=== PATIENT | male | born 1945 | race Caucasian/White ===

== ENCOUNTER 2018-03-23 21:10 | Inpatient (IN) | payer MEDICARE, SELFPAY ==
[2018-03-23 21:11] VITALS: BP 159/92; PULSE 81; RESP 16; TEMP 37.2; O2SAT 96; BMI 36.1
--- NOTE | 2018-03-23 21:53 | CT_ITS ---
STUDY: CT ABDOMEN AND PELVIS WITHOUT CONTRAST REASON FOR EXAM: Male, 72 years old. Abdominal pain RADIATION DOSAGE (If Supplied By Facility): CTDIvol = ( 19.37 ) mGy, DLP = ( 943.85 ) mGycm TECHNIQUE: Transaxial images were obtained from the dome of the diaphragm to the symphysis pubis without oral contrast, and without intravenous contrast. Sagittal and coronal images were reconstructed. Individualized dose optimization techniques were used for this CT. COMPARISON: None. FINDINGS: The visualized lung bases are unremarkable. There are coronary artery calcifications present. There is decreased attenuation of the liver consistent with steatosis. Normal gallbladder and extrahepatic biliary system. Normal spleen. Normal pancreas. Normal bilateral adrenal glands. Normal right kidney. There is a left renal cyst. Normal visualized stomach. There are dilated loops of jejunum and ileum associated with air-fluid levels. An abrupt transition point is not visualized. Normal colon. The appendix is visualized and appears normal. There is diffuse atherosclerotic calcification of the abdominal aorta, without a demonstrated aneurysm. Normal inferior vena cava. Normal retroperitoneum. Normal urinary bladder. Normal abdominal wall. There are diffuse degenerative changes of the visualized lumbar spine. CT/Abdomen/Pelvis without Cont IMPRESSION: Small bowel obstruction. Fatty infiltration of the liver. Atherosclerosis. Degenerative changes. Electronically Signed: Razia Staton MD at 22:53 EDT Tel , Service support ,
--- NOTE | 2018-03-23 21:57 | ED.DCSUM_ITS ---
- ER Visit Summary Date of Service: 03/23/18 Chief Complaint: Abdominal pain History of Present Illness: The patient is a 72 M 3 day history of mid abdominal pain, no radicular symptoms. Nausea vomiting initially. Decreased flatus. Today to loose stools. No recent antibiotics. Sweats yesterday. No fevers. No urinary symptoms. No abdominal surgery history. Pain is 7 out of 10. Denies any groin pain. Remote tobacco. Occasional alcohol history. No other complaints. Physical Examination: General: Alert and oriented ?3, no acute distress HEENT: Normocephalic, atraumatic. Moist mucosa membranes Neck: supple, nontender. Cardiovascular: Regular rate and rhythm, no murmurs Respiratory: Normal breath sounds, symmetric, no distress Abdomen: Soft, tender mid abdomen, no guarding or rebound, negative Faria's or McBurney's tenderness. No ventral hernia palpated. Extremities: Nontender, no edema, pulses intact ?4 Neuro: no focal neurological deficits. Test Results: White count 10.6. Hemoglobin 16.3. Creatinine 1.31. Potassium 3.9. Liver enzymes normal. Lipase 74 CT abdomen pelvis: Normal appendix. Multiple dilated small bowel concerning for bowel obstruction. Emergency Department Course and Treatment: Patient tender mid abdomen, nonsurgical. Workup initiated, abdominal labs normal. CT scan did no concern for small bowel obstruction with air-fluid levels in the jejunum and ileum. Treated Zofran, morphine. IV fluids given. I discussed with on-call surgeon Dr. Juarez he will follow in the hospital. Discussed with hospitalist, Dr. Jj who will evaluate for admission. Treatment Plan: [] Disposition: Admission Impression: 1. Abdominal pain 2. Small bowel obstruction This note was generated with [employer] dictation software. It may contain incorrect words, spelling, and punctuation that were not noted in review of the chart prior to signing ED Disposition - Plan for ED Patient: Disposition: Home or Assisted Living Chief Complaint: Abd Pain Diagnosis: Abdominal pain, Small bowel obstruction Referrals: Hospital,CT [Primary Care Provider] -
[2018-03-23] MEDS: Ondansetron 4 MG/2 ML Vial IV (22:00)
[2018-03-23] MEDS: 0.9% Normal Saline 1,000 ML 150 ML IV (22:01)
[2018-03-23] MEDS: Morphine 4 MG/ML Syringe IV ×2 (22:01→23:48)
[2018-03-23 22:07] LABS: Absolute Lymphocyte Count 1.91 X10^3/ul (0.83-4.51); Absolute Neutrophil Count 7.5 X10^3/uL (2.0-7.7); Basophil# 0.03 X10^3/uL; Basophil% 0.3 % (0-1); Eosinophil# 0.13 X10^3/uL; Eosinophils% 1.2 % (0-5); Hemoglobin 16.3 g/dl (13.0-16.5); Lymphocyte # 1.91 X10^3/ul (4.0); Mean Corp Hgb Conc 34.7 g/gl (32-36); Mean Corpuscular Hgb 30.6 pg (27.0-32.0); Mean Corpuscular Volume 88.3 fL (80-94); Mean Platelet Vol. 9.3 fl (6.2-12.0); Monocyte# 1.01 X10^3/uL; Monocyte% 9.5 % (0-10); Neutrophil # 7.51 X10^3/uL (2.7-7.7); Neutrophil % 70.7 % (47-70); Platelet Count 231 K/mm3 (150-450); RBC Distribution Width CV 13.6 % (11.6-14.6); RBC Distribution Width SD 43.6 fl (35.1-43.9); Red Blood Count 5.32 M/mm3 (4.6-6.2); White Blood Count 10.6 K/mm3 (4.4-11.0)
[2018-03-23 22:41] LABS: POSITIVE COUNT NO; POSITIVE DIFFERENTIAL NO; POSITIVE MORPHOLOGY NO
--- OUTSIDE RECORDS SUMMARY | 2018-03-23 22:49 | XMS RPT_ITS | Clinical Summary ---
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 Tabatha Fabian Atherosclerosis osis of (ICD-10-CM 06/09 06/09 Brandee CHASE of coronary coronary ) artery bypass artery graft(s) bypass without angina graft(s) pectoris without angina pectoris Atheroscler I25.10 Inactive Damaris Hunter Atherosclerotic otic heart (ICD-10-CM 06/09 06/09 SALVATORE [place] heart disease disease of ) [place] coronary artery coronary without angina artery pectoris without angina pectoris BODY MASS Z68.34 Inactive Tabatha Hunter Body mass index INDEX (ICD-10-CM 05/17 05/17 [place], (BMI) 34.0-34.9 ) PA-C 34.0-34.9, ADULT adult LONG-TERM 622630382 Active Tabatha Hunter Long-term drug (CURRENT) (SNOMED 01/25 01/25 [place], therapy USE OF CT) PA-C OTHER MEDICATIONS Body Mass 596259266 Inactive Tabatha Hunter Finding of body Index (SNOMED 12/17 12/17 [place], mass index 35.0-35.9, CT) PA-C adult Body Mass 122041548 Inactive Deming S Finding of body Index (SNOMED 05/17 05/17 MD Emil mass index 36.0-36.9, CT) adult Family 751823933 Active Tabatha Elsa FH: History of (SNOMED 12/17 Donovan, Hypertension Hypertensio CT) PA-C n Body Mass 777459457 Removed Tabatha Hunter Finding of body Index (SNOMED 12/17 12/17 [place], mass index 35.0-35.9, CT) PA-C adult LONG-TERM 546972510 Inactive Sonia Palomo Long-term drug (CURRENT) (SNOMED 01/25 01/25 ANIBAL [place] La [place] therapy USE OF CT) OTHER MEDICATIONS HYPERLIPIDE 26200573 Active Beth Palomo Hyperlipidemia CELSO (SNOMED 06/09 06/09 [facility] CT) RN CAD 61045057 Inactive Beth Palomo Coronary (SNOMED 06/09 06/09 [facility] arteriosclerosi CT) RN s CORONARY 722523248 Active Beth Palomo Coronary artery ARTERY (SNOMED 06/09 06/09 [facility] bypass graft BYPASS CT) RN GRAFT, HX OF HYPERTENSIO 13905393 Active Beth Palomo Hypertensive N (SNOMED 06/09 06/[address]) RN Medications Medication Instructions Start Stop Generic Name NDC Provider Date Date ASPIRIN EC 81 MG One tablet by ASPIRIN [id number] Justin S TBEC mouth daily 06/09 MD Emil METOPROLOL TARTRATE One tablet by METOPROLOL 77645419832 Justin S 50 MG TABS mouth twice 06/09 TARTRATE MD Emil daily ZESTRIL 10 MG TABS One tablet by LISINOPRIL 93946323676 Justin S mouth daily 06/09 MD Emil SIMVASTATIN 40 MG One tablet by SIMVASTATIN 65880297498 Deming S TABS mouth at 06/09 MD Emil bedtime. HYDROCHLOROTHIAZIDE One tablet by HYDROCHLOROTHIAZID 23953781321 Deming S 25 MG TABS mouth daily 06/09 E MD Emil ZESTRIL 5 MG TABS One tablet by LISINOPRIL 19039261464 Tabatha M mouth daily 06/09 KYLEE Donovan GARLIC 400 MG TABS One tablet by GARLIC-CALCIUM 48605905458 Justin S mouth daily 06/20 MD Emil NITROSTAT 0.4 MG 1 tablet NITROGLYCERIN 02459540540 Beth K SUBL under tongue 06/09 Robert every 5 min RN up to 3 X ASPIRIN 325 MG TABS One tablet by ASPIRIN 13995391745 Beth K mouth daily 06/09 Robert CHASE OMEPRAZOLE 10 MG prn OMEPRAZOLE 62557685833 Ujstin S CPDR 06/20 MD Emil OMEPRAZOLE 10 MG prn OMEPRAZOLE 10326840893 Justin S CPDR 06/20 04/14 MD Emil PRILOSEC 20 MG CPDR One tablet by OMEPRAZOLE 61931485052 Beth K mouth daily 06/09 Robert CHASE OMEGA 3 CPDR One tablet by OMEGA-3 FATTY 34471443802 Justin S mouth daily 06/20 ACIDS CPDR MD Emil GARLIC 400 MG TABS One tablet by GARLIC-CALCIUM 44542326862 Tabatha Hunter mouth daily 06/20 KYLEE Donovan NITROGLYCERIN 0.4 MG 1 tablet NITROGLYCERIN 07746322414 Tabatha Fabian SUBL under the 06/09 Brandee RN tongue every 5 minutes times 3 as needed for chest pain. CIRT MEDICATIONS CIRT MEDICATIONS Tabatha Hunter KYLEE Donovan Medications Administered No information available. Allergies, Adverse Reactions, Alerts Allergy Name Reaction Description Start Date Severity Status Provider NKDA Mild Active Justin Stein MD Results Date Name Value Unit Range Flag Description Lab Report: LIPID VLDL 29 mg/dL 5-40 N very low density lipoproteins Office Visit: MMM CHD 10YR RSK N/A General cardiovascular disease 10Y risk [# ] [place] ORALTOBACUSE Never Tobacco smoking status NHIS CARD RSK GRP C cardiac risk group Replaced Document: [facility] ECG Observations EKG INTERP Sinus Bradycardia electrocardiogram -Right bundle branch interpretation block. ABNORMAL EKG T AXIS 57 deg T wave axis, electrocardiogram EKG QRS AXIS 75 deg QRS axis, electrocardiogram EKG PWAVAXIS 40 deg P wave axis, electrocardiogram QRS INTERVAL 142 ms QRS duration, electrocardiogram ZZ-GE-unk 444 ms GE use only - for LinkLogic import when terms are not otherwise specified QT INTERVAL new path ms QT interval, electrocardiogram OR INTERVAL 148 ms OR interval, electrocardiogram EKGHRTRATE 55 BPM heart rate on electrocardiogram Clinical Lists Update: Preload HGBA1C 6.3 % H Hemoglobin A1c/Hemoglobin.total in Blood LDL 86 mg/dL Cholesterol in LDL [Mass/volume] in Serum or Plasma HDL 33 mg/dL L Cholesterol in HDL [Mass/volume] in Serum or Plasma CHOLESTEROL 137 mg/dL Cholesterol [Mass/volume] in Serum or Plasma TRIGLYCRDES 182 mg/dL H Triglyceride [Mass/volume] in Serum or Plasma BILI DIRECT 0.1 mg/dL bilirubin, serum, direct SGOT (AST) 30 U/L aspartate aminotransferase (SGOT), serum SGPT (ALT) 51 U/L H alanine aminotransferase (SGPT), serum ALK PHOS 52 U/L alkaline phosphatase, serum BILI TOTAL 0.7 mg/dL bilirubin, serum, total ALBUMIN 3.8 g/dL albumin, serum PROTEIN, TOT 7.0 g/dL protein, total, serum GLUCOSE SER 126 mg/dL H blood glucose CALCIUM 9.0 mg/dL calcium, serum CREATININE 1.0 mg/dL creatinine, serum BUN 21 mg/dL H urea nitrogen, blood ANION GAP 11 anion gap, serum CO2 29 mmol/L carbon dioxide, venous blood CHLORIDE 105 mmol/L chloride, serum POTASSIUM 4.1 mmol/L potassium, serum SODIUM 141 mmol/L sodium, serum Office Visit SMOK STATUS Former smoker Tobacco use [facility] Office Visit: MMM DIET DISEASE CONTROL INSPECTOR yes Dietary management education, guidance, and counseling (procedure) Office Visit MEDS REVIEW Done Documentation of current medications ( procedure) FALLRSKASSES No Fall risk assessment Plan of Care Type Date Detail Appointment 10:00 AM Tabatha Donovan PA-C, [address], [address], [place], [address], Referral Cardiac Rehab Pending order MMM Pending order Follow Up Appt 6 months Pending order PVC LOADER Pending order Follow Up Appt 6 months Pending order MMM Pending order Follow Up Appt 6 months Pending order Follow Up Appt Other Pending order PVC LOADER Pending order Follow Up Appt 6 months Pending order MMM Pending order Follow Up Appt 6 months Pending order PVC LOADER Pending order Follow Up Appt 6 months Pending order *Hepatic Function Panel Pending order *Lipid Profile CC PCP Pending order X-Ray, Chest, PA & Lateral Pending order MMM Pending order Follow Up Appt 6 months Pending order *Lipid Profile CC PCP Pending order *Hepatic Function Panel Pending order PVC LOADER Pending order Follow Up Appt 6 months Pending order Follow Up Appt Other Pending order EKG (In office) Pending order MMM Pending order Follow Up Appt 3 months Pending order Treadmill stress test (no imaging) Pending order *Hepatic Function Panel Pending order *Lipid Profile CC PCP Procedures Code Procedure Name Date Entry Date F/U PVC LOADER PVC LOADER FUA 6 months Follow Up Appt 6 months F/U MMM MMM FUA 6 months Follow Up Appt 6 months F/U Appt Follow Up Appt Other F/U PVC LOADER PVC LOADER FUA 6 months Follow Up Appt 6 months F/U MMM MMM FUA 6 months Follow Up Appt 6 months [id number] SNOMED-CT: 787370650371359 Current Medications Documented F/U PVC LOADER PVC LOADER FUA 6 months Follow Up Appt 6 months 0788-1 *Hepatic Function Panel 17414-5 *Lipid Profile CC PCP CPT-89169 X-Ray, Chest, PA & Lateral F/U MMM MMM FUA 6 months Follow Up Appt 6 months 10455-6 *Lipid Profile CC PCP 0788-1 *Hepatic Function Panel CPT-G8553 eRx Transmitted during this visit (Medicare only) FUA 6 months Follow Up Appt 6 months F/U Appt Follow Up Appt Other F/U PVC LOADER PVC LOADER F/U MMM MMM FUA 3 months Follow Up Appt 3 months TST Treadmill stress test (no imaging) 0788-1 *Hepatic Function Panel 69426-0 *Lipid Profile CC PCP CPT-20535 EKG (In office) [facility] Vital Signs Date Name Value Unit Description BMI (Body Mass Index) 35.59 kg/m2 Body Mass Index [Ratio] BP Diastolic 70 mm[Hg] blood pressure, diastolic - 8462-4 BP Systolic 120 mm[Hg] blood pressure, systolic - 8480-6 Heart Rate 60 /min pulse rate E&M - 8867-4 Height 67 [in_us] height E&M - 8302-2 Respiratory Rate 18 /min respiratory rate E&M - 9279-1 Weight Measured 227.25 [lb_av] weight E&M - 3141-9 BSA (Body Surface Area) 2.13 body surface area
--- OUTSIDE RECORDS SUMMARY | 2018-03-23 22:49 | XMS RPT_ITS | Clinical Summary ---
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 without angina pectoris BODY MASS Z68.34 Inactive Tabatha Hunter Body mass index INDEX (ICD-10-CM 05/17 05/17 [place], (BMI) 34.0-34.9 ) PA-C 34.0-34.9, ADULT adult LONG-TERM 534001840 Active Tabatha Hunter Long-term drug (CURRENT) (SNOMED 01/25 01/25 Zion, therapy USE OF CT) PA-C OTHER MEDICATIONS Body Mass 724419620 Inactive Tabatha Hunter Finding of body Index (SNOMED 12/17 12/17 [place], mass index 35.0-35.9, CT) PA-C adult Body Mass 508889781 Inactive [place] S Finding of body Index (SNOMED 05/17 05/17 MD Emil mass index 36.0-36.9, CT) adult Family 370356120 Active Tabatha Elsa FH: History of (SNOMED 12/17 Donovan, Hypertension Hypertensio CT) PA-C n Body Mass 658934917 Removed Tabatha Hunter Finding of body Index (SNOMED 12/17 12/17 [place], mass index 35.0-35.9, CT) PA-C adult LONG-TERM 168022822 Inactive Sonia Palomo Long-term drug (CURRENT) (SNOMED 01/25 01/25 ANIBAL De La Rosa therapy USE OF CT) OTHER MEDICATIONS HYPERLIPIDE 12011554 Active Beth Palomo Hyperlipidemia CELSO (SNOMED 06/09 06/09 [facility] CT) RN CAD 42043059 Inactive Beth Palomo Coronary (SNOMED 06/09 06/09 [facility] arteriosclerosi CT) RN s CORONARY 705021844 Active Beth Palomo Coronary artery ARTERY (SNOMED 06/09 06/09 [facility] bypass graft BYPASS CT) RN GRAFT, HX OF HYPERTENSIO 81030965 Active Beth Palomo Hypertensive N (SNOMED 06/09 06/[address]) RN Medications Medication Instructions Start Stop Generic Name NDC Provider Date Date ASPIRIN EC 81 MG One tablet by ASPIRIN 02015228148 Justin S TBEC mouth daily 06/09 MD Emil METOPROLOL TARTRATE One tablet by METOPROLOL 94217853470 Justin S 50 MG TABS mouth twice 06/09 TARTRATE MD Emil daily ZESTRIL 10 MG TABS One tablet by LISINOPRIL 53662447686 Justin S mouth daily 06/09 MD Emil SIMVASTATIN 40 MG One tablet by SIMVASTATIN 88642073946 [place] [facility] TABS mouth at 06/09 MD Emil bedtime. HYDROCHLOROTHIAZIDE One tablet by HYDROCHLOROTHIAZID 96795707190 [place] 25 MG TABS mouth daily 06/09 E MD Emil ZESTRIL 5 MG TABS One tablet by LISINOPRIL 99768740438 Tabatha M mouth daily 06/09 KYLEE Donovan GARLIC 400 MG TABS One tablet by GARLIC-CALCIUM 16581291468 Justin S mouth daily 06/20 MD Emil NITROSTAT 0.4 MG 1 tablet NITROGLYCERIN 83519787364 Beth K SUBL under tongue 06/09 Robert every 5 min RN up to 3 X ASPIRIN 325 MG TABS One tablet by ASPIRIN 75739255142 Beth K mouth daily 06/09 Robert CHAES OMEPRAZOLE 10 MG prn OMEPRAZOLE 66327773922 Justin S CPDR 06/20 MD Emil OMEPRAZOLE 10 MG prn OMEPRAZOLE 88749884516 Justin S CPDR 06/20 04/14 MD Emil PRILOSEC 20 MG CPDR One tablet by OMEPRAZOLE 05361028107 Beth K mouth daily 06/09 Robert CHASE OMEGA 3 CPDR One tablet by OMEGA-3 FATTY 99169765195 Justin S mouth daily 06/20 ACIDS CPDR MD Emil GARLIC 400 MG TABS One tablet by GARLIC-CALCIUM 42247829657 Tabatha Hunter mouth daily 06/20 KYLEE Donovan NITROGLYCERIN 0.4 MG 1 tablet NITROGLYCERIN 96823153639 Tabatha Fabian SUBL under the 06/09 Brandee [...] General cardiovascular disease 10Y risk [# ] [place]D'Agostino ORALTOBACUSE Never Tobacco smoking status NHIS CARD [...] INTERVAL new path ms QT interval, electrocardiogram [place] INTERVAL 148 ms [place] interval, electrocardiogram EKGHRTRATE 55 BPM heart rate [...] Visit SMOK STATUS Former smoker Tobacco use [facility] Office Visit: MMM DIET TRANSITION OF CARE SPECIALIST yes Dietary management education, guidance, and counseling (procedure) Office Visit MEDS REVIEW Done Documentation of current medications ( procedure) FALLRSKASSES No Fall risk assessment Plan of Care Type Date Detail Appointment 10:00 AM Tabatha Donovan PA-C, [address], [address], [place], [address], Referral Cardiac Rehab Pending order MMM Pending order Follow Up Appt 6 months Pending order SCIENTIFIC SYSTEMS ANALYST Pending order Follow Up Appt 6 months Pending order MMM Pending order Follow Up Appt 6 months Pending order Follow Up Appt Other Pending order SCIENTIFIC SYSTEMS ANALYST Pending order Follow Up Appt 6 months Pending order MMM Pending order Follow Up Appt 6 months Pending order SCIENTIFIC SYSTEMS ANALYST Pending order Follow Up Appt 6 months Pending order *Hepatic Function Panel Pending order *Lipid Profile CC PCP Pending order X-Ray, Chest, PA & Lateral Pending order MMM Pending order Follow Up Appt 6 months Pending order *Lipid Profile CC PCP Pending order *Hepatic Function Panel Pending order SCIENTIFIC SYSTEMS ANALYST Pending order Follow Up Appt 6 months Pending order Follow Up Appt Other Pending order EKG (In office) Pending order MMM Pending order Follow Up Appt 3 months Pending order Treadmill stress test (no imaging) Pending order *Hepatic Function Panel Pending order *Lipid Profile CC PCP Procedures Code Procedure Name Date Entry Date F/U SCIENTIFIC SYSTEMS ANALYST SCIENTIFIC SYSTEMS ANALYST FUA 6 months Follow Up Appt 6 months F/U MMM MMM FUA 6 months Follow Up Appt 6 months F/U Appt Follow Up Appt Other F/U SCIENTIFIC SYSTEMS ANALYST SCIENTIFIC SYSTEMS ANALYST FUA 6 months Follow Up Appt 6 months F/U MMM MMM FUA 6 months Follow Up Appt 6 months [id number]-[id number] SNOMED-CT: 639383626992833 Current Medications Documented F/U SCIENTIFIC SYSTEMS ANALYST SCIENTIFIC SYSTEMS ANALYST FUA 6 months Follow Up Appt 6 months 0788-1 *Hepatic Function Panel 56062-3 *Lipid Profile CC PCP CPT-14830 X-Ray, Chest, PA & Lateral F/U MMM MMM FUA 6 months Follow Up Appt 6 months 68024-7 *Lipid Profile CC PCP 0788-1 *Hepatic Function Panel CPT-G8553 eRx Transmitted during this visit (Medicare only) FUA 6 months Follow Up Appt 6 months F/U Appt Follow Up Appt Other F/U SCIENTIFIC SYSTEMS ANALYST SCIENTIFIC SYSTEMS ANALYST F/U MMM MMM FUA 3 months Follow Up Appt 3 months TST Treadmill stress test (no imaging) 0788-1 *Hepatic Function Panel 50142-8 *Lipid Profile CC PCP CPT-98556 EKG (In office) [facility] Vital [...]
[2018-03-23 22:51] LABS: ALB/GLOB Ratio 1.2 RATIO (0.9-2.4); AST(SGOT) 21 U/L (15-37); Alanine Aminotransfer ALT/SGPT 41 U/L (16-61); Albumin, Serum 3.6 g/dL (3.2-5.0); Alkaline Phosphatase 50 U/L (45-117); Anion Gap 9 (5-15); BUN 26 mg/dL (7-18); BUN/Creat Ratio 19.8 RATIO (10-20); Bilirubin, Direct 0.18 mg/dL (0.00-0.30); Calcium,Total 8.9 mg/dL (8.5-10.1); Chloride 103 mmol/L (98-107); Creatinine, Serum 1.31 mg/dL (0.70-1.30); EST Glomerular Filtration Rate 57 mL/min (>60); Est Glom Filt Rate - Afr Amer 69 mL/min (>60); Estimated Creatinine Clearance 49.06 ml/min; Globulin 3.1 g/dL (2.2-4.2); Glucose 115 mg/dL (74-106); Potassium 3.9 mmol/L (3.5-5.1); Protein, Total 6.7 g/dL (6.4-8.2); Sodium Level 136 mmol/L (136-145)
[2018-03-23 23:31] LABS: Lipase 74 U/L (73-393)
[2018-03-23 23:33] VITALS: BP 139/75; PULSE 76; RESP 16; O2SAT 95
[2018-03-23 23:50] VITALS: BP 139/75; PULSE 76; RESP 16; O2SAT 95
[2018-03-24] VITALS (11 sets, daily range): BP systolic 146–178; BP diastolic 78–96; PULSE 75–99; RESP 16–18; TEMP 36.6–37.1; O2SAT 93–99; BMI 35.5; BMI 35.6
--- NOTE | 2018-03-24 00:17 | PCM.HP.STD ---
Problem List (1) Status post coronary artery bypass graft Status: Chronic (2) Coronary artery disease Status: Chronic (3) Hyperlipidemia Status: Chronic (4) Hypertension Status: Chronic (5) Small bowel obstruction Status: Acute History of Present Illness Date of Admission: 03/24/18 Chief Complaint: Abdominal pain. The patient is a 72 year old M with past medical history as mentioned above presented to the emergency room because of abdominal pain. His illness started 2 days ago with mid abdominal pain, just above the umbilicus, diffuse, sharp pain, 8 out of 10 in severity, not radiating, associated with nausea and vomiting on the first day and since then, has no more nausea vomiting. He has been having alternating constipation and diarrhea, last bowel movement was today and he has been not passing any flatus. He denied chest pain or shortness of breath. Denied fever chills. In the emergency room, his vital signs are stable. His routine blood work was remarkable for creatinine of 1.31, otherwise normal. LFT and lipase were normal. CT scan abdomen and pelvis without contrast revealed findings consistent with small bowel obstruction. He is being admitted for small bowel obstruction. Past Medical History Past Medical History (Chronic Problems): Chronic Problems Status post coronary artery bypass graft (Chronic) Coronary artery disease (Chronic) Hyperlipidemia (Chronic) Hypertension (Chronic) Allergies No Known Allergies Allergy (Verified 03/23/18 21:10) Home Medications: Ambulatory Orders Medication Instructions Recorded Hydrochlorothiazide [Hctz] 25 mg PO DAILY 10/14/17 Lisinopril [Zestril] 10 mg PO DAILY 10/14/17 Metoprolol Tartrate [Lopressor 50 mg PO BID 10/14/17 (beta sadaf)] simvastatin 40 mg tablet 40 mg PO QHS #90 tab 11/26/17 Surgical History: coronary bypass surgery Psychiatric History: No pertinent psych hx Lives: Spouse/ Significant Other Smoking Status: Former smoker Alcohol: None Drugs: None - *Family History Maternal History Items: No pertinent history Paternal History Items: No pertinent history Review of Systems Constitutional: Denies: Anorexia, Chills, Fever, Weakness Eyes: Denies: Blurred vision, Double vision, Drainage, Redness HEENT: Denies: Difficulty Hearing, Ear Pain, Eye Pain, Nasal Congestion, Sore Throat Cardiovascular: Denies: Chest Pain, Chest Pressure, Chest Tightness, Edema, Heaviness, Palpitations, Syncope Respiratory: Denies: Cough, Pleuritic Pain, Shortness of Breath, Sputum production, Wheezing Gastrointestinal: Reports: Abdominal Pain, Constipation, Diarrhea, Nausea, Vomiting Genitourinary: Denies: Dysuria, Frequency, Hematuria Musculoskeletal: Denies: Arm Pain, Back Pain, Foot Pain Skin: Denies: Dryness, Rash Neurological: Denies: Balance problems, Double vision, Change in Speech, Slurred speech, Confusion, Focal weakness, Headaches, Incoordination Psychiatric: Denies: Anxiety, Depression Endocrine: Denies: Change in Body Habitus, Polydipsia VTE Information - Inpt Only VTE Present on Admission: No VTE Mechan Device Prophylaxis: None VTE Pharm Prophylaxis ordered?: Yes Patient Problems: Active and Suspected Problems Small bowel obstruction (Acute) - Physical Exam General: Alert, Oriented x3, Cooperative, No apparent distress HEENT: Atraumatic, PERRLA, EOMI Oral: Moist Mucosa, No Gingival or Mucosal Lesions/ Ulcerations Neck: Supple, No JVD, Negative Carotid Bruits, Trachea Midline, Thyroid Normal Size and Texture Lungs: Clear to auscultation, No rhonchi, No wheeze, No rales, Diminished Cardiovascular: Regular rate, Regular Rhythm, Normal S1, Normal S2, No murmurs Abdomen: Bowel Sounds Present, Soft, Non-Distended, No Hepato-splenomegaly, Tender - Minimal epigastric tenderness, no guarding or rigidity. Extremities: No clubbing, No cyanosis, No edema Skin: No rashes, No breakdown Lymphatic: No Cervical, Supraclavicular, or Inguinal Adenopathy Neurological: Cranial nerves II-XII grossly intact, Motor Exam 5/5 strength throughout Psych/Mental Status: Normal Affect, Appropriate, Alert and oriented to time, place, person, mood and affect Vital Signs Temp Pulse Resp BP Pulse Ox 99.0 F 76 16 139/75 H 95 03/23/18 21:11 03/23/18 23:50 03/23/18 23:50 03/23/18 23:50 03/23/18 23:50 Laboratory Tests 03/23/18 03/23/18 03/23/18 Range/Units 22:15 22:15 21:45 WBC (4.4-11.0) K/mm3 RBC (4.6-6.2) M/mm3 Hgb (13.0-16.5) g/dl Hct (40-54) % MCV (80-94) fL MCH (27.0-32.0) pg MCHC (32-36) g/gl RDW (11.6-14.6) % RDW Differential (35.1-43.9) fl Plt Count (150-450) K/mm3 MPV (6.2-12.0) fl Immature Gran % (Auto) (0.0-0.9) % Neut % (Auto) (47-70) % Lymph % (Auto) (19-41) % [place] % (Auto) (0-10) % Eos % (Auto) (0-5) % Baso % (Auto) (0-1) % Absolute Neuts (auto) (2.0-7.7) X10^3/uL Absolute Lymphs (auto) (0.83-4.51) X10^3/ul Total Counted Sodium 136 Cancelled Potassium 3.9 Cancelled Chloride 103 Cancelled Carbon Dioxide 24.0 Cancelled Anion Gap 9 Cancelled BUN 26 H Cancelled Creatinine 1.31 H Cancelled Estim Creat Clear Calc 49.06 Cancelled Est GFR (MDRD) Af Amer 69 Cancelled Est GFR (MDRD) Non-Af 57 L Cancelled BUN/Creatinine Ratio 19.8 Cancelled Glucose 115 H Cancelled Calcium 8.9 Cancelled Total Bilirubin 0.70 Cancelled Direct Bilirubin 0.18 Cancelled AST 21 Cancelled ALT 41 Cancelled Alkaline Phosphatase 50 Cancelled Total Protein 6.7 Cancelled Albumin 3.6 Cancelled Globulin 3.1 Cancelled Albumin/Globulin Ratio 1.2 Cancelled Lipase 74 (73-393) U/L 03/23/18 Range/Units 21:45 WBC 10.6 (4.4-11.0) K/mm3 RBC 5.32 (4.6-6.2) M/mm3 Hgb 16.3 (13.0-16.5) g/dl Hct 47.0 (40-54) % MCV 88.3 (80-94) fL MCH 30.6 (27.0-32.0) pg MCHC 34.7 (32-36) g/gl RDW 13.6 (11.6-14.6) % RDW Differential 43.6 (35.1-43.9) fl Plt Count 231 (150-450) K/mm3 MPV 9.3 (6.2-12.0) fl Immature Gran % (Auto) 0.300 (0.0-0.9) % Neut % (Auto) 70.7 H (47-70) % Lymph % (Auto) 18.0 L (19-41) % [place] % (Auto) 9.5 (0-10) % Eos % (Auto) 1.2 (0-5) % Baso % (Auto) 0.3 (0-1) % Absolute Neuts (auto) 7.5 (2.0-7.7) X10^3/uL Absolute Lymphs (auto) 1.91 (0.83-4.51) X10^3/ul Total Counted Not Reportable Sodium Potassium Chloride Carbon Dioxide Anion Gap BUN Creatinine Estim Creat Clear Calc Est GFR (MDRD) Af Amer Est GFR (MDRD) Non-Af BUN/Creatinine Ratio Glucose Calcium Total Bilirubin Direct Bilirubin AST ALT Alkaline Phosphatase Total Protein Albumin Globulin Albumin/Globulin Ratio Lipase (73-393) U/L Clinical Impression(s) from Imaging Studies Abdomen/Pelvis CT 03/23/18 21:53 IMPRESSION: Small bowel obstruction. Fatty infiltration of the liver. Atherosclerosis. Degenerative changes. Electronically Signed: Razia Staton MD at 22:53 EDT Tel , Service support , Assessment/Plan Active and Suspected Problems Small bowel obstruction (Acute) This is a 72 years old male patient presented to the emergency room because of abdominal pain with nausea and vomiting and he was found to have small bowel obstruction. #1 small bowel obstruction: Unclear etiology, without history of prior abdominal surgeries. CT scan abdomen and pelvis reviewed. Routine blood work was remarkable for BUN of 26 and creatinine 1.31. LFT and lipase were normal. Plan: Admit to MedSurg floor, on n.p.o., IV fluids, IV morphine as needed for pain, IV antiemetics, replace electrolytes as appropriate, repeat KUB tomorrow morning, general surgery consult. #2 dehydration: Secondary to above. Unknown baseline kidney function. BUN and creatinine are slightly elevated. Plan for IV fluids, input output chart, repeat BMP tomorrow morning. #3 CAD status post CABG: Patient denies any chest pain or shortness of breath. Plan for routine EKG, start IV metoprolol, hold lisinopril and statins. #4 hypertension: Blood pressure stable, hold oral medications, start IV morphine every 6 hours, IV hydralazine as needed. #5 hyperlipidemia: Hold statins. #6 DVT prophylaxis: Subcu Lovenox. This note was generated with [employer] dictation software. It may contain incorrect words, spelling, and punctuation that were not noted in checking the note before signing. Code Visit Inpatient E&M: 40095 Init Hosp L3
--- NOTE | 2018-03-24 00:22 | HP.PCM_ITS ---
Problem List (1) Status post coronary artery bypass graft Status: Chronic (2) Coronary artery disease Status: Chronic (3) Hyperlipidemia Status: Chronic (4) Hypertension Status: Chronic (5) Small bowel obstruction Status: Acute History of Present Illness Date of Admission: 03/24/18 Chief Complaint: Abdominal pain. The patient is a 72 year old M with past medical history as mentioned above presented to the emergency room because of abdominal pain. His illness started 2 days ago with mid abdominal pain, just above the umbilicus, diffuse, sharp pain, 8 out of 10 in severity, not radiating, associated with nausea and vomiting on the first day and since then, has no more nausea vomiting. He has been having alternating constipation and diarrhea, last bowel movement was today and he has been not passing any flatus. He denied chest pain or shortness of breath. Denied fever chills. In the emergency room, his vital signs are stable. His routine blood work was remarkable for creatinine of 1.31 , otherwise normal. LFT and lipase were normal. CT scan abdomen and pelvis without contrast revealed findings consistent with small bowel obstruction. He is being admitted for small bowel obstruction. Past Medical History Past Medical History (Chronic Problems): Chronic Problems Status post coronary artery bypass graft (Chronic) Coronary artery disease (Chronic) Hyperlipidemia (Chronic) Hypertension (Chronic) Allergies No Known Allergies Allergy (Verified 03/23/18 21:10) Home Medications: Ambulatory Orders Medication Instructions Recorded Hydrochlorothiazide [Hctz] 25 mg PO DAILY 10/14/17 Lisinopril [Zestril] 10 mg PO DAILY 10/14/17 Metoprolol Tartrate [Lopressor 50 mg PO BID 10/14/17 (beta asdaf)] simvastatin 40 mg tablet 40 mg PO QHS #90 tab 11/26/17 Surgical History: coronary bypass surgery Psychiatric History: No pertinent psych hx Lives: Spouse/ Significant Other Smoking Status: Former smoker Alcohol: None Drugs: None - *Family History Maternal History Items: No pertinent history Paternal History Items: No pertinent history Review of Systems Constitutional: Denies: Anorexia, Chills, Fever, Weakness Eyes: Denies: Blurred vision, Double vision, Drainage, Redness HEENT: Denies: Difficulty Hearing, Ear Pain, Eye Pain, Nasal Congestion, Sore Throat Cardiovascular: Denies: Chest Pain, Chest Pressure, Chest Tightness, Edema, Heaviness, Palpitations, Syncope Respiratory: Denies: Cough, Pleuritic Pain, Shortness of Breath, Sputum production, Wheezing Gastrointestinal: Reports: Abdominal Pain, Constipation, Diarrhea, Nausea, Vomiting Genitourinary: Denies: Dysuria, Frequency, Hematuria Musculoskeletal: Denies: Arm Pain, Back Pain, Foot Pain Skin: Denies: Dryness, Rash Neurological: Denies: Balance problems, Double vision, Change in Speech, Slurred speech, Confusion, Focal weakness, Headaches, Incoordination Psychiatric: Denies: Anxiety, Depression Endocrine: Denies: Change in Body Habitus, Polydipsia VTE Information - Inpt Only VTE Present on Admission: No VTE Mechan Device Prophylaxis: None VTE Pharm Prophylaxis ordered?: Yes Patient Problems: Active and Suspected Problems Small bowel obstruction (Acute) - Physical Exam General: Alert, Oriented x3, Cooperative, No apparent distress HEENT: Atraumatic, PERRLA, EOMI Oral: Moist Mucosa, No Gingival or Mucosal Lesions/ Ulcerations Neck: Supple, No JVD, Negative Carotid Bruits, Trachea Midline, Thyroid Normal Size and Texture Lungs: Clear to auscultation, No rhonchi, No wheeze, No rales, Diminished Cardiovascular: Regular rate, Regular Rhythm, Normal S1, Normal S2, No murmurs Abdomen: Bowel Sounds Present, Soft, Non-Distended, No Hepato-splenomegaly, Tender - Minimal epigastric tenderness, no guarding or rigidity. Extremities: No clubbing, No cyanosis, No edema Skin: No rashes, No breakdown Lymphatic: No Cervical, Supraclavicular, or Inguinal Adenopathy Neurological: Cranial nerves II-XII grossly intact, Motor Exam 5/5 strength throughout Psych/Mental Status: Normal Affect, Appropriate, Alert and oriented to time, place, person, mood and affect Vital Signs Temp Pulse Resp BP Pulse Ox 99.0 F 76 16 139/75 H 95 03/23/18 21:11 03/23/18 23:50 03/23/18 23:50 03/23/18 23:50 03/23/18 23:50 Laboratory Tests 3 03/23/18 03/23/18 03/23/18 Range/Units 22:15 22:15 21:45 WBC (4.4-11.0) K/mm3 RBC (4.6-6.2) M/mm3 Hgb (13.0-16.5) g/dl Hct (40-54) % MCV (80-94) fL MCH (27.0-32.0) pg MCHC (32-36) g/gl RDW (11.6-14.6) % RDW Differential (35.1-43.9) fl Plt Count (150-450) K/mm3 MPV (6.2-12.0) fl Immature Gran % (Auto) (0.0-0.9) % Neut % (Auto) (47-70) % Lymph % (Auto) (19-41) % [place] % (Auto) (0-10) % Eos % (Auto) (0-5) % Baso % (Auto) (0-1) % Absolute Neuts (auto) (2.0-7.7) X10^3/uL Absolute Lymphs (auto) (0.83-4.51) X10^3/ul Total Counted Sodium 136 Cancelled Potassium 3.9 Cancelled Chloride 103 Cancelled Carbon Dioxide 24.0 Cancelled Anion Gap 9 Cancelled BUN 26 H Cancelled Creatinine 1.31 H Cancelled Estim Creat Clear Calc 49.06 Cancelled Est GFR (MDRD) Af Amer 69 Cancelled Est GFR (MDRD) Non-Af 57 L Cancelled BUN/Creatinine Ratio 19.8 Cancelled Glucose 115 H Cancelled Calcium 8.9 Cancelled Total Bilirubin 0.70 Cancelled Direct Bilirubin 0.18 Cancelled AST 21 Cancelled ALT 41 Cancelled Alkaline Phosphatase 50 Cancelled Total Protein 6.7 Cancelled Albumin 3.6 Cancelled Globulin 3.1 Cancelled Albumin/Globulin Ratio 1.2 Cancelled Lipase 74 (73-393) U/L 3 03/23/18 Range/Units 21:45 WBC 10.6 (4.4-11.0) K/mm3 RBC 5.32 (4.6-6.2) M/mm3 Hgb 16.3 (13.0-16.5) g/dl Hct 47.0 (40-54) % MCV 88.3 (80-94) fL MCH 30.6 (27.0-32.0) pg MCHC 34.7 (32-36) g/gl RDW 13.6 (11.6-14.6) % RDW Differential 43.6 (35.1-43.9) fl Plt Count 231 (150-450) K/mm3 MPV 9.3 (6.2-12.0) fl Immature Gran % (Auto) 0.300 (0.0-0.9) % Neut % (Auto) 70.7 H (47-70) % Lymph % (Auto) 18.0 L (19-41) % [place] % (Auto) 9.5 (0-10) % Eos % (Auto) 1.2 (0-5) % Baso % (Auto) 0.3 (0-1) % Absolute Neuts (auto) 7.5 (2.0-7.7) X10^3/uL Absolute Lymphs (auto) 1.91 (0.83-4.51) X10^3/ul Total Counted Not Reportable Sodium Potassium Chloride Carbon Dioxide Anion Gap BUN Creatinine Estim Creat Clear Calc Est GFR (MDRD) Af Amer Est GFR (MDRD) Non-Af BUN/Creatinine Ratio Glucose Calcium Total Bilirubin Direct Bilirubin AST ALT Alkaline Phosphatase Total Protein Albumin Globulin Albumin/Globulin Ratio Lipase (73-393) U/L Clinical Impression(s) from Imaging Studies Abdomen/Pelvis CT 03/23/18 21:53 IMPRESSION: Small bowel obstruction. Fatty infiltration of the liver. Atherosclerosis. Degenerative changes. Electronically Signed: Razia Staton MD at 22:53 EDT Tel , Service support , Assessment/Plan Active and Suspected Problems Small bowel obstruction (Acute) This is a 72 years old male patient presented to the emergency room because of abdominal pain with nausea and vomiting and he was found to have small bowel obstruction. #1 small bowel obstruction: Unclear etiology, without history of prior abdominal surgeries. CT scan abdomen and pelvis reviewed. Routine blood work was remarkable for BUN of 26 and creatinine 1.31. LFT and lipase were normal. Plan: Admit to MedSurg floor, on n.p.o., IV fluids, IV morphine as needed for pain, IV antiemetics, replace electrolytes as appropriate, repeat KUB tomorrow morning, general surgery consult. #2 dehydration: Secondary to above. Unknown baseline kidney function. BUN and creatinine are slightly elevated. Plan for IV fluids, input output chart, repeat BMP tomorrow morning. #3 CAD status post CABG: Patient denies any chest pain or shortness of breath. Plan for routine EKG, start IV metoprolol, hold lisinopril and statins. #4 hypertension: Blood pressure stable, hold oral medications, start IV morphine every 6 hours, IV hydralazine as needed. #5 hyperlipidemia: Hold statins. #6 DVT prophylaxis: Subcu Lovenox. This note was generated with [employer] dictation software. It may contain incorrect words, spelling, and punctuation that were not noted in checking the note before signing. Code Visit Inpatient E&M: 10588 Init Hosp L3
--- NOTE | 2018-03-24 00:39 | EKG12_ITS ---
Test Reason : AM Blood Pressure : / mmHG Vent. Rate : 088 BPM Atrial Rate : 088 BPM P-R Int : 152 ms QRS Dur : 148 ms QT Int : 406 ms P-R-T Axes : 048 093 054 degrees QTc Int : 491 ms Normal sinus rhythm Right bundle branch block Abnormal ECG No previous ECGs available Confirmed by JOEL DUNN, BEN ([id number]), editor book CEDRIC GREGORIO ([id number] on 04/02/2018 2:26:02 PM Referred By: NARENDRA Confirmed By:BEN MALDONADO MD
[2018-03-24] MEDS: 0.9% Normal Saline 1,000 ML 100 ML IV ×3 (00:59→18:49)
[2018-03-24] MEDS: Morphine 4 MG/ML Syringe 2 MG IV ×6 (01:11→22:02)
[2018-03-24] MEDS: proMETHazine 25 MG/ML Syringe 6.25 MG IV ×2 (01:11→08:50)
[2018-03-24] MEDS: Metoprolol Tartrate 5 MG/5 ML Vial IV ×3 (05:01→18:32)
--- NOTE | 2018-03-24 05:55 | RAD_ITS ---
STUDY: X-RAY - ABDOMEN/PELVIS REASON FOR EXAM: Male, 72 years old. SMALL BOWEL OBSTRUCTION TECHNIQUE: Two AP supine views of the abdomen and pelvis. COMPARISON: None. FINDINGS: Normal visualized lung bases. There is a mild gaseous distention of the small bowel in the upper abdomen is improved since the previous study suggesting resolving bowel obstruction. There is no demonstrated free abdominal air. The visualized liver, spleen and kidneys are grossly normal in size and morphology. Normal soft tissue structures. There are diffuse degenerative changes of the visualized lumbar spine. RAD/Abdomen Single View (Portable) IMPRESSION: Resolving small bowel obstruction. Electronically Signed: Gail Gonzalez MD at 8:52 EDT Tel , Service support ,
[2018-03-24 06:16] LABS: Anion Gap 8 (5-15); BUN 26 mg/dL (7-18); BUN/Creat Ratio 23.4 RATIO (10-20); Calcium,Total 8.3 mg/dL (8.5-10.1); Chloride 105 mmol/L (98-107); Creatinine, Serum 1.11 mg/dL (0.70-1.30); EST Glomerular Filtration Rate 70 mL/min (>60); Est Glom Filt Rate - Afr Amer 84 mL/min (>60); Glucose 150 mg/dL (74-106); Sodium Level 138 mmol/L (136-145)
--- NOTE | 2018-03-24 07:43 | PCM.CONS.GEN ---
Problem List (1) Small bowel obstruction Status: Acute Reason for Consult Date of Consultation: 03/24/18 Reason for Consultation: Abdominal pain. Nausea. Small bowel obstruction. History of Present Illness: The patient is a 72 year old M who presents with abdominal pain and nausea x 2. Patient notes he was at [place] this weekend. He noted his symptoms started on Thursday. He woke up Thursday morning with abdominal pain, nausea, vomiting episode x 1. Patient noted he came home on Thursday. He has a liquidy, dark black bowel movement on Thursday. His symptoms continued and he presented to the ED last night. He denies vomiting, nausea. He continues to note abdominal discomfort. His last solid bowel movement was Thursday morning. He denies previous episodes of small bowel obstruction. He denies previous abdominal surgeries. He denies previous concerns with constipation or diarrhea. He denies melena, bright red blood per rectum. He is not passing flatus. He has not had bowel movement since admission. Patient noted he was scheduled for a colonoscopy mid March at [facility]. Patient denies shortness of breath, chest pain. Patient notes history of CABG x [address] 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 Patient denies past history of myocardial infraction, stroke, blood clots. Patient is maintained on a daily 81 mg aspirin. Patient is a previous smoker, however quit in 2011 following his CABG. He consumes 2 glasses of wine per night x 5 years. Prior to the CABG he was consuming much more alcohol. He denies illicit drug use. Past Medical History Past Medical History (Chronic Problems): Chronic Problems Status post coronary artery bypass graft (Chronic) Coronary artery disease (Chronic) Hyperlipidemia (Chronic) Hypertension (Chronic) Allergies No Known Allergies Allergy (Verified 03/23/18 21:10) Home Medications: Ambulatory Orders Medication Instructions Recorded Hydrochlorothiazide [Hctz] 25 mg PO DAILY 10/14/17 Lisinopril [Zestril] 10 mg PO DAILY 10/14/17 Metoprolol Tartrate [Lopressor 50 mg PO BID 10/14/17 (beta sadaf)] simvastatin 40 mg tablet 40 mg PO QHS #90 tab 11/26/17 Surgical History: coronary bypass surgery Psychiatric History: No pertinent psych hx Lives: Spouse/ Significant Other Smoking Status: Former smoker Alcohol: None Drugs: None - *Family History Maternal History Items: No pertinent history Paternal History Items: No pertinent history Review of Systems Constitutional: Denies: Chills, Fever, Weight Change HEENT: Denies: Head Aches, Sinus Congestion, Sinus Drainage Cardiovascular: Denies: Chest Pain, Palpitations Respiratory: Denies: Cough, Shortness of breath at rest, Sputum production Gastrointestinal: Reports: Abdominal Pain, Constipation, Nausea, Melena. Denies: Hematochezia, Vomiting Genitourinary: Denies: Dysuria Musculoskeletal: Denies: Joint Pain, Joint Tenderness Skin: Denies: Rash, Wounds Neurological: Denies: Numbness, Tingling, Focal weakness Psychiatric: Denies: Anxiety, Depression, Homicidal Ideations, Suicidal Ideations Hematologic/ Lymphatic: Denies: Easy Bruising, Easy Bleeding, Hx of blood clot, Hx of blood transfusion Patient Problems: Active and Suspected Problems Small bowel obstruction (Acute) - Physical Exam General: Alert, Oriented x3, Cooperative HEENT: Atraumatic, PERRLA, EOMI, Normocephalic Neck: Supple, No JVD, Negative Carotid Bruits Lungs: Clear to auscultation, Normal air movement Cardiovascular: Regular rate, No murmurs Abdomen: Hypoactive Bowel Sounds, Distended, Tender - epigastric/midabdomen Extremities: No edema, Capillary Refill Less than 3 Seconds Skin: No rashes, No breakdown Musculoskeletal: No Tenderness to Palpation of Joints or Extremities Neurological: Neuro grossly intact Psych/Mental Status: Normal Affect, Appropriate Vital Signs Temp Pulse Resp BP Pulse Ox 97.8 F 91 18 178/89 H 99 03/24/18 05:04 03/24/18 05:04 03/24/18 05:04 03/24/18 05:04 03/24/18 05:04 Oxygen Flow Rate (L/min) 2 Oxygen Delivery Method Nasal Cannula Weight: 227 lb Body Mass Index (BMI) 35.5 Intake and Output for Last 24 Hours 03/22/18 03/23/18 03/24/18 23:59 23:59 23:59 Intake Total 470 / 470 Balance 470 / 470 Laboratory Tests Past 24 Hrs 03/24/18 03/24/18 05:25 05:25 WBC Pending RBC Pending Hgb Pending Hct Pending MCV Pending MCH Pending MCHC Pending RDW Pending RDW Differential Pending Plt Count Pending Neut % (Auto) Pending Absolute Neuts (auto) Pending Total Counted Pending Sodium 138 Potassium 4.0 Chloride 105 Carbon Dioxide 25.0 Anion Gap 8 BUN 26 H Creatinine 1.11 Estim Creat Clear Calc 57.90 Est GFR (MDRD) Af Amer 84 Est GFR (MDRD) Non-Af 70 BUN/Creatinine Ratio 23.4 H Glucose 150 H Calcium 8.3 L Assessment/Plan Active and Suspected Problems Small bowel obstruction (Acute) I have been consulted in conjunction with Dr. Juarez Impression: Small bowel obstruction Plan: I have discussed this patient in conjunction with Dr. Juarez. Recommend bowel rest. NPO status. IV hydration and conservative measures at this point. Discussed with the patient if he starts to vomit and NG tube will be initiated to assist with releasing abdominal distress. I have also discussed with the patient that if his symptoms worsen we may need to proceed with surgical intervention. Patient has had the opportunity to ask and have questions answered. Patient verbally understands and agrees with the plan. Thank you for allowing me to participate in this patient's care. My recommendations will be available via electronic medical record. Code Visit Office Visits / Consults: 11683 IP Consult L3
--- NOTE | 2018-03-24 07:47 | PCM.PN.HOSP ---
Patient Problems: Active and Suspected Problems Small bowel obstruction (Acute) Subjective: Patient was seen and examined. Sleepy after being medicated with pain meds. Denies any bowel movement or nausea or vomiting. Kept N.p.o. Vitals/I&O's: Vital Signs Temp Pulse Resp BP Pulse Ox 97.8 F 91 18 178/89 H 99 03/24/18 05:04 03/24/18 05:04 03/24/18 05:04 03/24/18 05:04 03/24/18 05:04 Oxygen Flow Rate (L/min) 2 Oxygen Delivery Method Nasal Cannula Weight: 102.965 kg Body Mass Index (BMI) 35.5 Intake and Output for Last 24 Hours 03/22/18 03/23/18 03/24/18 23:59 23:59 23:59 Intake Total 470 / 470 Balance 470 / 470 General: Alert, Oriented x3, Cooperative HEENT: Atraumatic, PERRLA, EOMI, Normocephalic Oral: Moist Mucosa Neck: Supple Lungs: Clear to auscultation, Normal air movement Cardiovascular: Regular rate, No murmurs Abdomen: Bowel Sounds Present, Soft, Non Tender, Hypoactive Bowel Sounds, Distended, Obese Extremities: No edema Skin: No rashes, No breakdown Musculoskeletal: No Tenderness to Palpation of Joints or Extremities Lymphatic: No Cervical, Supraclavicular, or Inguinal Adenopathy Neurological: Cranial nerves II-XII grossly intact Psych/Mental Status: Normal Affect, Appropriate Laboratory Results 03/24/18 05:25: WBC Pending, RBC Pending, Hgb Pending, Hct Pending, MCV Pending, MCH Pending, MCHC Pending, RDW Pending, RDW Differential Pending, Plt Count Pending, Neut % (Auto) Pending, Absolute Neuts (auto) Pending, Total Counted Pending 03/24/18 05:25: Sodium 138, Potassium 4.0, Chloride 105, Carbon Dioxide 25.0, Anion Gap 8, BUN 26 H, Creatinine 1.11, Estim Creat Clear Calc 57.90, Est GFR (MDRD) Af Amer 84, Est GFR (MDRD) Non-Af 70, BUN/Creatinine Ratio 23.4 H, Glucose 150 H, Calcium 8.3 L Current Medications Enoxaparin Sodium (Lovenox) 30 mg SC DAILY@1000 SANDRA Hydralazine HCl (Apresoline Iv) 10 mg IV Q8H PRN PRN PRN Reason: for SBP>160 Sodium Chloride () 1,000 mls @ 100 mls/hr IV .Q10H [facility] Last Admin: 03/24/18 00:59 Dose: 100 mls/hr Famotidine (Pepcid 20mg) 20 mg in 50 mls @ 150 mls/hr IV Q12 SANDRA Magnesium Hydroxide (Milk Of Magnesia) 30 ml PO DAILY PRN PRN PRN Reason: Constipation Metoprolol Tartrate (Lopressor (Beta Davi)) 5 mg IV Q6 [facility] Last Admin: 03/24/18 05:01 Dose: 5 mg Morphine Sulfate () 2 mg IV Q3H PRN PRN PRN Reason: SEVERE PAIN (6-09/01) Last Admin: 03/24/18 05:14 Dose: 2 mg Ondansetron HCl (Zofran) 4 mg IV Q6H PRN PRN PRN Reason: NAUSEA/VOMITING Promethazine HCl (Phenergan) 6.25 mg IV Q6H PRN PRN PRN Reason: NAUSEA/VOMITING Last Admin: 03/24/18 01:11 Dose: 6.25 mg Sodium Chloride () 5 - 30 ml IV UD PRN PRN Reason: SALINE FLUSH Medical Necessity - Tobacco Use Smoking Status: Former smoker Assessment/Plan Active and Suspected Problems Small bowel obstruction (Acute) 72-year-old male with multiple comorbidities admitted with abdominal pain, nausea and vomiting and is being managed as small bowel obstruction. 1. Small bowel obstruction, unclear etiology, no history of prior abdominal surgeries, no electrolyte imbalances, seen on CT of the abdomen and pelvis, general surgery consulted, kept n.p.o., continue on IV fluids, will follow up on conservative management. 2. Hypertension, uncontrolled, secondary to patient's NPO status, on on IV hydralazine and metoprolol, will continue to monitor. 3. Acute dehydration secondary to #1, creatinine is improved with hydration, BMP in a.m. 4. CAD status post CABG, 5. DVT prophylaxis -Subcu Lovenox. Code Visit Procedures: Other Procedure - See Report - Non-billable rounds
[2018-03-24] MEDS: Enoxaparin 30 MG/0.3 ML Syringe SC (09:00)
--- NOTE | 2018-03-24 10:53 | CASEMGMT ---
RN MAGDIEL Face to Face with patient for initial transition planning/care coordination assessment. RN CM introduced self and role at [facility]. Patient lying in bed, alert and oriented, spouse at bedside. Patient willing to participate in assessment and is able to answer all questions appropriately. Care providers, pharmacy, and demographics verified. See link attached. Patient wishes to discharge home, denies need for home health at this time. Patient states he has no further needs or concerns at this time. CM to follow for discharge planning needs that may arise. Disposition Plan: Patient to discharge home with family support and follow-up plans in place.
[2018-03-24] MEDS: 0.9% NaCl Peripheral Flush Adult/Peds IV (12:08)
[2018-03-24 14:15] LABS: Absolute Lymphocyte Count 0.66 X10^3/ul (0.83-4.51); Absolute Neutrophil Count 14.2 X10^3/uL (2.0-7.7); Basophil# 0.03 X10^3/uL; Basophil% 0.2 % (0-1); Eosinophil# 0.03 X10^3/uL; Eosinophils% 0.2 % (0-5); Hematocrit 45.8 % (40-54); Hemoglobin 16.2 g/dl (13.0-16.5); Lymphocyte # 0.66 X10^3/ul (4.0); Mean Corp Hgb Conc 35.4 g/gl (32-36); Mean Corpuscular Hgb 31.2 pg (27.0-32.0); Mean Corpuscular Volume 88.1 fL (80-94); Mean Platelet Vol. 9.5 fl (6.2-12.0); Monocyte# 1.36 X10^3/uL; Monocyte% 8.3 % (0-10); Neutrophil # 14.24 X10^3/uL (2.7-7.7); Platelet Count 236 K/mm3 (150-450); RBC Distribution Width CV 13.4 % (11.6-14.6); White Blood Count 16.4 K/mm3 (4.4-11.0)
[2018-03-24 14:16] LABS: POSITIVE COUNT NO; POSITIVE DIFFERENTIAL NO; POSITIVE MORPHOLOGY NO
[2018-03-25] VITALS (9 sets, daily range): BP systolic 133–166; BP diastolic 69–85; PULSE 70–96; RESP 18; TEMP 36.6–36.8; O2SAT 91–96
[2018-03-25] MEDS: Metoprolol Tartrate 5 MG/5 ML Vial IV ×2 (00:33→05:06)
[2018-03-25] MEDS: Morphine 4 MG/ML Syringe 2 MG IV (02:02)
[2018-03-25] MEDS: Ondansetron 4 MG/2 ML Vial IV (02:03)
[2018-03-25] MEDS: 0.9% Normal Saline 1,000 ML 100 ML IV (05:09)
--- NOTE | 2018-03-25 07:13 | PCM.PN.SRG ---
Patient Problems: Active and Suspected Problems Small bowel obstruction (Acute) Subjective: Patient evaluated sitting comfortably in the chair. He denies nausea, vomiting. He notes abdominal discomfort is much improved. Negative flatus and BM. - Physical Exam General: Alert, Oriented x3, Cooperative Abdomen: Bowel Sounds Present, Soft, Non Tender, Distended Vital Signs Temp Pulse Resp BP Pulse Ox 97.8 F 80 18 166/85 H 96 03/25/18 02:05 03/25/18 05:06 03/25/18 02:05 03/25/18 05:06 03/25/18 02:05 Oxygen Flow Rate (L/min) 2 Oxygen Delivery Method Nasal Cannula Weight: 226 lb 15.983 oz Body Mass Index (BMI) 35.5 Intake and Output for Last 24 Hours 03/23/18 03/24/18 03/25/18 23:59 23:59 23:59 Intake Total 470 / 470 1045 / 1045 Balance 470 / 470 1045 / 1045 Laboratory Tests Past 24 Hrs 03/24/18 05:25 WBC 16.4 H RBC 5.20 Hgb 16.2 Hct 45.8 MCV 88.1 MCH 31.2 MCHC 35.4 RDW 13.4 RDW Differential 43.0 Plt Count 236 MPV 9.5 Immature Gran % (Auto) 0.300 Neut % (Auto) 87.0 H Lymph % (Auto) 4.0 L [place] % (Auto) 8.3 Eos % (Auto) 0.2 Baso % (Auto) 0.2 Absolute Neuts (auto) 14.2 H Absolute Lymphs (auto) 0.66 L Total Counted Not Reportable Medical Necessity - Tobacco Use Smoking Status: Former smoker Assessment/Plan Active and Suspected Problems Small bowel obstruction (Acute) I am following this patient in conjunction with Dr. Juarez Impression: Small bowel obstruction Obtain CBC and BMP this morning If WBC elevated will repeat CT scan with oral and IV contrast Continue NPO until after lab work Continue to encourage ambulation We will continue to monitor this patient Patient to follow-up with Dr. Juarez 2 weeks after discharge to schedule a colonoscopy. Code Visit Inpatient E&M: 13305 [facility] H[facility] L1
[2018-03-25 08:07] LABS: Absolute Lymphocyte Count 1.35 X10^3/ul (0.83-4.51); Absolute Neutrophil Count 4.4 X10^3/uL (2.0-7.7); Basophil# 0.02 X10^3/uL; Basophil% 0.3 % (0-1); Eosinophils% 1.5 % (0-5); Hematocrit 43.6 % (40-54); Hemoglobin 15.2 g/dl (13.0-16.5); Lymphocyte # 1.35 X10^3/ul (4.0); Lymphocyte % 19.6 % (19-41); Mean Corp Hgb Conc 34.9 g/gl (32-36); Mean Corpuscular Hgb 31.1 pg (27.0-32.0); Mean Corpuscular Volume 89.3 fL (80-94); Mean Platelet Vol. 9.2 fl (6.2-12.0); Monocyte# 1.06 X10^3/uL; Monocyte% 15.4 % (0-10); Neutrophil # 4.35 X10^3/uL (2.7-7.7); Neutrophil % 63.1 % (47-70); POSITIVE COUNT NO; POSITIVE DIFFERENTIAL NO; POSITIVE MORPHOLOGY NO; Platelet Count 222 K/mm3 (150-450); RBC Distribution Width CV 13.4 % (11.6-14.6); Red Blood Count 4.88 M/mm3 (4.6-6.2); White Blood Count 6.9 K/mm3 (4.4-11.0)
[2018-03-25 08:16] LABS: Anion Gap 8 (5-15); BUN 26 mg/dL (7-18); BUN/Creat Ratio 25.7 RATIO (10-20); Calcium,Total 8.3 mg/dL (8.5-10.1); Chloride 107 mmol/L (98-107); Creatinine, Serum 1.01 mg/dL (0.70-1.30); EST Glomerular Filtration Rate 78 mL/min (>60); Est Glom Filt Rate - Afr Amer 94 mL/min (>60); Estimated Creatinine Clearance 63.63 ml/min; Glucose 117 mg/dL (74-106); Potassium 3.8 mmol/L (3.5-5.1); Sodium Level 141 mmol/L (136-145)
--- NOTE | 2018-03-25 08:29 | PCM.PN.HOSP ---
Patient Problems: Active and Suspected Problems Small bowel obstruction (Acute) Vitals/I&O's: Vital Signs Temp Pulse Resp BP Pulse Ox 97.8 F 80 18 166/85 H 96 03/25/18 02:05 03/25/18 05:06 03/25/18 02:05 03/25/18 05:06 03/25/18 02:05 Oxygen Flow Rate (L/min) 2 Oxygen Delivery Method Nasal Cannula Weight: 102.965 kg Body Mass Index (BMI) 35.5 Intake and Output for Last 24 Hours 03/23/18 03/24/18 03/25/18 23:59 23:59 23:59 Intake Total 470 / 470 1045 / 1045 Balance 470 / 470 1045 / 1045 Laboratory Results 03/24/18 05:25: WBC 16.4 H, RBC 5.20, Hgb 16.2, Hct 45.8, MCV 88.1, MCH 31.2, MCHC 35.4, RDW 13.4, RDW Differential 43.0, Plt Count 236, MPV 9.5, Immature Gran % (Auto) 0.300, Neut % (Auto) 87.0 H, Lymph % (Auto) 4.0 L, [place] % (Auto) 8.3, Eos % (Auto) 0.2, Baso % (Auto) 0.2, Absolute Neuts (auto) 14.2 H, Absolute Lymphs (auto) 0.66 L, Total Counted Not Reportable 03/25/18 07:50: WBC 6.9, RBC 4.88, Hgb 15.2, Hct 43.6, MCV 89.3, MCH 31.1, MCHC 34.9, RDW 13.4, RDW Differential 44.0 H, Plt Count 222, MPV 9.2, Immature Gran % (Auto) 0.100, Neut % (Auto) 63.1, Lymph % (Auto) 19.6, [place] % (Auto) 15.4 H, Eos % (Auto) 1.5, Baso % (Auto) 0.3, Absolute Neuts (auto) 4.4, Absolute Lymphs (auto) 1.35, Total Counted Not Reportable 03/25/18 07:50: Sodium 141, Potassium 3.8, Chloride 107, Carbon Dioxide 26.0, Anion Gap 8, BUN 26 H, Creatinine 1.01, Estim Creat Clear Calc 63.63, Est GFR (MDRD) Af Amer 94, Est GFR (MDRD) Non-Af 78, BUN/Creatinine Ratio 25.7 H, Glucose 117 H, Calcium 8.3 L Current Medications Enoxaparin Sodium (Lovenox) 30 mg SC DAILY@1000 SANDRA Last Admin: 03/24/18 09:00 Dose: 30 mg Hydralazine HCl (Apresoline Iv) 10 mg IV Q6H PRN PRN PRN Reason: BLOOD PRESSURE Sodium Chloride () 1,000 mls @ 100 mls/hr IV .Q10H [facility] Last Admin: 03/25/18 05:09 Dose: 100 mls/hr Famotidine (Pepcid 20mg) 20 mg in 50 mls @ 150 mls/hr IV Q12 [facility] Last Admin: 03/24/18 21:00 Dose: 150 mls/hr Magnesium Hydroxide (Milk Of Magnesia) 30 ml PO DAILY PRN PRN PRN Reason: Constipation Ondansetron HCl (Zofran) 4 mg IV Q6H PRN PRN PRN Reason: NAUSEA/VOMITING Last Admin: 03/25/18 02:03 Dose: 4 mg Sodium Chloride () 5 - 30 ml IV UD PRN PRN Reason: SALINE FLUSH Last Admin: 03/24/18 12:08 Dose: 10 ml Medical Necessity - Tobacco Use Smoking Status: Former smoker Assessment/Plan Active and Suspected Problems Small bowel obstruction (Acute)
[2018-03-25] MEDS: hydroCHLOROthiazide 25 MG Tablet PO (09:14)
[2018-03-25] MEDS: Enoxaparin 30 MG/0.3 ML Syringe SC (09:14)
[2018-03-25] MEDS: Metoprolol Tartrate 50 MG Tablet PO (09:14)
[2018-03-25] MEDS: Lisinopril 10 MG Tablet PO (09:15)
[2018-03-25] MEDS: Pantoprazole Sodium 20 MG Tablet PO (09:15)
--- NOTE | 2018-03-25 09:54 | PCM.DC ---
- Discharge Diagnoses Current Active Problems: Current Active and Chronic Problems Status post coronary artery bypass graft (Chronic) Coronary artery disease (Chronic) Hyperlipidemia (Chronic) Hypertension (Chronic) Small bowel obstruction (Acute) Reason(s) for Visit for Discharge Instructions: Abdominal pain You will use the following diet at home:: Cardiac Your food should be the consistency of: Regular Your liquids should be the consistency of: Regular/Thin Discharge Activity: Return to Normal Activity Additional Instructions: [facility] with [facility] PCP and [facility] Continue to ambulate. Call your doctor or go to the ED if you have a repeat of your abdominal pain or nausea or vomiting. Allergies/Adverse Reactions: Allergies No Known Allergies Allergy (Verified 03/23/18 21:10) Medications to take at Discharge Hydrochlorothiazide [Hctz] 25 mg PO DAILY 10/14/17 Lisinopril [Zestril] 10 mg PO DAILY 10/14/17 Metoprolol Tartrate [Lopressor (beta sadaf)] 50 mg PO BID 10/14/17 simvastatin 40 mg tablet 40 mg PO QHS #90 tab 11/26/17 Aspirin [Aspirin EC] 81 mg PO 03/24/18 Omeprazole [Prilosec] 20 mg PO DAILY 03/24/18 Orders to be completed after discharge: Basic Metabolic Profile (BMP) Location: Laboratory CBC W/Diff, Automated Time Frame: 1 Week, Location: Laboratory [facility] Care Physician: [facility] [Primary Care Provider] - Please follow up with your Primary Care Physician in: within 2 weeks and gastroenterology as scheduled Proposed Discharge Date: 03/25/18
--- NOTE | 2018-03-25 09:58 | DCINST_ITS ---
- Discharge Diagnoses Current Active Problems: Current Active and Chronic Problems Status post coronary artery bypass graft (Chronic) Coronary artery disease (Chronic) Hyperlipidemia (Chronic) Hypertension (Chronic) Small bowel obstruction (Acute) Reason(s) for Visit for Discharge Instructions: Abdominal pain You will use the following diet at home:: Cardiac Your food should be the consistency of: Regular Your liquids should be the consistency of: Regular/Thin Discharge Activity: Return to Normal Activity Additional Instructions: Follow-up with your PCP and survival [facility]. Continue to ambulate. Call your doctor or go to the ED if you have a repeat of your abdominal pain or nausea or vomiting. Allergies/Adverse Reactions: Allergies No Known Allergies Allergy (Verified 03/23/18 21:10) Medications to take at Discharge Hydrochlorothiazide [Hctz] 25 mg PO DAILY 10/14/17 Lisinopril [Zestril] 10 mg PO DAILY 10/14/17 Metoprolol Tartrate [Lopressor (beta sadaf)] 50 mg PO BID 10/14/17 simvastatin 40 mg tablet 40 mg PO QHS #90 tab 11/26/17 Aspirin [Aspirin EC] 81 mg PO 03/24/18 Omeprazole [Prilosec] 20 mg PO DAILY 03/24/18 Orders to be completed after discharge: Basic Metabolic Profile (BMP) Location: Laboratory CBC W/Diff, Automated Time Frame: 1 Week, Location: Laboratory [facility] Care Physician: [facility] [Primary Care Provider] - Please follow up with your Primary Care Physician in: within 2 weeks and gastroenterology as scheduled Proposed Discharge Date: 03/25/18
--- NOTE | 2018-03-25 09:58 | PCM.DC.SUM ---
Discharge Date and Diagnosis - Problem List Patient Problems: Active and Suspected Problems Small bowel obstruction (Acute) Date of Admission: 03/24/18 Date of Discharge: 03/25/18 - Primary Discharge Diagnosis Active and Suspected Problems Small bowel obstruction (Acute) - Secondary Discharge Diagnosis Chronic Problems Status post coronary artery bypass graft (Chronic) Coronary artery disease (Chronic) Hyperlipidemia (Chronic) Hypertension (Chronic) Hospital Course and Treatment Imaging Results: Clinical Impression(s) from Imaging Studies Abdomen/Pelvis CT 03/23/18 21:53 IMPRESSION: Small bowel obstruction. Fatty infiltration of the liver. Atherosclerosis. Degenerative changes. Electronically Signed: Razia Staton MD at 22:53 EDT Tel , Service support , KUB X-Ray 03/24/18 05:55 IMPRESSION: Resolving small bowel obstruction. Electronically Signed: Gail Gonzalez MD at 8:52 EDT Tel , Service support , General surgery Operations: None Procedures: None Summary of Care Provided: 72-year-old male with multiple comorbidities admitted with abdominal pain, nausea and vomiting and is being managed as small bowel obstruction. 1. Small bowel obstruction, unclear etiology, no history of prior abdominal surgeries, no electrolyte imbalances, seen on CT of the abdomen and pelvis, general surgery consulted, managed conservatively. He has an appointment with the [facility] - to follow-up with the gastroenterology for colonoscopy/EGD in the middle of the month. 2. Hypertension, uncontrolled initially whilst NPO status, resumed home BP medication with improvement in blood pressure, will need to follow-up with PCP within 2 weeks. 3. Acute dehydration secondary to #1, creatinine is improved with hydration, BMP in a.m. 4. CAD status post CABG Discharge Diet: Low fat/ Low Cholesterol, 2000 mg Sodium Diet Discharge Activity: Return to Normal Activity Home Medications: Medications to take at Discharge Hydrochlorothiazide [Hctz] 25 mg PO DAILY 10/14/17 Lisinopril [Zestril] 10 mg PO DAILY 10/14/17 Metoprolol Tartrate [Lopressor (beta sadaf)] 50 mg PO BID 11/22/17 simvastatin 40 mg tablet 40 mg PO QHS #90 tab 11/26/17 Aspirin [Aspirin EC] 81 mg PO 03/24/18 Omeprazole [Prilosec] 20 mg PO DAILY 03/24/18 Other Amb Orders: Basic Metabolic Profile (BMP) Location: Laboratory [facility] Care Physician: [facility] [Primary Care Provider] - Please follow up with your Primary Care Physician in: within 2 weeks and gastroenterology as scheduled Disposition: Home Minutes spent on discharge:: 45 Patient Condition:: Stable Medical Necessity - Tobacco Use Smoking Status: Former smoker Meaningful Use Info Meaningful Use Diagnoses (Choose all that apply): None applicable Code Visit Inpatient E&M: 72608 [facility] Hosp
== END 2018-03-25 18:37 | disposition home or self-care (01) | DRG 390 ==
LOC: ED 03-24 00:04 → MS3 03-24 00:11
PROVIDERS: Physician Assistant; Admitting Provider Hospitalist; Emergency Provider Emergency Medicine; Visit Provider Internal Medicine
DX: K56.609 Unspecified intestinal obstruction, unspecified as to partial versus complete obstruction (principal); I25.10 Atherosclerotic heart disease of native coronary artery without angina pectoris; I10 Essential (primary) hypertension; E78.5 Hyperlipidemia, unspecified; E86.0 Dehydration; K21.9 Gastro-esophageal reflux disease without esophagitis; Z95.1 Presence of aortocoronary bypass graft; Z87.891 Personal history of nicotine dependence; Z79.82 Long term (current) use of aspirin; Z79.899 Other long term (current) drug therapy
CPT/HCPCS: 36415; 74018; 74176; 80048; 80053; 82248; 83690; 85025; 93005; 97116; 97162; 97166; 97530; 99284; J7030; A4216; J2405

== ENCOUNTER → 2018-04-05 06:52 | Outpatient (CLI) | payer MEDICARE, SELFPAY ==
[2018-04-05 07:29] LABS: Anion Gap 9 (5-15); BUN 16 mg/dL (7-18); BUN/Creat Ratio 14.4 RATIO (10-20); Calcium,Total 8.6 mg/dL (8.5-10.1); Chloride 106 mmol/L (98-107); Creatinine, Serum 1.11 mg/dL (0.70-1.30); EST Glomerular Filtration Rate 70 mL/min (>60); Est Glom Filt Rate - Afr Amer 84 mL/min (>60); Glucose 125 mg/dL (74-106); Potassium 3.8 mmol/L (3.5-5.1); Sodium Level 140 mmol/L (136-145)
[2018-04-05 07:48] LABS: Absolute Lymphocyte Count 2.05 X10^3/ul (0.83-4.51); Absolute Neutrophil Count 4.8 X10^3/uL (2.0-7.7); Basophil# 0.06 X10^3/uL; Basophil% 0.8 % (0-1); Eosinophil# 0.17 X10^3/uL; Eosinophils% 2.2 % (0-5); Hematocrit 43.9 % (40-54); Hemoglobin 15.4 g/dl (13.0-16.5); Lymphocyte # 2.05 X10^3/ul (4.0); Lymphocyte % 26.4 % (19-41); Mean Corp Hgb Conc 35.1 g/gl (32-36); Mean Corpuscular Hgb 30.4 pg (27.0-32.0); Mean Corpuscular Volume 86.8 fL (80-94); Mean Platelet Vol. 9.1 fl (6.2-12.0); Monocyte# 0.58 X10^3/uL; Monocyte% 7.5 % (0-10); Neutrophil # 4.84 X10^3/uL (2.7-7.7); Neutrophil % 62.3 % (47-70); Platelet Count 290 K/mm3 (150-450); RBC Distribution Width CV 12.9 % (11.6-14.6); RBC Distribution Width SD 39.7 fl (35.1-43.9); Red Blood Count 5.06 M/mm3 (4.6-6.2); White Blood Count 7.8 K/mm3 (4.4-11.0)
[2018-04-05 07:49] LABS: POSITIVE COUNT NO; POSITIVE DIFFERENTIAL NO; POSITIVE MORPHOLOGY NO
== END ==
LOC: LAB 06:54 → LABSPEC 04-06 12:00
PROVIDERS: Visit Provider Internal Medicine
DX: D72.829 Elevated white blood cell count, unspecified (principal); N17.9 Acute kidney failure, unspecified
CPT/HCPCS: 36415; 80048; 85025

== ENCOUNTER 2018-10-21 17:36 | Emergency (ER) | payer MEDICARE, OTHER, SELFPAY ==
[2018-10-21 17:37] VITALS: BP 167/82; PULSE 60; RESP 18; TEMP 36.8; O2SAT 98; BMI 36.2
--- NOTE | 2018-10-21 18:05 | ED.VISSUMM ---
- ER Visit Summary Date of Service: 10/21/18 Chief Complaint: Superficial right hand laceration History of Present Illness: The patient is a 73 M right-hand dominant. He was closing the tailgate within the last 2 hours and had a pulmonary laceration to his right thenar eminence. Unsure of his last tetanus shot once and updated. Denies other injuries. Physical Examination:. H EENT exam unremarkable. Neck nontender. Lungs auscultation bilaterally. Heart regular rate and rhythm no murmur. Chest nontender. Abdomen soft nontender. Patient moving all 4 extremities. Neurovascular intact. He is an L-shaped 2 cm superficial laceration to his right palm thenar eminence. Just proximal to his metacarpal phalangeal joint of his thumb. He has full range of motion all digits of the hand. Neurovascular intact. The wound is superficial. Is not bleeding. I offered but the patient deferred closure and I think it will heal fine. Otherwise exam unremarkable. Test Results: None Emergency Department Course and Treatment: Adacel IM. To update his tetanus. Clean wound and dress it. Patient wanted no repair. Treatment Plan: Wound care. Disposition: Discharge Impression: Right hand laceration superficial no repair Tetanus updated This note was generated with [employer] dictation software. It may contain incorrect words, spelling, and punctuation that were not noted in review of the chart prior to signing ED Disposition - Plan for ED Patient: Chief Complaint: Laceration Referrals: [facility] Doctor,Out of [Primary Care Provider] -
--- NOTE | 2018-10-21 18:08 | DCINST.ED_ITS ---
ED Disposition - Plan for ED Patient: Disposition: Home or Assisted Living Chief Complaint: Laceration Instructions: ED Laceration Hand Referrals: [facility] Doctor,Out of [Primary Care Provider] - As Needed Additional Instructions: Keep wound clean. And dry. Wash daily and apply antibiotic ointment daily. Watch for any signs of infection. If seen return to the ER. Your tetanus was updated and you are now good for 10 years.
[2018-10-21] MEDS: Diphth,Pertuss(Acell),Tet Vac 0.5 ML Vial IM (18:17)
[2018-10-21 18:19] VITALS: RESP 18
--- OUTSIDE RECORDS SUMMARY | 2018-12-16 23:34 | XMS RPT_ITS ---
:1945 Author Organization OHIP Support Name Relationship Address Phone AMRITA GREGORIO Unavailable [address] + [place] [address] R Unavailable Unavailable Unavailable AMRITA GREGORIO Unavailable [address] + [place] [address] R Unavailable Unavailable Unavailable AMRITA GREGORIO Unavailable [address] + [place] [address] R Unavailable Unavailable Unavailable AMRITA GREOGRIO Unavailable [address] + [place] [address] R Unavailable Unavailable Unavailable AMRITA GREGORIO Unavailable [address] + [place] [address] R Unavailable Unavailable Unavailable AMIRTA GREGORIO Unavailable [address] + [place] [address] R Unavailable Unavailable Unavailable AMRITA GREGORIO Unavailable [address] + [place] [address] R Unavailable Unavailable Unavailable AMRITA GREGORIO Unavailable [address] + [place] [address] R Unavailable Unavailable Unavailable AMRITA GREGORIO Unavailable [address] + [place] [address] R Unavailable Unavailable Unavailable AMRITA GREGORIO Unavailable [address] + [place] [address] R Unavailable Unavailable Unavailable Care Team Providers Name Role Phone Tabatha Donovan Attending Unavailable Primay Care Physicia, No Referring Unavailable [facility] [place] [facility] Unavailable Reyes Juarez Consulting Unavailable Ashelfah, Ghasem Admitting Unavailable [place] [place] Attending Unavailable Ashelf[place], Ghasem Admitting Unavailable [place]helf[place], Ghasem Attending [facility]available [facility] [place] [facility] Unavailable Reyes Juarez Consulting Unavailable Ashelfah, Ghasem Consulting Unavailable Ashelf[place], Ghasem Admitting Unavailable Delfina PICHARDO, Helene Attending [facility] Unavailable [place], Reyes Consulting Unavailable [place] [place] Consulting Unavailable Ashelfah, Ghasem Admitting Unavailable Delfina SHIPLEYC, Helene Attending [facility] Unavailable [place], Reyes Consulting Unavailable [place] [place] Consulting Unavailable Ashelfah, Ghasem Admitting Unavailable [place] [place] Attending [facility] Unavailable Larry, Reyes Consulting Unavailable [place] [place] Consulting Unavailable [place] [place] Attending Unavailable [place] [place] Referring Unavailable Primay Care Physicia, No Primary Care Unavailable Emil, Justin Attending Unavailable [place]helf[place], Ghasem Referring Unavailable Emil, Justin Attending Unavailable Primay Care Physicia, No Referring Unavailable Juan Pablo Mendosa Attending [facility]available [facility] Unavailable PROBLEMS PROBLEMS DATE TYPE CONDITION / CODE ATTENDING STATUS SOURCE 11/01/2018 Unknown S61.411A - Laceration Mendosa, Active [place] without foreign body Juan Pablo Community of right hand, initial Hospital encounter / Repository S61.411A(ICD-10) 04/06/2018 Unknown D72.829 - Elevated [place] [place] Active [place] white blood cell Community count, unspecified / Hospital D72.829(ICD-10) Repository 04/16/2018 Unknown K56.609 - Unspecified [place] [place] Active [place] intestinal Community obstruction, Hospital unspecified as to Repository partial versus complete obstruction / K56.609(ICD-10) 05/11/2018 Unknown I45.10 - Unspecified Emil, Justin Active [place] right bundle-branch Community block / I45.10(ICD-10) Hospital Repository 05/11/2018 Unknown R94.31 - Abnormal Emil, Lincoln Active [place] electrocardiogram Community [ECG] [EKG] / Hospital R94.31(ICD-10) Repository 05/11/2018 Unknown I10 - Essential Emil, Justin Active [place] (primary) hypertension Community / I10(ICD-10) Hospital Repository PROCEDURES PROCEDURES No Procedure Records FoundRESULTS RESULTS EMERGENCY DEPARTMENT Observed: 10/21/2018 Status: F Source: [place] SUMMARY 11:54 PM [facility] REPOSITORY [facility] Medical Records Department [address] [place] [address] Emergency Department Summary 10/21/18 1805 MR#: [id number] Acct: [id number] Name: EBONY GREGORIO Rep #: [id number] : 1945 73 From: Juan Pablo Mendosa MD [place]CP: [place] Status: DEP ER - ER Visit Summary Date of Service: 10/21/18 Chief Complaint: Superficial right hand laceration History of Present Illness: The patient is a 73 M right-hand dominant. He was closing the tailgate within the last 2 hours and had a pulmonary laceration to his right thenar eminence. Unsure of his last tetanus shot once and updated. Denies other injuries. Physical Examination:. H EENT exam unremarkable. Neck nontender. Lungs auscultation bilaterally. Heart regular rate and rhythm no murmur. Chest nontender. Abdomen soft nontender. Patient moving all 4 extremities. Neurovascular intact. He is an L-shaped 2 cm superficial laceration to his right palm thenar eminence. Just proximal to his metacarpal phalangeal joint of his thumb. He has full range of motion all digits of the hand. Neurovascular intact. The wound is superficial. Is not bleeding. I offered but the patient deferred closure and I think it will heal fine. Otherwise exam unremarkable. Test Results: None Emergency Department Course and Treatment: Adacel IM. To update his tetanus. Clean wound and dress it. Patient wanted no repair. Treatment Plan: Wound care. Disposition: Discharge Impression: Right hand laceration superficial no repair Tetanus updated This note was generated with [employer] dictation software. It may contain incorrect words, spelling, and punctuation that were not noted in review of the chart prior to signing ED Disposition - Plan for ED Patient: Chief Complaint: Laceration Referrals: [facility] Doctor,Out of [Primary Care Provider] - What to do if you have Problems For any increased pain, shortness of breath, bleeding, nausea or vomiting, chest pain, or any unexpected problems, contact your Primary Care Provider. Call [facility] ([phone]) or report to the closest Emergency Room. Call 911 if necessary. 10/21/18 7342 <Electronically signed by Juan Pablo Mendosa MD> Date Juan Pablo Mendosa MD Cosigner Signature (If Indicated): Date CC: [place] [facility] DISCHARGE INSTRUCTION Observed: 10/21/2018 Status: F Source: [place] 11:54 PM [facility] REPOSITORY [facility] Medical Records Department [address] [place] [address] Discharge Instruction 10/21/187 MR#: [id number] Acct: [id number] Name: EBONY GREGORIO Rep #: [id number] : 1945 73 From: Juan Pablo Mendosa MD PCP: [facility], [place] Status: DEP ER ED Disposition - Plan for ED Patient: Disposition: Home or Assisted Living Chief Complaint: Laceration Instructions: ED Laceration Hand Referrals: [facility] Doctor,Out of [Primary Care Provider] - As Needed Additional Instructions: Keep wound clean. And dry. Wash daily and apply antibiotic ointment daily. Watch for any signs of infection. If seen return to the ER. Your tetanus was updated and you are now good for 10 years. What to do if you have Problems For any increased pain, shortness of breath, bleeding, nausea or vomiting, chest pain, or any unexpected problems, contact your Primary Care Provider. Call [facility] ([phone]) or report to the closest Emergency Room. Call 911 if necessary. 10/21/18 9365 <Electronically signed by Juan Pablo eMndosa MD> Date Juan Pablo Mendosa MD Cosigner Signature (If Indicated): Date CC: [facility] BASIC METABOLIC Collected: 04/05/2018 Status: F Source: [place] PROFILE (BMP) 6:54 AM [facility] REPOSITORY TYPE CODE TESTS RESULT OUT OF RANGE REFERENCE UNITS LAB L501.0100 74-106 mg/dL High GLU 125 Result Comment: Fasting Glucose result from 100 to 125 mg/dL suggests IMPAIRED HOMEOSTASIS per A.D.A. criteria. Please note revised GLUCOSE reference range effective 2017. LAB L501.1000 7-18 mg/dL Normal BUN 16 LAB L501.1100 0.70-1.30 mg/dL Normal CREAT,SERUM 1.11 Result Comment: The validity of the calculated GFR AND GFRAA in patients over 70 years has not been determined. Clinical correlation is essential. LAB L501.1110 >60 mL/min Normal EST GFR 70 Result Comment: Non- GFR Calc LAB L501.1115 >60 mL/min Normal EST GFR - AA 84 Result Comment: GFR Calc LAB L501.1300 10-20 RATIO Normal BUN/CRE 14.4 LAB L501.2200 8.5-10.1 mg/dL CA Normal 8.6 LAB L501.5300 136-145 mmol/L NA Normal 140 LAB L501.5600 3.5-5.1 mmol/L K Normal 3.8 LAB L501.5900 98-107 mmol/L CL Normal 106 LAB L501.6100 21.0-32.0 mmol/L Normal CO2 25.0 LAB L501.6200 5-15 Normal GAP 9 Performed By: #### L500.2500 #### [facility] [address] [place], [address] CBC W/DIFF, AUTOMATED Collected: 04/05/2018 Status: F Source: [place] 6:54 AM [facility] REPOSITORY TYPE CODE TESTS RESULT OUT OF RANGE REFERENCE UNITS LAB L100.1000 4.4-11.0 K/mm3 Normal WBC 7.8 LAB L100.1200 4.6-6.2 M/mm3 Normal RBC 5.06 LAB L100.1300 13.0-16.5 g/dl Normal HGB 15.4 LAB L100.1400 40-54 % Normal HCT 43.9 LAB L100.1500 80-94 fL Normal MCV 86.8 LAB L100.1600 27.0-32.0 pg Normal MCH 30.4 LAB L100.1700 32-36 g/gl Normal MCHC 35.1 LAB L100.1810 11.6-14.6 % Normal RDW CV 12.9 LAB L100.1820 35.1-43.9 fl Normal RDW SD 39.7 LAB L100.1900 150-450 K/mm3 Normal PLT 290 LAB L100.2000 6.2-12.0 fl Normal MPV 9.1 LAB L100.2100 47-70 % Normal NEUT% 62.3 LAB L100.2200 19-41 % Normal LY% 26.4 LAB L100.2300 0-10 % Normal MONO% 7.5 LAB L100.2400 0-5 % Normal EO% 2.2 LAB L100.2500 0-1 % Normal BASO% 0.8 LAB L100.2550 0.0-0.9 % Normal IM GRAN % 0.800 Result Comment: IG% - Immature Granulocytes (promyelocytes, myelocytes and metamyelocytes) > 1% indicates that a LEFT SHIFT is Present. LAB L100.2620 2.0-7.7 X10 3/uL Normal Absolute Neut 4.8 LAB L100.2720 0.83-4.51 X10 3/ul Normal Absolute Lymph 2.05 Performed By: #### L100.0100 #### [facility] [address] [facility]. [place], [place], [address] 12 LEAD ELECTROCARDIOGRAM Observed: 04/02/2018 Status: F Source: [place] 2:26 PM [facility] REPOSITORY [facility] Cardiovascular Services [address] [place] [id number] 12 Lead EKG 03/24/18 0456 MR#: [id number] Acct: [id number] Name: EBONY GREGORIO Rep #: [id number] : 1945 72 From: Justin Stein MD Attending Dr: Allyson Salazar MD Status: DIS IN Ordering Dr: Lucho Jj MD Date: 03/24/18 Location: MS3 Sex: M C Admitted: 03/24/18 Test Reason : AM Blood Pressure : / mmHG Vent. Rate : 088 BPM Atrial Rate : 088 BPM P-R Int : 152 ms QRS Dur : 148 ms QT Int : 406 ms P-R-T Axes : 048 093 054 degrees QTc Int : 491 ms Normal sinus rhythm Right bundle branch block Abnormal ECG No previous ECGs available Confirmed by EMIL DUNN, JUSTIN ([id number]), primer expeditor and drier CEDRIC GREGORIO ([id number]) on 04/02/2018 2:26:02 PM Referred By: NARENDRA Confirmed By:JUSTIN STEIN MD 04/02/18 1426 Date Justin Stein MD CC: [facility]; Allyson Salazar MD; Lucho Jj Signed DISCHARGE SUMMARY Observed: 03/25/2018 Status: F Source: [place] 3:20 PM [facility] REPOSITORY [facility] Medical Records Department [address] [place] [address] Discharge Summary 03/25/18 0958 MR#: [id number] Acct: [id number] Name: EBONY GREGORIO Rep #: [id number] : 1945 72 From: Allyson Salazar MD PCP: [place] Status: ADM IN Y Location: [facility] [id number] Discharge Date and Diagnosis - Problem List Patient Problems: Active and Suspected Problems Small bowel obstruction (Acute) Date of Admission: 03/24/18 Date of Discharge: 03/25/18 - Primary Discharge Diagnosis Active and Suspected Problems Small bowel obstruction (Acute) - Secondary Discharge Diagnosis Chronic Problems Status post coronary artery bypass graft (Chronic) Coronary artery disease (Chronic) Hyperlipidemia (Chronic) Hypertension (Chronic) Hospital Course and Treatment Imaging Results: Clinical Impression(s) from Imaging Studies Abdomen/Pelvis CT 03/23/18 21:53 IMPRESSION: Small bowel obstruction. Fatty infiltration of the liver. Atherosclerosis. Degenerative changes. Electronically Signed: Razia Staton MD at 22:53 EDT Tel , Service support , KUB X-Ray 03/24/18 05:55 IMPRESSION: Resolving small bowel obstruction. Electronically Signed: Gail Gonzalez MD at 8:52 EDT Tel , Service support , General surgery Operations: None Procedures: None Summary of Care Provided: 72-year-old male with multiple comorbidities admitted with abdominal pain, nausea and vomiting and is being managed as small bowel obstruction. 1. Small bowel obstruction, unclear etiology, no history of prior abdominal surgeries, no electrolyte imbalances, seen on CT of the abdomen and pelvis, general surgery consulted, managed conservatively. [facility] for colonoscopy/EGD in the middle of the month. 2. Hypertension, uncontrolled initially whilst NPO status, resumed home BP medication with improvement in blood pressure, will need to follow-up with PCP within 2 weeks. 3. Acute dehydration secondary to #1, creatinine is improved with hydration, BMP in a.m. 4. CAD status post CABG Discharge Diet: Low fat/ Low Cholesterol, 2000 mg Sodium Diet Discharge Activity: Return to Normal Activity Home Medications: Medications to take at Discharge Hydrochlorothiazide [Hctz] 25 mg PO DAILY 10/14/17 Lisinopril [Zestril] 10 mg PO DAILY 10/14/17 Metoprolol Tartrate [Lopressor (beta sadaf)] 50 mg PO BID 10/14/17 simvastatin 40 mg tablet 40 mg PO QHS #90 tab 11/26/17 Aspirin [Aspirin EC] 81 mg PO 03/24/18 Omeprazole [Prilosec] 20 mg PO DAILY 03/24/18 Other Amb Orders: Basic Metabolic Profile (BMP) Location: Laboratory [place] Care Physician: [place] [Primary Care Provider] - Please follow up with your Primary Care Physician in: within 2 weeks and gastroenterology as scheduled Disposition: Home Minutes spent on discharge:: 45 Patient Condition:: Stable Medical Necessity - Tobacco Use Smoking Status: Former smoker Meaningful Use Info Meaningful Use Diagnoses (Choose all that apply): None applicable Code Visit Inpatient E AND M: 36773 Disch Hosp 03/25/18 1520 <Electronically signed by Allyson Salazar MD> Date Allyson Salazar MD Cosigner Signature (if applicable): Date CC: [place] [facility]; Allyson Salazar MD Signed DISCHARGE INSTRUCTION Observed: 03/25/2018 Status: F Source: [place] 9:58 [facility] REPOSITORY [facility] Medical Records Department [address] [place] [address] Instructions for Home/Discharge Instructions 03/25/1854 MR#: [id number] Acct: [id number] Name: EBONY GREGORIO Rep #: [id number] : 1945 72 From: Allyson Salazar MD PCP: [facility], [place] Status: ADM IN - Discharge Diagnoses Current Active Problems: Current Active and Chronic Problems Status post coronary artery bypass graft (Chronic) Coronary artery disease (Chronic) Hyperlipidemia (Chronic) Hypertension (Chronic) Small bowel obstruction (Acute) Reason(s) for Visit for Discharge Instructions: Abdominal pain You will use the following diet at home:: Cardiac Your food should be the consistency of: Regular Your liquids should be the consistency of: Regular/Thin Discharge Activity: Return to Normal Activity Additional Instructions: Follow-up with your PCP and medical attendant as scheduled in the [place]. Continue to ambulate. Call your doctor or go to the ED if you have a repeat of your abdominal pain or nausea or vomiting. Allergies/Adverse Reactions: Allergies No Known Allergies Allergy (Verified 03/23/18 21:10) Medications to take at Discharge Hydrochlorothiazide [Hctz] 25 mg PO DAILY 10/14/17 Lisinopril [Zestril] 10 mg PO DAILY 10/14/17 Metoprolol Tartrate [Lopressor (beta sadaf)] 50 mg PO BID 10/14/17 simvastatin 40 mg tablet 40 mg PO QHS #90 tab 11/26/17 Aspirin [Aspirin EC] 81 mg PO 03/24/18 Omeprazole [Prilosec] 20 mg PO DAILY 03/24/18 Orders to be completed after discharge: Basic Metabolic Profile (BMP) Location: Laboratory CBC W/Diff, Automated Time Frame: 1 Week, Location: Laboratory Primary Care Physician: [facility] [Primary Care Provider] - Please follow up with your Primary Care Physician in: within 2 weeks and gastroenterology as scheduled Proposed Discharge Date: 03/25/18 03/25/1858 <Electronically signed by Allyson Salazar MD> Date Allyson Salazar MD CC: [facility]; Reyes Juarez MD CBC W/DIFF, AUTOMATED Collected: 03/25/2018 Status: F Source: [place] 7:50 AM [facility] REPOSITORY TYPE CODE TESTS RESULT OUT OF RANGE REFERENCE UNITS LAB L100.1000 4.4-11.0 K/mm3 Normal WBC 6.9 LAB L100.1200 4.6-6.2 M/mm3 Normal RBC 4.88 LAB L100.1300 13.0-16.5 g/dl Normal HGB 15.2 LAB L100.1400 40-54 % Normal HCT 43.6 LAB L100.1500 80-94 fL Normal MCV 89.3 LAB L100.1600 27.0-32.0 pg Normal MCH 31.1 LAB L100.1700 32-36 g/gl Normal MCHC 34.9 LAB L100.1810 11.6-14.6 % Normal RDW CV 13.4 LAB L100.1820 35.1-43.9 fl High RDW SD 44.0 LAB L100.1900 150-450 K/mm3 Normal PLT 222 LAB L100.2000 6.2-12.0 fl Normal MPV 9.2 LAB L100.2100 47-70 % Normal NEUT% 63.1 LAB L100.2200 19-41 % Normal LY% 19.6 LAB L100.2300 0-10 % High MONO% 15.4 LAB L100.2400 0-5 % Normal EO% 1.5 LAB L100.2500 0-1 % Normal BASO% 0.3 LAB L100.2550 0.0-0.9 % Normal IM GRAN % 0.100 Result Comment: IG% - Immature Granulocytes (promyelocytes, myelocytes and metamyelocytes) > 1% indicates that a LEFT SHIFT is Present. LAB L100.2620 2.0-7.7 X10 3/uL Normal Absolute Neut 4.4 LAB L100.2720 0.83-4.51 X10 3/ul Normal Absolute Lymph 1.35 Performed By: #### L100.0100 #### [facility] [address] [place], [address] BASIC METABOLIC Collected: 03/25/2018 Status: F Source: [place] PROFILE (BMP) 7:50 AM [facility] REPOSITORY TYPE CODE TESTS RESULT OUT OF RANGE REFERENCE UNITS LAB L501.0100 74-106 mg/dL High GLU 117 Result Comment: Fasting Glucose result from 100 to 125 mg/dL suggests IMPAIRED HOMEOSTASIS per A.D.A. criteria. Please note revised GLUCOSE reference range effective 2017. LAB L501.1000 7-18 mg/dL High BUN 26 LAB L501.1100 0.70-1.30 mg/dL Normal CREAT,SERUM 1.01 Result Comment: The validity of the calculated GFR AND GFRAA in patients over 70 years has not been determined. Clinical correlation is essential. LAB L501.1110 >60 mL/min Normal EST GFR 78 Result Comment: Non- GFR Calc LAB L501.1115 >60 mL/min Normal EST GFR - AA 94 Result Comment: GFR Calc LAB L501.1255 ml/min Normal Estimated CRCL 63.63 LAB L501.1300 10-20 RATIO High BUN/CRE 25.7 LAB L501.2200 8.5-10 mg/dL Low .1 CA 8.3 LAB L501.5300 136-14 mmol/L Normal 5 NA 141 LAB L501.5600 3.5-5. mmol/L Normal 1 K 3.8 LAB L501.5900 98-107 mmol/L Normal CL 107 LAB L501.6100 21.0-3 mmol/L Normal 2.0 CO2 26.0 LAB L501.6200 5-15 Normal GAP 8 Performed By: #### L500.2500 #### [facility] [address] [place], [address] CONSULTATION Observed: 03/24/2018 Status: F Source: [place] 3:15 PM [facility] REPOSITORY [facility] Medical Records Department [address] [place] [address] Consultation 03/24/18 0743 MR#: [id number] Acct: [id number] Name: EBONY GREGORIO Rep #: [id number] : 1945 72 From: Helene Mathis PA-C PCP: [place] Status: ADM IN Y Location: MS3 [id number] ADDENDUM by Reyes uJarez MD on 03/24/18 at 1515 Code Visit As above. This point I really do not think the patient has a small bowel obstruction. He more likely has gastritis and I agree with the current management IV hydration and IV proton pump inhibitors. I have no intention of doing any endoscopies at this time unless his condition worsens. 03/24/18 1515 <Electronically signed by Reyes Juarez MD> Date Reyes Juarez MD cc: [facility]; Reyes Juarez MD * Signed Problem List (1) Small bowel obstruction Status: Acute Reason for Consult Date of Consultation: 03/24/18 Reason for Consultation: Abdominal pain. Nausea. Small bowel obstruction. History of Present Illness: The patient is a 72 year old M who presents with abdominal pain and nausea x 2. Patient notes he was at [employer] this weekend. He noted his symptoms started on Thursday. He woke up Thursday morning with abdominal pain, nausea, vomiting episode x 1. Patient noted he came home on Thursday. He has a liquidy, dark black bowel movement on Thursday. His symptoms continued and he presented to the ED last night. He denies vomiting, nausea. He continues to note abdominal discomfort. His last solid bowel movement was Thursday morning. He denies previous episodes of small bowel obstruction. He denies previous abdominal surgeries. He denies previous concerns with constipation or diarrhea. He denies melena, bright red blood per rectum. He is not passing flatus. He has not had bowel movement since admission. Patient noted he was scheduled for a colonoscopy mid March at [facility]. Patient denies shortness of breath, chest pain. Patient notes history of CABG x [address] 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 Patient denies past history of myocardial infraction, stroke, blood clots. Patient is maintained on a daily 81 mg aspirin. Patient is a previous smoker, however quit in 2011 following his CABG. He consumes 2 glasses of wine per night x 5 years. Prior to the CABG he was consuming much more alcohol. He denies illicit drug use. Past Medical History Past Medical History (Chronic Problems): Chronic Problems Status post coronary artery bypass graft (Chronic) Coronary artery disease (Chronic) Hyperlipidemia (Chronic) Hypertension (Chronic) Allergies No Known Allergies Allergy (Verified 03/23/18 21:10) Home Medications: Ambulatory Orders Medication Instructions Recorded Hydrochlorothiazide [Hctz] 25 mg PO DAILY 10/14/17 Surgical History: coronary bypass surgery Psychiatric History: No pertinent psych hx Lives: Spouse/ Significant Other Smoking Status: Former smoker Alcohol: None Drugs: None - *Family History Maternal History Items: No pertinent history Paternal History Items: No pertinent history Review of Systems Constitutional: Denies: Chills, Fever, Weight Change HEENT: Denies: Head Aches, Sinus Congestion, Sinus Drainage Cardiovascular: Denies: Chest Pain, Palpitations Respiratory: Denies: Cough, Shortness of breath at rest, Sputum production Gastrointestinal: Reports: Abdominal Pain, Constipation, Nausea, Melena. Denies: Hematochezia, Vomiting Genitourinary: Denies: Dysuria Musculoskeletal: Denies: Joint Pain, Joint Tenderness Skin: Denies: Rash, Wounds Neurological: Denies: Numbness, Tingling, Focal weakness Psychiatric: Denies: Anxiety, Depression, Homicidal Ideations, Suicidal Ideations Hematologic/ Lymphatic: Denies: Easy Bruising, Easy Bleeding, Hx of blood clot, Hx of blood transfusion Patient Problems: Active and Suspected Problems Small bowel obstruction (Acute) - Physical Exam General: Alert, Oriented x3, Cooperative HEENT: Atraumatic, PERRLA, EOMI, Normocephalic Neck: Supple, No JVD, Negative Carotid Bruits Lungs: Clear to auscultation, Normal air movement Cardiovascular: Regular rate, No murmurs Abdomen: Hypoactive Bowel Sounds, Distended, Tender - epigastric/midabdomen Extremities: No edema, Capillary Refill Less than 3 Seconds Skin: No rashes, No breakdown Musculoskeletal: No Tenderness to Palpation of Joints or Extremities Neurological: Neuro grossly intact Psych/Mental Status: Normal Affect, Appropriate Vital Signs Temp Pulse Resp BP Pulse Ox 97.8 F 91 18 178/89 H 99 03/24/18 05:04 03/24/18 05:04 03/24/18 05:04 03/24/18 05:04 03/24/18 05:04 Oxygen Flow Rate (L/min) 2 Oxygen Delivery Method Nasal Cannula Weight: 227 lb Body Mass Index (BMI) 35.5 Intake and Output for Last 24 Hours Intake Total 470 / 470 Balance 470 / 470 Laboratory Tests Past 24 Hrs WBC Pending RBC Pending Hgb Pending Hct Pending MCV Pending MCH Pending MCHC Pending RDW Pending RDW Differential Pending Assessment/Plan Active and Suspected Problems Small bowel obstruction (Acute) I have been consulted in conjunction with Dr. Juarez Impression: Small bowel obstruction Plan: I have discussed this patient in conjunction with Dr. Juarez. Recommend bowel rest. NPO status. IV hydration and conservative measures at this point. Discussed with the patient if he starts to vomit and NG tube will be initiated to assist with releasing abdominal distress. I have also discussed with the patient that if his symptoms worsen we may need to proceed with surgical intervention. Patient has had the opportunity to ask and have questions answered. Patient verbally understands and agrees with the plan. Thank you for allowing me to participate in this patient's care. My recommendations will be available via electronic medical record. Code Visit Office Visits / Consults: [id number] IP Consult L3 03/24/18 0851 <Electronically signed by Helene Mathis PA-C> Date Helene Mathis PA-C Cosigner Signature (if applicable): Date CC: [facility]; Reyes Juarez MD Signed BASIC METABOLIC Collected: 03/24/2018 Status: F Source: [place] PROFILE ([facility]) 5:25 AM [facility] REPOSITORY TYPE CODE TESTS RESULT OUT OF RANGE REFERENCE UNITS LAB L501.0100 74-106 mg/dL High GLU 150 Result Comment: Fasting Glucose result greater than or equal to 126 mg/dL suggests DIABETES MELLITUS per A.D.A. criteria. Please note revised GLUCOSE reference range effective 2017. LAB L501.1000 7-18 mg/dL High BUN 26 LAB L501.1100 0.70-1.30 mg/dL Normal CREAT,SERUM 1.11 Result Comment: The validity of the calculated GFR AND GFRAA in patients over 70 years has not been determined. Clinical correlation is essential. LAB L501.1110 >60 mL/min Normal EST GFR 70 Result Comment: Non- GFR Calc LAB L501.1115 >60 mL/min Normal EST GFR - AA 84 Result Comment: GFR Calc LAB L501.1255 ml/min Normal Estimated CRCL 57.90 LAB L501.1300 10-20 RATIO High BUN/CRE 23.4 LAB L501.2200 8.5-10 mg/dL Low .1 CA 8.3 LAB L501.5300 136-14 mmol/L Normal 5 NA 138 LAB L501.5600 3.5-5. mmol/L Normal 1 K 4.0 LAB L501.5900 98-107 mmol/L Normal CL 105 LAB L501.6100 21.0-3 mmol/L Normal 2.0 CO2 25.0 LAB L501.6200 5-15 Normal GAP 8 Performed By: #### L500.2500 #### [facility] [address] [place], [place], [id number] CBC W/DIFF, AUTOMATED Collected: 03/24/2018 Status: F Source: [place] 5:25 AM [facility] REPOSITORY TYPE CODE TESTS RESULT OUT OF RANGE REFERENCE UNITS LAB L100.1000 4.4-11.0 K/mm3 High WBC 16.4 LAB L100.1200 4.6-6.2 M/mm3 Normal RBC 5.20 LAB L100.1300 13.0-16.5 g/dl Normal HGB 16.2 LAB L100.1400 40-54 % Normal HCT 45.8 LAB L100.1500 80-94 fL Normal MCV 88.1 LAB L100.1600 27.0-32.0 pg Normal MCH 31.2 LAB L100.1700 32-36 g/gl Normal MCHC 35.4 LAB L100.1810 11.6-14.6 % Normal RDW CV 13.4 LAB L100.1820 35.1-43.9 fl Normal RDW SD 43.0 LAB L100.1900 150-450 K/mm3 Normal PLT 236 LAB L100.2000 6.2-12.0 fl Normal MPV 9.5 LAB L100.2100 47-70 % High NEUT% 87.0 LAB L100.2200 19-41 % Low LY% 4.0 LAB L100.2300 0-10 % Normal MONO% 8.3 LAB L100.2400 0-5 % Normal EO% 0.2 LAB L100.2500 0-1 % Normal BASO% 0.2 LAB L100.2550 0.0-0.9 % Normal IM GRAN % 0.300 Result Comment: IG% - Immature Granulocytes (promyelocytes, myelocytes and metamyelocytes) > 1% indicates that a LEFT SHIFT is Present. LAB L100.2620 2.0-7.7 X10 3/uL High Absolute Neut 14.2 LAB L100.2720 0.83-4.51 X10 3/ul Low Absolute Lymph 0.66 Performed By: #### L100.0100 #### [facility] [address] [place], [address] HISTORY AND PHYSICAL Observed: 03/24/2018 Status: F Source: [place] EXAM 2:00 AM [facility] REPOSITORY [facility] Medical Records Department [address] [place] [address] History and Physical 03/24/18 0017 MR#: [id number] Acct: [id number] Name: EBONY GREGORIO Rep #: [id number] : 1945 72 From: Lucho Jj MD PCP: [facility], [place] Status: ADM IN Location: [facility] [id number] Problem List (1) Status post coronary artery bypass graft Status: Chronic (2) Coronary artery disease Status: Chronic (3) Hyperlipidemia Status: Chronic (4) Hypertension Status: Chronic (5) Small bowel obstruction Status: Acute History of Present Illness Date of Admission: 03/24/18 Chief Complaint: Abdominal pain. The patient is a 72 year old M with past medical history as mentioned above presented to the emergency room because of abdominal pain. His illness started 2 days ago with mid abdominal pain, just above the umbilicus, diffuse, sharp pain, 8 out of 10 in severity, not radiating, associated with nausea and vomiting on the first day and since then, has no more nausea vomiting. He has been having alternating constipation and diarrhea, last bowel movement was today and he has been not passing any flatus. He denied chest pain or shortness of breath. Denied fever chills. In the emergency room, his vital signs are stable. His routine blood work was remarkable for creatinine of 1.31, otherwise normal. LFT and lipase were normal. CT scan abdomen and pelvis without contrast revealed findings consistent with small bowel obstruction. He is being admitted for small bowel obstruction. Past Medical History Past Medical History (Chronic Problems): Chronic Problems Status post coronary artery bypass graft (Chronic) Coronary artery disease (Chronic) Hyperlipidemia (Chronic) Hypertension (Chronic) Allergies No Known Allergies Allergy (Verified 03/23/18 21:10) Home Medications: Ambulatory Orders Medication Instructions Recorded Hydrochlorothiazide [Hctz] 25 mg PO DAILY 10/14/17 Surgical History: coronary bypass surgery Psychiatric History: No pertinent psych hx Lives: Spouse/ Significant Other Smoking Status: Former smoker Alcohol: None Drugs: None - *Family History Maternal History Items: No pertinent history Paternal History Items: No pertinent history Review of Systems Constitutional: Denies: Anorexia, Chills, Fever, Weakness Eyes: Denies: Blurred vision, Double vision, Drainage, Redness HEENT: Denies: Difficulty Hearing, Ear Pain, Eye Pain, Nasal Congestion, Sore Throat Cardiovascular: Denies: Chest Pain, Chest Pressure, Chest Tightness, Edema, Heaviness, Palpitations, Syncope Respiratory: Denies: Cough, Pleuritic Pain, Shortness of Breath, Sputum production, Wheezing Gastrointestinal: Reports: Abdominal Pain, Constipation, Diarrhea, Nausea, Vomiting Genitourinary: Denies: Dysuria, Frequency, Hematuria Musculoskeletal: Denies: Arm Pain, Back Pain, Foot Pain Skin: Denies: Dryness, Rash Neurological: Denies: Balance problems, Double vision, Change in Speech, Slurred speech, Confusion, Focal weakness, Headaches, Incoordination Psychiatric: Denies: Anxiety, Depression Endocrine: Denies: Change in Body Habitus, Polydipsia VTE Information - Inpt Only VTE Present on Admission: No VTE Mechan Device Prophylaxis: None VTE Pharm Prophylaxis ordered?: Yes Patient Problems: Active and Suspected Problems Small bowel obstruction (Acute) - Physical Exam General: Alert, Oriented x3, Cooperative, No apparent distress HEENT: Atraumatic, PERRLA, EOMI Oral: Moist Mucosa, No Gingival or Mucosal Lesions/ Ulcerations Neck: Supple, No JVD, Negative Carotid Bruits, Trachea Midline, Thyroid Normal Size and Texture Lungs: Clear to auscultation, No rhonchi, No wheeze, No rales, Diminished Cardiovascular: Regular rate, Regular Rhythm, Normal S1, Normal S2, No murmurs Abdomen: Bowel Sounds Present, Soft, Non-Distended, No Hepato- splenomegaly, Tender - Minimal epigastric tenderness, no guarding or rigidity. Extremities: No clubbing, No cyanosis, No edema Skin: No rashes, No breakdown Lymphatic: No Cervical, Supraclavicular, or Inguinal Adenopathy Neurological: Cranial nerves II-XII grossly intact, Motor Exam 5/5 strength throughout Psych/Mental Status: Normal Affect, Appropriate, Alert and oriented to time, place, person, mood and affect Vital Signs Temp Pulse Resp BP Pulse Ox 99.0 F 76 16 139/75 H 95 03/23/18 21:11 03/23/18 23:50 03/23/18 23:50 03/23/18 23:50 03/23/18 23:50 Laboratory Tests WBC 10.6 (4.4-11.0) K/mm3 RBC 5.32 (4.6-6.2) M/mm3 Hgb 16.3 (13.0-16.5) g/dl Hct 47.0 (40-54) % Clinical Impression(s) from Imaging Studies Abdomen/Pelvis CT 03/23/18 21:53 IMPRESSION: Small bowel obstruction. Fatty infiltration of the liver. Atherosclerosis. Degenerative changes. Electronically Signed: Razia Staton MD at 22:53 EDT Tel , Service support , Assessment/Plan Active and Suspected Problems Small bowel obstruction (Acute) This is a 72 years old male patient presented to the emergency room because of abdominal pain with nausea and vomiting and he was found to have small bowel obstruction. #1 small bowel obstruction: Unclear etiology, without history of prior abdominal surgeries. CT scan abdomen and pelvis reviewed. Routine blood work was remarkable for BUN of 26 and creatinine 1.31. LFT and lipase were normal. Plan: Admit to MedSurg floor, on n.p.o., IV fluids, IV morphine as needed for pain, IV antiemetics, replace electrolytes as appropriate, repeat KUB tomorrow morning, general surgery consult. #2 dehydration: Secondary to above. Unknown baseline kidney function. BUN and creatinine are slightly elevated. Plan for IV fluids, input output chart, repeat BMP tomorrow morning. #3 CAD status post CABG: Patient denies any chest pain or shortness of breath. Plan for routine EKG, start IV metoprolol, hold lisinopril and statins. #4 hypertension: Blood pressure stable, hold oral medications, start IV morphine every 6 hours, IV hydralazine as needed. #5 hyperlipidemia: Hold statins. #6 DVT prophylaxis: Subcu Lovenox. This note was generated with [employer] dictation software. It may contain incorrect words, spelling, and punctuation that were not noted in checking the note before signing. Code Visit Inpatient E AND M: [id number] Init Hosp L3 03/24/18 0200 <Electronically signed by Lucho Jj MD> Date Lucho Jj MD Cosigner Signature: Date (if applicable) CC: [facility]; Lucho Jj Signed ABDOMEN SINGLE VIEW Observed: 03/24/2018 Status: F Source: [place] (PORTABLE) 12:39 AM [facility] REPOSITORY [facility] Imaging Services [address] [place] [address] Abdomen Single View (Portable) MR#: [id number] Acct: [id number] Name: EBNOY GREGORIO Rep #: [id number] : 1945 M 72 From: Gail Gonzalez MD PCP: [place], [place] Status: ADM IN Study: Abdomen Single View (Portable) Date of Exam: 03/24/18 Exam# [id number] Ordering Dr: Lucho Jj MD STUDY: X-RAY - ABDOMEN/PELVIS REASON FOR EXAM: Male, 72 years old. SMALL BOWEL OBSTRUCTION TECHNIQUE: Two AP supine views of the abdomen and pelvis. COMPARISON: None. FINDINGS: Normal visualized lung bases. There is a mild gaseous distention of the small bowel in the upper abdomen is improved since the previous study suggesting resolving bowel obstruction. There is no demonstrated free abdominal air. The visualized liver, spleen and kidneys are grossly normal in size and morphology. Normal soft tissue structures. There are diffuse degenerative changes of the visualized lumbar spine. RAD/Abdomen Single View (Portable) IMPRESSION: Resolving small bowel obstruction. Electronically Signed: Gail Gonzalez MD at 8:52 EDT Tel , Service support , CC: [facility]; [facility] [place] Senior Data Developer: Signed EMERGENCY DEPARTMENT Observed: 03/24/2018 Status: F Source: [place] SUMMARY 12:04 AM [facility] REPOSITORY [facility] Medical Records Department [address] [place] [id number] Emergency Department Summary 03/23/18 2155 MR#: [id number] Acct: [id number] Name: EBONY GREGORIO Rep #: [id number] : 1945 72 From: Tramaine Mckee PCP: [place], [place] Status: REG ER - ER Visit Summary Date of Service: 03/23/18 Chief Complaint: Abdominal pain History of Present Illness: The patient is a 72 M 3 day history of mid abdominal pain, no radicular symptoms. Nausea vomiting initially. Decreased flatus. Today to loose stools. No recent antibiotics. Sweats yesterday. No fevers. No urinary symptoms. No abdominal surgery history. Pain is 7 out of 10. Denies any groin pain. Remote tobacco. Occasional alcohol history. No other complaints. Physical Examination: General: Alert and oriented 3, no acute distress HEENT: Normocephalic, atraumatic. Moist mucosa membranes Neck: supple, nontender. Cardiovascular: Regular rate and rhythm, no murmurs Respiratory: Normal breath sounds, symmetric, no distress Abdomen: Soft, tender mid abdomen, no guarding or rebound, negative Faria's or McBurney's tenderness. No ventral hernia palpated. Extremities: Nontender, no edema, pulses intact 4 Neuro: no focal neurological deficits. Test Results: White count 10.6. Hemoglobin 16.3. Creatinine 1.31. Potassium 3.9. Liver enzymes normal. Lipase 74 CT abdomen pelvis: Normal appendix. Multiple dilated small bowel concerning for bowel obstruction. Emergency Department Course and Treatment: Patient tender mid abdomen, nonsurgical. Workup initiated, abdominal labs normal. CT scan did no concern for small bowel obstruction with air-fluid levels in the jejunum and ileum. Treated Zofran, morphine. IV fluids given. I discussed with on-call surgeon Dr. Juarez he will follow in the hospital. Discussed with hospitalist, Dr. Jj who will evaluate for admission. Treatment Plan: [] Disposition: Admission Impression: 1. Abdominal pain 2. Small bowel obstruction This note was generated with [employer] dictation software. It may contain incorrect words, spelling, and punctuation that were not noted in review of the chart prior to signing ED Disposition - Plan for ED Patient: Disposition: Home or Assisted Living Chief Complaint: Abd Pain Diagnosis: Abdominal pain, Small bowel obstruction Referrals: [facility],[place] [Primary Care Provider] - What to do if you have Problems For any increased pain, shortness of breath, bleeding, nausea or vomiting, chest pain, or any unexpected problems, contact your Primary Care Provider. Call [facility] ([phone]) or report to the closest Emergency Room. Call 911 if necessary. 03/24/18 0004 <Electronically signed by Tramaine Mckee> Date Tramaine Mckee Cosigner Signature (If Indicated): Date CC: [facility] COMPREHENSIVE METABOLIC Collected: 03/23/2018 Status: F Source: [place] 10:15 PM [facility] REPOSITORY TYPE CODE TESTS RESULT OUT OF RANGE REFERENCE UNITS LAB L501.0100 74-106 mg/dL High GLU 115 Result Comment: Fasting Glucose result from 100 to 125 mg/dL suggests IMPAIRED HOMEOSTASIS per A.D.A. criteria. Please note revised GLUCOSE reference range effective 2017. LAB L501.1000 7-18 mg/dL High BUN 26 LAB L501.1100 0.70-1.30 mg/dL High CREAT,SERUM 1.31 Result Comment: The validity of the calculated GFR AND GFRAA in patients over 70 years has not been determined. Clinical correlation is essential. LAB L501.1110 >60 mL/min Low EST GFR 57 Result Comment: Non- GFR Calc LAB L501.1115 >60 mL/min Normal EST GFR - AA 69 Result Comment: GFR Calc LAB L501.1255 ml/min Normal Estimated CRCL 49.06 LAB L501.1300 10-20 RATIO Normal BUN/CRE 19.8 LAB L501.1500 6.4-8. g/dL Normal 2 T PROT 6.7 LAB L501.1800 3.2-5. g/dL Normal 0 ALB 3.6 LAB L501.1950 2.2-4. g/dL Normal 2 GLOB 3.1 LAB L501.2000 0.9-2. RATIO Normal 4 A/G 1.2 LAB L501.2200 8.5-10 mg/dL Normal .1 CA 8.9 LAB L501.4100 15-37 U/L Normal AST 21 LAB L501.4305 45-117 U/L Normal ALK P 50 LAB L501.4405 16-61 U/L Normal ALT 41 LAB L501.4600 0.20-1 mg/dL Normal .00 T BILI 0.70 LAB L501.5300 136-14 mmol/L Normal 5 NA 136 LAB L501.5600 3.5-5. mmol/L Normal 1 K 3.9 LAB L501.5900 98-107 mmol/L Normal CL 103 LAB L501.6100 21.0-3 mmol/L Normal 2.0 CO2 24.0 LAB L501.6200 5-15 Normal GAP 9 Performed By: #### L500.4050, L501.4700 #### [facility] [address] [place], [address] BILIRUBIN, DIRECT Collected: 03/23/2018 Status: F Source: [place] 10:15 PM [facility] REPOSITORY TYPE CODE TESTS RESULT OUT OF RANGE REFERENCE UNITS LAB L501.4700 0.00-0.30 mg/dL Normal D BILI 0.18 Performed By: #### L500.4050, L501.4700 #### [facility] [address] [place], [address] LIPASE Collected: 03/23/2018 Status: F Source: [place] 10:15 PM [facility] REPOSITORY TYPE CODE TESTS RESULT OUT OF RANGE REFERENCE UNITS LAB L501.2450 73-393 U/L Normal LIPASE 74 Performed By: #### L501.2450 #### [facility] [address] [place], [address] ABDOMEN/PELVIS WITHOUT Observed: 03/23/2018 Status: F Source: [place] CONT 9:54 PM [facility] REPOSITORY [facility] Imaging Services [address] [place] [address] Abdomen/Pelvis without Cont MR#: [id number] Acct: [id number] Name: EBONY GREGORIO Rep #: [id number] : 1945 M 72 From: Razia Staton MD PCP: [facility], [place] Status: REG ER Study: Abdomen/Pelvis without Cont Date of Exam: 03/23/18 Exam# [id number] Ordering Dr: Tramaine Hendrix DO STUDY: CT ABDOMEN AND PELVIS WITHOUT CONTRAST REASON FOR EXAM: Male, 72 years old. Abdominal pain RADIATION DOSAGE (If Supplied By Facility): CTDIvol = ( 19.37 ) mGy, DLP = ( 943.85 ) mGycm TECHNIQUE: Transaxial images were obtained from the dome of the diaphragm to the symphysis pubis without oral contrast, and without intravenous contrast. Sagittal and coronal images were reconstructed. Individualized dose optimization techniques were used for this CT. COMPARISON: None. FINDINGS: The visualized lung bases are unremarkable. There are coronary artery calcifications present. There is decreased attenuation of the liver consistent with steatosis. Normal gallbladder and extrahepatic biliary system. Normal spleen. Normal pancreas. Normal bilateral adrenal glands. Normal right kidney. There is a left renal cyst. Normal visualized stomach. There are dilated loops of jejunum and ileum associated with air-fluid levels. An abrupt transition point is not visualized. Normal colon. The appendix is visualized and appears normal. There is diffuse atherosclerotic calcification of the abdominal aorta, without a demonstrated aneurysm. Normal inferior vena cava. Normal retroperitoneum. Normal urinary bladder. Normal abdominal wall. There are diffuse degenerative changes of the visualized lumbar spine. CT/Abdomen/Pelvis without Cont IMPRESSION: Small bowel obstruction. Fatty infiltration of the liver. Atherosclerosis. Degenerative changes. Electronically Signed: Razia Staton MD at 22:53 EDT Tel , Service support , CC: [facility]; Tramaine Hendrix Senior Data Developer: Signed CBC W/DIFF, AUTOMATED Collected: 03/23/2018 Status: F Source: [place] 9:45 PM [facility] REPOSITORY TYPE CODE TESTS RESULT OUT OF RANGE REFERENCE UNITS LAB L100.1000 4.4-11.0 K/mm3 Normal WBC 10.6 LAB L100.1200 4.6-6.2 M/mm3 Normal RBC 5.32 LAB L100.1300 13.0-16.5 g/dl Normal HGB 16.3 LAB L100.1400 40-54 % Normal HCT 47.0 LAB L100.1500 80-94 fL Normal MCV 88.3 LAB L100.1600 27.0-32.0 pg Normal MCH 30.6 LAB L100.1700 32-36 g/gl Normal MCHC 34.7 LAB L100.1810 11.6-14.6 % Normal RDW CV 13.6 LAB L100.1820 35.1-43.9 fl Normal RDW SD 43.6 LAB L100.1900 150-450 K/mm3 Normal PLT 231 LAB L100.2000 6.2-12.0 fl Normal MPV 9.3 LAB L100.2100 47-70 % High NEUT% 70.7 LAB L100.2200 19-41 % Low LY% 18.0 LAB L100.2300 0-10 % Normal MONO% 9.5 LAB L100.2400 0-5 % Normal EO% 1.2 LAB L100.2500 0-1 % Normal BASO% 0.3 LAB L100.2550 0.0-0.9 % Normal IM GRAN % 0.300 Result Comment: IG% - Immature Granulocytes (promyelocytes, myelocytes and metamyelocytes) > 1% indicates that a LEFT SHIFT is Present. LAB L100.2620 2.0-7.7 X10 3/uL Normal Absolute Neut 7.5 LAB L100.2720 0.83-4.51 X10 3/ul Normal Absolute Lymph 1.91 Performed By: #### L100.0100 #### [facility] [address] [place], [address] CARDIOLOGY VISIT Observed: 01/15/2018 Status: F Source: [place] REPORT 5:03 PM [facility] REPOSITORY [facility] [address] [place] [address] OFFICE VISIT Date of Service: 01/15/18 MR#: [id number] Acct: [id number] Name: EBONY GREGORIO Rep #: [id number] : 1945 Provider: Tabatha Donovan Age/Sex: 72/M [place] [facility] [place]: Signed HPI HPI Details: EBONY GREGORIO, is a 72 M who presents to the office today for cardiovascular follow-up. He has a history of coronary artery disease with bypass surgery in 2011. In an ZAVALA to his LAD, SVG to his posterior descending and diagonal. Lateral branch of the circumflex. He also has a history of hypertension and hyperlipidemia. From a cardiac standpoint, patient is doing well. He does not have any chest discomfort/heaviness/tightness. His exercise tolerance is stable for his age. He does not have any worsening symptoms of shortness of breath. He denies any PND. He does not have any orthopnea. He does not have any symptoms of congestive heart failure. He does not have any palpitations that he is aware of. He does not have any lightheadedness or dizziness. He does not have any near-syncope or syncope. He does not have any lower extremity edema. He does not have any symptoms of claudication. He is in the Cirt trial. Intake Vital Signs01/15/18 Height 5 ft 7 in 01/15/18 Weight: 235 lb 01/15/18 Body Mass Index (BMI) 36.8 01/15/18 Blood Pressure 130/84 01/15/18 Blood Pressure Location Lt brachial Intake Visit Reasons: 8 M Dietitian Helper Required: No Accompanied by: None Is patient in pain?: No Allergies No Known Allergies Allergy (Unverified 01/15/18 10:27) Medications lisinopril 10 mg tablet 10 mg PO QDAY 01/12/18 [History Confirmed 01/12/18] metoprolol tartrate 50 mg tablet 50 mg PO BID 01/12/18 [History Confirmed 01/12/18] nitroglycerin 0.4 mg sublingual tablet 0.4 mg SUBLINGUAL Q5M PRN 01/12/18 [History Confirmed 01/12/18] omeprazole 20 mg capsule,delayed release 20 mg PO QDAY 01/12/18 [History Confirmed 01/12/18] simvastatin 40 mg tablet 40 mg PO QHS tab 01/12/18 [History Confirmed 01/12/18] aspirin 81 mg tablet,delayed release 81 mg PO QDAY #30 tab 01/15/18 [Rx Confirmed 01/15/18] hydrochlorothiazide 25 mg tablet 25 mg PO QDAY #30 tab 01/15/18 [Rx Confirmed 01/15/18] PFSH Medical History Hyperlipidemia (Chronic) Atherosclerosis of coronary artery bypass graft without angina pectoris (Chronic) Hypertension (Chronic) 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) Surgical History Presence of aortocoronary bypass graft (Resolved) Family History Father Cancer Prostate cancer Mother CAD (coronary artery disease) Hx CABG Myocardial infarction Hypertension Brother CAD (coronary artery disease) Diabetes Other Family history of hypertension Social History Smoking Status: Former smoker how long ago did patient quit smokin alcohol intake: current alcohol intake frequency: 0-2 drinks per day Alcohol type: wine substance use type: does not use caffeine: Yes Type: coffee Number of servings: 3 what type of physical activity do you participate in: walking frequency: daily duration: 30-45 minutes/day seatbelt use: always do you feel safe at home: Yes ROS Const Const: Negative for weakness, fatigue, fever(s) or headache(s) Eyes Eyes: Negative for blind spots, loss of peripheral vision or transient loss of vision ENT ENT: Negative for headache(s), dizziness, tinnitus or Nosebleed/epistaxis Cardio Chest Pain: No Palpitations: No Edema: None Muscle aches with walking: None Resp Respiratory: Negative for SOB with activity, SOB at rest or SOB orthopnea\SOB lying down GI GI: Negative nausea, vomiting, heartburn or vomiting blood/hematemesis : Negative for hematuria Musc Musc: Negative for muscle aches/ myalgia Neuro Neuro: Negative for weakness, headache(s), dizziness, near syncope, syncope or lightheadedness Franc Hematologic/Lymphatic: Negative for easy bleeding Endo Endo: Negative for fatigue Cardiology Exam Const Appearance: cooperative, no acute distress and well developed Orientation: alert, awake and oriented x3 Head Head: normocephalic and atraumatic Mouth: moist mucous membranes Eyes General: appearance normal, both eyes and all related structures Conjunctivae: conjunctivae normal Pupils: PERRL EOM: EOM intact bilaterally Neck Neck: normal visual inspection, no lymphadenopathy and no JVD Carotids: Negative bruit Neck Mass: Negative Neck mass Chest Chest inspection: normal inspection of the chest and symmetric chest movement Auscultation: Bilateral: Clear to Auscultation Cardio Palpation: normal PMI Rate: regular rate Rhythm: regular rhythm Heart sounds: S1 normal and S2 normal; negative rub, gallop or murmur GI GI: normal to inspection, soft, no hepatosplenomegaly and bowel sounds present; negative tender Neuro General: alert, awake, oriented x3, CN's II-XI intact bilaterally and moves all extremities Extremities Pulses: Normal: Right Posterior Tibial Pulse, Left Posterior Tibial Pulse, Right Radial Pulse, Left Radial Pulse Lower Extremity Edema: None: Bilateral Psych Psychological: normal affect Supplemental Info Stress test in 2013 was negative for ischemia at a moderate workload. Assessment AND Plan 1. Atherosclerosis of coronary artery bypass graft of absentee-shawnee heart without angina pectoris I25.810 Plan - ROLA Jerry Stable, from a cardiac standpoint patient does not have any symptoms of angina. We recommend that they continue with current aggressive medical management and risk factor modification. 2. Essential hypertension I10 Plan - ROLA Jeryr Blood pressure is well controlled on current medications, we do not recommend any changes at this time. 3. Pure hypercholesterolemia E78.00; E78.0 Plan - ROLA Jerry Recent lipid profile demonstrates total cholesterol 153, HDL 36, LDL 88. Will continue with current medications. We will continue to monitor. Plan Detail Other Medications New: Additional Comments - ROLA Jerry The above patient was discussed with Dr. Quan and Dr. Stein's absence, he agrees with plan of care. Thank you for allowing us to participate in patient's plan of care, if you have any questions please do not hesitate to call. This note was generated using a voice recognition system and there may be incorrect words, spelling or punctuation errors that were not noted when reviewing the office note prior to saving. 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 transplanted heart: absentee-shawnee heart Essential hypertension I10 Hypertension type: essential hypertension Pure hypercholesterolemia E78.00; E78.0 Hyperlipidemia type: pure hypercholesterolemia Coding Level of Care Code Off vis,est,level 3 Diagnoses Atherosclerosis of coronary artery bypass graft of [place]nee heart without angina pectoris I25.810 [place] vs. transplanted heart: absentee-shawnee heart Essential hypertension I10 Hypertension type: essential hypertension Pure hypercholesterolemia E78.00; E78.0 Hyperlipidemia type: pure hypercholesterolemia 01/15/18 1557 <Electronically signed by Tabatha CANELA> Date Tabatha CANELA 01/15/18 1703<Electronically signed by Aldo Quan MD> Cosigner Signature: Date (if applicable) Aldo Quan MD CC: ALLERGIES ALLERGIES DATE TYPE / CODE NAME / CODE REACTION SEVERITY SOURCE 10/21/2018 Drug No Known Unknown [facility] Allergy/4160 Allergies/F00 Hospital 11030(SNOMED [id number](RXNOR Repository CT) M) ENCOUNTERS ENCOUNTERS ADMIT/DISCHARGE ACCOUNT ADMITTING ENCOUNTER LOCATION SOURCE NUMBER CLASS 10/21/2018/ [id number] Emergency [place]aitlin Caitlin 8 1 [facility] ing:ED Repository 10/01/2018 [id number] Ambulatory BMSBuilding:B Caitlin 0 [place] Repository 04/05/2018 [id number] Ambulatory [place] Caitlin 2 [facility] ing:LABSPEC Repository 03/24/2018/ [id number] [facility], Inpatient Caitlin [place] 8 3 [place] Encounter [facility] ing:IK8Jwsn: Repository IC083Lxo: 1 03/24/2018 [id number] [facility], Ambulatory BMSBuilding:B Caitlin 2 [place].[facility] Repository 03/24/2018 [id number] [facility], Ambulatory BMSBuilding:B [place] 0 [place] MS.[facility] Repository 03/24/2018 [id number] [facility], Ambulatory BMSBuilding:B [place] 8 [place].[facility] Repository 03/24/2018 [id number] [facility], Ambulatory BMSBuilding:B [place] 9 [place] MS.[facility] Repository 03/24/2018/ [id number] Ambulatory BMSBuilding:W Cait[place] 8 2 [facility] Repository 01/15/2018/ [id number] Ambulatory BMSBuilding:B [place] 8 9 [facility] Repository PAYERS PAYERS ENCOUNTER GUARANTOR PAYER SUBSCRIBER SOURCE 10/21/2018 EBONY Hopper Insurance:ELOISA LANDIN: [facility] MEDICARE [facility] [id number] Number: Repository [id number]: [phone] [id number] [phone] () Date:5450-98-15[place] [id number]: 10/21/2018 Secondary NOT GIVENUNK Caitlin Insurance:SELF PAY [facility] Number: Effective Repository Date:2018-10-21 10/01/2018 EBONY D Primary EBONY D Caitlin [id number] N Insurance:HUMANA MILLERDOB: Community [place] MEDIC[place] PPOPolicy [id number] [place], [place] Number: Repository [id number]: 330 [id number] [phone] () Date:3552-30-04FL [address] [address]BB: 10/01/2018 Secondary NOT GIVENUNK C[place] Insurance:SELF PAY [facility] Number: Effective Repository Date:2018-06-23 04/05/2018 EBONY D Primary EBONY D [place] [id number] N Insurance:HUMANA MILLERDOB: Community [place] MEDICARE PPOPolicy [id number] [place], [place] Number: Repository [id number]: 330 [id number] [phone] () Date:3143-03-73FZ [address] [address]AU: 04/05/2018 Secondary NOT GIVENUNK Caitlin Insurance:SELF PAY [facility] Number: Effective Repository Date:2018-04-05 03/24/2018 EBONY D Primary EBONY D [place] [id number] N Insurance:HUMANA MILLERDOB: Community [place] MED[place] PPOPolicy [id number] [place] Number: Repository [address]Osj: 330 [id number] [phone] () Date:4243-67-74AU [address] [address]LX: 03/24/2018 Secondary NOT GIVENUNK Cait[place] Insurance:SELF PAY [facility] Number: Effective Repository Date:2018-03-23 03/24/2018 EBONY D Primary EBONY D [place] [id number] N Insurance:HUMANA MILLERDOB: Community [place] MEDICARE PPOPolicy [id number] Number: Repository [id number]: 330 [id number] [phone] (HP) Date:4611-37-69HT [address] [address]PM: 03/24/2018 Secondary NOT GIVENUNK [place] Insurance:SELF PAY [facility] Number: Effective Repository Date:2018-03-24 03/24/2018 EBONY D Primary EBONY D [place] [id number] N Insurance:HUMANA MILLERDOB: Community [place] [employer] PPOPolicy [id number] [place] Number: Repository [phone]: 330 [id number] [phone] (HP) Date:[id number] [address]FC: 03/24/2018 Secondary EBONY D [place] [facility] Number: [id number] [place] [address] [id number] Repository Date:0809-80-96IQN SERVICE [id number] [place], [place] [address]MC: [phone] X2003 03/24/2018 Tertiary NOT GIVENUNK [place] Insurance:SELF PAY [facility] Number: Effective Repository Date:2018-03-24 03/24/2018 EBONY D Primary EBONY D [place] [id number] N Insurance:HUMANA MILLERDOB: [facility] [employer] MEDICARE PPOPolicy [id number] [place] [address] Number: Repository [id number]: 330 [id number] [phone] (HP) Date:1940-44-23BF[address] [address]LJ: 03/24/2018 Secondary EBONY D [place] Insurance[facility] Number: [id number] [place] [address] [id number] Repository Date:9491-26-71XKH SERVICE [id number] [place], [place] [address]KL: [phone] X2003 03/24/2018 Tertiary NOT GIVENUNK [place] Insurance:SELF PAY [facility]: Effective Repository Date:2018-03-24 03/24/2018 EBONY D Primary EBONY D [place] [id number] N Insurance:HUMANA MILLERDOB: Community [place] MEDICARE [facility] [id number] [place], [place] Number: Repository [id number]: 330 [id number] [phone] () Date:0115-19-78EE [address] [address]VC: 03/24/2018 Secondary NOT GIVENUNK [place] Insurance:SELF PAY [facility] Number: Effective Repository Date:2018-03-24 03/24/2018 EBONY D Primary EBONY D [place] [id number] N Insurance:HUMANA MILLERDOB: [facility] [id number] [place], [place] Number: Repository [id number]: 330 [id number] [phone] () Date:[id number] [address]HC: 03/24/2018 Secondary NOT GIVENUNK [place] Insurance:SELF PAY [facility] Number: Effective Repository Date:2018-03-24 01/15/2018 EBONY D Primary EBONY D [place] [id number] N Insurance:HUMANA MILLERDOB: [facility] [employer] MEDICARE PPOPolicy [id number] [place], [place] Number: Repository [id number]: 330 [id number] [phone] () Date:2728-46-13NX [address] [address]CL: 01/15/2018 Secondary NOT GIVENUNK [place] Insurance:SELF PAY [facility] Number: Effective Repository Date:2017-10-29
== END 2018-10-21 18:40 | disposition home or self-care (01) ==
LOC: ED 18:35
PROVIDERS: Emergency Provider Emergency Medicine
DX: S61.411A Laceration without foreign body of right hand, initial encounter (principal); X58.XXXA Exposure to other specified factors, initial encounter; Y93.9 Activity, unspecified; Y92.9 Unspecified place or not applicable; Z23 Encounter for immunization; I25.10 Atherosclerotic heart disease of native coronary artery without angina pectoris; I10 Essential (primary) hypertension; E78.00 Pure hypercholesterolemia, unspecified; Z95.1 Presence of aortocoronary bypass graft; Z79.82 Long term (current) use of aspirin; Z79.899 Other long term (current) drug therapy
CPT/HCPCS: 90471; 90715; 99282

== ENCOUNTER → 2020-01-30 06:50 | Outpatient (CLI) | payer MEDICARE, SELFPAY ==
[2019-12-23 08:58] VITALS: BMI 36.5
--- NOTE | 2020-01-30 06:53 | ECHOD_ITS ---
Reason For Study: s/p CABG Procedure This was a 2D Doppler, Color Flow transthoracic echocardiogram. The study was technically difficult. Exam performed in department. Left Ventricle Normal LV size. Left ventricular systolic function is normal. The estimated ejection fraction is 65 %. Normal diastology for age. No regional wall motion abnormalities noted. Right Ventricle Normal RV size. Normal systolic function. Atria Normal left atrium. Normal right atrium. Mitral Valve Normal mitral valve. Tricuspid Valve Normal tricuspid valve. Aortic Valve The aortic valve is not well visualized. Great Vessels Normal aortic root. The pulmonary artery is normal size. Normal inferior vena cava. Pericardium/Pleural No pericardial effusion. MMode/2D Measurements & Calculations LVIDd: 4.7 cm IVSd: 1.0 cm Ao root diam: 2.4 cm LVIDs: 3.2 cm LVPWd: 1.0 cm RVDd: 4.0 cm FS: 33.4 % LAV(MOD-bp): 31.8 ml LVAd ap4: 19.1 cm2 SV(MOD-sp4): 30.4 ml LAV(MOD-bp) Indexed: 14.7 ml/m2 EDV(MOD-sp4): 42.9 ml LAV(MOD-sp2): 27.3 ml EDV(sp4-el): 43.8 ml LAV(MOD-sp4): 33.5 ml LVAs ap4: 8.4 cm2 ESV(MOD-sp4): 12.5 ml ESV(sp4-el): 11.3 ml EF(MOD-sp4): 70.9 % EF(sp4-el): 74.2 % SV(sp4-el): 32.5 ml LA dimension(2D): 4.1 cm LA A4 area: 15.5 cm2 RA A4 area: 16.4 cm2 Doppler Measurements & Calculations MV E max el: 57.3 cm/sec Lat Peak E' El: 6.6 cm/sec Med Peak E' El: 5.5 cm/sec MV A max el: 69.2 cm/sec E/E' lat: 8.7 E/E' med: 10.4 MV E/A: 0.83 Ao V2 max: 144.0 cm/sec LV V1 max: 117.8 cm/sec PA V2 max: 79.6 cm/sec Ao max P.3 mmHg LV V1 max P.5 mmHg Ao V2 mean: 97.6 cm/sec Ao mean P.2 mmHg Ao V2 VTI: 27.4 cm Interpretation Summary Normal LV size. Left ventricular systolic function is normal. The estimated ejection fraction is 65 %. Normal diastology for age. The study was technically difficult. The study was technically limited. Ordering Physician: Justin Stein Referring Physician: Guillermina Molina Performed By: Nessa Arvizu, RDCS, RVT
--- NOTE | 2020-01-30 14:02 | STRESSREP ---
Stress Test Report Exercise stress myocardial perfusion test. 74-year-old man with a history of coronary artery disease status post coronary bypass surgery. Stress protocol: Resting EKG demonstrates normal sinus rhythm with a rate of 62 bpm normal intervals are noted resting blood pressures 148/96 mmHg. Right bundle branch block is noted. The patient exercised according to the regular Skip protocol for total duration of 4 minutes and 30 seconds the maximum heart rate attained was 134 bpm which was 90% of maximum predicted heart rate the maximum workload was 6.4 metabolic equivalents. The patient maintained sinus rhythm throughout the recording. At rest there were no ST or T wave changes noted suggest ischemia at peak exercise upsloping ST changes only were noted with no meet the criteria for ischemia. The patient experienced mild chest pain increasing to moderate chest pain and moderate shortness of breath necessitating termination of the test. The resting blood pressures 148/96 with a peak blood pressure 182/90 mmHg. Myocardial perfusion protocol. 11.8 mCi of technetium 99m sestamibi was injected at rest. Patient exercised according to regular Skip protocol for 4 minutes and 30 seconds at peak exercise 34.2 mCi of technetium 99m sestamibi was injected stress images were obtained stress and rest images were reconstructed and compared in the short axis vertical long horizontal long axis. Gated images were also obtained Perfusion SPECT analysis: Review of the stress images demonstrate a medium size defect noted involving the mid inferior wall. The resting images demonstrate improved perfusion in this area. The septum anterior wall and lateral wall appear to be well perfused. The above is suggestive of a moderate amount of mid inferior ischemia. Gated SPECT analysis: The gated ejection fraction is 57%. Conclusion: Abnormal exercise myocardial perfusion stress test with evidence of mid inferior ischemia at a low to moderate workload. Clinical angina noted. Preserved ejection fraction.
== END ==
PROVIDERS: PCP Family Medicine; Referring Provider Internal Medicine Cardiovascular Disease; Visit Provider Internal Medicine Cardiovascular Disease
DX: I25.810 Atherosclerosis of coronary artery bypass graft(s) without angina pectoris (principal); Z95.1 Presence of aortocoronary bypass graft
CPT/HCPCS: 78452; 93017; 93306; A9500; A4216

== ENCOUNTER 2020-02-06 06:42 | Day surgery (SDC) | payer MEDICARE, OTHER, SELFPAY ==
[2019-12-23 08:58] VITALS: BMI 36.5
--- NOTE | 2020-02-01 08:34 | RAD_ITS ---
STUDY: X-RAY CHEST REASON FOR EXAM: Male, 74 years old. PRE HEART CATH, SOB ON EXERTION TECHNIQUE: PA and lateral views of the chest. COMPARISON: Prior study of 05/08/2014 FINDINGS: The lungs are clear and expanded. There is no demonstrated pleural abnormality. The heart size is normal. Status post anatomy changes are noted. Normal mediastinum and blaine. Normal visualized pulmonary arteries. There are calcified plaques of the aortic arch. Normal visualized thoracic spine. Normal visualized ribs, clavicles, and shoulders. There is no demonstrated abnormality of the visualized soft tissue structures of the upper abdomen. RAD/Chest PA and Lateral IMPRESSION: Status post sternotomy. Calcified plaques of the aortic arch. No acute cardiopulmonary disease process is seen. Chest findings are stable in the interval. Electronically Signed: Jr Enriquez MD at 20:41 EDT , Service support ,
[2020-02-01 09:19] LABS: Absolute Lymphocyte Count 2.08 X10^3/uL (0.83-4.51); Absolute Neutrophil Count 4.8 X10^3/uL (2.0-7.7); Basophil# 0.06 X10^3/uL; Basophil% 0.8 % (0-1); Eosinophil# 0.19 X10^3/uL; Eosinophils% 2.5 % (0-5); Hematocrit 50.3 % (40-54); Hemoglobin 17.1 g/dL (13.0-16.5); Lymphocyte # 2.08 X10^3/ul (4.0); Lymphocyte % 27.4 % (19-41); Mean Corpuscular Hgb 28.8 pg (27.0-32.0); Mean Corpuscular Volume 84.7 fL (80-94); Mean Platelet Vol. 9.4 fl (6.2-12.0); Monocyte# 0.45 X10^3/uL; Monocyte% 5.9 % (0-10); NRBC Flagged by Analyzer 0 % (0-5); Neutrophil # 4.76 X10^3/uL (2.7-7.7); Neutrophil % 62.9 % (47-70); Platelet Count 212 K/mm3 (150-450); RBC Distribution Width CV 12.3 % (11.6-14.6); RBC Distribution Width SD 37.4 fl (35.1-43.9); Red Blood Count 5.94 M/mm3 (4.6-6.2); White Blood Count 7.6 K/mm3 (4.4-11.0)
[2020-02-01 09:49] LABS: Anion Gap 4 (5-15); BUN 21 mg/dL (7-18); BUN/Creat Ratio 18.8 RATIO (10-20); Calcium,Total 8.7 mg/dL (8.5-10.1); Chloride 106 mmol/L (98-107); Creatinine, Serum 1.12 mg/dL (0.70-1.30); EST Glomerular Filtration Rate 68 mL/min (>60); Est Glom Filt Rate - Afr Amer 83 mL/min (>60); Glucose 205 mg/dL (74-106); Potassium 3.6 mmol/L (3.5-5.1); Sodium Level 139 mmol/L (136-145)
[2020-02-01 10:20] LABS: Prothrombin Time (Protime)PT. 12.9 SECONDS (11.7-14.9)
[2020-02-01 10:21] LABS: Partial Thromboplast Time 25.7 Seconds (24.1-36.2)
[2020-02-03 08:26] VITALS: BMI 36.5
[2020-02-06] VITALS (19 sets, daily range): BP systolic 141–190; BP diastolic 66–101; PULSE 60–87; RESP 10–19; TEMP 36.3–36.8; O2SAT 94–100; BMI 36.2; BMI 36.5
--- NOTE | 2020-02-06 08:00 | HP_ITS ---
[facility] History of Present Illness Details: EBONY GREGORIO, is a 74 M who presents today for heart cath for an abnormal stress test. follow-up. He has a history of coronary artery disease with bypass surgery in 2011. In an ZAVALA to his LAD, SVG to his posterior descending and diagonal. Lateral branch of the circumflex. He also has a history of hypertension and hyperlipidemia. From a cardiac standpoint, patient is doing well. He does not have any chest discomfort/heaviness/tightness. His exercise tolerance is stable for his age. He does not have any worsening symptoms of shortness of breath. He denies any PND. He does not have any orthopnea. He does not have any symptoms of congestive heart failure. He does not have any palpitations that he is aware of. He does not have any lightheadedness or dizziness. He does not have any near-syncope or syncope. He does not have any lower extremity edema. He does not have any symptoms of claudication. He underwent a stress test earlier this month, this demonstrated Abnormal exercise myocardial perfusion stress test with evidence of mid inferior ischemia at a low to moderate workload. Clinical angina noted. Preserved ejection fraction. Based on this it is recommended he undergo a heart cath. 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) Small bowel obstruction (Resolved) Surgical History Stented coronary artery (Chronic 02/06/20) H/O coronary artery bypass surgery (Resolved 04/2012) Social History (Updated 02/17/20 @ 16:21 by ROLA Jerry) Smoking Status: Former smoker how long ago did patient quit smokin alcohol intake: current alcohol intake frequency: 0-2 drinks per day Alcohol type: wine substance use type: does not use caffeine: Yes Type: coffee Number of servings: 3 what type of physical activity do you participate in: walking frequency: daily duration: 30-45 minutes/day seatbelt use: always do you feel safe at home: Yes ROS Const Const: Negative for fatigue, weakness, headache(s), frequent falls, difficulty sleeping or excessive sweating Eyes Eyes: Negative for loss of peripheral vision, transient loss of vision, blurry vision, double vision or tunnel vision ENT ENT: Negative for headache(s) or balance problems Cardio Chest Pain: No Palpitations: No Edema: None Muscle aches with walking: None Resp Respiratory: Positive for SOB with activity (With brisk walking); negative for SOB at rest, SOB orthopnea\SOB lying down, Cough or paroxysmal nocturnal dyspnea GI GI: Negative nausea, vomiting, heartburn or black,tarry stools : Negative for hematuria Musc Musc: Negative for muscle aches/ myalgia, muscle weakness, joint pain or balance problems Skin Skin: Negative non-healing lesions, rash or unusual bruising Neuro Neuro: Negative for frequent falls, headache(s), weakness, blurry vision or double vision Franc Hematologic/Lymphatic: Negative for easy bleeding or easy bruising Endo Endo: Negative for fatigue or excessive sweating Psych Psych: Negative for anxiety or depression Allergy Allergy/Immunology: Negative for rash Cardiology Exam Const Appearance: cooperative, healthy appearing, no acute distress, well developed and well groomed Nutritional Appearance: average body habitus and well nourished Orientation: alert, awake and oriented x3 Head Head: normal to inspection, normocephalic and atraumatic Ears: hearing grossly normal bilaterally and external ears normal Nose: external nose normal, nares normal, nasal mucous membranes and turbinates normal, septum normal, no nasal discharge Face and Sinus: face symmetric Mouth: oral mucosae normal, tongue normal, oropharynx normal and moist mucous membranes Teeth and gingiva: dentition normal Throat: posterior oropharynx normal, tonsils normal and uvula midline Eyes General: appearance normal, both eyes and all related structures Eyelids: eyelids normal Conjunctivae: conjunctivae normal Pupils: PERRL, normal by confrontation and accommodation normal EOM: EOM intact bilaterally Neck Neck: normal visual inspection, trachea midline and no JVD JVD: +5 Carotids: normal carotid upstroke and bounding pulses Chest Chest inspection: normal inspection of the chest, symmetric chest movement and normal respiratory effort Auscultation: Bilateral: Clear to Auscultation Cardio Palpation: normal PMI Rate: regular rate Rhythm: regular rhythm Heart sounds: S1 normal, S2 normal and normal, physiologic split S2; negative rub, gallop or murmur GI GI: normal to inspection, soft, no hepatosplenomegaly and bowel sounds present Neuro General: alert, awake, oriented x3, gait normal, moves all extremities and no focal sensory deficit Skin Skin: no rashes or lesions noted Extremities Pulses: Normal: Right Femoral Pulse, Left Femoral Pulse, Right Dorsalis Pedis Pulse, Left Dorsalis Pedis Pulse, Right Posterior Tibial Pulse, Left Posterior Tibial Pulse, Right Radial Pulse, Left Radial Pulse Lower Extremity Edema: None: Bilateral Musculoskel Musculoskeletal: No joint tenderness Psych Psychological: normal affect Assessment & Plan Problems 1. Atherosclerosis of coronary artery bypass graft of resighini heart without angina pectoris I25.810 Severe resighini vessel disease involving a totally occluded left anterior descending artery, severely diseased left circumflex artery, dominant right coronary artery with high-grade mid to distal stenosis noted. Patent left internal mammary artery to left anterior descending artery, saphenous vein graft to the diagonal branch which is patent. Saphenous vein graft to the posterior descending artery is occluded. RECOMMENDATIONS: Referred for immediate PCI per [facility] 02/06/20 per DIRECTOR CLINICAL OPERATIONS @ [facility] 2. H/O coronary artery bypass surgery Z95.1 CABG x 4 ZAVALA to LAD, SVG to RCA, SVG-D1 & LCx 04/2012 3. Essential hypertension I10 4. Hyperlipidemia E78.5 5. Abnormal stress test R94.39 6. Abnormal stress test Plan - ROLA Jerry Pt will undergo a heart cath today, he will follow up accordingly in the office. If he needs to have a stent placed he is aware he needs to spend the night. Orders Referrals: Phase II, Outpatient Cardiac Rehab I25.810, Z95.5 Coding Level of Care Code No Charge Diagnoses Atherosclerosis of coronary artery bypass graft of resighini heart without angina pectoris I25.810 ??[place] vs. transplanted heart: resighini heart H/O coronary artery bypass surgery Z95.1 Essential hypertension I10 Hyperlipidemia E78.5 Abnormal stress test R94.39 Abnormal stress test Coding Level of Care Code No Charge Diagnoses Atherosclerosis of coronary artery bypass graft of resighini heart without angina pectoris I25.810 ??[place] vs. transplanted heart: resighini heart H/O coronary artery bypass surgery Z95.1 Essential hypertension I10 Hyperlipidemia E78.5 Abnormal stress test R94.39 Abnormal stress test Supplemental Info Supplemental Information Diagnostics Electrocardiogram 03/17/20 Echocardiogram 01/30/20 Stress Test Nuclear Medicine 01/30/20 Stress Test 01/30/20 Cardiac Catheterization 02/06/20 Chest X-Ray 02/01/20
--- NOTE | 2020-02-06 09:32 | CL.D_ITS ---
Patient Name: EBONY GREGORIO Study Date: 02/06/2020 Performing: Justin Stein MD Ht: 66.92 inches 170 cm : 1945 Wt: 233.69 lbs 106 kg Age: 74 Gender: male BSA: 2.16 PROCEDURE(S) PERFORMED KU72-EXV/COR/LV/CABG CLINICAL PROFILE AND INDICATIONS Indications: Suspected CAD Heart Failure: None Stress/Imaging Date: 01/30/2020Stress Test with SPECT MPI: Positive Intermediate Risk CAD Presentations: No Sxs, no angina. CONCLUSIONS Severe [place] vessel disease involving a totally occluded left anterior descending artery, severely d iseased left circumflex artery, dominant right coronary artery with high-grade mid to distal stenosis noted. Patent left internal mammary artery to left anterior descending artery, saphenous vein graft to the diagonal branch which is patent. Saphenous vein graft to the posterior descending artery is occluded. RECOMMENDATIONS Referred for immediate PCI DESCRIPTION OF PROCEDURE The patient arrived to the procedure lab. The risks and benefits of the procedure as well as a full d escription of our services here and current unavailability of surgical backup were fully explained to the patient and/or their significant other prior to the catheterization. The Timeout was completed, verifying the correct patient and procedure. The patient's procedural site was prepped and draped in the usual fashion. Local anesthetic was given subcutaneously to right groin region with Lidocaine 2%. Local anesthetic was given subcutaneously to left radial region with Lidocaine 2%. Using a modified Seldinger technique, arterial access was obtained via the left radial artery, a 6Fr sheath was insert ed. Left internal mammary artery graft to the LAD selective angiography was performed in multiple vi ews using a 5 Fr. IM catheter. Right Coronary Artery selective angiography was then performed in mult iple views using a 5 Fr. 3DRC (Telly) catheter. Left Coronary Artery selective angiography was performed in multiple views using a 5 Fr. JL4 catheter. Saphenous Vein graft to the R CA (occluded graft) selective angiography was performed in single view using a 5 Fr. AR MOD catheter. Saphenous Vein graft to the Circumflex and Diag 1 selective angiography was performed in multiple vi ews using a 5 Fr. AR MOD catheter. Left Ventriculography was performed in CARLIN projection using a 5 Fr . Pigtail catheter. LV to AO pullback pressures were then recorded. CORONARY ANGIOGRAPHY DOMINANCE: Right Dominant LEFT HEART ASSESSMENT Left Ventricular Ejection Fraction: by LV Gram 60 % Normal LV wall motion Normal Left Ventricular systolic function LEFT MAIN: Mild calcification LEFT ANTERIOR DESCENDING ARTERY: MID LAD: is occluded CIRCUMFLEX ARTERY: Severe calcification, Severely diseased vessel with multiple areas of stenosis and then subtotally occluded in the midsegment. No competitive flow noted. RIGHT CORONARY ARTERY: Large dominant vessel with mild to moderate proximal stenosis. Distal 95% mary nosis noted prior to the bifurcation of the posterior descending artery. The posterior descending ar cristi itself has an area of 70% stenosis. GRAFTS: ZAVALA graft to the Mid LAD is patent Saphenous Vein graft to the 1st Diagonal is patent Saphenous Vein graft to the RPDA is totally occluded COMPLICATIONS PROCEDURE MEDICATIONS Versed 1 mg IV Fentanyl 50 mcg IV Versed 1 mg IV Fentanyl 50 mcg IV Oxygen: 2 L/min via nasal cannula Heparin diluted in 23cc Heparinized saline. Patient given 10cc IA of this solution. 02/06/2020 08:47: 53 Heparin 6000 unit(s) IV 02/06/2020 09:29:35 Verapamil 2.5mg, Ntg 100mcgs, 2000 units of Heparin diluted in 23cc Heparinized saline. Patient give n 10cc IA of this solution. 02/06/2020 08:47:53 SUMMARY OF HEMODYNAMIC DATA Time AIR REST ECG 07:11:02 AO 142/81 (105) SA 08:51:35 AO 185/98 (136) 09:10:09 LV 150/16, 20 09:17:02 LV 157/15, 20 09:17:12 LV 105/17, 24 09:17:56 LVp 134/21, 25 09:18:01 AOp 105/-40 (68) 09:18:06 Signed By Justin Stein MD On 02/06/2020 09:31:37 Justin Stein MD
[2020-02-06] MEDS: Pantoprazole Sodium 20 MG Tablet PO (11:09)
[2020-02-06] MEDS: hydroCHLOROthiazide 25 MG Tablet PO (11:09)
[2020-02-06] MEDS: 0.9% Saline Lock 10 ML Syringe IV (11:11)
--- NOTE | 2020-02-06 11:23 | CRPHASE1_ITS ---
Patient Communication Former Patient:: Phase II PHII Cardiac Rehab Discussed with Patient:: Yes Guide to Cardiac Rehab Given to Patient:: Yes Cardiac Rehab Facility Choice List Given to Patient:: Yes - chooses [facility] Choice Program [facility] CR PHII:: Communication Given to CR, Refer to [facility] Financial Assistance Specialist:: Karin Reynoso Refer Phase II Cardiac Rehab:: Yes Sessions:: 36 sessions - 3 days/wk, 12 weeks Risk Factors/Lifestyle Height: 5 ft 7 in Weight:: 105.687 kg BMI: 36.5 Family History: Family History (This Medical Record has been edited. Action required.) Father Cancer Mother CAD (coronary artery disease) Myocardial infarction Hypertension Brother CAD (coronary artery disease) Diabetes Other Family history of hypertension Phase I Education Given On:: [place], Nutrition, Antiplatelet medication, CHF, Smoking cessation, Diabetes - Type I, Diabetes - Type II Issues Affecting Care:: None Knowledge of Condition:: Yes Hospital Course Cardiac Cath Date:: 02/06/20 Discharge/Home/Social Eval Discharge Disposition: Home Marital Status: Cardiac Rehabilitation Info Cardiac Rehabilitation Program Information: Cardiac Rehabilitation is important for patients like you who are recovering from a heart problem. Cardiac rehabilitation programs are recognized as integral to the continued care of the patient with coronary heart disease. The cardiac rehabilitation program is designed to optimize a patient's physical, psychological, and social functioning. Health campground caretaker work in cardiac rehabilitation programs and assist you with getting the treatments you need to get stronger and healthier - like exercise, healthy eating habits, and medications. Cardiac rehabilitation has been show to help people with heart problems live longer and have better life enjoyment than people who do not go to cardiac rehabilitation. Please contact the Cardiac Rehabilitation Program at [facility] at in two weeks if you have not heard from them.
--- NOTE | 2020-02-06 11:26 | CRPH1.INSTRU ---
General Education CAD and cardiac anatomy and function:: Patient communicates acknowledgment Explanation of diagnoses and procedures:: Patient communicates acknowledgment Sign/Symptoms of DC:: Patient communicates acknowledgment Antiplatelet therapy: Patient communicates acknowledgment Proper use of NTG-SL: Not instructed Emergency procedures and activation of EMS: Patient communicates acknowledgment Compliance of all prescribed medications: Patient communicates acknowledgment Smoking Nicotine/Smoking Response Code:: Patient communicates acknowledgment Dyslipidemia Dyslipidemia Response Code:: Patient communicates acknowledgment Overweight/Obesity Patient Overweight/Obesity Risk Factors Are:: Obesity - > or = 30 Recommendations Include:: Weight loss of 5-10%, Reduced calorie diet, Exercise 5-7 times/week Overweight/Obesity:: Patient communicates acknowledgment Hypertension Hypertension:: Patient communicates acknowledgment Heart Disease Heart Disease Response Code:: Patient communicates acknowledgment Diabetes Diabetes:: Patient communicates acknowledgment Metabolic Syndrome Metabolic Syndrome Response Code:: Patient communicates acknowledgment Sedentary Patient Sedentary Risk Factors Are:: Lack of regular exercise Sedentary Response Code:: Patient communicates acknowledgment Stress Stress Response Code:: Patient communicates acknowledgment
--- NOTE | 2020-02-06 15:17 | CHAPLAIN ---
Type of Pastoral Visit _x__ Initial Visit ___ Follow-up Visit ___ On-call Visit ___ General Patient Visit ___ Spiritual Assessment ___ Family Conference ___ Bereavement ___ Rapid Response ___ Code Blue ___ Other (describe below) Pastoral Care Referral From _x__ Patient ___ Family ___ Nurse ___ Physician ___ Crime Analyst ___ Electric Power Machine Operator ___ Other (describe below) Sacrament/Intervention _x__ Active listening ___ Anointing ___ Worship ___ Bereavement ___ Communion ___ Lacie exploration ___ _x__ Life review _x__ Prayer ___ Reconciliation ___ Sacrament of Sick _x__ Supportive presence ___ Wedding ___ Other (describe below) Pastoral Comments
--- NOTE | 2020-02-06 17:57 | PCM.DC.CCA ---
Discharge Diet: Low fat/ Low Cholesterol Discharge Activity: Return to Normal Activity Lifting Restrictions: 10 pounds and also avoid any pushing or pulling for 3 days after your test. Call your doctor if your incision/area has: Continuous Slow Oozing, Sudden Increased Bleeding, Increased Pain/ Swelling, Increased Redness, Foul Smelling Discharge, Swelling at the incision site Call your doctor if you observe: Fever of 101 or Higher, Shortness of breath, Chest pain Remove Dressing in (days):: 1 Additional Dressing/Incision Instructions:: Keep the dressing (bandage) on until the next morning. You may then shower, but do not take a tub bath for 5 days after your test. It is normal to have some tenderness and discomfort at the puncture site. Sometimes bruising also occurs. However, if pain, numbness, or coldness occurs below the puncture site (in your leg, toes, arms or fingers) call your doctor at once. You may have a small, marble sized knot at the puncture site. This is normal. Do not rub it. It will go away in 4-6 weeks. Bleeding can occur from the area where the puncture was done. Blood may spurt or drip from the site. If blood spurts, apply pressure right away to stop bleeding and call 911. Although rare, bleeding into the tissue (hematoma) can also occur. If this happens, a large, firm area goose egg under the skin will appear. If any of these occur, lie down as flat as you can and have someone apply firm pressure to the cath site with a gauze pad or a clean washcloth for 10-15 minutes. Call 911 or go to the Emergency Department. Additional Instructions: You will need to stay on your Brilinta for at least one year prior to stopping this for any reason. The purpose of this is to keep your stent open. If someone asks you to stop this you need to call the [facility] to ask if this is okay. Please keep your follow up with the [facility]. If you need to change this appt please call us to reschedule. We would like for you to participate in cardiac rehab. We can further discuss this at you office visit. There are several medications at are important for cardiac health. Below is a list of several medication classifactions, if you are on them and how much. If you are not on them the reason why. Aspirin at discharge? Yes This is an antiplatelet. Antiplatelet therapy at discharge? Brilinta This is also an antiplatelet. NORBERT/ARB at discharge? Yes, Lisinopril. This is for blood pressure. Statin at discharge? Yes- simvastatin. This is for cholesterol. Beta-sadaf at discharge? Yes, metoprolol. This helps to control your heart rate. Allergies/Adverse Reactions: Allergies No Known Allergies Allergy (Verified 12/23/19 08:59) Medications to take at Discharge nitroglycerin 0.4 mg sublingual tablet 0.4 mg SUBLINGUAL Q5M PRN 01/12/18 omeprazole 20 mg capsule,delayed release 20 mg PO QDAY 01/12/18 aspirin 81 mg tablet,delayed release 81 mg PO QDAY #30 tab 07/20/19 hydrochlorothiazide 25 mg tablet 25 mg PO QDAY #90 tab 10/17/19 lisinopril 10 mg tablet 10 mg PO QDAY #90 tab 10/17/19 metoprolol tartrate 50 mg tablet 50 mg PO BID #180 tab 10/17/19 simvastatin 40 mg tablet 40 mg PO QHS #90 tab 12/07/19 Ticagrelor [Brilinta] 90 mg PO BID #60 tab 02/06/20 The following prescriptions were given: Ticagrelor [Brilinta] 90 mg PO BID #60 tab Transmission Status: Received by [facility] Primary Care Physician: Scotty Perry MD [Primary Care Provider] - Test Results: Test results from this visit will be discussed in further detail at your follow-up appointment, if applicable. Please Follow Up With: Tabatha Donovan PA When: 02/27 at 1130 Cardiac Rehabilitation Info Cardiac Rehabilitation Program Information: Cardiac Rehabilitation is important for patients like you who are recovering from a heart problem. Cardiac rehabilitation programs are recognized as integral to the continued care of the patient with coronary heart disease. The cardiac rehabilitation program is designed to optimize a patient's physical, psychological, and social functioning. Health school child care attendant work in cardiac rehabilitation programs and assist you with getting the treatments you need to get stronger and healthier - like exercise, healthy eating habits, and medications. Cardiac rehabilitation has been show to help people with heart problems live longer and have better life enjoyment than people who do not go to cardiac rehabilitation. Please contact the Cardiac Rehabilitation Program at [facility] at in two weeks if you have not heard from them.
[2020-02-06] MEDS: TICAGRELOR 90 MG TABLET PO (21:13)
[2020-02-06] MEDS: Atorvastatin Calcium 20 MG Tablet PO (21:13)
[2020-02-06] MEDS: Metoprolol Tartrate 50 MG Tablet PO (21:13)
[2020-02-07 02:52] VITALS: PULSE 61
[2020-02-07 03:10] VITALS: BP 142/77; PULSE 62; RESP 18; TEMP 36.6; O2SAT 95
--- NOTE | 2020-02-07 05:40 | EKG12_ITS ---
Test Reason : AM EKG Blood Pressure : / mmHG Vent. Rate : 067 BPM Atrial Rate : 067 BPM P-R Int : 146 ms QRS Dur : 154 ms QT Int : 462 ms P-R-T Axes : 046 080 078 degrees QTc Int : 488 ms Normal sinus rhythm Right bundle branch block Abnormal ECG When compared with ECG of 06-FEB-2020 13:00, MANUAL COMPARISON REQUIRED, DATA IS UNCONFIRMED Confirmed by YVAN PARSONS ([id number]), map editor CEDRIC GREGORIO ([id number]) on 02/09/2020 9:55:25 AM Referred By: Justin Stein Confirmed By:YVAN PARSONS
[2020-02-07 06:04] LABS: Hematocrit 47.6 % (40-54); Hemoglobin 16.2 g/dL (13.0-16.5); Mean Corpuscular Hgb 28.5 pg (27.0-32.0); Mean Corpuscular Volume 83.7 fL (80-94); Mean Platelet Vol. 9.1 fl (6.2-12.0); Platelet Count 225 K/mm3 (150-450); RBC Distribution Width CV 12.3 % (11.6-14.6); RBC Distribution Width SD 37.4 fl (35.1-43.9); Red Blood Count 5.69 M/mm3 (4.6-6.2); White Blood Count 8.4 K/mm3 (4.4-11.0)
[2020-02-07 06:38] LABS: AST(SGOT) 27 U/L (15-37); Alanine Aminotransfer ALT/SGPT 43 U/L (16-61); Albumin, Serum 3.3 g/dL (3.2-5.0); Alkaline Phosphatase 47 U/L (45-117); Anion Gap 5 (5-15); BUN 17 mg/dL (7-18); BUN/Creat Ratio 15.3 RATIO (10-20); Chloride 105 mmol/L (98-107); Creatinine, Serum 1.11 mg/dL (0.70-1.30); EST Glomerular Filtration Rate 69 mL/min (>60); Est Glom Filt Rate - Afr Amer 84 mL/min (>60); Estimated Creatinine Clearance 56.24 ml/min; Globulin 3.2 g/dL (2.2-4.2); Glucose 165 mg/dL (74-106); Potassium 3.5 mmol/L (3.5-5.1); Protein, Total 6.5 g/dL (6.4-8.2); Sodium Level 137 mmol/L (136-145)
[2020-02-07 06:56] VITALS: PULSE 62
--- NOTE | 2020-02-07 08:05 | PCM.PN.CARD ---
Subjectve: Patient seen and evaluated. Appears to be doing well. No events overnight. Objective: Vital Signs Temp Pulse Resp BP Pulse Ox 97.8 F 62 18 142/77 H 95 02/07/20 03:10 02/07/20 06:56 02/07/20 03:10 02/07/20 03:10 02/07/20 03:10 Oxygen Flow Rate (L/min) 2 Oxygen Delivery Method Room Air Weight: 233 lb Body Mass Index (BMI) 36.2 Intake and Output for Last 24 Hours 02/05/20 02/06/20 02/07/20 23:59 23:59 23:59 Intake Total 640 / 860 450 / 450 Output Total 250 / 250 Balance 390 / 610 450 / 450 General: Awake, Alert, Oriented x 3 HEENT: PERRL, EOMI, Sclera Non Icteric Neck: Supple, Good ROM, No Lymph Node Enlargement Lungs: Clear to auscultation Cardiovascular: Regular Rhythm, Normal S1, Normal S2, No Murmurs, No Rubs, No Gallops Vascular: No Carotid Bruits, Normal Femoral Pulses, Normal Radial Pulses, Normal Dorsalis Pedal Pulse, Normal Posterior Tibial Pulses Abdomen: Bowel Sounds Present, Soft, Non Tender, No HSM, No Organomegaly Extremities: No Cyanosis, No Clubbing, No edema Musculoskeletal: No Erythema Skin: No Breakdown Lymphatic: No Lymph Node Enlargement Neurological: No Focal Motor or Sensory Deficit 02/07/20 05:14: WBC 8.4, RBC 5.69, Hgb 16.2, Hct 47.6, MCV 83.7, MCH 28.5, MCHC 34.0, Plt Count 225, MPV 9.1 02/07/20 05:14: Sodium 137, Potassium 3.5, Chloride 105, Carbon Dioxide 27.0, Anion Gap 5, BUN 17, Creatinine 1.11, Est GFR (MDRD) Af Amer 84, Est GFR (MDRD) Non-Af 69, BUN/Creatinine Ratio 15.3, Glucose 165 H, Calcium 9.0, Total Bilirubin 0.70 Rhythm: EKG: ECHO: Stress Test: Cardiac Cath: PCI: CT Surgery: Holter monitor: EPS: PPM: CXR: Chest CT Scan: Medical Necessity - Tobacco Use Smoking Status: Former smoker Assessment/Plan Status post angioplasty and stenting of the [place] right coronary artery. Patient has done well overnight. No EKG changes. And no cath site issues. Labs remained stable. The patient to be discharged today on clopidogrel 75 mg a day. We will follow-up in my office.
[2020-02-07 08:11] VITALS: O2SAT 94
[2020-02-07 08:59] VITALS: BP 156/81; PULSE 70; RESP 16; TEMP 36.7; O2SAT 94
[2020-02-07 09:02] VITALS: PULSE 70
[2020-02-07] MEDS: Pantoprazole Sodium 20 MG Tablet PO (09:02)
[2020-02-07] MEDS: Aspirin E.C. 81 MG Tablet PO (09:02)
[2020-02-07] MEDS: hydroCHLOROthiazide 25 MG Tablet PO (09:02)
[2020-02-07] MEDS: Clopidogrel Bisulfate 300 MG Tablet PO (09:02)
[2020-02-07] MEDS: Lisinopril 10 MG Tablet PO (09:02)
[2020-02-07] MEDS: Metoprolol Tartrate 50 MG Tablet PO (09:02)
--- NOTE | 2020-02-07 10:00 | EKG12_ITS ---
Test Reason : POST CATH Blood Pressure : / mmHG Vent. Rate : 064 BPM Atrial Rate : 064 BPM P-R Int : 142 ms QRS Dur : 146 ms QT Int : 456 ms P-R-T Axes : 053 096 069 degrees QTc Int : 470 ms Normal sinus rhythm Right bundle branch block Abnormal ECG When compared with ECG of 08-JUN-2012 11:56, No significant change was found Confirmed by JOEL DUNN, JUSTIN ([id number]), editor trade journal CECILY WALKER ([id number]) on 02/07/2020 7:49:18 AM Referred By: Justin Maldonado Confirmed By:JUSTIN MALDONADO MD
--- NOTE | 2020-02-07 10:48 | PHA.DC.MR ---
Pharmacy Service has performed discharge medication reconciliation for this patient. Patient was on his way out as I was going to see him and charge nurse stopped him to let him know Dr. Stein would like him to take clopidogrel 75mg PO daily. I asked her if Dr. Stein mentioned the Brillinta. She called him back and confirmed the Brillinta has been stopped and he would like the patient to take clopidogrel. The patient's discharge medication list was reviewed for discrepancies and discrepancies were resolved. Home Medications nitroglycerin 0.4 mg sublingual tablet 0.4 mg SUBLINGUAL Q5M PRN 01/12/18 omeprazole 20 mg capsule,delayed release 20 mg PO QDAY 01/12/18 aspirin 81 mg tablet,delayed release 81 mg PO QDAY #30 tab 07/20/19 hydrochlorothiazide 25 mg tablet 25 mg PO QDAY #90 tab 10/17/19 lisinopril 10 mg tablet 10 mg PO QDAY #90 tab 10/17/19 metoprolol tartrate 50 mg tablet 50 mg PO BID #180 tab 10/17/19 simvastatin 40 mg tablet 40 mg PO QHS #90 tab 12/07/19 Ticagrelor [Brilinta] 90 mg PO BID #60 tab 02/06/20
--- NOTE | 2020-02-09 17:33 | CL.I_ITS ---
Patient Name: EBONY GREGORIO Study Date: 02/06/2020 Performing: Tayler Reynoso MD Ht: 67 inches 170 cm : 1945 Wt: 234 lbs 106 kg Age: 74 Gender: male BSA: 2.16 PROCEDURE(S) PERFORMED [id number] W OR WO PTCA, SINGLE CORONARY ARTERY CLINICAL PROFILE AND CO-MORBIDITIES Indications: Suspected CAD Heart Failure: None Stress/Imaging Date: 01/30/2020 Stress Test with SPECT MPI: Positive Intermediate Risk CAD Presentations: No Sxs, no angina. CONCLUSIONS Successful PTCA/CHUCK dRCA RECOMMENDATIONS ASA Indefinitley. Plavix or brilinta for 12 months. f/u with Dr. Stein DESCRIPTION OF PROCEDURE The patient arrived to the procedure lab. The risks and benefits of the procedure as well as a full d escription of our services here and current unavailability of surgical backup were fully explained to the patient and/or their significant other prior to the catheterization. The Timeout was completed, verifying the correct patient and procedure. The patient's procedural site was prepped and draped in the usual fashion. Local anesthetic was given subcutaneously to right groin region with Lidocaine 2%. Local anesthetic was given subcutaneously to left radial region with Lidocaine 2% Using a modified S eldinger technique,arterial access was obtained via the left radial artery, a 6Fr sheath was inserted . Left internal mammary artery graft to the LAD selective angiography was performed in multiple views using a 5 Fr. IM catheter. Right Coronary Artery selective angiography was then performed in multipl e views using a 5 Fr. 3DRC (Telly) catheter. Left Coronary Artery selective angiography was performed in multiple views using a 5 Fr. JL4 catheter. Saphenous Vein graft to the RCA (occluded graft) selective angiography was performed in single view using a 5 Fr. AR MOD catheter. Saphenous V ein graft to the Circumflex and Diag 1 selective angiography was performed in multiple views using a 5 Fr. AR MOD catheter. Left Ventriculography was performed in CARLIN projection using a 5 Fr. Pigtail ca theter. LV to AO pullback pressures were then recorded.The images were reviewed and options discussed . A decision was then made to proceed with an Intervention, IVUS or other adjunct procedure. JR 4 Guide catheter was inserted and engaged into the RCA. BMW Guide wire was advanced to the RCA . 3.00X12 EMERGE Balloon catheter was inserted. Balloon catheter was advanced across lesion in the ri ght coronary, distal. PTCA balloon inflated at 6 atms for 32 secs. 3.50X12 SYNERGY Drug Eluting stent was inserted. Drug Eluting stent was advanced across the lesion in the right coronary, distal. Angio gram performed post stent deployment. The arterial sheath was pulled and a TR Band was applied for hemostasis-15 cc air INTERVENTION INFORMATION LESION SITE: RCA (Distal) Lesion Complexity: High/C, chronic total occlusion: No, lesion at bifurcation: No, thrombus present: No, lesion length: 12 mm, culprit lesion: Yes, Previously treated lesion: No, In-stent restenosis: No Pre Stenosis: 90 % Pre intervention JING flow: 3 PROCEDURE: Drug Eluting Stent with pre dilatation. Post Stenosis: 0 % Post intervention JING flow: 3 Lesion Devices: Shi .014 BMW [place] Straight 190cm Cardinal 6 Fr JR4 100cm Guide Catheter Patric Sci EMERGE MR 3.00x12 BALLOON Patric Sci Synergy MR CHUCK 3.50x12 COMPLICATIONS No Complications PROCEDURE MEDICATIONS Versed 1 mg IV Fentanyl 50 mcg IV Versed 1 mg IV Fentanyl 50 mcg IV Oxygen: 2 L/min via nasal cannula Brilinta 180 mg PO @ 02/06/2020 09:42:24 Heparin diluted in 23cc Heparinized saline. Patient given 10cc IA of this solution. 02/06/2020 08:47: 53 Heparin 6000 unit(s) IV 02/06/2020 09:29:35 Verapamil 2.5mg, Ntg 100mcgs, 2000 units of Heparin diluted in 23cc Heparinized saline. Patient give n 10cc IA of this solution. 02/06/2020 08:47:53 SUMMARY OF HEMODYNAMIC DATA Time AIR REST ECG 07:11:02 AO 142/81 (105) SA 08:51:35 AO 185/98 (136) 09:10:09 LV 150/16, 20 09:17:02 LV 157/15, 20 09:17:12 LV 105/17, 24 09:17:56 LVp 134/21, 25 09:18:01 AOp 105/-40 (68) 09:18:06 Signed By Tayler Reynoso MD On 02/09/2020 17:33:00 Tayler Reynoso MD
== END 2020-02-07 08:07 | disposition home or self-care (01) ==
LOC: CLSP 06:43 → PCU 02-07 09:17
PROVIDERS: Nurse Practitioner Family; Specialist; PCP Family Medicine; Referring Provider Internal Medicine Cardiovascular Disease; Visit Provider Internal Medicine Cardiovascular Disease
DX: I25.810 Atherosclerosis of coronary artery bypass graft(s) without angina pectoris (principal); I25.82 Chronic total occlusion of coronary artery; I10 Essential (primary) hypertension; E78.5 Hyperlipidemia, unspecified; R94.39 Abnormal result of other cardiovascular function study; Z95.1 Presence of aortocoronary bypass graft; Z79.02 Long term (current) use of antithrombotics/antiplatelets; Z79.82 Long term (current) use of aspirin; Z79.899 Other long term (current) drug therapy; Z87.891 Personal history of nicotine dependence
CPT/HCPCS: 36415; 71046; 80048; 80053; 85025; 85027; 85610; 85730; 92928; 93005; 93459; 99152; 99153; J7040; A4216; C1725; C1769; C1874; C1887; C1894; C9600; J1327; Q9967

== ENCOUNTER 2020-07-21 16:05 | Emergency (ER) | payer OTHER, MEDICARE, SELFPAY ==
[2020-02-06 11:26] VITALS: BMI 36.5
[2020-04-10 13:29] VITALS: BMI 35.4
[2020-07-21 16:06] VITALS: BP 152/76; PULSE 76; RESP 15; TEMP 37.2; O2SAT 97; BMI 35.1
--- NOTE | 2020-07-21 16:27 | RAD_ITS ---
STUDY: X-RAY CHEST REASON FOR EXAM: Male, 75 years old. Cough, shortness of breath, fever. TECHNIQUE: Frontal view of the chest COMPARISON: February 01 2020 FINDINGS: Sternotomy wires are present. The lungs are clear and expanded. There is no demonstrated pleural abnormality. Normal size heart. Normal mediastinum and blaine. Normal visualized pulmonary arteries. Normal visualized aortic arch and descending thoracic aorta. Normal visualized thoracic spine. Normal visualized ribs, clavicles, and shoulders. There is no demonstrated abnormality of the visualized soft tissue structures of the upper abdomen. RAD/Chest 1 View (Portable) IMPRESSION: Normal x-ray examination of the chest. Electronically Signed: Glenroy Umana, at 17:55 EDT Tel , Service support ,
--- NOTE | 2020-07-21 16:27 | EKG12_ITS ---
Test Reason : Blood Pressure : / mmHG Vent. Rate : 069 BPM Atrial Rate : 069 BPM P-R Int : 154 ms QRS Dur : 128 ms QT Int : 394 ms P-R-T Axes : 048 087 072 degrees QTc Int : 422 ms Normal sinus rhythm Right bundle branch block Abnormal ECG Confirmed by MIKAEL DUNN, JORDYN ([id number]), material expeditor THOMAS BEAR ([id number]) on 07/23/2020 2:03:36 PM Referred By: Confirmed By:JORDYN YOUSSEF MD
[2020-07-21 16:55] LABS: Absolute Lymphocyte Count 2.26 X10^3/uL (0.83-4.51); Absolute Neutrophil Count 12.3 X10^3/uL (2.0-7.7); Basophil# 0.07 X10^3/uL; Basophil% 0.4 % (0-1); Eosinophil# 0.04 X10^3/uL; Eosinophils% 0.2 % (0-5); Hematocrit 45.9 % (40-54); Lymphocyte # 2.26 X10^3/ul (4.0); Lymphocyte % 13.9 % (19-41); Mean Corp Hgb Conc 34.9 g/dL (32-36); Mean Corpuscular Hgb 29.5 pg (27.0-32.0); Mean Corpuscular Volume 84.7 fL (80-94); Monocyte# 1.45 X10^3/uL; Monocyte% 8.9 % (0-10); NRBC Flagged by Analyzer 0 % (0-5); Neutrophil # 12.29 X10^3/uL (2.7-7.7); Neutrophil % 75.9 % (47-70); Platelet Count 211 K/mm3 (150-450); RBC Distribution Width CV 12.6 % (11.6-14.6); RBC Distribution Width SD 38.4 fl (35.1-43.9); Red Blood Count 5.42 M/mm3 (4.6-6.2); White Blood Count 16.2 K/mm3 (4.4-11.0)
[2020-07-21 17:06] LABS: Anion Gap 6 (5-15); BUN 16 mg/dL (7-18); BUN/Creat Ratio 13.4 RATIO (10-20); Calcium,Total 8.7 mg/dL (8.5-10.1); Chloride 104 mmol/L (98-107); Creatinine, Serum 1.19 mg/dL (0.70-1.30); EST Glomerular Filtration Rate 64 mL/min (>60); Est Glom Filt Rate - Afr Amer 77 mL/min (>60); Estimated Creatinine Clearance 51.69 ml/min; Glucose 116 mg/dL (74-106); Potassium 3.2 mmol/L (3.5-5.1); Sodium Level 137 mmol/L (136-145)
[2020-07-21 17:29] VITALS: BP 139/69; PULSE 63; RESP 27; O2SAT 98
[2020-07-21 17:31] VITALS: O2SAT 95
[2020-07-21 17:39] LABS: Lactic Acid 1.7 mmol/L (0.4-1.9)
--- NOTE | 2020-07-21 17:43 | ED.VISSUMM ---
- ER Visit Summary Date of Service: 07/21/20 Chief Complaint: Cough and shortness of breath History of Present Illness: The patient is a [address] Stein and Dr. Perry. He reports that he has not felt well for the past 2 days. He complains of generalized weakness and myalgias. He has nonproductive cough that began yesterday. States he has had a fever to 101 degrees. He has chills and cold sweats. He also complains that he has had rhinorrhea that is clear. He reports that he has shortness of breath that is not too bad. This is worsened with exertion. He denies any chest pain. Patient does report that he may have had exposure to coronavirus. 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 However, they do not wear masks and have been coughing in his car. Physical Examination: Vitals: Stable. Afebrile. General: Well-nourished and well-developed. Head: Normocephalic atraumatic. Neck: Supple, no lymphadenopathy. No JVD. Nontender. Cardiovascular: Regular rate and rhythm. No murmurs. Respiratory: No respiratory distress. Clear to auscultation bilaterally. Abdominal: Soft, nontender, nondistended, normal bowel sounds. No guarding, rebound, or peritoneal signs. Back: Nontender. Extremities: Nontender, no edema. Skin: Normal color, no rash. Neurologic: Alert and oriented ?3. Cranial nerves II through XII are intact. Normal strength and sensation. Psych: Normal affect. Test Results: EKG is sinus at 69 with right bundle branch block. Is unchanged from January of this year. CBC shows a white count of 16.2 with 76 segs neutrophils and 14 lymphocytes. Chem-7 shows a potassium of 3.2 and glucose 116. Lactic acid is 1.7. Urinalysis shows leukocytes, blood, 25-50 white blood cells, and 1+ bacteria. COVID-19 is pending. Clinical Impression(s) from Imaging Studies Chest X-Ray 07/21/20 16:27 IMPRESSION: Normal x-ray examination of the chest. Electronically Signed: Glenroy Umana, at 17:55 EDT Tel , Service support , Emergency Department Course and Treatment: Patient is resting comfortably. Ambulatory pulse ox is 94% on room air. Patient was given a dose of Rocephin IV and his urine was sent for culture. He was given Azo p.o. He feels well and like to go home. Treatment Plan: Patient will be discharged on on Levaquin for additional respiratory coverage. Instructed to follow-up his primary care physician in 2 days to get the results of the urine culture. Return to the emergency department for any worsening symptoms. Disposition: To home in improved and stable condition. Impression: 1. Urinary tract infection. 2. URI, possible COVID-19 infection. This note was generated with [employer] dictation software. It may contain incorrect words, spelling, and punctuation that were not noted in review of the chart prior to signing ED Disposition - Plan for ED Patient: Instructions: ED Upper Resp Infec Abx Tx, ED CYSTITIS Male Adult Prescriptions: Levofloxacin [Levaquin] 750 mg PO DAILY #7 tablet Phenazopyridine HCl [Pyridium] 200 mg PO BID PRN PRN #10 tablet PRN Reason: Pain Referrals: Scotty Perry MD [Primary Care Provider] - 2 Days
[2020-07-21 17:57] LABS: Color, Urine Amber (Yellow); Glucose, Dipstick 50 mg/dl (Normal); Ketone-Dipstick Negative (Negative); Leukocyte Esterase-Dipstick 500 /ul (Negative); Nitrite-Dipstick Negative (Negative); Occult Blood-Urine 25 /ul (Negative); Protein-Dipstick 30 mg/dl (Negative); Red Blood Cells-Urine 0 SEEN /hpf (0-5); Specific Gravity, Urine 1.015 (1.002-1.030); Urine Bilirubin Dipstick Negative (Negative); Urine Clarity Cloudy (Clear); Urine Urobilinogen 4 mg/dl (Normal)
[2020-07-21 18:08] LABS: Bacteria 1+ /hpf (None Seen); Squamous Epithelial Cells - UA 0-5 SEEN /hpf (0-5); White Blood Cells 25-50 SEEN /hpf (0-5)
[2020-07-21 18:09] LABS: Mucous, Urine 1+ /hpf (<or=2+)
[2020-07-21 18:46] VITALS: O2SAT 98
[2020-07-21] MEDS: Ceftriaxone 1 GM/50 ML BAG IV (18:58)
[2020-07-21] MEDS: Phenazopyridine 95 MG Tablet 190 MG PO (18:58)
[2020-07-21 19:00] VITALS: BP 163/72; PULSE 67; RESP 18; TEMP 36.2; O2SAT 94
[2020-07-21 20:31] VITALS: BP 148/69; PULSE 67; RESP 21; O2SAT 97
== END 2020-07-21 20:34 | disposition home or self-care (01) ==
LOC: ED 17:21
PROVIDERS: Emergency Provider Emergency Medicine; PCP Family Medicine
DX: J06.9 Acute upper respiratory infection, unspecified (principal); Z20.828 Contact with and (suspected) exposure to other viral communicable diseases; N39.0 Urinary tract infection, site not specified; I25.10 Atherosclerotic heart disease of native coronary artery without angina pectoris; I10 Essential (primary) hypertension; Z95.1 Presence of aortocoronary bypass graft; Z79.82 Long term (current) use of aspirin; Z79.899 Other long term (current) drug therapy; Z87.891 Personal history of nicotine dependence
CPT/HCPCS: 71045; 80048; 81001; 83605; 85025; 87040; 87077; 87086; 87088; 87186; 87635; 93005; 94799; 96361; 96365; 99285; J7040; J7050; A4216; U0003

== ENCOUNTER 2020-09-16 09:47 | Emergency (ER) | payer OTHER, MEDICARE, SELFPAY ==
[2020-02-06 11:26] VITALS: BMI 36.5
[2020-09-16 09:47] VITALS: BP 156/104; PULSE 57; RESP 17; TEMP 36.3; O2SAT 97; BMI 35.0
--- NOTE | 2020-09-16 10:06 | CT_ITS ---
STUDY: CT ABDOMEN AND PELVIS WITHOUT CONTRAST REASON FOR EXAM: Male, 75 years old. ABDOMINAL PAIN AND BRUISING ABOUT 2 INCHES UNDER UMBILICUS RADIATION DOSAGE (If Supplied By Facility): CTDIvol = ( 18.56 ) mGy, DLP = ( 1298.69 ) mGycm TECHNIQUE: Transaxial images were obtained from the dome of the diaphragm to the symphysis pubis without oral contrast, and without intravenous contrast. Sagittal and coronal images were reconstructed. Individualized dose optimization techniques were used for this CT. COMPARISON: None. FINDINGS: There are chronic interstitial fibrotic changes of the lung bases. Remote CABG. There is decreased attenuation of the liver consistent with steatosis. Normal gallbladder and extrahepatic biliary system. Normal spleen. Normal pancreas. Normal bilateral adrenal glands. No obstructive uropathy, simple bilateral renal cysts. Normal visualized stomach. Normal small intestine. Scattered colonic diverticulosis without CT evidence of acute diverticulitis, retained stool noted in the colon. The appendix is visualized and appears normal. Appendix best seen on coronal recon images 79 through 83 Normal abdominal aorta. Normal inferior vena cava. Normal retroperitoneum. Normal urinary bladder. There are prostatic calcifications. Bilateral fat-containing inguinal hernias. There are diffuse degenerative changes of the visualized lumbar spine, most pronounced at L1/2 CT/Abdomen/Pelvis W IV Cont ONLY IMPRESSION: Fatty liver, no discrete lesion Simple bilateral renal cysts, no specific follow-up needed. No CT evidence of an acute inflammatory process, normal appendix visualized Retained stool with scattered diverticulosis Degenerative bony changes Electronically Signed: Salinas Beverly MD at 11:34 EDT , Service support ,
--- NOTE | 2020-09-16 10:07 | ED.VIS.GEN ---
History of Present Illness Chief Complaint: Abd Pain Informant: Patient Narrative: 75-year-old male presenting for evaluation of abdominal pain. He states he has had a small area of bulging just beneath his umbilicus for months. He states that when he defecates he holds this area. At times it is more bulging than others. And has not been significantly tender until now. He states that now his area of discoloration overlying the area where there is pain. He denies any trauma. He states he is eating and drinking normally. He is making normal stools. He is not had fever or chills. Denies previous surgical history. Denies urinary complaints. - Past Medical History (1) Essential (primary) hypertension Status: Chronic (2) Hyperlipidemia Status: Chronic (3) Stented coronary artery Status: Chronic Comment: 3.50 x 12 mm Synergy MR CHUCK to dRCA 02/06/20 (4) H/O coronary artery bypass surgery Status: Resolved Comment: CABG x 4 ZAVALA to LAD, SVG to RCA, SVG-D1 & LCx 04/2012 Past Medical History - Allergies and Home Meds Allergies/Adverse Reactions: Allergies clopidogrel [From Plavix] Allergy (Severe, Verified 09/16/20 10:37) Itching Primary Care Physician: Scotty Perry MD [Primary Care Provider] - Prior records reviewed: Yes Past Medical History: - - Reviewed in problem list Surgical History: coronary bypass surgery Lives: Spouse/ Significant Other Smoking Status: Former smoker Alcohol: None Drugs: None - Family History Maternal Family History: Family History (This Medical Record has been edited. Action required.) Father Cancer Mother CAD (coronary artery disease) Myocardial infarction Hypertension Brother CAD (coronary artery disease) Diabetes Other Family history of hypertension Family History: Reports: No pertinent history Paternal Family History: Family History (This Medical Record has been edited. Action required.) Father Cancer Mother CAD (coronary artery disease) Myocardial infarction Hypertension Brother CAD (coronary artery disease) Diabetes Other Family history of hypertension Family History: Reports: No pertinent history Review of Systems General: Denies: Chills, Fever, Sweats Eyes: Denies: Visual changes - bilaterally, Diplopia ENT: Denies: Rhinorrhea, Sore throat Cardiovascular: Denies: Chest pain, Palpitations Respiratory: Denies: Dyspnea, Cough, Dyspnea on exertion Gastrointestinal: Reports: Abdominal pain. Denies: Nausea, Vomiting, Diarrhea, Constipation Musculoskeletal: Denies: Back pain, Extremity Pain Skin: Reports: - - Small area of erythema beneath the umbilicus. Neurological: Denies: Headache, Weakness, Numbness Hematologic: Reports: Lymphadenopathy, -, -. Denies: Easy bruising, Easy bleeding Physical Exam Vital Signs/Narrative: Vital Signs Temp Pulse Resp BP Pulse Ox 09/16/20 09:47 97.4 F L 57 L 17 156/104 H 97 Inital Vital Signs reviewed: Yes General: Obese, No Acute Distress Head: Normocephalic Eyes: Perrl, EOMI. Negative for: Scleral icterus ENT: Moist mucous membranes, No rhinorrhea Cardiovascular: Regular rate, Regular rhythm Respiratory: No distress, CTA bilaterally Abdomen: Soft, Nondistended, Tender - Tenderness to palpation inferior to the umbilicus centrally. No masses palpated. Back: Nontender, Normal Inspection Extremities: Nontender, No edema Skin: - - Small area of erythema overlying area of tenderness inferior to umbilicus. It is not warm, no cellulitic change, no abscess or fluctuance. Neurological: Alert, Oriented x3 Psychological: Normal affect, Normal Mood Diagnostic/Tx/Re-eval Clinical Impression(s) from Imaging Studies Abdomen/Pelvis CT 09/16/20 10:06 IMPRESSION: Fatty liver, no discrete lesion Simple bilateral renal cysts, no specific follow-up needed. No CT evidence of an acute inflammatory process, normal appendix visualized Retained stool with scattered diverticulosis Degenerative bony changes Electronically Signed: Salinas Beverly MD at 11:34 EDT , Service support , Laboratory Data 09/16/20 09/16/20 10:30 10:30 WBC 5.8 RBC 5.43 Hgb 15.4 Hct 45.1 MCV 83.1 MCH 28.4 MCHC 34.1 RDW Std Deviation 36.2 RDW Coeff of Pawel 12.0 Plt Count 228 MPV 8.6 Immature Gran % (Auto) 0.300 Neut % (Auto) 59.1 Lymph % (Auto) 30.9 [place] % (Auto) 7.1 Eos % (Auto) 2.1 Baso % (Auto) 0.5 Absolute Neuts (auto) 3.4 Absolute Lymphs (auto) 1.79 Nucleated RBC % 0 Sodium 139 Potassium 3.7 Chloride 107 Carbon Dioxide 25.0 Anion Gap 7 BUN 18 Creatinine 1.13 Estim Creat Clear Calc 54.43 Est GFR (MDRD) Af Amer 82 Est GFR (MDRD) Non-Af 68 BUN/Creatinine Ratio 15.9 Glucose 129 H Calcium 8.8 Total Bilirubin 0.90 AST 29 ALT 52 Alkaline Phosphatase 51 Total Protein 7.0 Albumin 3.4 Globulin 3.6 Albumin/Globulin Ratio 0.9 - Medical Decision Making Patient presenting for abdominal pain and has concerned that he has a new bruise/abrasion under his umbilicus. Concerned that this is a hernia. I do not feel a hernia on examination. I did check blood work and a CT of the abdomen pelvis which was negative. Patient did have a lot of retained feces. After discussion with the patient it seems most likely the irritation on his abdomen is from his belt buckle and that his abdominal pain is from constipation. Patient will start a stool softener at home. He will monitor his skin for infection. He is given return precautions. Patient stable for discharge at this time. Impression: 1. Abdominal pain 2. Skin abrasion ED Disposition - Plan for ED Patient: Disposition: Home or Assisted Living Instructions: ED Unknown Causes of Abdominal Pain Male Referrals: Scotty Perry MD [Primary Care Provider] -
[2020-09-16 10:43] LABS: Absolute Lymphocyte Count 1.79 X10^3/uL (0.83-4.51); Absolute Neutrophil Count 3.4 X10^3/uL (2.0-7.7); Basophil# 0.03 X10^3/uL; Basophil% 0.5 % (0-1); Eosinophil# 0.12 X10^3/uL; Eosinophils% 2.1 % (0-5); Hematocrit 45.1 % (40-54); Hemoglobin 15.4 g/dL (13.0-16.5); Lymphocyte # 1.79 X10^3/ul (4.0); Lymphocyte % 30.9 % (19-41); Mean Corp Hgb Conc 34.1 g/dL (32-36); Mean Corpuscular Hgb 28.4 pg (27.0-32.0); Mean Corpuscular Volume 83.1 fL (80-94); Mean Platelet Vol. 8.6 fl (6.2-12.0); Monocyte# 0.41 X10^3/uL; Monocyte% 7.1 % (0-10); NRBC Flagged by Analyzer 0 % (0-5); Neutrophil # 3.42 X10^3/uL (2.7-7.7); Neutrophil % 59.1 % (47-70); Platelet Count 228 K/mm3 (150-450); RBC Distribution Width SD 36.2 fl (35.1-43.9); Red Blood Count 5.43 M/mm3 (4.6-6.2); White Blood Count 5.8 K/mm3 (4.4-11.0)
[2020-09-16 10:59] LABS: ALB/GLOB Ratio 0.9 RATIO (0.9-2.4); AST(SGOT) 29 U/L (15-37); Alanine Aminotransfer ALT/SGPT 52 U/L (16-61); Albumin, Serum 3.4 g/dL (3.2-5.0); Alkaline Phosphatase 51 U/L (45-117); Anion Gap 7 (5-15); BUN 18 mg/dL (7-18); BUN/Creat Ratio 15.9 RATIO (10-20); Calcium,Total 8.8 mg/dL (8.5-10.1); Chloride 107 mmol/L (98-107); Creatinine, Serum 1.13 mg/dL (0.70-1.30); EST Glomerular Filtration Rate 68 mL/min (>60); Est Glom Filt Rate - Afr Amer 82 mL/min (>60); Estimated Creatinine Clearance 54.43 ml/min; Globulin 3.6 g/dL (2.2-4.2); Glucose 129 mg/dL (74-106); Potassium 3.7 mmol/L (3.5-5.1); Sodium Level 139 mmol/L (136-145)
[2020-09-16 12:07] VITALS: BP 134/79; PULSE 53; RESP 16; O2SAT 98
== END 2020-09-16 12:08 | disposition home or self-care (01) ==
PROVIDERS: Emergency Provider Student in an Organized Health Care Education/Training Program; PCP Family Medicine
DX: S30.811A Abrasion of abdominal wall, initial encounter (principal); X58.XXXA Exposure to other specified factors, initial encounter; Y93.9 Activity, unspecified; Y92.9 Unspecified place or not applicable; Y99.9 Unspecified external cause status; K59.00 Constipation, unspecified; I10 Essential (primary) hypertension; E78.5 Hyperlipidemia, unspecified; Z95.1 Presence of aortocoronary bypass graft; Z95.5 Presence of coronary angioplasty implant and graft; Z79.82 Long term (current) use of aspirin; Z79.899 Other long term (current) drug therapy; Z87.891 Personal history of nicotine dependence
CPT/HCPCS: 74177; 80053; 85025; 99284; Q9967; A4216

== ENCOUNTER → 2020-12-27 09:53 | Outpatient (CLI) | payer MEDICARE, OTHER, SELFPAY ==
[2020-02-06 11:26] VITALS: BMI 36.5
[2020-12-27 09:27] VITALS: BMI 36.0
[2020-12-27 11:42] LABS: AST(SGOT) 31 U/L (15-37); Alanine Aminotransfer ALT/SGPT 63 U/L (16-61); Albumin, Serum 3.8 g/dL (3.2-5.0); Alkaline Phosphatase 53 U/L (45-117); Bilirubin, Direct 0.18 mg/dL (0.00-0.30); Cholesterol 159 mg/dL (200); Globulin 3.1 g/dL (2.2-4.2); High Density Lipoprotein 38 mg/dL; Protein, Total 6.9 g/dL (6.4-8.2); Triglycerides 205 mg/dL; Very Low Density Lipoprotein 41 mg/dL (5-40)
== END ==
PROVIDERS: PCP Family Medicine; Visit Provider Internal Medicine Cardiovascular Disease
DX: I25.810 Atherosclerosis of coronary artery bypass graft(s) without angina pectoris (principal); E78.5 Hyperlipidemia, unspecified
CPT/HCPCS: 36415; 80061; 80076

== ENCOUNTER 2023-10-04 14:34 | Emergency (ER) | payer MEDICARE, SELFPAY ==
[2020-02-06 11:26] VITALS: BMI 36.5
[2023-10-04 14:35] VITALS: BP 156/66; PULSE 67; RESP 14; TEMP 36.8; O2SAT 97; BMI 34.7
[2023-10-04] MEDS: Acetaminophen 500 MG Tablet 1000 MG PO (15:07)
[2023-10-04] MEDS: oxyCODONE 5 MG Tablet PO (15:07)
--- NOTE | 2023-10-04 15:08 | EDS_ITS ---
HPI History of Present Illness Chief Complaint: Upper Extremity Injury Informant: patient Onset/Context/Timing Onset: Today Current Severity: Moderate Maximum Severity: Severe Narrative Narrative: Patient presents secondary to right shoulder injury. He states he was trying to get out of the tub this morning. He put his hands on either side the tub to push himself up when his right hand slipped and he fell back down into the tub. He states he did not fall far and did not injure his back. He feels like something tore in his right shoulder. He is right-hand dominant. No prior shoulder injections or surgeries. [facility] Medical History (Updated 10/04/23 @ 16:[address] 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 angina pectoris Essential (primary) hypertension Hyperlipidemia Other intermediate card tender (current) drug therapy Small bowel obstruction Home Medications nitroglycerin 0.4 mg sublingual tablet 0.4 mg sublingual Q5M PRN chest pain 01/12/18 [History Last Taken Unknown] aspirin 81 mg tablet,delayed release (Adult Low Dose Aspirin) 81 mg PO QDAY #90 tabs 06/18/22 [Rx Last Taken Unknown] hydrochlorothiazide 25 mg tablet 25 mg PO QDAY #90 tabs 10/14/22 [Rx Last Taken Unknown] metoprolol tartrate 50 mg tablet 50 mg PO BID heart #180 tabs 10/14/22 [Rx Last Taken Unknown] amlodipine 5 mg tablet 5 mg PO DAILY 08/19/23 [History Last Taken Unknown] coenzyme Q10 75 mg capsule (Ultra CoQ10) 75 mg PO DAILY 08/19/23 [History Last Taken Unknown] lisinopril 40 mg tablet 40 mg PO DAILY 08/19/23 [History Last Taken Unknown] omeprazole 20 mg capsule,delayed release 40 mg PO DAILY 08/19/23 [History Last Taken Unknown] atorvastatin 40 mg tablet 40 mg PO QHS #90 tabs 08/24/23 [Rx Last Taken Unknown] oxycodone-acetaminophen 5 mg-325 mg tablet (Percocet) 1 tab PO Q8H PRN pain 3 days #10 tabs 10/04/23 [Rx Last Taken Unknown] Allergy/AdvReac Type Severity Reaction Status Date / Time clopidogrel [From Plavix] Allergy Severe Itching Verified 10/04/23 14:35 ticagrelor [From Brilinta] AdvReac Intermediate (Possible Verified 10/04/23 14:35 reaction) Itching hands and feet, no rash Family History Father Cancer Prostate cancer Mother CAD (coronary artery disease) Hx CABG Myocardial infarction Hypertension Brother CAD (coronary artery disease) Diabetes Other Family history of hypertension Surgical History H/O coronary artery bypass surgery (04/2012) Stented coronary artery (02/06/20) Social History Smoking Status: Former smoker how long ago did patient quit smokin alcohol intake: current alcohol intake frequency: 0-2 drinks per day Alcohol type: wine substance use type: does not use caffeine: Yes Type: coffee Number of servings: 3 what type of physical activity do you participate in: walking frequency: daily duration: 30-45 minutes/day seatbelt use: always do you feel safe at home: Yes ROS ROS ED Constitutional Constitutional ED: Denies chills or fever(s) Eyes Eyes: Denies change in vision or discharge from eye(s) ENT ENT ED: Denies discharge from eye(s), rhinorrhea or sore throat Cardiovascular Cardiovascular: Denies chest pain or palpitations Respiratory/Chest Respiratory/Chest: Denies cough or dyspnea Gastrointestinal Gastrointestinal: Denies abdominal pain, nausea or vomiting Genitourinary Genitourinary ED: Denies dysuria Musculoskeletal Musculoskeletal: Reports extremity pain; Denies back pain Integumentary Denies Abrasions or rash Neurologic Neurologic: Denies headache(s) or weakness Psychiatric Psychiatric: Denies anxiety or depression Allergic/Immunologic Allergic/Immunologic ED: Denies lip swelling or urticaria EXAM Physical Exam Const Vital Signs: 10/04/23 14:35 Temperature 98.3 F Temperature Source Temporal Pulse Rate 67 Respiratory Rate 14 Blood Pressure 156/66 H Blood Pressure Mean 96 Pulse Ox 97 Oxygen Delivery Method Room Air Positive well nourished and well developed General Appearance ED: well developed Eyes EOMs intact bilaterally Chest Wall inspection of chest normal and palpation of chest normal Resp normal respiratory effort and clear to auscultation bilaterally Cardio regular rate and regular rhythm GI non-tender Extremity Extremity Narrative: Diffuse tenderness around the right shoulder. No obvious deformity. Good distal pulses and strong hand grasp. Increased pain with any attempts at movement. Neuro oriented x3 Psych mental status grossly normal MDM MDM MDM Narrative Medical decision making narrative: Patient given oxycodone and Tylenol for pain. Right shoulder x-rays obtained to evaluate for fracture, dislocation. Treatment and Re-Evaluation Narrative: Right shoulder x-rays per my interpretation reveal no obvious fracture or dislocation. Radiology interpretation is reviewed and agrees. Patient placed in a sling. Prescription for Percocet will be sent to the pharmacy for him. He will be referred to Dr. Majano, on-call for orthopedics for follow-up. We did discuss that he may have a rotator cuff tear or other ligamentous/tendon injury that is not visualized on x-rays. He voices understanding and agreement. Return instructions given. Discharge Plan Triage Chief Complaint: Upper Extremity Injury ED Provider: Dulce El Dx/Rx/DC Orders Clinical Impression: Sprain of right shoulder Instructions: ED Shoulder Sprain Prescriptions: New oxycodone-acetaminophen [Percocet] 5-325 mg tablet 1 tab PO Q8H PRN (Reason: pain) 3 Days Qty: 10 0RF No Action nitroglycerin 0.4 mg tablet, sublingual 0.4 mg SUBLINGUAL Q5M PRN (Reason: chest pain) Patient Comments: X 3 aspirin [Adult Low Dose Aspirin] 81 mg tablet,delayed release (DR/EC) 81 mg PO QDAY Qty: 90 3RF metoprolol tartrate 50 mg tablet 50 mg PO BID Qty: 180 3RF hydrochlorothiazide 25 mg tablet 25 mg PO QDAY Qty: 90 3RF amlodipine 5 mg tablet 5 mg PO DAILY lisinopril 40 mg tablet 40 mg PO DAILY omeprazole 20 mg capsule,delayed release(DR/EC) 40 mg PO DAILY Ultra CoQ10 75 mg capsule 75 mg PO DAILY atorvastatin 40 mg tablet 40 mg PO QHS Qty: 90 3RF Primary Care Provider: Scotty Perry Referrals: Scotty Perry MD [Primary Care Provider] - Natan Majano DO [Med Staff - Active Staff] - 1 Week if not improving Disposition Disposition: Home, Self Care
--- NOTE | 2023-10-04 15:25 | RAD_ITS ---
EXAM: XR RIGHT SHOULDER COMPLETE, 2 OR MORE VIEWS CLINICAL INDICATION: injury TECHNIQUE: Two or more views of the right shoulder. COMPARISON: No relevant prior studies available. FINDINGS: BONES/JOINTS: Degenerative findings of AC joint. Degenerative findings of the shoulder. No acute fracture. No subluxation. Normal alignment. No sclerotic or destructive changes observed. SOFT TISSUES: Unremarkable. No soft tissue swelling or gas. No radiopaque foreign body. RAD/Shoulder min 2 Views IMPRESSION: No acute findings in the right shoulder. Electronically Signed: Cali Denise MD at 15:37 EST ,
== END 2023-10-04 18:19 | disposition home or self-care (01) ==
PROVIDERS: Emergency Provider Emergency Medicine; PCP Family Medicine; Visit Provider Emergency Medicine
DX: S43.401A Unspecified sprain of right shoulder joint, initial encounter (principal); I25.10 Atherosclerotic heart disease of native coronary artery without angina pectoris; Z87.891 Personal history of nicotine dependence; Z95.1 Presence of aortocoronary bypass graft; Z95.5 Presence of coronary angioplasty implant and graft; X58.XXXA Exposure to other specified factors, initial encounter
CPT/HCPCS: 73030; 99282

== ENCOUNTER 2023-10-13 12:38 | Inpatient (IN) | payer MEDICARE, SELFPAY ==
[2020-02-06 11:26] VITALS: BMI 36.5
[2023-10-13] VITALS (13 sets, daily range): BP systolic 137–204; BP diastolic 62–92; PULSE 62–76; RESP 12–22; TEMP 35.8–36.9; O2SAT 93–97; BMI 34.9; BMI 34.1
--- NOTE | 2023-10-13 12:38 | CT_ITS ---
STUDY: STROKE PROTOCOL CT BRAIN WITHOUT CONTRAST REASON FOR EXAM: Male, 78 years old. Neuro deficit, acute, stroke suspected RADIATION DOSAGE (If Supplied By Facility): CTDIvol = ( ) mGy, DLP = ( ) mGycm TECHNIQUE: Transaxial CT imaging of the brain was performed without administration of intravenous contrast material. Individualized dose optimization techniques were used for this CT. COMPARISON: None. FINDINGS: Normal soft tissue structures. Normal calvarium. There is mild cerebral atrophy with widening of the extra-axial spaces and ventricular dilatation. There are areas of decreased attenuation within the white matter tracts of the supratentorial brain, consistent with microvascular disease changes. Normal basal ganglia and thalami. Normal brainstem. Normal cerebellum. There is no demonstrated asymmetric dense artery sign or sulcal effacement or parenchymal edema. There is no intracranial hemorrhage. There are no findings of an acute ischemic infarction. Normal visualized paranasal sinuses. ASPECTS Score for Acute Strokes: 10 CT/STROKE Brain/Head without Cont IMPRESSION: 1. Chronic involutional changes of the brain. 2. Concern for stroke/positive symptomatology should be further evaluated with CT brain perfusion/CTA or MRI of the brain for further assessment. N.B. : The above Results were Read Back by Joshua Nielsen MD to Wali Burks MD, and understanding confirmed on 10/13/2023 12:57:09 (ET). Electronically Signed: Joshua Nielsen MD at 12:58 EST ,
--- NOTE | 2023-10-13 12:39 | CT_ITS ---
STUDY: CTA HEAD AND NECK WITH CONTRAST REASON FOR EXAM: Male, 78 years old. Neuro deficit, acute, stroke suspected RADIATION DOSAGE (If Supplied By Facility): CTDIvol = ( 20.28 ) mGy, DLP = ( 770.61 ) mGycm TECHNIQUE: CT angiography was performed with a multi-detector CT scanner. Data acquisition was obtained from the skull base through the vertex following intravenous administration of IV 100mL [id number]. MIP images were reconstructed from the axial data set. Post-processing of the angiographic images was performed, with multiplanar reformation and 3D reconstruction. Individualized dose optimization techniques were used for this CT. COMPARISON: Head CT dated October 13, 2023 FINDINGS: Normal bilateral petrous carotid arteries. There is calcified plaque formation of the right cavernous carotid artery, without a cross-sectional luminal stenosis. 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 Normal right A1 segments of the anterior cerebral artery. Normal left A1 segments of the anterior cerebral artery. Normal intact anterior communicating artery (ACOM). Normal bilateral A2 segments of the anterior cerebral arteries. Normal right M1 and M2 segments of the middle cerebral arteries, with a normal M1 bifurcation. Normal left M1 and M2 segments of the middle cerebral arteries, with a normal M1 bifurcation. Normal right posterior communicating artery (PCOM). Normal left posterior communicating artery (PCOM). Normal bilateral vertebral arteries. Normal basilar artery with a normal basilar bifurcation. The visualized bilateral superior cerebellar (SCA) arteries are normal. Normal bilateral P1, P2 and visualized P3 segments of the posterior cerebral arteries. There is no demonstrated aneurysm of the [place]. There is no demonstrated abnormality of the visualized brain. AORTIC ARCH: There is atherosclerotic calcific plaque formation of the aortic arch and great vessels arising from the aortic arch, without a hemodynamically significant stenosis. There is a normal origin of the brachiocephalic, left common carotid, and left subclavian arteries. Normal origins of the brachiocephalic, left common carotid, and left subclavian arteries. RIGHT CAROTID ARTERIES: Normal right common carotid artery (CCA). There is mild atherosclerotic plaque formation with minimal narrowing of the right carotid bulb. There is mild atherosclerotic plaque formation of the origin of the right internal carotid artery with less than 50% cross sectional diameter stenosis. Normal visualized cervical portion of the right internal carotid artery. Normal origin of the right external carotid artery (ECA). LEFT CAROTID ARTERIES: Normal left common carotid artery (CCA). 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 Severely stenotic [place] left internal carotid artery versus a tiny collateral along the path of the [place] artery. Normal origin of the left external carotid artery (ECA). VERTEBRAL ARTERIES: Normal bilateral vertebral arteries. CT/STROKE CTA Head AND Neck W/Con IMPRESSION: 1. No large arterial intracranial occlusion or visualized thrombus. Unremarkable [place] without a demonstrated aneurysm or hemodynamically significant stenosis. 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 Communicating arteries. 2. 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 Severely stenotic [place] left internal carotid artery versus a tiny collateral along the path of the [place] artery. N.B. : The above Results were Read Back by Joshua Nielsen MD to Wali Burks MD, and understanding confirmed on 10/13/2023 13:27:04 (ET). Electronically Signed: Joshua Nielsen MD at 13:28 EST ,
--- NOTE | 2023-10-13 12:52 | ED.RN ---
[facility] reported on multiple stroke calls- will call back when ready to beam in.
[2023-10-13 12:55] LABS: Absolute Lymphocyte Count 1.62 X10^3/uL (0.83-4.51); Absolute Neutrophil Count 8.1 X10^3/uL (2.0-7.7); Basophil# 0.08 X10^3/uL; Basophil% 0.7 % (0-1); Eosinophil# 0.17 X10^3/uL; Eosinophils% 1.6 % (0-5); Hematocrit 47.2 % (40-54); Hemoglobin 16.7 g/dL (13.0-16.5); Lymphocyte # 1.62 X10^3/ul (0.83-4.51); Lymphocyte % 14.9 % (19-41); Mean Corp Hgb Conc 35.4 g/dL (32-36); Mean Corpuscular Hgb 29.8 pg (27.0-32.0); Mean Corpuscular Volume 84.1 fL (80-94); Mean Platelet Vol. 8.7 fl (6.2-12.0); Monocyte% 8.3 % (0-10); NRBC Flagged by Analyzer 0 % (0-5); Neutrophil # 8.05 X10^3/uL (2.7-7.7); Neutrophil % 74.1 % (47-70); Platelet Count 223 K/mm3 (150-450); RBC Distribution Width CV 12.3 % (11.6-14.6); Red Blood Count 5.61 M/mm3 (4.6-6.2); White Blood Count 10.9 K/mm3 (4.4-11.0)
[2023-10-13 13:08] LABS: Bedside Glucose 240 mg/dL (74-106)
--- NOTE | 2023-10-13 13:10 | ED.RN ---
Dr. Meza from [facility] on robot
[2023-10-13 13:12] LABS: Anion Gap 3 (5-15); BUN 25 mg/dL (7-18); Calcium,Total 9.3 mg/dL (8.5-10.1); Chloride 101 mmol/L (98-107); Creatinine, Serum 1.25 mg/dL (0.70-1.30); EST Glomerular Filtration Rate 60 mL/min (>60); Est Glom Filt Rate - Afr Amer 72 mL/min (>60); Glucose 229 mg/dL (74-106); Sodium Level 136 mmol/L (136-145); Troponin-I HS 7 pg/mL (3.0-78.0)
[2023-10-13 13:15] LABS: Prothrombin Time (Protime)PT. 13.1 SECONDS (11.7-14.9)
--- NOTE | 2023-10-13 13:15 | ED.RN ---
Dr. Meza and Dr Burks at bedside with pt and . discussing tenectaplase- not ordering medication at this time. discussing POC.
[2023-10-13 13:16] LABS: Partial Thromboplast Time 30.6 Seconds (24.1-36.2)
--- NOTE | 2023-10-13 13:36 | ED.VIS.STROK ---
HPI History of Present Illness Chief Complaint: Stroke Alert Detail of Chief Complaint: Altered sensation left upper extremity and difficulty using left upper extr Informant: patient Onset/Context/Timing Onset: Today and Hours Context: Sudden Onset Timing: Continuous Quality and Location: Positive for Left Arm Parasthesia and Left Arm Weakness Onset: 11 23 39 Current Severity: Mild Maximum Severity: Mild Worsened by: Nothing Relieved by: Nothing Associated Symptoms Associated Symptoms: Negative for Headache, Nausea, Vomiting or Chest Pain Narrative Narrative: Patient is a 78-year-old male with history of coronary artery disease status post bypass surgery April 2012, essential hypertension, hyperlipidemia and former smoker. He presents with altered sensation left arm and difficulty using his left arm. This started at 1139. Patient was seen in triage. Stroke team was initiated. Patient denies headache, visual, ocular auditory symptoms. Patient denies trouble with speech or swallowing. Patient denies cardiac respiratory symptoms. Patient denies GI. Prior similar symptoms: No Recent Illness/Hospitalization: No [facility] Medical History (Updated 10/13/23 @ 13:[address] 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 Small bowel obstruction Home Medications nitroglycerin 0.4 mg sublingual tablet 0.4 mg sublingual Q5M PRN chest pain 01/12/18 [History Last Taken Unknown] aspirin 81 mg tablet,delayed release (Adult Low Dose Aspirin) 81 mg PO QDAY #90 tabs 06/18/22 [Rx Last Taken Unknown] coenzyme Q10 75 mg capsule (Ultra CoQ10) 75 mg PO DAILY 08/19/23 [History Last Taken Unknown] omeprazole 20 mg capsule,delayed release 40 mg PO DAILY 08/19/23 [History Last Taken Unknown] atorvastatin 40 mg tablet 40 mg PO QHS #90 tabs 08/24/23 [Rx Last Taken Unknown] oxycodone-acetaminophen 5 mg-325 mg tablet (Percocet) 1 tab PO Q8H PRN pain 3 days #10 tabs 10/04/23 [Rx Last Taken Unknown] hydrochlorothiazide 25 mg tablet 25 mg PO QDAY #90 tabs 10/13/23 [Rx Last Taken Unknown] metoprolol tartrate 50 mg tablet 50 mg PO BID heart #180 tabs 10/13/23 [Rx Last Taken Unknown] Allergy/AdvReac Type Severity Reaction Status Date / Time clopidogrel [From Plavix] Allergy Severe Itching Verified 10/13/23 13:02 ticagrelor [From Brilinta] AdvReac Intermediate (Possible Verified 10/13/23 13:02 reaction) Itching hands and feet, no rash Family History Father Cancer Prostate cancer Mother CAD (coronary artery disease) Hx CABG Myocardial infarction Hypertension Brother CAD (coronary artery disease) Diabetes Other Family history of hypertension Surgical History H/O coronary artery bypass surgery (04/2012) Stented coronary artery (02/06/20) Social History Smoking Status: Former smoker how long ago did patient quit smokin alcohol intake: current alcohol intake frequency: 0-2 drinks per day Alcohol type: wine substance use type: does not use caffeine: Yes Type: coffee Number of servings: 3 what type of physical activity do you participate in: walking frequency: daily duration: 30-45 minutes/day seatbelt use: always do you feel safe at home: Yes ROS ROS ED Constitutional Constitutional ED: Denies chills, fever(s) or subjective Eyes Eyes: Denies blurry vision, change in vision or diplopia ENT ENT ED: Denies ear pain, rhinorrhea or sore throat Cardiovascular Cardiovascular: Denies chest pain, palpitations, paroxysmal nocturnal dyspnea or racing heartbeat Respiratory/Chest Respiratory/Chest: Denies cough, dyspnea, dyspnea on exertion or paroxysmal nocturnal dyspnea Gastrointestinal Gastrointestinal: Denies abdominal pain, nausea or vomiting Genitourinary Genitourinary ED: Denies dysuria, hematuria or urinary frequency Musculoskeletal Musculoskeletal: Denies arthralgias, back pain, myalgias or neck pain Neurologic Neurologic: Reports paresthesias and weakness; Denies headache(s) Psychiatric Psychiatric: Denies anxiety or depression Endocrine Endocrinology: Denies polydipsia, polyphagia or polyuria Hematologic/Lymphatic Hematologic/Lymphatic: Denies easy bleeding or easy bruising EXAM Physical Exam Const Vital Signs: 10/13/23 12:39 10/13/23 12:53 10/13/23 12:38 Temperature 96.4 F L Temperature Source Temporal Pulse Rate 68 63 Respiratory Rate 16 16 Blood Pressure 204/71 H 194/77 H Blood Pressure Mean 115 116 Pulse Ox 97 96 Oxygen Delivery Method Room Air Room Air 10/13/23 13:08 10/13/23 13:30 Temperature Temperature Source Pulse Rate 67 64 Respiratory Rate 16 16 Blood Pressure 195/92 H 164/79 H Blood Pressure Mean 126 107 Pulse Ox 95 94 Oxygen Delivery Method Room Air Room Air Positive well nourished, well developed and obese General Appearance ED: well developed and NAD Nutritional Appearance: obese HEENT Reports TM's clear and moist mucous membranes atraumatic Tympanic Membrane ED: Yes TM's clear Eyes PERRL General Eye ED: Negative for pale conjunctiva or scleral icterus Neck no lymphadenopathy, supple and no JVD Neck Narrative: No carotid bruits noted. There is no palpable carotid pulse on the left. Chest Wall inspection of chest normal and palpation of chest normal Resp normal respiratory effort and clear to auscultation bilaterally Cardio no murmurs Rate: regular rate Rhythm: regular rhythm Heart Sounds: S1 normal and S2 normal GI normal to inspection, nondistended, normoactive bowel sounds, soft to palpation, non-tender, non-distended and no masses Back/Spine no CVA tenderness Extremity normal to inspection Neuro oriented x3, CN's II-XII intact bilaterally and No no sensory deficits noted [place]um Coma Scale: document GCS findings Spontaneous Obeys Commands Oriented 15 Sensorium / Orientation: alert Speech: speech normal Gait (Neuro): normal gait Motor Exam: Negative for strength 5/5 throughout Psych mental status grossly normal Skin no wounds Lesions: no lesions Rashes: no rashes NIHSS NIHSS Initial: 1a Level of Consciousness: 0 1b LOC Questions (Score 2 if aphasic/stupor): 0 1c LOC Commands (Only score 1st attempt): 0 2 Best Gaze (If aphasic, use reflexive mvmts.): 0 3 Visual: 0 4 Facial Palsy: 0 5 Motor Arm Right (UN = amputation/fusion): 0 5 Motor Arm Left: 1 6 Motor Leg Right: 0 6 Motor Leg Left: 0 7 Limb ataxia (Only + if out of proportion): 0 8 Sensory (Aphasia/stupor=0 or 1, coma=2): 1 9 Best Language: 0 10 Dysarthria (mute, coma=2, intubated=UN): 0 11 Extinction and Inattention (only scored if +): 0 Total Score: 2 MDM MDM MDM Narrative Medical decision making narrative: Presents with strokelike symptoms. Stroke order set was initiated. Also need to consider hypoglycemia, atypical presentation for seizure disorder. History & Record Review Discussion w/independent historian: Patient and Significant other Lab Data Attestation: I reviewed the patient's lab results. Lab results narrative: White count is under better. Basic metabolic panel is remarkable glucose of 229 with a normal CO2 and anion gap. Creatinine is 1.25 with estimated GFR. Labs: Laboratory Results - last 24 hr 10/13/23 10/13/23 12:40 12:49 WBC 10.9 RBC 5.61 Hgb 16.7 H Hct 47.2 MCV 84.1 MCH 29.8 MCHC 35.4 RDW Std Deviation 37.0 RDW Coeff of Pawel 12.3 Plt Count 223 MPV 8.7 Immature Gran % (Auto) 0.400 Neut % (Auto) 74.1 H Lymph % (Auto) 14.9 L [place] % (Auto) 8.3 Eos % (Auto) 1.6 Baso % (Auto) 0.7 Absolute Neuts (auto) 8.1 H Absolute Lymphs (auto) 1.62 Nucleated RBC % 0 PT 13.1 INR 1.0 APTT 30.6 Sodium 136 Potassium 4.0 Chloride 101 Carbon Dioxide 32.0 Anion Gap 3 L BUN 25 H Creatinine 1.25 Estim Creat Clear Calc 47.00 Est GFR (MDRD) Af Amer 72 Est GFR (MDRD) Non-Af 60 BUN/Creatinine Ratio 20.0 Glucose 229 H Calcium 9.3 Troponin I High Sens 7 POC Glucose 240 H Radiography Chest X-Ray - ED: 1 View, Read by ED Physician, Normal, Heart, Lungs, Mediastinum, Bony Structures and No Acute Disease Diagnostic Testing: Clinical Impression(s) from Imaging Studies Brain CT 10/13/23 12:38 IMPRESSION: 1. Chronic involutional changes of the brain. 2. Concern for stroke/positive symptomatology should be further evaluated with CT brain perfusion/CTA or MRI of the brain for further assessment. N.B. : The above Results were Read Back by Joshua Nielsen MD to Wali Burks MD, and understanding confirmed on 10/13/2023 12:57:09 (ET). Electronically Signed: Joshua Nielsen MD at 12:58 EST , ADDENDUM: 10/13/23 1305 IMPRESSION: 1. Chronic involutional changes of the brain. 2. Concern for stroke/positive symptomatology should be further evaluated with CT brain perfusion/CTA or MRI of the brain for further assessment. N.B. : The above Results were Read Back by Joshua Nielsen MD to Wali Burks MD, and understanding confirmed on 10/13/2023 12:57:09 (ET). Electronically Signed: Joshua Nielsen MD at 12:58 EST , Head/Neck CTA 10/13/23 12:39 IMPRESSION: 1. No large arterial intracranial occlusion or visualized thrombus. Unremarkable [place] without a demonstrated aneurysm or hemodynamically significant stenosis. 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 Communicating arteries. 2. Severely stenotic [place] cavernous segment of the left internal carotid artery versus a tiny collateral vessel which extends into this region. 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 Severely stenotic [place] left internal carotid artery versus a tiny collateral along the path of the habemat[place] artery. N.B. : The above Results were Read Back by Joshua Nielsen MD to Wali Burks MD, and understanding confirmed on 10/13/2023 13:27:04 (ET). Electronically Signed: Joshua Nielsen MD at 13:28 EST , ADDENDUM: 10/13/23 1335 IMPRESSION: 1. No large arterial intracranial occlusion or visualized thrombus. Unremarkable [place] without a demonstrated aneurysm or hemodynamically significant stenosis. 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 Communicating arteries. 2. Severely stenotic [place] cavernous segment of the left internal carotid artery versus a tiny collateral vessel which extends into this region. 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 Severely stenotic [place] left internal carotid artery versus a tiny collateral along the path of the habematolel artery. N.B. : The above Results were Read Back by Joshua Nielsen MD to Wali Burks MD, and understanding confirmed on 10/13/2023 13:27:04 (ET). Electronically Signed: Joshua Nielsen MD at 13:28 EST , Management Discussion w/another healthcare provider: Hospitalist (Dr. Vasques. She was made aware of patient's history physical and need for admission and further work-up.), Reel Film Inspector (With Dr. Derrick SENIOR neurologist. She recommended work-up for minor stroke/TIA) and Radiologist (Radiologist regarding CT without contrast and CTA of the head and neck.) Discharge Plan Dx/Rx/DC Orders Clinical Impression: Paresthesia of left arm, Hyperlipidemia, Atherosclerosis of coronary artery bypass graft without angina pectoris, Essential (primary) hypertension, LUE weakness Disposition Disposition: Acute Care Hospital [facility]
--- NOTE | 2023-10-13 13:46 | RAD_ITS ---
STUDY: X-RAY CHEST REASON FOR EXAM: Male, 78 years old. Neuro deficit, acute, stroke suspected TECHNIQUE: Single AP portable view of the chest. COMPARISON: February 01, 2020 FINDINGS: The lungs are clear and expanded. There is no demonstrated pleural abnormality. Sternal cerclage wires and vascular clips are present from a prior sternotomy and coronary artery bypass graft procedure (CABG). Normal heart size. Normal mediastinum and blaine. Normal visualized pulmonary arteries. There is atherosclerotic calcification of the aortic arch with tortuosity. Normal visualized thoracic spine. Normal visualized ribs, clavicles, and shoulders. There is no demonstrated abnormality of the visualized soft tissue structures of the upper abdomen. RAD/Chest 1 View IMPRESSION: Degenerative changes, as described above. No demonstrated acute cardiopulmonary process. Electronically Signed: Joshua Nielsen MD at 14:34 EST ,
--- NOTE | 2023-10-13 15:09 | HP.PCM.HOS_ITS ---
HPI - General General Date of Admission: 10/13/23 Date of Service: 10/13/23 Chief Complaint: LUE weakness HPI Narrative EBONY GREGORIO, is a 78-year-old male history of coronary artery disease with stenting and CABG in 2011 and hypertension who presented to [facility] 10/13/2023 with 1 hour of left upper extremity altered sensation and weakness. Initial NIH of 2 however was improving rapidly with an NIH down to 0. He was a stroke call but per report symptoms completely resolved. Per report he has a chronically occluded left internal carotid which was seen on imaging but otherwise unremarkable. He was advised that he be admitted for stroke work-up. Hospitalist contacted for admission. Patient seen with family member at bedside, he endorses history as above with weakness and altered sensation of the left upper extremity but said that he still has difficulty feeling like his left arm will not cooperate very well and that his pointer finger and thumb on the left side are weaker than the right side but denies any other neuro complaints and feels the sensation is the same on both sides. Did have a fall last week and has had some right shoulder pain but denies any left-sided problems. Denies any headache or changes in vision, has not had any speech changes. No other numbness or tingling or incoordination. 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 Sleep apnea Small bowel obstruction TIA (transient ischemic attack) Home Medications nitroglycerin 0.4 mg sublingual tablet 0.4 mg sublingual Q5M PRN CHEST PAIN 01/12/18 [History Last Taken Unknown] coenzyme Q10 75 mg capsule (Ultra CoQ10) 75 mg PO DAILY SUPPLEMENT 08/19/23 [History Last Taken Unknown] omeprazole 20 mg capsule,delayed release 40 mg PO DAILY GERD 08/19/23 [History Last Taken Unknown] atorvastatin 40 mg tablet 40 mg PO QHS CHOLESTEROL #90 tabs 08/24/23 [Rx Last Taken Unknown] oxycodone-acetaminophen 5 mg-325 mg tablet (Percocet) 1 tab PO Q8H PRN PAIN 3 days #10 tabs 10/04/23 [Rx Last Taken Unknown] aspirin 81 mg tablet,delayed release (Adult Low Dose Aspirin) 81 mg PO DAILY HEART HEALTH 10/13/23 [History Last Taken Unknown] hydrochlorothiazide 25 mg tablet 25 mg PO DAILY BLOOD PRESSURE 10/13/23 [History Last Taken Unknown] metoprolol tartrate 50 mg tablet 50 mg PO BID HEART #180 tabs 10/13/23 [Rx Last Taken Unknown] Allergy/AdvReac Type Severity Reaction Status Date / Time clopidogrel [From Plavix] Allergy Severe Itching Verified 10/13/23 13:02 ticagrelor [From Brilinta] AdvReac Intermediate (Possible Verified 10/13/23 13:02 reaction) Itching hands and feet, no rash Family History Father Cancer Prostate cancer Mother CAD (coronary artery disease) Hx CABG Myocardial infarction Hypertension Brother CAD (coronary artery disease) Diabetes Other Family history of hypertension Surgical History (Updated 10/13/23 @ 15:44 by Naomie Kerr) H/O coronary artery bypass surgery (04/2012) History of coronary artery stent placement Stented coronary artery (02/06/20) Social History Smoking Status: Former smoker how long ago did patient quit smokin alcohol intake: current alcohol intake frequency: 0-2 drinks per day Alcohol type: wine substance use type: does not use caffeine: Yes Type: coffee Number of servings: 3 what type of physical activity do you participate in: walking frequency: daily duration: 30-45 minutes/day seatbelt use: always do you feel safe at home: Yes ROS ROS Narrative General: Denies fever/chills HENT: Denies headache, denies stuffy nose, denies sore throat EYES: Denies changes in vision Resp: Denies cough, denies shortness of breath Cardiac: Denies chest pain GI: Denies abdominal pain, denies changes in bowel, denies nausea/vomiting : Denies changes in urination Extremity: Denies swelling MSK: Feels left pointer finger and thumb are weaker Neuro: Denies any numbness/tingling, feels left thumb and index finger do not move as well as the other fingers Heme: Denies any bleeding or bruising Skin: Denies rashes Psychiatric: No complaints voiced Vital Signs Vital Signs Vital Signs: 10/13/23 12:39 10/13/23 12:53 10/13/23 12:38 Temperature 96.4 F L Temperature Source Temporal Pulse Rate 68 63 Respiratory Rate 16 16 Blood Pressure 204/71 H 194/77 H Blood Pressure Mean 115 116 Pulse Ox 97 96 Oxygen Delivery Method Room Air Room Air 10/13/23 13:08 10/13/23 13:30 10/13/23 14:00 Temperature 97.7 F L Temperature Source Temporal Pulse Rate 67 64 62 Respiratory Rate 16 16 14 Blood Pressure 195/92 H 164/79 H 138/78 H Blood Pressure Mean 126 107 98 Pulse Ox 95 94 95 Oxygen Delivery Method Room Air Room Air Room Air 10/13/23 14:14 10/13/23 14:30 10/13/23 15:00 Temperature 97.7 F L 97.7 F L Temperature Source Temporal Pulse Rate 63 65 68 Respiratory Rate 16 12 17 Blood Pressure 154/74 H 152/75 H 164/73 H Blood Pressure Mean 100 100 103 Pulse Ox 95 93 94 Oxygen Delivery Method Room Air Room Air Weight Weight: 101.1 kg Body Mass Index (BMI) 34.9 Physical Exam Narrative General: Alert, oriented, no apparent distress HEENT: Atraumatic, normocephalic Eyes: Anicteric, normal conjunctiva, extraocular movements intact, pupils equal Neck: Supple Respiratory: Clear to auscultation bilaterally, normal respiratory effort Cardiovascular: Regular rate and rhythm GI: Soft, nontender, nondistended Extremities: No edema Musculoskeletal: Strength 5 out of 5 in right upper extremity, 5 out of 5 left upper extremity, 5 out of 5 right lower extremity, 5 out of 5 left lower extremity, hand mission support specialist stronger right compared to left however specifically does have more difficulty with his thumb and index finger on the left side Neuro:, cranial nerves II through XII intact, [id number] without significant difficulty with right hand but did have some incoordination with left Skin: No rashes appreciated Psych: Cooperative Results Lab / Micro Data 10/13/23 12:40 10/13/23 12:40 Labs: Laboratory Results - last 24 hr 10/13/23 12:40: WBC 10.9, RBC 5.61, Hgb 16.7 H, Hct 47.2, MCV 84.1, MCH 29.8, MCHC 35.4, RDW Std Deviation 37.0, RDW Coeff of Pawel 12.3, Plt Count 223, MPV 8.7, Immature Gran % (Auto) 0.400, Neut % (Auto) 74.1 H, Lymph % (Auto) 14.9 L, [place] % (Auto) 8.3, Eos % (Auto) 1.6, Baso % (Auto) 0.7, Absolute Neuts (auto) 8.1 H, Absolute Lymphs (auto) 1.62, Nucleated RBC % 0, PT 13.1, INR 1.0, APTT 30.6, Sodium 136, Potassium 4.0, Chloride 101, Carbon Dioxide 32.0, Anion Gap 3 L, BUN 25 H, Creatinine 1.25, Estim Creat Clear Calc 47.00, Est GFR (MDRD) Af Amer 72, Est GFR (MDRD) Non-Af 60, BUN/Creatinine Ratio 20.0, Glucose 229 H, Calcium 9.3, Troponin I High Sens 7 10/13/23 12:49: POC Glucose 240 H Imagaing Radiology Impression Brain CT 10/13/23 12:38 IMPRESSION: 1. Chronic involutional changes of the brain. 2. Concern for stroke/positive symptomatology should be further evaluated with CT brain perfusion/CTA or MRI of the brain for further assessment. N.B. : The above Results were Read Back by Joshua Nielsen MD to Wali Burks MD, and understanding confirmed on 10/13/2023 12:57:09 (ET). Electronically Signed: Joshua Nielsen MD at 12:58 EST Reading Location ID and State: [facility] / [place] , Service support , ADDENDUM: 10/13/23 1305 IMPRESSION: 1. Chronic involutional changes of the brain. 2. Concern for stroke/positive symptomatology should be further evaluated with CT brain perfusion/CTA or MRI of the brain for further assessment. N.B. : The above Results were Read Back by Joshua Nielsen MD to Wali Burks MD, and understanding confirmed on 10/13/2023 12:57:09 (ET). Electronically Signed: Joshua Nielsen MD at 12:58 EST , Head/Neck CTA 10/13/23 12:39 IMPRESSION: 1. No large arterial intracranial occlusion or visualized thrombus. Unremarkable [place] without a demonstrated aneurysm or hemodynamically significant stenosis. 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 Communicating arteries. 2. Severely stenotic [place] cavernous segment of the left internal carotid artery versus a tiny collateral vessel which extends into this region. 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 Severely stenotic [place] left internal carotid artery versus a tiny collateral along the path of the [place] artery. N.B. : The above Results were Read Back by Joshua Nielsen MD to Wali Burks MD, and understanding confirmed on 10/13/2023 13:27:04 (ET). Electronically Signed: Joshua Nielsen MD at 13:28 EST , ADDENDUM: 10/13/23 1335 IMPRESSION: 1. No large arterial intracranial occlusion or visualized thrombus. Unremarkable [place] without a demonstrated aneurysm or hemodynamically significant stenosis. 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 Communicating arteries. 2. Severely stenotic [place] cavernous segment of the left internal carotid artery versus a tiny collateral vessel which extends into this region. 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 Severely stenotic [place] left internal carotid artery versus a tiny collateral along the path of the [place] artery. N.B. : The above Results were Read Back by Joshua Nielsen MD to Wali Burks MD, and understanding confirmed on 10/13/2023 13:27:04 (ET). Electronically Signed: Joshua Nielsen MD at 13:28 EST , Chest X-Ray 10/13/23 13:46 IMPRESSION: Degenerative changes, as described above. No demonstrated acute cardiopulmonary process. Electronically Signed: Joshua Nielsen MD at 14:34 EST Reading Location ID and State: [facility] / [place] , Service support , Assessment & Plan Assessment/Plan (1) LUE weakness: (2) H/O coronary artery bypass surgery: (3) Stented coronary artery: (4) Essential (primary) hypertension: PLAN: Plan #Left upper extremity weakness -Admit to tele -CT head w/ chronic changes in ED -MRI ordered -CTA with suspected chronic left internal carotid occlusion -NIH q4hr -asa, statin -Echo w/ bubble study -PT/OT/Speech eval -Hold BP medications to allow for permissive hypertension for 24 hours unless SBP greater than 220 or DBP greater than 120 or until stroke is ruled out #hx CAD s/p stenting and cabg -Pt w/ allg to plavix and brillinta -Cont ASA, atorvastatin -Pending results may need neuro to weigh in on antiplatelet as given stroke sx not a good candidate for prasugrel either #GERD -Continue PPI #Hx andrea -Non complaint w/ cpap #DVT ppx: Lovenox subcu Lyubov Johnson MD Time spent in the patient's overall evaluation,decision-making process, review of diagnostic data, adjustment of management, discussion with other providers, nursing nursing and ancillary staff involved in patient's care documentation, 55 minutes Charges/Coding Visit Charges Inpatient E&M: 65640 Init Hosp L2
--- NOTE | 2023-10-13 15:12 | ECHOD_ITS ---
Reason For Study: TIA/STROKE Procedure This was a 2D Doppler, Color Flow transthoracic echocardiogram. The study was technically difficult. Exam performed portable in patient room. Left Ventricle Normal size and thickness. The left ventricular ejection fraction is 70 %. Left ventricular systolic function is hyperdynamic. Right Ventricle Normal right ventricle. Atria The left and right atria are normal. Bubble contrast study appears negative for interatrial or ventricular shunts but sensitivity is reduced because of the technically difficult nature of the study. Mitral Valve Trivial mitral valve insufficiency. Tricuspid Valve Trivial tricuspid valve insufficiency. Unable to estimate RV systolic pressure due to insufficient tricuspid regurgitant envelope. Aortic Valve The aortic valve is not well visualized in the short axis view. There is no aortic stenosis. No aortic valve insufficiency. Pulmonic Valve The pulmonic valve is not well visualized. Great Vessels The aortic root is not well visualized. Pericardium/Pleural No pericardial effusion. Medication Performed a rapid injection of agitated mix of 9 cc saline and 1cc air to assess for atrial septal defect. MMode/2D Measurements & Calculations LVIDd: 4.2 cm IVSd: 0.95 cm LVOT diam: 2.0 cm LVIDs: 2.5 cm LVPWd: 0.81 cm RVDd: 3.5 cm FS: 40.1 % LVOT area: 3.2 cm2 Ao root diam: 3.4 cm LAV(MOD-bp): 43.9 ml LVAd ap4: 29.6 cm2 LAV(MOD-bp) Indexed: 20.8 ml/m2 LVLd ap4: 7.8 cm LAV(MOD-sp2): 40.7 ml EDV(MOD-sp4): 93.3 ml LAV(MOD-sp4): 49.0 ml EDV(sp4-el): 95.6 ml LVAs ap4: 12.9 cm2 LVLs ap4: 7.0 cm ESV(MOD-sp4): 21.2 ml ESV(sp4-el): 20.2 ml EF(MOD-sp4): 77.2 % EF(sp4-el): 78.8 % LVAd ap2: 19.3 cm2 SV(MOD-sp4): 72.1 ml SV(MOD-sp2): 29.3 ml LVLd ap2: 7.4 cm EDV(MOD-sp2): 42.6 ml EDV(sp2-el): 42.8 ml LVAs ap2: 9.7 cm2 LVLs ap2: 6.8 cm ESV(MOD-sp2): 13.3 ml ESV(sp2-el): 11.7 ml EF(MOD-sp2): 68.7 % SV(sp4-el): 75.3 ml LA dimension(2D): 3.4 cm LA A4 area: 19.0 cm2 RA A4 area: 16.5 cm2 TAPSE: 1.3 cm Time Measurements MV dec time: 0.21 sec Doppler Measurements & Calculations MV E max el: 76.9 cm/sec Lat Peak E' El: 11.6 cm/sec Med Peak E' El: 10.0 cm/sec MV A max el: 81.6 cm/sec E/E' lat: 6.7 E/E' med: 7.7 MV E/A: 0.94 Ao V2 max: 147.0 cm/sec LV V1 max: 130.4 cm/sec MV dec slope: 366.7 cm/sec2 Ao max P.6 mmHg LV V1 max P.8 mmHg Ao V2 mean: 96.8 cm/sec LV V1 mean P.8 mmHg Ao mean P.3 mmHg LV V1 mean: 93.6 cm/sec Ao V2 VTI: 29.3 cm LV V1 VTI: 23.8 cm AV (velocity ratio): 0.81 NIKO(I,D): 2.6 cm2 NIKO(V,D): 2.8 cm2 SV(LVOT): 75.0 ml ECHO/Echo Complete Interpretation Summary The left ventricular ejection fraction is 70 %. Mildly increased LVOT gradient with Valsalva maneuver. Bubble contrast study appears negative for interatrial or ventricular shunts bu t sensitivity is reduced because of the technically difficult nature of the study. The study was technically difficult. Ordering Physician: Lyubov Johnson Performed By: Gay Carvalho RDCS
--- NOTE | 2023-10-13 15:12 | MRI_ITS ---
We are attempting to reach an attending provider to discuss findings. An addendum with communication details will be sent when the communication is complete. STUDY: MRI BRAIN WITHOUT CONTRAST REASON FOR EXAM: Male, 78 years old. cva r.o TECHNIQUE: Standardized multiplanar fat and water weighted pulse sequences were obtained. COMPARISON: CT of the brain October 13, 2023 FINDINGS: Mild diffuse cerebral atrophy.. Normal white matter tracts of the supratentorial brain. There is subtle gyral restricted diffusion in the right parietal lobe consistent with acute ischemic changes Normal bilateral basal ganglia. Normal thalami. There is no extra-axial fluid accumulation. Normal flow voids within the major intracranial circulation suggesting patency by spin echo criteria. Normal sella turcica, pituitary gland, infundibular stalk, optic chiasm and hypothalamus. Normal tectal plate and pineal gland. Normal midbrain, hank and medulla. Normal cerebellum. Normal basal cisterns. Normal bilateral temporal bones. Normal bilateral internal auditory canals. No demonstrated orbital abnormality, within the constraints of a routine brain study. Normal visualized paranasal sinuses. Normal calvarium and skull base. Normal visualized soft tissue structures. Normal visualized upper cervical spine. MRI/Brain without Contrast IMPRESSION: Findings consistent with small acute infarct in the right parietal lobe Electronically Signed: Juan Pablo Cisneros MD at 19:59 EST ,
[2023-10-13] MEDS: Calcium Carbonate 500 MG Tablet PO (18:41)
--- NOTE | 2023-10-13 20:12 | PN.HOSP_ITS ---
Hospitalist Note I was called by the NURSING SPECIALIST and informed that this patient's MRI just returned positive for an acute Right parietal CVA with patient having mild symptoms with weakness of his Left thumb and index finger. The nurse was asked to inform [facility] teleneurology to keep them abreast of his confirmed diagnosis of acute CVA. The patient denies other complaints or pain at this time. Formal MRI read is recorded below. [facility] Imaging Services [address] [place] [address] Brain without Contrast MR#: [id number] Acct: [id number] Name: EBONY GREGORIO Rep #: [id number] : [id number] M [id number] From: Juan Pablo Cisneros MD PCP: Dr. Scotty Perry MD Status: ADM JONNY Study: Brain without Contrast Date of Exam: 10/13/23 Exam# [id number] Ordering Dr: Lyubov Johnson MD We are attempting to reach an attending provider to discuss findings. An addendum with communication details will be sent when the communication is complete. STUDY: MRI BRAIN WITHOUT CONTRAST REASON FOR EXAM: Male, 78 years old. cva r.o TECHNIQUE: Standardized multiplanar fat and water weighted pulse sequences were obtained. COMPARISON: CT of the brain October 13, 2023 FINDINGS: Mild diffuse cerebral atrophy.. Normal white matter tracts of the supratentorial brain. There is subtle gyral restricted diffusion in the right parietal lobe consistent with acute ischemic changes Normal bilateral basal ganglia. Normal thalami. There is no extra-axial fluid accumulation. Normal flow voids within the major intracranial circulation suggesting patency by spin echo criteria. Normal sella turcica, pituitary gland, infundibular stalk, optic chiasm and hypothalamus. Normal tectal plate and pineal gland. Normal midbrain, hank and medulla. Normal cerebellum. Normal basal cisterns. Normal bilateral temporal bones. Normal bilateral internal auditory canals. No demonstrated orbital abnormality, within the constraints of a routine brain study. Normal visualized paranasal sinuses. Normal calvarium and skull base. Normal visualized soft tissue structures. Normal visualized upper cervical spine. MRI/Brain without Contrast IMPRESSION: Findings consistent with small acute infarct in the right parietal lobe Electronically Signed: Juan Pablo Cisneros MD at 19:59 EST Reading Location ID and State: [facility] / [place] Tel , Service support , CC: Dr. Scotty Perry MD; Dr. Lyubov Johnson MD ~ [employer]: Signed
[2023-10-13] MEDS: Oxycodone/Apap 5/325 Tablet PO (20:27)
[2023-10-13] MEDS: Mag Hydrox/Al Hydrox/Simeth 30 ML UDC PO (20:28)
[2023-10-13] MEDS: Atorvastatin Calcium 40 MG Tablet PO (21:11)
[2023-10-14] VITALS (14 sets, daily range): BP systolic 141–170; BP diastolic 67–111; PULSE 71–97; RESP 12–18; TEMP 36.1–37.2; O2SAT 92–97; BMI 34.1
[2023-10-14 07:31] LABS: Absolute Lymphocyte Count 1.84 X10^3/uL (0.83-4.51); Absolute Neutrophil Count 5.2 X10^3/uL (2.0-7.7); Basophil# 0.05 X10^3/uL; Basophil% 0.6 % (0-1); Eosinophil# 0.18 X10^3/uL; Eosinophils% 2.2 % (0-5); Hematocrit 45.1 % (40-54); Hemoglobin 15.2 g/dL (13.0-16.5); Lymphocyte # 1.84 X10^3/ul (0.83-4.51); Lymphocyte % 22.7 % (19-41); Mean Corp Hgb Conc 33.7 g/dL (32-36); Mean Corpuscular Hgb 28.9 pg (27.0-32.0); Mean Corpuscular Volume 85.7 fL (80-94); Mean Platelet Vol. 9.1 fl (6.2-12.0); Monocyte# 0.78 X10^3/uL; Monocyte% 9.6 % (0-10); NRBC Flagged by Analyzer 0 % (0-5); Neutrophil # 5.21 X10^3/uL (2.7-7.7); Neutrophil % 64.4 % (47-70); Platelet Count 203 K/mm3 (150-450); RBC Distribution Width CV 12.6 % (11.6-14.6); RBC Distribution Width SD 38.9 fl (35.1-43.9); Red Blood Count 5.26 M/mm3 (4.6-6.2); White Blood Count 8.1 K/mm3 (4.4-11.0)
[2023-10-14 07:58] LABS: ALB/GLOB Ratio 1.1 RATIO (0.9-2.4); AST(SGOT) 16 U/L (15-37); Alanine Aminotransfer ALT/SGPT 28 U/L (16-61); Albumin, Serum 3.4 g/dL (3.2-5.0); Alkaline Phosphatase 52 U/L (45-117); Anion Gap 5 (5-15); BUN 20 mg/dL (7-18); Calcium,Total 8.7 mg/dL (8.5-10.1); Chloride 103 mmol/L (98-107); Cholesterol 121 mg/dL (200); Creatinine, Serum 1.05 mg/dL (0.70-1.30); EST Glomerular Filtration Rate 73 mL/min (>60); Est Glom Filt Rate - Afr Amer 88 mL/min (>60); Estimated Creatinine Clearance 55.96 ml/min; Globulin 3.2 g/dL (2.2-4.2); Glucose 167 mg/dL (74-106); High Density Lipoprotein 36 mg/dL; Potassium 3.6 mmol/L (3.5-5.1); Protein, Total 6.6 g/dL (6.4-8.2); Sodium Level 136 mmol/L (136-145); Thyroid Stim Hormone (TSH) 0.93 uIU/mL (0.358-3.74); Triglycerides 145 mg/dL; Very Low Density Lipoprotein 29 mg/dL (5-40)
[2023-10-14] MEDS: Metoprolol Tartrate 25 MG Tablet 12.5 MG PO (08:14)
[2023-10-14] MEDS: Enoxaparin 40 MG/0.4 ML Syringe SC (08:14)
[2023-10-14] MEDS: Pantoprazole Sodium 40 MG Tablet PO (08:15)
[2023-10-14] MEDS: Aspirin 81 MG TAB.CHEW PO (08:15)
--- NOTE | 2023-10-14 12:03 | CT_ITS ---
EXAM: CT HEAD WITHOUT INTRAVENOUS CONTRAST CLINICAL INDICATION: stroke TECHNIQUE: Multiple axial images were obtained of the head without intravenous contrast. This CT exam was performed using one or more of the following dose reduction techniques: automated exposure control, adjustment of the mA and/or kV according to patient size, and/or use of iterative reconstruction technique. RADIATION DOSE: CTDIvol = 47.06 mGy, DLP = 890.33 mGy-cm COMPARISON: CT head without contrast and CTA head and neck with contrast 10/13/2023. FINDINGS: BRAIN AND EXTRA-AXIAL SPACES: Unremarkable. No intra- or extra-axial hemorrhage. No evidence of acute infarct. No intracranial mass or mass effect. There is preservation of the mcfarlane/white matter interface. Posterior fossa structures are unremarkable. Ventricles are appropriate for age. No hydrocephalus. Basal cisterns are patent. BONES/JOINTS: Unremarkable. No discrete lytic or blastic abnormalities. SINUSES: Unremarkable as visualized. Clear. MASTOID AIR CELLS: Unremarkable. Clear. ORBITS: Visualized globes, extraocular muscles, optic nerves and retrobulbar fat appear unremarkable. CT/STROKE Brain/Head without Cont IMPRESSION: 1. Negative head/brain CT without intravenous contrast. 2. Total ASPECTS score: 10/10. 3. No interval change when compared to 10/13/2023. N.B. : The above Results were Read Back by Mayco Kwong MD to Sasha Calzada RN, and understanding confirmed on 10/14/2023 12:33:39 (ET). Electronically Signed: Mayco Kwong MD at 12:34 EST ,
--- NOTE | 2023-10-14 12:07 | CASEMGMT ---
SW responded to a Stroke Alert for patient. SW and market president provided emotional support to patient's while patient went to get a CT. Patient's son also came to the hospital. Muriel THURMAN
[2023-10-14 12:17] LABS: Bedside Glucose 249 mg/dL (74-106)
--- NOTE | 2023-10-14 12:39 | CT_ITS ---
INDICATION: CVA EXAMINATION: CTA HEAD - CTA Head and Neck W/ Contrast Injection (and W/O Contrast Images if performed) TECHNIQUE: Kashia of Olivia/head CT angiogram protocol was performed following IV contrast. Routine carotid CT angiogram protocol was performed without and with IV contrast. NASCET criteria using the distal ICAs for comparison were used for evaluation of stenoses. 3D reconstructions were reviewed of the CT angiogram head and neck. A radiation dose optimization technique was used for this scan. IV Contrast dosage and agent: 100 mL of Isovue-370. COMPARISON: FINDINGS: --Anterior cerebral circulation: ACAs: No significant stenosis at the visualized segments. ACOM: Present. MCAs: No significant stenosis at the visualized segments. --Posterior cerebral circulation: PCOMs: Bilaterally patent. barrel and receiver aligner: No significant stenosis at the visualized segments. BASILAR ARTERY: No significant stenosis. --Carotid and vertebral circulation: AORTIC ARCH AND BRANCHES: Normal anatomy, patent. RIGHT CCA: No occlusion, significant stenosis or dissection. RIGHT ICA: Greater than 70% high-grade stenosis at the origin of the right cervical internal carotid artery. This is due to calcified plaque and noncalcified plaque. LEFT CCA: Smaller caliber of the left common carotid artery with compared to the right. LEFT ICA: Threadlike left cervical internal carotid artery including the petrous segments and cavernous segments. Widely patent left posterior communicating artery provides abundant collateral flow to the left supraclinoid internal carotid artery. RIGHT VERTEBRAL ARTERY: No occlusion, significant stenosis or dissection. LEFT VERTEBRAL ARTERY: No occlusion, significant stenosis or dissection. NECK SOFT TISSUES: Unremarkable. LUNG APICES: Clear. BONES: Unremarkable. CT/CTA Head AND Neck W/ Contrast IMPRESSION: 1. Greater than 70% stenosis at the origin of the right cervical internal carotid artery due to calcified plaque and noncalcified plaque. 2. Patent left cervical internal carotid artery but threadlike in size extending to the petrous segments and cavernous segments of the left internal carotid artery. The left supraclinoid internal carotid artery is widely patent due to collateral flow from the left posterior communicating artery. Additionally, the left common carotid artery is smaller in caliber when compared to the right common carotid artery. There are no visible plaques in the left carotid artery. 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 3. No large vessel occlusion or visible thromboembolic occlusion of both BREONNA, both MCA and the posterior circulation. 4. Normal bilateral vertebral arteries in all 4 segments. 5. Normal aortic arch and origins of the great vessels. 6. No significant interval change when compared to 10/13/2023. N.B. : The above Results were Read Back by Mayco Kwong MD to Arun Senior MD, and understanding confirmed on 10/14/2023 13:50:13 (ET). Electronically Signed: Mayco Kwong MD at 13:56 EST ,
--- NOTE | 2023-10-14 13:08 | MRI_ITS ---
We are attempting to reach an attending provider to discuss findings. An addendum with communication details will be sent when the communication is complete. STUDY: MRI BRAIN WITHOUT CONTRAST REASON FOR EXAM: Male, 78 years old. CVA TECHNIQUE: Standardized multiplanar fat and water weighted pulse sequences were obtained. COMPARISON: October 13, 2023 FINDINGS: Mild atrophy and periventricular white matter ischemic changes.. There is mild gliosis in the right parietal lobe demonstrating restricted diffusion consistent with known acute ischemic infarction. However, there is also new restricted diffusion within the anterior left frontal lobe in distribution of the anterior cerebral artery as well as tiny punctate focus of restricted foci in left parietal lobe in distribution of the left middle cerebral artery consistent with new ischemic changes suggesting embolic disease. Normal bilateral basal ganglia. Normal thalami. There is no extra-axial fluid accumulation. Normal flow voids within the major intracranial circulation suggesting patency by spin echo criteria. Normal sella turcica, pituitary gland, infundibular stalk, optic chiasm and hypothalamus. Normal tectal plate and pineal gland. Normal midbrain, hank and medulla. Normal cerebellum. Normal basal cisterns. Normal bilateral temporal bones. Normal bilateral internal auditory canals. No demonstrated orbital abnormality, within the constraints of a routine brain study. Normal visualized paranasal sinuses. Normal calvarium and skull base. Normal visualized soft tissue structures. Normal visualized upper cervical spine. 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 Electronically Signed: Juan Pablo Cisneros MD at 16:15 EST Reading Location ID and State: [facility] / [place] Tel , Service support ,
--- NOTE | 2023-10-14 14:00 | CASEMGMT ---
RN CM Face to Face with patient for initial transition planning/care coordination assessment. RN CM introduced self and role at [facility]. Patient lying in bed, alert and oriented, family at bedside. Patient and family willing to participate in assessment and is able to answer all questions appropriately. Care providers, pharmacy, and demographics verified. Patient was a max assist x2. Discussed need for possible rehab unit at discharge, patient and family agreeable if needed, will continue to monitor progress with therpay.SW notified. Patient and family state they has no further needs or concerns at this time. CM to follow for discharge planning needs that may arise. PCP: [place] Specialists: Emil access liaison Preferred Pharmacy: [facility] Insurance: [employer] Prescription Benefit: yes Living Will/HPOA: none LNOK: , son Living Arrangements: Patient lives with in a 2 story home with bed and bath on first floor. Patient was independent at home. Transportation: self, DME/HHC: Patient has cpap that he does not wear. No previous HHC or SNF. Disposition Plan: TBD, anticipate rehab unit at discharge. Ailyn VALDERRAMA, RN, CM
[2023-10-14] MEDS: Morphine 4 MG/ML Syringe IV (14:52)
[2023-10-14] MEDS: LORazepam 2 MG/ML Syringe 0.5 MG IV (14:53)
[2023-10-14] MEDS: 0.9% Saline Lock 10 ML Syringe IV (14:53)
--- NOTE | 2023-10-14 14:59 | CHAPLAIN ---
Type of Pastoral Visit _x__ Initial Visit _x__ Follow-up Visit ___ On-call Visit ___ General Patient Visit ___ Spiritual Assessment ___ Family Conference ___ Bereavement _x__ Rapid Response ___ Code Blue ___ Other (describe below) Pastoral Care Referral From _x__ Patient _x_ Family ___ Nurse ___ Physician ___ Bonding And Composite Fabricator ___ Senior Occupational Therapist ___ Other (describe below) Sacrament/Intervention _x__ Active listening ___ Anointing ___ Baptist ___ Bereavement ___ Communion _x__ Lacie exploration ___ ___ Life review _x__ Prayer ___ Reconciliation ___ Sacrament of Sick _x__ Supportive presence ___ Wedding ___ Other (describe below) Pastoral Comments patient was on the referral list and while 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 was in 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 a stroke alert was called for him in the room next door; met with spouse at this time as patient is being treated by medical team and then moved to CT; offered presence, support, as spouse also requested prayer; gave calm presence and listening ear to spouse until son came to the room; also offered explanation and support to son; later returned to this room to see patient and family members together there; pt is able to talk but thinks he is still in MRI and a little confused apparently; offer of calm words and presence, review of events and the prayers given; pt speaks of thanks for prayers; offer of support again to family members who are waiting on more answers but not in need of anything specific at this time
--- NOTE | 2023-10-14 17:15 | CASEMGMT ---
Discharge Planning A list of?Rehab Units including quality and resource use data and consistent with the patient's preferred geographic region, medical needs, and insurance network was created in [facility] Guide.? This list was provided to the patient. Gloria Jain, Discharge Planning Asst.
[2023-10-14] MEDS: Atorvastatin Calcium 40 MG Tablet PO (20:25)
[2023-10-14] MEDS: Clopidogrel Bisulfate 75 MG Tablet PO (20:35)
--- NOTE | 2023-10-14 21:10 | PN.HOSP_ITS ---
Reason for Visit Reason for Visit: Diagnoses Essential (primary) hypertension (10/14/23) Other symptoms and signs involving the musculoskeletal system (10/14/23) Presence of aortocoronary bypass graft (10/14/23) Presence of coronary angioplasty implant and graft (10/14/23) Subjective Subjective Patient was seen and examined today, his MRI yesterday was positive for a right frontal CVA, today at approximately 1230 a stroke team was called on the patient due to acute mental status change and left-sided hemiparesis, he underwent a CT scan which only showed an area of ischemic infarction in the right parietal area, teleneurology recommended a repeat CTA of the head and neck which was performed and was read out as showing no change from the previous head and neck CTA, the radiologist did tell me that the stenosis in the right cervical inter nal carotid artery was in his opinion 70 or more percent today as it was yesterday although yesterday's read out was read out as not showing that great of his stenosis. Patient then underwent an MRI of the brain today without contrast, I was notified by radiology that there was a left parietal infarct that was small, a right parietal infarct in the MCA territory, and a right frontal infarct in the anterior cervical territory. I relayed this to his family members who are in the room this afternoon, I talked with the patient about taking Plavix-he had listed it as an allergy because it caused palmar and plantar itching, he is willing to try Plavix again, teleneurology told me today that if the patient was unable to take Plavix that his aspirin should be increased to 325/day. At this time I will place the patient on Plavix plus an 81 mg aspirin per day. Objective Data Objective Data Vital Signs: Vital Signs Temp Pulse Resp BP Pulse Ox O2 Del Method O2 Flow Rate 97.1 F L 76 12 170/79 H 94 Room Air 2 10/14/23 18:00 10/14/23 18:00 10/14/23 18:00 10/14/23 18:00 10/14/23 18:00 10/14/23 18:00 10/14/23 01:00 Oxygen Flow Rate (L/min) 2 Oxygen Delivery Method Room Air Weight: 98.8 kg Body Mass Index (BMI) 34.1 Intake & Output: Intake and Output for Last 24 Hours 10/12/23 10/13/23 10/14/23 23:59 23:59 23:59 Intake Total 100 / 100 Balance 100 / 100 Lab / Micro Data 10/14/23 06:50 10/14/23 06:50 Labs: Laboratory Results - last 24 hr 10/14/23 06:50: WBC 8.1, RBC 5.26, Hgb 15.2, Hct 45.1, MCV 85.7, MCH 28.9, MCHC 33.7, RDW Std Deviation 38.9, RDW Coeff of Pawel 12.6, Plt Count 203, MPV 9.1, Immature Gran % (Auto) 0.500, Neut % (Auto) 64.4, Lymph % (Auto) 22.7, [place] % (Auto) 9.6, Eos % (Auto) 2.2, Baso % (Auto) 0.6, Absolute Neuts (auto) 5.2, Absolute Lymphs (auto) 1.84, Nucleated RBC % 0, Sodium 136, Potassium 3.6, Chloride 103, Carbon Dioxide 28.0, Anion Gap 5, BUN 20 H, Creatinine 1.05, Estim Creat Clear Calc 55.96, Est GFR (MDRD) Af Amer 88, Est GFR (MDRD) Non-Af 73, BUN/Creatinine Ratio 19.0, Glucose 167 H, Calcium 8.7, Total Bilirubin 0.80, AST 16, ALT 28, Alkaline Phosphatase 52, Total Protein 6.6, Albumin 3.4, Globulin 3.2, Albumin/Globulin Ratio 1.1, Triglycerides 145, Cholesterol 121, LDL Cholesterol 56, VLDL Cholesterol 29, HDL Cholesterol 36 L, TSH 0.93 10/14/23 11:56: POC Glucose 249 H Radiography Diagnostic Testing: Radiology Impression Brain MRI 10/13/23 15:12 IMPRESSION: Findings consistent with small acute infarct in the right parietal lobe Electronically Signed: Juan Pablo Cisneros MD at 19:59 EST , ADDENDUM: 10/13/232113 IMPRESSION: Findings consistent with small acute infarct in the right parietal lobe N.B. : The above Results were Read Back by Juan Pablo Cisneros MD to Helene Fuentes RN, and understanding confirmed on 10/13/2023 21:07:56 (ET). Electronically Signed: Juan Pablo Cisneros MD at 19:59 EST , ADDENDUM: 10/13/232120 IMPRESSION: Findings consistent with small acute infarct in the right parietal lobe N.B. : The above Results were Read Back by Juan Pablo Cisneros MD to Helene Fuentes RN, and understanding confirmed on 10/13/2023 21:14:09 (ET). Electronically Signed: Juan Pablo Cisneros MD at 19:59 EST , Echocardiogram 10/13/23 15:12 Interpretation Summary The left ventricular ejection fraction is 70 %. Mildly increased LVOT gradient with Valsalva maneuver. Bubble contrast study appears negative for interatrial or ventricular shunts but sensitivity is reduced because of the technically difficult nature of the study. The study was technically difficult. Ordering Physician: Lyubov Johnson Performed By: Gay Carvalho RDCS Brain CT 10/14/23 12:03 IMPRESSION: 1. Negative head/brain CT without intravenous contrast. 2. Total ASPECTS score: 10/10. 3. No interval change when compared to 10/13/2023. N.B. : The above Results were Read Back by Mayco Kwong MD to Sasha Calzada RN, and understanding confirmed on 10/14/2023 12:33:39 (ET). Electronically Signed: Mayco Kwong MD at 12:34 EST , ADDENDUM: 10/14/23 1241 IMPRESSION: 1. Negative head/brain CT without intravenous contrast. 2. Total ASPECTS score: 10/10. 3. No interval change when compared to 10/13/2023. N.B. : The above Results were Read Back by Mayco Kwong MD to Sasha Calzada RN, and understanding confirmed on 10/14/2023 12:33:39 (ET). Electronically Signed: Mayco Kwong MD at 12:34 EST , Head/Neck CTA 10/14/23 12:39 IMPRESSION: 1. Greater than 70% stenosis at the origin of the right cervical internal carotid artery due to calcified plaque and noncalcified plaque. 2. Patent left cervical internal carotid artery but threadlike in size extending to the petrous segments and cavernous segments of the left internal carotid artery. The left supraclinoid internal carotid artery is widely patent due to collateral flow from the left posterior communicating artery. Additionally, the left common carotid artery is smaller in caliber when compared to the right common carotid artery. There are no visible plaques in the left carotid artery. 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 3. No large vessel occlusion or visible thromboembolic occlusion of both BREONNA, both MCA and the posterior circulation. 4. Normal bilateral vertebral arteries in all 4 segments. 5. Normal aortic arch and origins of the great vessels. 6. No significant interval change when compared to 10/13/2023. N.B. : The above Results were Read Back by Mayco Kwong MD to Arun Senior MD, and understanding confirmed on 10/14/2023 13:50:13 (ET). Electronically Signed: Mayco Kwong MD at 13:56 EST , ADDENDUM: 10/14/23 1403 IMPRESSION: 1. Greater than 70% stenosis at the origin of the right cervical internal carotid artery due to calcified plaque and noncalcified plaque. 2. Patent left cervical internal carotid artery but threadlike in size extending to the petrous segments and cavernous segments of the left internal carotid artery. The left supraclinoid internal carotid artery is widely patent due to collateral flow from the left posterior communicating artery. Additionally, the left common carotid artery is smaller in caliber when compared to the right common carotid artery. There are no visible plaques in the left carotid artery. 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 3. No large vessel occlusion or visible thromboembolic occlusion of both BREONNA, both MCA and the posterior circulation. 4. Normal bilateral vertebral arteries in all 4 segments. 5. Normal aortic arch and origins of the great vessels. 6. No significant interval change when compared to 10/13/2023. N.B. : The above Results were Read Back by Mayco Kwong MD to Arun Senior MD, and understanding confirmed on 10/14/2023 13:50:13 (ET). Electronically Signed: Mayco Kwong MD at 13:56 EST , Brain MRI 10/14/23 13:08 IMPRESSION: New evolving acute ischemic infarction in the right frontal and left parietal lobe in association with prior acute ischemic changes in the right parietal lobe suggesting embolic disease. Electronically Signed: Juan Pablo Cisneros MD at 16:15 EST , ADDENDUM: 10/14/23 1658 IMPRESSION: New evolving acute ischemic infarction in the right frontal and left parietal lobe in association with prior acute ischemic changes in the right parietal lobe suggesting embolic disease. N.B. : The above Results were Read Back by Juan Pablo Cisneros MD to Arun Senior DO, and understanding confirmed on 10/14/2023 16:51:19 (ET). Electronically Signed: Juan Pablo Cisneros MD at 16:15 EST , Physical Exam Const alert, oriented x3, no apparent distress and average body habitus General Appearance: cooperative, well kempt and well developed Orientation / Consciousness: awake, oriented to person, oriented to place and oriented to time HEENT normocephalic and moist oral mucous membranes Eyes PERRL, EOMs intact bilaterally and conjunctivae normal Neck supple, no JVD, thyroid normal and no carotid bruits General: trachea midline Resp normal respiratory effort, no retractions, no use of accessory muscles and clear to auscultation bilaterally Auscultation: Negative for rales, rhonchi or wheezes Cardio regular rate, regular rhythm, S1 normal heart sound, S2 normal heart sound, no murmurs, no rub and no gallops GI normal to inspection, nondistended, normoactive bowel sounds, soft to palpation, non-tender and non-distended Extremity no clubbing, cyanosis or edema Skin no rashes or lesions noted General Skin Exam: no breakdown Neuro oriented x3, CN's II-XII intact bilaterally and no sensory deficits noted Neuro Narrative: Patient has left upper and lower extremity weakness noted on exam Sensorium / Orientation: awake and alert Speech: speech normal Psych Psych Narrative: Patient is alert and appropriate but sometimes appears sleepy Assessment & Plan Assessment/Plan (1) Embolic cerebral infarction: PLAN: Plan 1. 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, right parietal area, and right frontal area-patient will continue to be monitored, NIH scores will be monitored, patient was placed on aspirin and Plavix, consideration will have to be made whether the patient should be anticoagulated in 7 to 10 days, PT OT and speech will see the patient, he may need placement in a custodial facility or rehab facility for inpatient rehab services #2 chronic carotid stenosis involving the left internal carotid and right cervical internal carotid-patient may need intervention sometime in the future, continue Plavix, statin, and aspirin for now #3 coronary artery disease-stable at this time #4 essential hypertension-permissive hypertension will be allowed at this time Total clinical time spent by myself addressing the patient's medical issues, reviewing all of his data, and collaborating with patient's care team: 50 minutes Charges/Coding Visit Charges Inpatient E&M: 58584 Subs Hosp L3
[2023-10-15] VITALS (12 sets, daily range): BP systolic 118–171; BP diastolic 69–111; PULSE 98–128; RESP 10–20; TEMP 36.1–37.2; O2SAT 94–98; BMI 34.1
[2023-10-15] MEDS: Clopidogrel Bisulfate 75 MG Tablet PO (08:32)
[2023-10-15] MEDS: Aspirin 81 MG TAB.CHEW PO (08:32)
[2023-10-15] MEDS: Enoxaparin 40 MG/0.4 ML Syringe SC (08:33)
[2023-10-15] MEDS: Pantoprazole Sodium 40 MG Tablet PO (08:33)
[2023-10-15] MEDS: Calcium Carbonate 500 MG Tablet PO (11:26)
[2023-10-15] MEDS: Mag Hydrox/Al Hydrox/Simeth 30 ML UDC PO (13:53)
--- NOTE | 2023-10-15 13:54 | PN.HOSP_ITS ---
Reason for Visit Reason for Visit: Left upper extremity weakness Subjective Subjective Mr. Gibbons is a 78-year-old male who presented to the emergency department at [facility] on 10/13/2023 complaining of left upper extremity weakness that started approximately 1 hour prior to presentation. He also had a sensory alteration on that side. His initial NIH was 2 however he was improving rapidly with NIH down to 1 in the emergency department. Stroke team was called upon presentation however tenecteplase was not recommended due to complete re solution of symptoms. He had a known chronically occluded left internal carotid artery however his symptoms were on the left side of his body indicating right infarct. He was admitted to the floor and stroke workup was initiated. His MRI did demonstrate findings consistent with a small acute infarct in the right parietal lobe. Yesterday on 10/14/2023 at approximately 11:40 AM he had sudden significant worsening left-sided weakness which persisted and a stroke team was called. He was reevaluated by neurology at that time and a repeat CTA of his head and neck and MRI were performed. His CTA was unchanged however, his MRI showed new infarct in the right frontal and left parietal lobe in association with his prior right parietal lobe infarct. These findings are suggestive of embolic disease. I discussed the case further with neurology today and they recommended a MANOLO as well as starting the patient on Eliquis in approximately 3 weeks after a repeat head CT shows stability and no signs of hemorrhagic transformation. No issues overnight. Patient's NIH remained stable. Patient did have 1 run today of wide-complex tachycardia. Overall plan is to have the patient evaluated by rehab with transition to inpatient rehab once workup is completed. Patient will need pre-CERT so I do not anticipate any movement on the hospital until early next week. Objective Data Objective Data Vital Signs: Vital Signs Temp Pulse Resp BP Pulse Ox O2 Del Method O2 Flow Rate 97.0 F L 103 H 12 171/69 H 95 Nasal Cannula 2 10/15/23 08:46 10/15/23 08:46 10/15/23 08:46 10/15/23 08:46 10/15/23 08:46 10/15/23 08:46 10/15/23 08:46 Oxygen Flow Rate (L/min) 2 Oxygen Delivery Method Nasal Cannula Weight: 98.8 kg Body Mass Index (BMI) 34.1 Intake & Output: Intake and Output for Last 24 Hours 10/13/23 10/14/23 10/15/23 23:59 23:59 23:59 Intake Total 100 / 125 225 / 225 Output Total 1050 / 1050 Balance 100 / -525 -825 / -825 Lab / Micro Data 10/14/23 06:50 10/14/23 06:50 Radiography Diagnostic Testing: Radiology Impression Echocardiogram 10/13/23 15:12 Interpretation Summary The left ventricular ejection fraction is 70 %. Mildly increased LVOT gradient with Valsalva maneuver. Bubble contrast study appears negative for interatrial or ventricular shunts but sensitivity is reduced because of the technically difficult nature of the study. The study was technically difficult. Ordering Physician: Lyubov Johnson Performed By: Gay Carvalho RDCS Head/Neck CTA 10/14/23 12:39 IMPRESSION: 1. Greater than 70% stenosis at the origin of the right cervical internal carotid artery due to calcified plaque and noncalcified plaque. 2. Patent left cervical internal carotid artery but threadlike in size extending to the petrous segments and cavernous segments of the left internal carotid artery. The left supraclinoid internal carotid artery is widely patent due to collateral flow from the left posterior communicating artery. Additionally, the left common carotid artery is smaller in caliber when compared to the right common carotid artery. There are no visible plaques in the left carotid artery. 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 3. No large vessel occlusion or visible thromboembolic occlusion of both BREONNA, both MCA and the posterior circulation. 4. Normal bilateral vertebral arteries in all 4 segments. 5. Normal aortic arch and origins of the great vessels. 6. No significant interval change when compared to 10/13/2023. N.B. : The above Results were Read Back by Mayco Kwong MD to Arun Senior MD, and understanding confirmed on 10/14/2023 13:50:13 (ET). Electronically Signed: Mayco Kwong MD at 13:56 EST , ADDENDUM: 10/14/23 1403 IMPRESSION: 1. Greater than 70% stenosis at the origin of the right cervical internal carotid artery due to calcified plaque and noncalcified plaque. 2. Patent left cervical internal carotid artery but threadlike in size extending to the petrous segments and cavernous segments of the left internal carotid artery. The left supraclinoid internal carotid artery is widely patent due to collateral flow from the left posterior communicating artery. Additionally, the left common carotid artery is smaller in caliber when compared to the right common carotid artery. There are no visible plaques in the left carotid artery. 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 3. No large vessel occlusion or visible thromboembolic occlusion of both BREONNA, both MCA and the posterior circulation. 4. Normal bilateral vertebral arteries in all 4 segments. 5. Normal aortic arch and origins of the great vessels. 6. No significant interval change when compared to 10/13/2023. N.B. : The above Results were Read Back by Mayco Kwong MD to Arun Senior MD, and understanding confirmed on 10/14/2023 13:50:13 (ET). Electronically Signed: Mayco Kwong MD at 13:56 EST , ADDENDUM: 10/15/23 0455 IMPRESSION: undefined Brain MRI 10/14/23 13:08 IMPRESSION: New evolving acute ischemic infarction in the right frontal and left parietal lobe in association with prior acute ischemic changes in the right parietal lobe suggesting embolic disease. Electronically Signed: Juan Pablo Cisneros MD at 16:15 EST , ADDENDUM: 10/14/23 1658 IMPRESSION: New evolving acute ischemic infarction in the right frontal and left parietal lobe in association with prior acute ischemic changes in the right parietal lobe suggesting embolic disease. N.B. : The above Results were Read Back by Juan Pablo Cisneros MD to Arun Senior DO, and understanding confirmed on 10/14/2023 16:51:19 (ET). Electronically Signed: Juan Pablo Cisneros MD at 16:15 EST Reading Location ID and State: [address] [place] [address] Tel , Service support , Physical Exam Const alert, oriented x3, no apparent distress and well nourished Constitutional Narrative: Obese, older, white male, lying in bed somewhat somnolent however awakens and is alert and oriented x 3, affect is flat, at bedside HEENT head/scalp atraumatic and moist oral mucous membranes HEENT Narrative: Mallampati 3, no thrush Head and Scalp: normocephalic Resp normal respiratory effort, no retractions, no use of accessory muscles and clear to auscultation bilaterally Auscultation: Negative for rales, rhonchi or wheezes Cardio regular rate, regular rhythm, S1 normal heart sound, S2 normal heart sound, no murmurs, no rub, no gallops and no clicks GI normal to inspection, nondistended, normoactive bowel sounds, soft to palpation and non-tender Extremity no clubbing, cyanosis or edema Extremity Narrative: Pedal pulses are 2+ Neuro oriented x3, moves all extremities and no focal motor deficits Neuro Narrative: Dense left upper extremity hemiparesis, left lower extremity paresis with some movement especially noted distally, decreased sensation left upper extremity and left lower extremity Psych Psych Narrative: Affect is flat, patient appears depressed Assessment & Plan Assessment/Plan (1) Embolic cerebral infarction: (2) LUE weakness: (3) Paresthesia of left arm: (4) Left leg weakness: PLAN: Plan Left-sided weakness secondary to embolic cerebral infarction -Continue aspirin and Plavix for now with eventual use of Eliquis in about 3 we eks -Will need CT scan done prior to initiation of Eliquis to assure no hemorrhagic transformation has occurred -Consult for MANOLO -Surface echo showed an EF of 70% with hyperdynamic LV and negative bubble study -Patient has had runs of wide-complex tachycardia which I highly suspect are atrial fibrillation with aberrancy -Continue to allow for permissive hypertension for another 24 hours then will likely start beta-sadaf with goal blood pressure eventually being less than 130/80 -Continue atorvastatin 840 mg daily -Continue PT/OT -Current plan is for rehab placement at discharge but patient will need precertification prior to discharge Wide-complex tachycardia -Suspect A-fib with aberrancy -Will continue to monitor on telemetry -Likely start beta-sadaf tomorrow -We will start full anticoagulation with likely Eliquis in 3 to 4 weeks after negative head CT for hemorrhagic transformation Carotid artery stenosis -Patient has bilateral carotid artery stenosis right being 70% and a subtotal occluded left carotid artery -We will continue aspirin and Plavix for now -Will have vascular surgery evaluate the patient -Check carotid ultrasound CAD/HTN/HPL -Antihypertensives on hold allowing for permissive hypertension with recent infarct -Continue home atorvastatin -Patient is currently on aspirin and Plavix due to the above we will continue for now GERD -Continue home PPI ROSANGELA -Patient is noncompliant with CPAP History of nephrolithiasis -No current issues History of tobacco abuse -Remote -Recommend ongoing cessation DVT prophylaxis -Continue subcu enoxaparin CODE STATUS -Full code -I did have an extensive discussion both with the and later on with the family with regards to discharge planning and ongoing care Charges/Coding Visit Charges Inpatient E&M: 07794 Subs Hosp L2
--- NOTE | 2023-10-15 18:00 | PCM.HOSP.N ---
Hospitalist Note Patient had stroke called due to decreased level of consciousness and increasing NIH. Arrived at bedside and escorted patient and team to CT, saw images as they were being done and was able to locate a right intraparenchymal hemorrhage indicating patient needs [facility] transfer. This and a scan done patient taken straight to ICU and I discussed with [facility] neurology and patient was accepted for transfer. Patient transferred to [facility] via air transport
--- NOTE | 2023-10-15 18:11 | CT_ITS ---
We are attempting to reach an attending provider to discuss findings. An addendum with communication details will be sent when the communication is complete. INDICATION: rule out stroke EXAMINATION: CT BRAIN - CT Head Stroke Protocol W/O Contrast Injection TECHNIQUE: Multiple axial images were obtained of the head without intravenous contrast. A radiation dose optimization technique was used for this scan. IV Contrast dosage and agent: None. COMPARISON: October 14, 2023 FINDINGS: BRAIN PARENCHYMA: There is an evolving the right frontal infarct with hyperdensity of the cortex and parenchymal/subarachnoid blood. There is interval increasing right frontal cytotoxic edema. Trace the degree of right to left midline shift measuring 3 mm . Posterior fossa structures are unremarkable. CALVARIUM, SKULL BASE, PARANASAL SINUSES AND MASTOID AIR CELLS: Clear. No discrete lytic or blastic abnormalities. ORBITS: Both globes, extraocular muscles, optic nerves and retrobulbar fat appear unremarkable. CT/STROKE Brain/Head without Cont IMPRESSION: There is an evolving the right frontal infarct with hyperdensity of the cortex and parenchymal/subarachnoid blood. Electronically Signed: Evans Light DO at 18:39 EST Reading Location ID and State: [facility] / [place] Tel [phone], Service support ,
--- NOTE | 2023-10-15 18:58 | DS.PCM_ITS ---
Providers Date of Admission: 10/14/23 Date of Discharge: 10/15/23 Primary Care Physician: Dr. Scotty Perry MD Consultations 10/15/23 14:04 Consult: Vascular Surgery Routine Consulting Provider: Neri Shabazz Reason for Consult: DYLAN EMERGENT Consult: No Notified: Yes Date Notified: 10/15/23 Time Notified: 14:04 Method of Notification: Text 10/15/23 18:29 Consult: Neurology Routine Consulting Provider: [facility] Telestroke Reason for Consult: Non-Hospice Hemorrhagic Stroke EMERGENT Consult: Yes MD Notified: Yes Date Notified: 10/15/23 Time Notified: 18:29 Method of Notification: Answering Service Reason For Visit: CVA Diagnosis Discharge Diagnosis (1) Embolic cerebral infarction: Status: Acute Code(s): I63.40 - Cerebral infarction due to embolism of unspecified cerebral artery (2) LUE weakness: Status: Acute Code(s): R29.898 - Other symptoms and signs involving the musculoskeletal system (3) Paresthesia of left arm: Status: Acute Code(s): R20.2 - Paresthesia of skin (4) Left leg weakness: Status: Acute Code(s): R29.898 - Other symptoms and signs involving the musculoskeletal system (5) Cerebral parenchymal hemorrhage: Status: Acute Code(s): I61.9 - Nontraumatic intracerebral hemorrhage, unspecified Plan #Bilateral cerebral CVAs and subsequent intraparenchymal hemorrhage #hx CAD s/p stenting and cabg #GERD #Hx andrea Medications at Discharge Home Medications nitroglycerin 0.4 mg sublingual tablet 0.4 mg sublingual Q5M PRN CHEST PAIN 01/12/18 coenzyme Q10 75 mg capsule (Ultra CoQ10) 75 mg PO DAILY SUPPLEMENT 08/19/23 omeprazole 20 mg capsule,delayed release 40 mg PO DAILY GERD 08/19/23 atorvastatin 40 mg tablet 40 mg PO QHS CHOLESTEROL #90 tabs 08/24/23 oxycodone-acetaminophen 5 mg-325 mg tablet (Percocet) 1 tab PO Q8H PRN PAIN 3 days #10 tabs 10/04/23 aspirin 81 mg tablet,delayed release (Adult Low Dose Aspirin) 81 mg PO DAILY HEART HEALTH 10/13/23 hydrochlorothiazide 25 mg tablet 25 mg PO DAILY BLOOD PRESSURE 10/13/23 metoprolol tartrate 50 mg tablet 50 mg PO BID HEART #180 tabs 10/13/23 Hospital Course Summary of Care Provided Hospital Course: EBONY GREGORIO, is a 78-year-old male history of coronary artery disease with stenting and CABG in 2011 and hypertension who presented to [facility] 10/13/2023 with 1 hour of left upper extremity altered sensation and weakness. Patient was found to have a right frontal CVA and a subsequent day he had acute change in mental status and left-sided hemiparesis and underwent CT scan which showed right parietal ischemia and left parietal infarct and teleneurology evaluated and advised to continue DAPT and high-dose statin and to hold off on anticoagulation for several weeks until repeat CT head could be done to make sure no hemorrhagic conversion was demonstrated and recommended awaiting echocardiogram results. Echocardiogram with no PFO but it was a TTE and technically difficult so plan was for patient to undergo MANOLO however 10/15/2023 patient had an increase in his NIH score so repeat stroke call activated, he was taken for CT which showed evolving right frontal infarct with hyperdensity of cortex and parenchymal/subarachnoid blood. Spoke with stroke neurologist at [facility] and patient was emergently transferred to [facility] via helicopter. Family present at bedside and updated. Pt to be transferred to [facility] as a LVL 1 hemorrhagic stroke alert. Weight / BMI Weight Weight: 98.8 kg Body Mass Index (BMI) 34.1 ABG / Lab / Microbiology Data 10/14/23 06:50 10/14/23 06:50 Radiography Diagnostic Testing: Radiology Impression Head/Neck CTA 10/14/23 12:39 IMPRESSION: 1. Greater than 70% stenosis at the origin of the right cervical internal carotid artery due to calcified plaque and noncalcified plaque. 2. Patent left cervical internal carotid artery but threadlike in size extending to the petrous segments and cavernous segments of the left internal carotid artery. The left supraclinoid internal carotid artery is widely patent due to collateral flow from the left posterior communicating artery. Additionally, the left common carotid artery is smaller in caliber when compared to the right common carotid artery. There are no visible plaques in the left carotid artery. 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 3. No large vessel occlusion or visible thromboembolic occlusion of both BREONNA, both MCA and the posterior circulation. 4. Normal bilateral vertebral arteries in all 4 segments. 5. Normal aortic arch and origins of the great vessels. 6. No significant interval change when compared to 10/13/2023. N.B. : The above Results were Read Back by Mayco Kwong MD to Arun Senior MD, and understanding confirmed on 10/14/2023 13:50:13 (ET). Electronically Signed: Mayco Kwong MD at 13:56 EST , ADDENDUM: 10/14/23 1403 IMPRESSION: 1. Greater than 70% stenosis at the origin of the right cervical internal carotid artery due to calcified plaque and noncalcified plaque. 2. Patent left cervical internal carotid artery but threadlike in size extending to the petrous segments and cavernous segments of the left internal carotid artery. The left supraclinoid internal carotid artery is widely patent due to collateral flow from the left posterior communicating artery. Additionally, the left common carotid artery is smaller in caliber when compared to the right common carotid artery. There are no visible plaques in the left carotid artery. 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 3. No large vessel occlusion or visible thromboembolic occlusion of both BREONNA, both MCA and the posterior circulation. 4. Normal bilateral vertebral arteries in all 4 segments. 5. Normal aortic arch and origins of the great vessels. 6. No significant interval change when compared to 10/13/2023. N.B. : The above Results were Read Back by Mayco Kwong MD to Arun Senior MD, and understanding confirmed on 10/14/2023 13:50:13 (ET). Electronically Signed: Mayco Kwong MD at 13:56 EST , ADDENDUM: 10/15/23 0455 IMPRESSION: undefined Brain CT 10/15/23 18:11 IMPRESSION: There is an evolving the right frontal infarct with hyperdensity of the cortex and parenchymal/subarachnoid blood. Electronically Signed: Evans Light DO at 18:39 EST , ADDENDUM: 10/15/23 1849 IMPRESSION: There is an evolving the right frontal infarct with hyperdensity of the cortex and parenchymal/subarachnoid blood. N.B. : The above Results were Read Back by Evans Light DO to Lyubov Johnson MD, and understanding confirmed on 10/15/2023 18:42:37 (ET). Electronically Signed: Evans Light DO at 18:39 EST , Meaningful Use Info Meaningful Use Diagnoses (Choose all that apply): Hemorrhagic CVA and Ischemic CVA CVA Therapy Assessed for PT,OT and/or ST?: Yes Ischemic Stroke Antithrombotic order at d/c?: No Reason antithrombotic not ordered: Medical Contraindication Statins at discharge?: Yes Primary Dx Acute Ischemic CVA?: Yes IV thrombolytic ordered during stay?: No Reason IV thrombolytic not ordered: Treatment not Indicated Discharge Plan Admission Admit Date/Time: 10/14/23 13:53 Attending Provider: Barb Meza Primary Care Provider: Scotty Perry Consulting Providers: Lyubov Johnson; Arun Senior; Neri Shabazz; Mitchell Kwong Discharge Orders/Prescriptions Prescriptions: No Action nitroglycerin 0.4 mg tablet, sublingual 0.4 mg SUBLINGUAL Q5M PRN (Reason: CHEST PAIN ) oxycodone-acetaminophen [Percocet] 5-325 mg tablet 1 tab PO Q8H PRN (Reason: PAIN ) 3 Days Qty: 10 0RF aspirin [Adult Low Dose Aspirin] 81 mg tablet,delayed release (DR/EC) 81 mg PO DAILY hydrochlorothiazide 25 mg tablet 25 mg PO DAILY omeprazole 20 mg capsule,delayed release(DR/EC) 40 mg PO DAILY Ultra CoQ10 75 mg capsule 75 mg PO DAILY atorvastatin 40 mg tablet 40 mg PO QHS Qty: 90 3RF metoprolol tartrate 50 mg tablet 50 mg PO BID Qty: 180 3RF Referrals / Follow Up: Scotty Perry MD [Primary Care Provider] - Disposition Discharge Orders: Discharge Patient (Routine); Ordered 10/15/23 Ordered By: Dr. Lyubov Johnson
[2023-10-15 19:02] LABS: Bedside Glucose 146 mg/dL (74-106)
== END 2023-10-15 19:50 | disposition short-term general hospital (02) | DRG 64 ==
LOC: ED 13:48 → PCU 14:24 → ICU 10-15 18:29
PROVIDERS: Internal Medicine; Admitting Provider Internal Medicine; Emergency Provider Emergency Medicine; PCP Family Medicine; Visit Provider Internal Medicine
DX: I63.413 Cerebral infarction due to embolism of bilateral middle cerebral arteries (principal); I61.8 Other nontraumatic intracerebral hemorrhage; G81.94 Hemiplegia, unspecified affecting left nondominant side; I47.19 Other supraventricular tachycardia; I10 Essential (primary) hypertension; I65.23 Occlusion and stenosis of bilateral carotid arteries; G47.33 Obstructive sleep apnea (adult) (pediatric); K21.9 Gastro-esophageal reflux disease without esophagitis; I25.10 Atherosclerotic heart disease of native coronary artery without angina pectoris; E78.00 Pure hypercholesterolemia, unspecified; E66.9 Obesity, unspecified; R29.702 NIHSS score 2; R29.711 NIHSS score 11; Z68.34 Body mass index [BMI] 34.0-34.9, adult; Z91.199 Patient's noncompliance with other medical treatment and regimen due to unspecified reason; Z95.1 Presence of aortocoronary bypass graft; Z95.5 Presence of coronary angioplasty implant and graft; Z79.02 Long term (current) use of antithrombotics/antiplatelets; Z79.82 Long term (current) use of aspirin; Z79.899 Other long term (current) drug therapy; Z86.73 Personal history of transient ischemic attack (TIA), and cerebral infarction without residual deficits; Z87.891 Personal history of nicotine dependence
CPT/HCPCS: 70450; 70496; 70498; 70551; 71045; 80048; 80053; 80061; 82962; 84443; 84484; 85025; 85610; 85730; 92526; 92610; 93005; 93306; 94762; 97163; 97166; 97530; 99285; Q9967; A4216

== ENCOUNTER 2023-10-28 13:26 | Inpatient (IN) | payer MEDICARE, SELFPAY ==
[2020-02-06 11:26] VITALS: BMI 36.5
[2023-10-28 13:53] VITALS: BP 114/72; PULSE 68; RESP 18; TEMP 36.6; O2SAT 96; BMI 32.3
[2023-10-28 16:38] LABS: Bedside Glucose 144 mg/dL (74-106)
[2023-10-28 19:15] VITALS: BP 142/85; PULSE 89; RESP 18; TEMP 36.9; O2SAT 94
[2023-10-28] MEDS: Atorvastatin Calcium 40 MG Tablet PO (21:59)
[2023-10-28] MEDS: Doxazosin 4 MG Tablet PO (21:59)
[2023-10-28] MEDS: Senna/Docusate Sodium 1 Tablet 2 TABLET PO (21:59)
[2023-10-28 22:00] VITALS: PULSE 80
[2023-10-28] MEDS: Metoprolol Tartrate 25 MG Tablet PO (22:00)
[2023-10-28] MEDS: Menthol/Lanolin/Calamine/Znox 113 GM Tube 1 APPLIC TOPICAL (22:00)
[2023-10-28] MEDS: Insulin Lispro 100 UNIT/ML INSULN.PEN SC (22:23)
[2023-10-28 22:39] LABS: Bedside Glucose 186 mg/dL (74-106)
[2023-10-29] MEDS: Menthol/Lanolin/Calamine/Znox 113 GM Tube 1 APPLIC TOPICAL ×2 (04:07→21:59)
[2023-10-29 05:34] LABS: Bedside Glucose 149 mg/dL (74-106)
[2023-10-29 05:47] LABS: Absolute Lymphocyte Count 2.05 X10^3/uL (0.83-4.51); Absolute Neutrophil Count 7.2 X10^3/uL (2.0-7.7); Basophil# 0.06 X10^3/uL; Basophil% 0.6 % (0-1); Eosinophil# 0.11 X10^3/uL; Hematocrit 40.6 % (40-54); Hemoglobin 13.7 g/dL (13.0-16.5); Lymphocyte # 2.05 X10^3/ul (0.83-4.51); Lymphocyte % 19.4 % (19-41); Mean Corp Hgb Conc 33.7 g/dL (32-36); Mean Corpuscular Volume 85.8 fL (80-94); Mean Platelet Vol. 9.3 fl (6.2-12.0); Monocyte# 1.03 X10^3/uL; Monocyte% 9.7 % (0-10); NRBC Flagged by Analyzer 0 % (0-5); Neutrophil # 7.24 X10^3/uL (2.7-7.7); Neutrophil % 68.4 % (47-70); Platelet Count 301 K/mm3 (150-450); RBC Distribution Width CV 12.4 % (11.6-14.6); RBC Distribution Width SD 38.6 fl (35.1-43.9); Red Blood Count 4.73 M/mm3 (4.6-6.2); White Blood Count 10.6 K/mm3 (4.4-11.0)
[2023-10-29 06:34] LABS: ALB/GLOB Ratio 0.8 RATIO (0.9-2.4); AST(SGOT) 23 U/L (15-37); Alanine Aminotransfer ALT/SGPT 53 U/L (16-61); Albumin, Serum 2.8 g/dL (3.2-5.0); Alkaline Phosphatase 49 U/L (45-117); Anion Gap 5 (5-15); BUN 23 mg/dL (7-18); BUN/Creat Ratio 23.8 RATIO (10-20); Calcium,Total 8.8 mg/dL (8.5-10.1); Chloride 103 mmol/L (98-107); Creatinine, Serum 0.97 mg/dL (0.70-1.30); EST Glomerular Filtration Rate 80 mL/min (>60); Est Glom Filt Rate - Afr Amer 97 mL/min (>60); Estimated Creatinine Clearance 60.57 ml/min; Globulin 3.4 g/dL (2.2-4.2); Glucose 150 mg/dL (74-106); Magnesium 2.4 mg/dL (1.6-2.6); Phosphorus 3.7 mg/dL (2.5-4.9); Potassium 4.4 mmol/L (3.5-5.1); Protein, Total 6.2 g/dL (6.4-8.2); Sodium Level 136 mmol/L (136-145)
[2023-10-29 07:51] VITALS: PULSE 86
[2023-10-29] MEDS: amLODIPine 10 MG Tablet PO (07:51)
[2023-10-29] MEDS: Pantoprazole Sodium 20 MG Tablet PO (07:51)
[2023-10-29] MEDS: Senna/Docusate Sodium 1 Tablet 2 TABLET PO (07:51)
[2023-10-29] MEDS: Lisinopril 40 MG Tablet PO (07:51)
[2023-10-29] MEDS: Aspirin E.C. 81 MG Tablet PO (07:51)
[2023-10-29] MEDS: hydroCHLOROthiazide 25 MG Tablet PO (07:51)
[2023-10-29] MEDS: Metoprolol Tartrate 25 MG Tablet PO ×2 (07:51→21:58)
[2023-10-29 09:24] VITALS: O2SAT 96
[2023-10-29 10:00] VITALS: BP 104/82; PULSE 86; RESP 17; TEMP 36.2; O2SAT 92
[2023-10-29 10:39] LABS: Bedside Glucose 185 mg/dL (74-106)
[2023-10-29] MEDS: Acetaminophen 325 MG Tablet 650 MG PO (11:05)
--- NOTE | 2023-10-29 11:25 | EX.PCM.HP.RE ---
HPI - General General Date of Admission: 10/28/23 Date of Service: 10/29/23 Chief Complaint: Debility - Acute CVA with hemorrhagic conversion HPI Narrative EBONY GREGORIO, is a 78 M with H CAD s/p CABG, HTN, HLD, TIA, DM2 and ROSANGELA who presents as a transfer from [facility] for therapy purposes. The patient presented to the ED at [facility] on 10/13 with complaints of left sided weakness that started 1 hour prior. Imaging demonstrated a right parietal CVA and he was admitted for further management. On 10/14, the patient demonstrated worsening neuro findings. A repeat MRI showed a new right frontal lobe CVA. On 10/15, he again seemed to worsen. Repeat imaging showed a hemorrhagic conversion with parenchymal SAH. The patient was transferred at that time from [facility] to [facility] for further management. During his admission, he was treated with hypertonic saline and a nicardipine drip. He was fed with tube feeds. He was later transitioned to oral medications and an oral diet. The patient was treated for a UTI and urinary retention. He clinically improved. Therapy saw the patient who felt he would benefit from rehab. Once stable, he was transferred to [facility] inpatient rehab for 3 hours of daily rehab and strengthening with a goal to return home with his . The patient reports that he is feeling fine. He is very tired. He denies any pain currently. He believes he is eating well and moving his bowels. He has been having continued trouble urinating, so a krishna was just placed this morning. He has no questions or concerns at this time. [facility] Medical History Atherosclerosis of coronary artery bypass graft without angina pectoris CPAP (continuous positive airway pressure) dependence Essential (primary) hypertension Former smoker Hyperlipidemia Hypertension Kidney stones Other skilled nursing (current) drug therapy Sleep apnea Small bowel obstruction TIA (transient ischemic attack) Home Medications nitroglycerin 0.4 mg sublingual tablet 0.4 mg sublingual Q5M PRN CHEST PAIN 01/12/18 [History Last Taken Unknown] coenzyme Q10 75 mg capsule (Ultra CoQ10) 75 mg PO DAILY SUPPLEMENT 08/19/23 [History Last Taken Unknown] omeprazole 20 mg capsule,delayed release 40 mg PO DAILY GERD 08/19/23 [History Last Taken Unknown] atorvastatin 40 mg tablet 40 mg PO QHS CHOLESTEROL #90 tabs 08/24/23 [Rx Last Taken Unknown] oxycodone-acetaminophen 5 mg-325 mg tablet (Percocet) 1 tab PO Q8H PRN PAIN 3 days #10 tabs 10/04/23 [Rx Last Taken Unknown] aspirin 81 mg tablet,delayed release (Adult Low Dose Aspirin) 81 mg PO DAILY HEART HEALTH 10/13/23 [History Last Taken Unknown] hydrochlorothiazide 25 mg tablet 25 mg PO DAILY BLOOD PRESSURE 10/13/23 [History Last Taken Unknown] metoprolol tartrate 50 mg tablet 50 mg PO BID HEART #180 tabs 10/13/23 [Rx Last Taken Unknown] amlodipine 10 mg tablet 10 mg PO DAILY blood pressure 10/28/23 [History Last Taken Unknown] doxazosin 4 mg tablet 4 mg PO QHS Prostate 10/28/23 [History Last Taken Unknown] lisinopril 40 mg tablet 40 mg PO DAILY blood pressure 10/28/23 [History Last Taken Unknown] Allergy/AdvReac Type Severity Reaction Status Date / Time clopidogrel [From Plavix] Allergy Severe Itching Verified 10/13/23 13:02 ticagrelor [From Brilinta] AdvReac Intermediate (Possible Verified 10/13/23 13:02 reaction) Itching hands and feet, no rash Family History (Updated 10/29/23 @ 12:[address] Nohemy Daniel MD) Father Cancer Prostate cancer Mother CAD (coronary artery disease) Hx CABG Myocardial infarction Hypertension Brother CAD (coronary artery disease) Diabetes Sister Colon cancer Other Family history of hypertension Surgical History H/O coronary artery bypass surgery (04/2012) History of coronary artery stent placement Stented coronary artery (02/06/20) Social History (Updated 10/29/23 @ 12:[address] 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 Smoking Status: Former smoker pack-years: 100 how long ago did patient quit smokin alcohol intake: current alcohol intake frequency: 0-2 drinks per day Alcohol type: wine substance use type: does not use caffeine: Yes Type: coffee Number of servings: 3 what type of physical activity do you participate in: walking frequency: daily duration: 30-45 minutes/day seatbelt use: always do you feel safe at home: Yes ROS Constitutional Constitutional: Reports weakness; Denies change in weight or fever(s) Eyes Eyes: Reports change in vision; Denies blurry vision ENT HEENT: Denies abnormal hearing, dizziness, headache(s), nasal congestion or sore throat Cardiovascular Cardiovascular: Reports nausea; Denies abdominal pain, chest pain, dizziness, dyspnea, edema, irregular heart rhythm, leg edema, lightheadedness, numbness in extremities, palpitations, pedal edema, pounding heartbeat, rapid heart rate, vomiting or weight gain Respiratory/Chest Respiratory/Chest: Denies chest tightness, cough or dyspnea Gastrointestinal Gastrointestinal: Reports nausea; Denies abdominal pain, constipation, diarrhea, vomiting or weight changes Genitourinary Genitourinary: Reports difficulty urinating; Denies burning urination or dysuria Musculoskeletal Musculoskeletal: Denies numbness or tingling Integumentary Integumentary: Denies rash or wounds Neurologic Neurologic: Reports abnormal gait and weakness; Denies dizziness, frequent falls, headache(s), numbness, syncope or tingling Psychiatric Psychiatric: Denies anxiety, confusion, depression, suicidal ideation or suicidal thoughts Vital Signs Vital Signs Vital Signs: 10/28/23 13:53 10/28/23 14:30 10/28/23 19:15 Temperature 98 F 98.5 F Temperature Source Temporal Temporal Pulse Rate 68 89 Respiratory Rate 18 18 Respiratory Effort Normal Non-Labored Respiratory Depth Normal Respiratory Pattern Normal Blood Pressure 114/72 142/85 H Blood Pressure Mean 86 104 Blood Pressure Source Monitor Monitor Blood Pressure Position Semi-Fowlers Semi-Fowlers Blood Pressure Location Left Arm Right Arm Pulse Ox 96 94 Oxygen Delivery Method Room Air Room Air Room Air 10/28/23 22:00 10/28/23 22:00 10/29/23 07:51 Temperature Temperature Source Pulse Rate 80 86 Respiratory Rate Respiratory Effort Normal Non-Labored Respiratory Depth Normal Respiratory Pattern Blood Pressure Blood Pressure Mean Blood Pressure Source Blood Pressure Position Blood Pressure Location Pulse Ox Oxygen Delivery Method Room Air 10/29/23 09:24 10/29/23 10:00 Temperature 97.2 F L Temperature Source Temporal Pulse Rate 86 Respiratory Rate 17 Respiratory Effort Respiratory Depth Respiratory Pattern Blood Pressure 104/82 H Blood Pressure Mean 89 Blood Pressure Source Monitor Blood Pressure Position Semi-Fowlers Blood Pressure Location Right Arm Pulse Ox 96 92 Oxygen Delivery Method Room Air Room Air Weight Weight: 206 lb 5.008 oz Body Mass Index (BMI) 32.3 Indicators for Scoring Admitted with or Primary Diagnosis of CVA/Stroke: Yes Hx of CVA/Stroke: Yes Modified [place] Score MRS Score at time of Evaluation: 4-Moderate/severe disability NIHSS NIHSS 1a. Level of Consciousness: Not alert; (drowsy, but arousable - responds appropriately to questions) 1b. LOC Questions: Answers BOTH questions correctly. 1c. LOC Commands: Performs both tasks correctly. 2. Best Gaze: Normal 3. Visual: Partial hemianopia 4. Facial Palsy: Partial paralysis (total or near-total paralysis of lower face) 5a. Left Arm: No effort against gravity; arm falls 5b. Right Arm: No drift; arm holds 90 (or 45) degrees for full 10 seconds 6a. Left Leg: No effort against gravity; leg falls to bed immediately 6b. Right Leg: No effort against gravity; leg falls to bed immediately 7. Limb Ataxia: Absent 8. Sensory: Normal; no sensory loss 9. Best Language: [id number] aphasia; 10. Dysarthria: Normal 11. Extinction and Inattention: No abnormality Total: 14 Physical Exam Const oriented x3, no apparent distress and well nourished Constitutional Narrative: Drowsy, but arousable General Appearance: cooperative and comfortable; Negative for in distress, ill appearing or diaphoretic Orientation / Consciousness: oriented to person, oriented to place and oriented to time Exam Limitations: Negative for altered mental status HEENT normocephalic and head/scalp atraumatic Head and Scalp: normocephalic and atraumatic Face and Sinus: normal facial exam Mouth: dry mucous membranes Eyes EOMs intact bilaterally General Eye: normal appearance of both eyes Conjunctiva: conjunctiva normal Sclera: sclera normal Chest inspection of chest normal Chest: symmetrical chest wall rise Resp normal respiratory effort, normal air movement, no use of accessory muscles and clear to auscultation bilaterally Effort and Inspection: able to speak in complete sentences and symmetric chest movement; Negative for respiratory distress or audible wheezes Auscultation: clear to auscultation bilaterally Cardio regular rate, regular rhythm and no murmurs Rate: regular rate Rhythm: regular rhythm Heart Sounds: Negative for murmur GI normal to inspection, nondistended, normoactive bowel sounds, soft to palpation, non-tender and non-distended Auscultation: normoactive bowel sounds Palpation: soft; Negative for tender or guarding Extremity normal to inspection General Extremity: Negative for edema Skin no rashes or lesions noted General Skin Exam: no breakdown Lesions: no lesions Rashes: no rashes Neuro oriented x3 and No moves all extremities Neuro Narrative: left sided hemiplegia, left facial droop Sensorium / Orientation: alert, oriented to person, oriented to place and oriented to time Speech: speech abnormal Details: Positive for other (mild aphasia) Psych mental status grossly normal, cooperative, affect normal and speech normal Appearance: grossly normal Attitude: calm Results Medical Records Data Attestation: I reviewed the patient's medical records Lab / Micro Data Attestation: I reviewed the patient's lab results. 10/29/23 05:09 10/29/23 05:09 Labs: Laboratory Results - last 24 hr 10/28/23 16:14: POC Glucose 144 H 10/28/23 22:21: POC Glucose 186 H 10/29/23 05:09: WBC 10.6, RBC 4.73, Hgb 13.7, Hct 40.6, MCV 85.8, MCH 29.0, MCHC 33.7, RDW Std Deviation 38.6, RDW Coeff of Pawel 12.4, Plt Count 301, MPV 9.3, Immature Gran % (Auto) 0.900, Neut % (Auto) 68.4, Lymph % (Auto) 19.4, K[place]haw % (Auto) 9.7, Eos % (Auto) 1.0, Baso % (Auto) 0.6, Absolute Neuts (auto) 7.2, Absolute Lymphs (auto) 2.05, Nucleated RBC % 0, Sodium 136, Potassium 4.4, Chloride 103, Carbon Dioxide 28.0, Anion Gap 5, BUN 23 H, Creatinine 0.97, Estim Creat Clear Calc 60.57, Est GFR (MDRD) Af Amer 97, Est GFR (MDRD) Non-Af 80, BUN/Creatinine Ratio 23.8 H, Glucose 150 H, Calcium 8.8, Phosphorus 3.7, Magnesium 2.4, Total Bilirubin 0.90, AST 23, ALT 53, Alkaline Phosphatase 49, Total Protein 6.2 L, Albumin 2.8 L, Globulin 3.4, Albumin/Globulin Ratio 0.8 L 10/29/23 05:12: POC Glucose 149 H 10/29/23 10:21: POC Glucose 185 H Assessment & Plan Assessment/Plan (1) Debility: PLAN: Will admit to the inpatient rehab for physical and occupational therapy. Will continue with 3 hours of daily therapy for strengthening with a goal to return home with patient's . Will continue with pain control as needed, a bowel regimen and fall precautions. DVT prophylaxis with ambulation and LESLIE hose. Patient will need to follow up with Neurology and cardiology upon discharge from rehab unit. 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 He will need to follow up with neurology upon discharge from inpatient rehab. (3) Cerebral parenchymal hemorrhage: QUALIFIERS: Cerebral hemorrhage location: unspecified cerebral location Intracerebral hemorrhage etiology: nontraumatic Laterality: right Qualified Code(s): I61.9 - Nontraumatic intracerebral hemorrhage, unspecified PLAN: As above. Will maintain on aspirin alone due to recent bleed. (4) Atherosclerosis of coronary artery bypass graft without angina pectoris: QUALIFIERS: [place] vs. transplanted heart: [place] heart Qualified Code(s): I25.810 - Atherosclerosis of coronary artery bypass graft(s) without angina pectoris PLAN: Stable. Patient denies any current symptoms. Will continue current management and monitor. 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 (5) Essential (primary) hypertension: PLAN: Blood pressure shows good control. Will continue current management and monitor. (6) Hyperlipidemia: QUALIFIERS: Hyperlipidemia type: mixed hyperlipidemia Qualified Code(s): E78.2 - Mixed hyperlipidemia PLAN: Stable. Continue with statin therapy and monitor. (7) Obstructive sleep apnea: PLAN: Patient reports he doesn't wear any CPAP/BiPAP devices. Will continue to monitor. (8) Type 2 diabetes mellitus: QUALIFIERS: Diabetes mellitus complication status: without complication Diabetes mellitus superintendent [employer] insulin use: without superintendent [employer] use Qualified Code(s): E11.9 - Type 2 diabetes mellitus without complications PLAN: Patient was not on any medications for his diabetes recently. A1c in the hospital was 7.1. Will continue with glucose checks and SSI. Diabetic diet ordered. (9) GERD (gastroesophageal reflux disease): QUALIFIERS: Esophagitis presence: without esophagitis Qualified Code(s): K21.9 - Gastro-esophageal reflux disease without esophagitis PLAN: Stable. Continue current management. (10) Urinary retention: PLAN: Patient was placed on doxazosin and given straight caths at [facility]. He continues to have urinary retention, however, so a krishna catheter was placed this morning. Will continue with krishna care and remove as able. Charges/Coding Visit Charges Inpatient E&M: 15230 Init Hosp L3
--- NOTE | 2023-10-29 11:38 | REHABEVAL_ITS ---
Admission Information Primary Diagnosis:: Debility - Acute CVA with hemorrhagic conversion Status Changes from Prescreening?: No changes Identified Actual Problem List:: Cognitve Impr/Memory Loss, Mobility Impaired, Self Care Deficit, Diabetes, Hyperglycemia and BP, Hypertension Potential Problem List:: Infection, UTI, Aspiration, Falls, Skin Integrity and Depression Risk of Complications DVT: LESLIE Hose Infection: Clinical Staff to Monitor for S/S of infection: and S/S of infection include fever, redness, warmth, etc. Urinary Tract Infection: Monitor for frequency, burning, discomfort, or incontinence. and Nursing will obtain urine sample for urinalysis and C&S when ordered. Aspiration: Clinical staff will monitor for coughing, drooling, congestion. and Speech will evaluate swallowing and dsyphasia. Falls: Patient will be evaluated for Fall Precautions and Patient will be placed on Fall Precautions as indicated per protocol. Skin Breakdown: Nursing will assess skin daily using assessment tool. and Nursing will place on Skin Breakdown Precautions as indicated. Pain: Clinical staff will assess patient's pain level per protocol. and Medications will be given, if needed, and the pain level reassessed. Plan of Care Patient needs Physical Therapy: For a minimum of 1 hour and At least 5 out of 7 days Patient needs Physical Therapy to improve:: Mobility, Strengthening, Transfers, ROM, Stairs, Gait and Balance Patient needs Occupational Therapy: For a minimum of 1 hour and At least 5 out of 7 days Patient needs Occupational Therapy to improve ADL's incl.: Eating, Grooming, Bathing, Dressing, Toileting, Toilet transfers, Higher functioning activities and Household tasks Patient requires speech therapy: For a minimum of 1 hour and At least 5 out of 7 days Patient requires speech therapy for: Swallowing, Cognition and Language Skills Patient requires 24/7 Rehabilitation Nursing for: Identifying and preventing risk factors, Monitoring and reporting current medical conditions, Assisting with ambulation, transfer, and all ADL's, Teaching patients about disease process and medications, Family teaching, Providing safe environment, Bowel and Bladder Issues, Skin integrity and Medication Management Patient needs Communications Equipment Installer/ Case Management for: Discharge Planning, Arranging Home Equipment or Services and Family Interventions Patient needs Dietary and Nutrition Services for: Adequate Nutrition Goals Patient will remain: free from falls and or injury at time of discharge. Patient will perform bed mobility at: - (contact guard assist) Patient will complete transfers from bed to chair at: - (Mod A) Patient will ambulate: - (10 feet with LRD and Mod A x2) Patient will complete upper body dressing at: - (Contact guard assist) Patient will complete lower body dressing at: - (Min A with AE) Patient will complete toileting at: - (contact guard assist) Patient will complete home management skills at: - (contact guard assist) Patient's skin will: remain intact and free from infection. Patient will receive: adequate nutrition. Discharge Planning Pt Prognosis for Sig. Practical Improv. w/in Reasonable Time: Fair Estimated Length of stay (days): 14 Anticipated D/C Destination: Home with Home Health
[2023-10-29] MEDS: Insulin Lispro 100 UNIT/ML INSULN.PEN SC ×3 (12:52→22:03)
[2023-10-29] MEDS: Magnesium Hydroxide 30 ML UDC PO (14:21)
[2023-10-29 16:41] LABS: Bedside Glucose 181 mg/dL (74-106)
[2023-10-29 21:19] VITALS: BP 97/60; PULSE 92; RESP 18; TEMP 36; O2SAT 95
[2023-10-29 21:58] VITALS: BP 122/70; PULSE 88
[2023-10-29] MEDS: Atorvastatin Calcium 40 MG Tablet PO (21:58)
[2023-10-29] MEDS: Doxazosin 4 MG Tablet PO (21:58)
[2023-10-29 22:00] VITALS: PULSE 88; RESP 18; O2SAT 95
[2023-10-29 22:54] LABS: Bedside Glucose 152 mg/dL (74-106)
[2023-10-30 06:00] VITALS: BMI 31.4
[2023-10-30] MEDS: Insulin Lispro 100 UNIT/ML INSULN.PEN SC ×3 (06:09→16:48)
[2023-10-30] MEDS: Menthol/Lanolin/Calamine/Znox 113 GM Tube 1 APPLIC TOPICAL ×2 (06:10→21:21)
[2023-10-30 06:40] LABS: Bedside Glucose 154 mg/dL (74-106)
[2023-10-30 07:00] VITALS: BP 124/59; PULSE 73; RESP 17; TEMP 36.1; O2SAT 95
[2023-10-30 08:00] VITALS: BP 94/64; PULSE 92
[2023-10-30] MEDS: Glucerna Shake 120 ML LIQUID PO ×3 (08:04→16:48)
[2023-10-30] MEDS: Aspirin E.C. 81 MG Tablet PO (08:08)
[2023-10-30] MEDS: Pantoprazole Sodium 20 MG Tablet PO (08:08)
[2023-10-30] MEDS: Acetaminophen 325 MG Tablet 650 MG PO (08:36)
[2023-10-30] MEDS: hydroCHLOROthiazide 25 MG Tablet PO (10:25)
[2023-10-30 10:26] VITALS: BP 112/63; PULSE 84
[2023-10-30] MEDS: Lisinopril 40 MG Tablet PO (10:26)
[2023-10-30] MEDS: amLODIPine 10 MG Tablet PO (10:26)
[2023-10-30] MEDS: Metoprolol Tartrate 25 MG Tablet PO ×2 (10:26→21:23)
[2023-10-30 12:28] LABS: Bedside Glucose 159 mg/dL (74-106)
[2023-10-30 17:35] LABS: Bedside Glucose 195 mg/dL (74-106)
[2023-10-30 20:50] VITALS: BP 107/62; PULSE 72; RESP 16; TEMP 36.1; O2SAT 96
[2023-10-30 21:23] VITALS: BP 107/62; PULSE 72
[2023-10-30] MEDS: Senna/Docusate Sodium 1 Tablet 2 TABLET PO (21:23)
[2023-10-30] MEDS: Doxazosin 4 MG Tablet PO (21:23)
[2023-10-30] MEDS: Atorvastatin Calcium 40 MG Tablet PO (21:23)
[2023-10-30 21:57] LABS: Bedside Glucose 144 mg/dL (74-106)
[2023-10-31] MEDS: Menthol/Lanolin/Calamine/Znox 113 GM Tube 1 APPLIC TOPICAL ×2 (05:51→21:59)
[2023-10-31 06:43] LABS: Bedside Glucose 166 mg/dL (74-106)
[2023-10-31 08:00] VITALS: O2SAT 93
[2023-10-31] MEDS: Insulin Lispro 100 UNIT/ML INSULN.PEN SC ×3 (09:12→22:09)
[2023-10-31] MEDS: Glucerna Shake 120 ML LIQUID PO ×2 (09:17→11:22)
[2023-10-31] MEDS: Senna/Docusate Sodium 1 Tablet 2 TABLET PO (09:28)
[2023-10-31] MEDS: Aspirin E.C. 81 MG Tablet PO (09:28)
[2023-10-31] MEDS: Pantoprazole Sodium 20 MG Tablet PO (09:28)
[2023-10-31] MEDS: hydroCHLOROthiazide 25 MG Tablet PO (09:29)
[2023-10-31] MEDS: amLODIPine 10 MG Tablet PO (09:29)
[2023-10-31] MEDS: Lisinopril 40 MG Tablet PO (09:30)
[2023-10-31 09:31] VITALS: BP 109/53; PULSE 89
[2023-10-31] MEDS: Metoprolol Tartrate 25 MG Tablet PO ×2 (09:31→21:58)
[2023-10-31 09:35] VITALS: BP 109/53; PULSE 89; RESP 16; TEMP 36.7; O2SAT 97
[2023-10-31] MEDS: Acetaminophen 325 MG Tablet 650 MG PO ×2 (11:18→21:59)
[2023-10-31 12:02] LABS: Bedside Glucose 225 mg/dL (74-106)
[2023-10-31 16:34] LABS: Bedside Glucose 140 mg/dL (74-106)
[2023-10-31 21:58] VITALS: BP 110/60; PULSE 80
[2023-10-31] MEDS: Doxazosin 4 MG Tablet PO (21:58)
[2023-10-31] MEDS: Atorvastatin Calcium 40 MG Tablet PO (21:58)
[2023-10-31 22:30] VITALS: BP 110/60; PULSE 80; RESP 16; TEMP 36.4; O2SAT 95
[2023-10-31 22:40] LABS: Bedside Glucose 166 mg/dL (74-106)
[2023-11-01] MEDS: Menthol/Lanolin/Calamine/Znox 113 GM Tube 1 APPLIC TOPICAL ×2 (07:06→22:48)
[2023-11-01] MEDS: Insulin Lispro 100 UNIT/ML INSULN.PEN SC ×3 (07:06→22:48)
[2023-11-01 07:10] VITALS: BP 112/53; PULSE 84; RESP 18; TEMP 36.4; O2SAT 97
[2023-11-01 07:37] LABS: Bedside Glucose 152 mg/dL (74-106)
[2023-11-01 08:12] VITALS: BP 124/86; PULSE 99
[2023-11-01] MEDS: hydroCHLOROthiazide 25 MG Tablet PO (08:12)
[2023-11-01] MEDS: Metoprolol Tartrate 25 MG Tablet PO ×2 (08:12→22:50)
[2023-11-01] MEDS: Glucerna Shake 120 ML LIQUID PO (08:12)
[2023-11-01] MEDS: Aspirin E.C. 81 MG Tablet PO (08:12)
[2023-11-01] MEDS: Pantoprazole Sodium 20 MG Tablet PO (08:13)
[2023-11-01] MEDS: amLODIPine 10 MG Tablet PO (08:13)
[2023-11-01] MEDS: Senna/Docusate Sodium 1 Tablet 2 TABLET PO ×2 (08:13→22:49)
[2023-11-01] MEDS: Lisinopril 40 MG Tablet PO (08:13)
[2023-11-01 12:04] LABS: Bedside Glucose 135 mg/dL (74-106)
[2023-11-01] MEDS: Acetaminophen 325 MG Tablet 650 MG PO (14:03)
[2023-11-01 17:07] LABS: Bedside Glucose 204 mg/dL (74-106)
[2023-11-01 20:20] VITALS: BP 105/76; PULSE 88; RESP 17; TEMP 36.4; O2SAT 96
[2023-11-01 21:38] VITALS: PULSE 83; O2SAT 94
--- NOTE | 2023-11-01 21:39 | CPS ---
Patient on Home CPAP
[2023-11-01] MEDS: Doxazosin 4 MG Tablet PO (22:44)
[2023-11-01] MEDS: Atorvastatin Calcium 40 MG Tablet PO (22:49)
[2023-11-01 22:50] VITALS: BP 105/76; PULSE 83
[2023-11-01 23:27] LABS: Bedside Glucose 158 mg/dL (74-106)
[2023-11-02] MEDS: Menthol/Lanolin/Calamine/Znox 113 GM Tube 1 APPLIC TOPICAL ×2 (06:36→20:46)
[2023-11-02 07:52] LABS: Bedside Glucose 157 mg/dL (74-106)
[2023-11-02 07:53] VITALS: BP 144/70; PULSE 85; RESP 16; TEMP 36.2; O2SAT 95
[2023-11-02 08:21] VITALS: PULSE 85
[2023-11-02] MEDS: Metoprolol Tartrate 25 MG Tablet PO ×2 (08:21)
[2023-11-02] MEDS: Insulin Lispro 100 UNIT/ML INSULN.PEN SC ×4 (08:21→22:43)
[2023-11-02] MEDS: Aspirin E.C. 81 MG Tablet PO (08:21)
[2023-11-02] MEDS: Pantoprazole Sodium 20 MG Tablet PO (08:21)
[2023-11-02] MEDS: hydroCHLOROthiazide 25 MG Tablet PO (08:21)
[2023-11-02] MEDS: Lisinopril 40 MG Tablet PO (08:22)
[2023-11-02] MEDS: Senna/Docusate Sodium 1 Tablet 2 TABLET PO ×2 (08:22→20:38)
[2023-11-02] MEDS: Glucerna Shake 120 ML LIQUID PO ×3 (08:22→17:08)
[2023-11-02] MEDS: amLODIPine 10 MG Tablet PO (08:22)
--- NOTE | 2023-11-02 08:49 | CASEMGMT ---
Social Work IDT met with patient and and dtr via conference call for Team meeting. Discussed patient's progress in PT/OT/ST/SN. Educated to [facility] insurance with [employer] 11/03 and continued stay is not guaranteed with each review. SW discussed DC options as home w/assist or possible need for SNF at DC. Inquired about goal's for DC to family. first stated I can help him with anything he needs. SW clarified can you help lift him, toilet him, put on his socks, for example? denied then stating, No, but I can get someone to help him. SW inquired if pt had funds to hire assistance at $20-30/hr, for example, as insurance does not cover that assistance. agreed and stated there are many family members that agreed to help. and dtr stated to pt that they will get him home. SW agreed to work together on that goal. Will ReTeam weekly. SW will continue to follow for DC planning. Sultana Watkins, ADOLESCENT PSYCHIATRIST FRANCHISE SALES DIRECTOR
--- NOTE | 2023-11-02 10:19 | PN.REHAB_ITS ---
Subjective Subjective Patient was admitted for daily rehab following a hospital stay for an acute CVA with hemorrhagic conversion. No events overnight. The patient was seen today on TEAM rounds. Per therapy, the patient is able to do set up feeding and grooming, when he is not too drowsy. He is still a total assist with bathing and dressing. His left arm remains flaccid and he has a lean to the right which they are working on. The patient still requires a alley lift. He is wearing oxygen at night and did get his CPAP device. He has been sleeping well. The patient denies any pain currently. He is eating well and moving his bowels a little, but would like to have a stool softener. He has no questions or concerns at this time. Objective Data Objective Data Vital Signs: Vital Signs Temp Pulse Resp BP Pulse Ox O2 Del Method O2 Flow Rate 97.1 F L 85 16 144/70 H 95 Room Air 2 11/02/23 07:53 11/02/23 08:21 11/02/23 07:53 11/02/23 07:53 11/02/23 07:53 11/02/23 07:53 11/02/23 07:50 Oxygen Flow Rate (L/min) 2 Oxygen Delivery Method Room Air Weight: 200 lb 6.403 oz Body Mass Index (BMI) 31.4 Intake & Output: Intake and Output for Last 24 Hours 10/31/23 11/01/23 11/02/23 23:59 23:59 23:59 Intake Total 980 / 980 1400 / 1500 760 / 760 Output Total 2100 / 2100 1950 / 2150 500 / 500 Balance -1120 / -1120 -550 / -650 260 / 260 Lab / Micro Data Attestation: I reviewed the patient's lab results. 10/29/23 05:09 10/29/23 05:09 Labs: Laboratory Results - last 24 hr 11/01/23 11:45: POC Glucose 135 H 11/01/23 16:49: POC Glucose 204 H 11/01/23 22:47: POC Glucose 158 H 11/02/23 07:34: POC Glucose 157 H Indicators for Scoring Admitted with or Primary Diagnosis of CVA/Stroke: Yes Hx of CVA/Stroke: Yes Modified [place] Score MRS Score at time of Evaluation: 4-Moderate/severe disability Physical Exam Const oriented x3, no apparent distress and well nourished Constitutional Narrative: laying in bed, sleeping but arousable General Appearance: cooperative and comfortable; Negative for in distress, ill appearing or diaphoretic Orientation / Consciousness: oriented to person, oriented to place and oriented to time Exam Limitations: Negative for altered mental status HEENT normocephalic and head/scalp atraumatic Head and Scalp: normocephalic and atraumatic Face and Sinus: normal facial exam Eyes General Eye: normal appearance of both eyes Chest inspection of chest normal Chest: symmetrical chest wall rise Resp normal respiratory effort, normal air movement, no use of accessory muscles and clear to auscultation bilaterally Resp Narrative: Anterior auscultation Effort and Inspection: able to speak in complete sentences and symmetric chest movement; Negative for respiratory distress or audible wheezes Auscultation: clear to auscultation bilaterally Cardio regular rate, regular rhythm and no murmurs Rate: regular rate Rhythm: regular rhythm Heart Sounds: Negative for murmur GI normal to inspection, nondistended, normoactive bowel sounds, soft to palpation and non-distended Auscultation: normoactive bowel sounds Palpation: soft and tender other (mild generalized to palpation); Negative for guarding Extremity normal to inspection General Extremity: Negative for edema Skin no rashes or lesions noted General Skin Exam: no breakdown Lesions: no lesions Rashes: no rashes Neuro oriented x3 and No moves all extremities Neuro Narrative: left sided hemiplegia Sensorium / Orientation: oriented to person, oriented to place and oriented to time Speech: speech abnormal Details: Positive for other (mild aphasia) Psych mental status grossly normal, cooperative, affect normal and speech normal Appearance: grossly normal Attitude: calm Assessment & Plan Assessment/Plan (1) Debility: PLAN: Will continue with PT/OT and follow up on findings and recommendations. Continue with PRN pain management, bowel regimen and fall precautions. 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 He will need to follow up with neurology upon discharge from inpatient rehab. (3) Cerebral parenchymal hemorrhage: QUALIFIERS: Cerebral hemorrhage location: unspecified cerebral location Intracerebral hemorrhage etiology: nontraumatic Laterality: right Qualified Code(s): I61.9 - Nontraumatic intracerebral hemorrhage, unspecified PLAN: As above. Will maintain on aspirin alone due to recent bleed. (4) Atherosclerosis of coronary artery bypass graft without angina pectoris: QUALIFIERS: [place] vs. transplanted heart: [place] heart Qualified Code(s): I25.810 - Atherosclerosis of coronary artery bypass graft(s) without angina pectoris PLAN: Stable. Patient denies any current symptoms. Will continue current management and monitor. He will need to follow up with his associate research scientist upon discharge from inpatient rehab. (5) Essential (primary) hypertension: PLAN: Blood pressure shows fair control. Will continue current management and monitor. (6) Hyperlipidemia: QUALIFIERS: Hyperlipidemia type: mixed hyperlipidemia Qualified Code(s): E78.2 - Mixed hyperlipidemia PLAN: Stable. Continue with statin therapy and monitor. (7) Obstructive sleep apnea: PLAN: Patient has a CPAP device in his room. Will continue with that at bedtime and monitor. Will continue to monitor. (8) Type 2 diabetes mellitus: QUALIFIERS: Diabetes mellitus complication status: without complication Diabetes mellitus keno terminal operator insulin use: without keno terminal operator use Qualified Code(s): E11.9 - Type 2 diabetes mellitus without complications PLAN: Patient was not on any medications for his diabetes recently. A1c in the hospital was 7.1. Will continue with glucose checks and SSI. Diabetic diet ordered. Glucose this morning was 157. (9) GERD (gastroesophageal reflux disease): QUALIFIERS: Esophagitis presence: without esophagitis Qualified Code(s): K21.9 - Gastro-esophageal reflux disease without esophagitis PLAN: Stable. Continue current management. (10) Urinary retention: PLAN: Patient was placed on doxazosin and given straight caths at [facility]. A krishna was placed last week on arrival. Will continue with krishna care and remove as able. Charges/Coding Visit Charges Inpatient E&M: 49572 [facility] L2
[2023-11-02 11:42] LABS: Bedside Glucose 172 mg/dL (74-106)
[2023-11-02 14:02] VITALS: BMI 31.4
[2023-11-02 17:06] LABS: Bedside Glucose 181 mg/dL (74-106)
[2023-11-02] MEDS: Atorvastatin Calcium 40 MG Tablet PO (20:38)
[2023-11-02 22:00] VITALS: BP 97/57; PULSE 86; RESP 14; TEMP 36.2; O2SAT 93
[2023-11-02 23:02] LABS: Bedside Glucose 156 mg/dL (74-106)
[2023-11-03 02:15] VITALS: BMI 31.4
[2023-11-03] MEDS: Menthol/Lanolin/Calamine/Znox 113 GM Tube 1 APPLIC TOPICAL ×2 (05:05→20:56)
[2023-11-03 06:39] LABS: Bedside Glucose 163 mg/dL (74-106)
[2023-11-03] MEDS: Insulin Lispro 100 UNIT/ML INSULN.PEN SC ×3 (08:30→20:57)
[2023-11-03] MEDS: Glucerna Shake 120 ML LIQUID PO ×2 (08:31→11:32)
[2023-11-03 08:32] VITALS: BP 100/67; PULSE 77
[2023-11-03] MEDS: Metoprolol Tartrate 25 MG Tablet PO ×2 (08:32→20:55)
[2023-11-03] MEDS: Pantoprazole Sodium 20 MG Tablet PO (08:32)
[2023-11-03] MEDS: hydroCHLOROthiazide 25 MG Tablet PO (08:33)
[2023-11-03] MEDS: Aspirin E.C. 81 MG Tablet PO (08:33)
[2023-11-03] MEDS: Lisinopril 40 MG Tablet PO (08:33)
[2023-11-03] MEDS: Senna/Docusate Sodium 1 Tablet 2 TABLET PO (08:34)
[2023-11-03] MEDS: amLODIPine 10 MG Tablet PO (08:41)
[2023-11-03 09:53] VITALS: BP 145/80; PULSE 72; RESP 16; TEMP 36.4; O2SAT 99
--- NOTE | 2023-11-03 11:23 | PN.REHAB_ITS ---
Subjective Subjective Patient was admitted for daily rehab following a hospital stay for an acute CVA with hemorrhagic conversion. No events overnight. He reports he did wear his CPAP last night for a little while, but states it felt tight for him. He has been sleeping well. The patient denies any pain currently. He is eating well and moving his bowels. He has no questions or concerns at this time. Objective Data Objective Data Vital Signs: Vital Signs Temp Pulse Resp BP Pulse Ox O2 Del Method O2 Flow Rate 97.5 F L 72 16 145/80 H 99 Room Air 2 11/03/23 09:53 11/03/23 09:53 11/03/23 09:53 11/03/23 09:53 11/03/23 09:53 11/03/23 09:56 11/03/23 08:45 Oxygen Flow Rate (L/min) 2 Oxygen Delivery Method Room Air Weight: 200 lb 6.403 oz Body Mass Index (BMI) 31.4 Intake & Output: Intake and Output for Last 24 Hours 11/01/23 11/02/23 11/03/23 23:59 23:59 23:59 Intake Total 1400 / 1500 1600 / 2050 790 / 790 Output Total 1950 / 2150 800 / 800 750 / 750 Balance -550 / -650 800 / 1250 40 / 40 Lab / Micro Data Attestation: I reviewed the patient's lab results. 10/29/23 05:09 10/29/23 05:09 Labs: Laboratory Results - last 24 hr 11/02/23 11:20: POC Glucose 172 H 11/02/23 16:45: POC Glucose 181 H 11/02/23 22:41: POC Glucose 156 H 11/03/23 06:12: POC Glucose 163 H Indicators for Scoring Admitted with or Primary Diagnosis of CVA/Stroke: Yes Hx of CVA/Stroke: Yes Modified [place] Score MRS Score at time of Evaluation: 4-Moderate/severe disability Physical Exam Const alert, oriented x3, no apparent distress and well nourished Constitutional Narrative: laying in bed General Appearance: cooperative and comfortable; Negative for in distress, ill appearing or diaphoretic Orientation / Consciousness: oriented to person, oriented to place and oriented to time Exam Limitations: Negative for altered mental status HEENT normocephalic and head/scalp atraumatic Head and Scalp: normocephalic and atraumatic Face and Sinus: normal facial exam Eyes General Eye: normal appearance of both eyes Chest inspection of chest normal Chest: symmetrical chest wall rise Resp normal respiratory effort, normal air movement, no use of accessory muscles and clear to auscultation bilaterally Resp Narrative: Anterior auscultation Effort and Inspection: able to speak in complete sentences and symmetric chest movement; Negative for respiratory distress or audible wheezes Auscultation: clear to auscultation bilaterally Cardio regular rate, regular rhythm and no murmurs Rate: regular rate Rhythm: regular rhythm Heart Sounds: Negative for murmur GI normal to inspection, nondistended, normoactive bowel sounds, soft to palpation, non-tender and non-distended Auscultation: normoactive bowel sounds Palpation: soft; Negative for guarding Extremity normal to inspection General Extremity: Negative for edema Skin no rashes or lesions noted General Skin Exam: no breakdown Lesions: no lesions Rashes: no rashes Neuro oriented x3 and No moves all extremities Neuro Narrative: mild involuntary movement of left arm, but no purposeful movement noted Sensorium / Orientation: oriented to person, oriented to place and oriented to time Speech: speech normal Psych mental status grossly normal, cooperative, affect normal and speech normal Appearance: grossly normal Attitude: calm Assessment & Plan Assessment/Plan (1) Debility: PLAN: Will continue with PT/OT and follow up on findings and recommendations. Continue with PRN pain management, bowel regimen and fall precautions. 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 He will need to follow up with neurology upon discharge from inpatient rehab. Patient is currently on soft and bite sized food and thin liquids. (3) Cerebral parenchymal hemorrhage: QUALIFIERS: Cerebral hemorrhage location: unspecified cerebral location Intracerebral hemorrhage etiology: nontraumatic Laterality: right Qualified Code(s): I61.9 - Nontraumatic intracerebral hemorrhage, unspecified PLAN: As above. Will maintain on aspirin alone due to recent bleed. (4) Atherosclerosis of coronary artery bypass graft without angina pectoris: QUALIFIERS: [place] vs. transplanted heart: [place] heart Qualified Code(s): I25.810 - Atherosclerosis of coronary artery bypass graft(s) without an aroldo pectoris PLAN: Stable. Patient denies any current symptoms. Will continue current management and monitor. He will need to follow up with his hot water heater installer upon discharge from inpatient rehab. (5) Essential (primary) hypertension: PLAN: Blood pressure shows fair control. Will continue current management and monitor. (6) Hyperlipidemia: QUALIFIERS: Hyperlipidemia type: mixed hyperlipidemia Qualified Code(s): E78.2 - Mixed hyperlipidemia PLAN: Stable. Continue with statin therapy and monitor. (7) Obstructive sleep apnea: PLAN: Will continue with CPAP use at bedtime and monitor. (8) Type 2 diabetes mellitus: QUALIFIERS: Diabetes mellitus complication status: without complication Diabetes mellitus half-way insulin use: without half-way use Qualified Code(s): E11.9 - Type 2 diabetes mellitus without complications PLAN: Patient was not on any medications for his diabetes recently. A1c in the hospital was 7.1. Will continue with glucose checks and SSI. Diabetic diet ordered. Glucose this morning was 163. (9) GERD (gastroesophageal reflux disease): QUALIFIERS: Esophagitis presence: without esophagitis Qualified Code(s): K21.9 - Gastro-esophageal reflux disease without esophagitis PLAN: Stable. Continue current management. (10) Urinary retention: PLAN: Patient was placed on doxazosin and given straight caths at [facility]. A krishna was placed last week on arrival. Will continue with krishna care and remove as able. Charges/Coding Visit Charges Inpatient E&M: 55104 [facility] L1
[2023-11-03 12:03] LABS: Bedside Glucose 170 mg/dL (74-106)
[2023-11-03 15:51] VITALS: BMI 31.4
[2023-11-03] MEDS: Acetaminophen 325 MG Tablet 650 MG PO (16:22)
--- NOTE | 2023-11-03 16:24 | CASEMGMT ---
Social Work Received call from dtr with additional questions from Team meeting yesterday. Dtr asked questions regarding alternative DC plans. SW educated to home with VIRTUAL CUSTOMER ASSISTANT and financial liability. Educated to SNF with skilled and nonskilled coverage, the precert process, INN and ONN benefits in SNFs. SW offered list of SNFs to review. Dtr agreeable and provided secure email address. SW sent INN SNFs in [facility] with quality and resource data via [employer] link to dtr's email. Dtr appreciative. SW will continue to follow. ESAU CastilloW
[2023-11-03 16:53] LABS: Bedside Glucose 148 mg/dL (74-106)
[2023-11-03 19:36] VITALS: BP 97/67; PULSE 85; RESP 16; TEMP 36.9; O2SAT 96
[2023-11-03 20:55] VITALS: PULSE 85
[2023-11-03] MEDS: Atorvastatin Calcium 40 MG Tablet PO (20:55)
[2023-11-03] MEDS: Doxazosin 4 MG Tablet PO (20:56)
[2023-11-03 21:22] LABS: Bedside Glucose 177 mg/dL (74-106)
[2023-11-04 01:25] VITALS: BMI 31.4
[2023-11-04] MEDS: Menthol/Lanolin/Calamine/Znox 113 GM Tube 1 APPLIC TOPICAL ×2 (06:12→21:04)
[2023-11-04 07:15] VITALS: BP 98/53; PULSE 76; RESP 16; TEMP 36.7; O2SAT 98
[2023-11-04 07:15] LABS: Bedside Glucose 140 mg/dL (74-106)
[2023-11-04 08:19] VITALS: PULSE 76
[2023-11-04] MEDS: Glucerna Shake 120 ML LIQUID PO ×2 (08:19→12:02)
[2023-11-04] MEDS: Lisinopril 40 MG Tablet PO (08:19)
[2023-11-04] MEDS: Metoprolol Tartrate 25 MG Tablet PO ×2 (08:19→21:04)
[2023-11-04] MEDS: Aspirin E.C. 81 MG Tablet PO (08:19)
[2023-11-04] MEDS: Pantoprazole Sodium 20 MG Tablet PO (08:19)
[2023-11-04] MEDS: hydroCHLOROthiazide 25 MG Tablet PO (08:20)
[2023-11-04] MEDS: amLODIPine 10 MG Tablet PO (08:20)
[2023-11-04] MEDS: Acetaminophen 325 MG Tablet 650 MG PO (08:26)
--- NOTE | 2023-11-04 09:20 | EX.PCM.PN.RE ---
Subjective Subjective Patient was admitted for daily rehab following a hospital stay for an acute CVA with hemorrhagic conversion. No events overnight. He reports he did wear his CPAP last night for a little while, but he thinks the settings are off. He doesn't know what his home settings are, but thinks his may know. He has otherwise been sleeping well. The patient denies any pain currently. He is eating well and moving his bowels. He has no questions or concerns at this time. Objective Data Objective Data Vital Signs: Vital Signs Temp Pulse Resp BP Pulse Ox O2 Del Method O2 Flow Rate 98.0 F 76 16 98/53 L 98 Room Air 2 11/04/23 07:15 11/04/23 08:19 11/04/23 07:15 11/04/23 07:15 11/04/23 07:15 11/04/23 07:15 11/03/23 08:45 Oxygen Flow Rate (L/min) 2 Oxygen Delivery Method Room Air Weight: 200 lb 6.403 oz Body Mass Index (BMI) 31.4 Intake & Output: Intake and Output for Last 24 Hours 11/02/23 11/03/23 11/04/23 23:59 23:59 23:59 Intake Total 1600 / 2050 1210 / 1210 290 / 290 Output Total 800 / 800 1100 / 1100 1075 / 1075 Balance 800 / 1250 110 / 110 -785 / -785 Lab / Micro Data Attestation: I reviewed the patient's lab results. 10/29/23 05:09 10/29/23 05:09 Labs: Laboratory Results - last 24 hr 11/03/23 11:31: POC Glucose 170 H 11/03/23 16:16: POC Glucose 148 H 11/03/23 20:54: POC Glucose 177 H 11/04/23 06:11: POC Glucose 140 H Indicators for Scoring Admitted with or Primary Diagnosis of CVA/Stroke: Yes Hx of CVA/Stroke: Yes Modified [place] Score MRS Score at time of Evaluation: 4-Moderate/severe disability Physical Exam Const alert, oriented x3, no apparent distress and well nourished Constitutional Narrative: laying in bed, working with therapy General Appearance: cooperative and comfortable; Negative for in distress, ill appearing or diaphoretic Orientation / Consciousness: awake, oriented to person, oriented to place and oriented to time Exam Limitations: Negative for altered mental status HEENT normocephalic and head/scalp atraumatic Head and Scalp: normocephalic and atraumatic Face and Sinus: normal facial exam Eyes General Eye: normal appearance of both eyes Chest inspection of chest normal Chest: symmetrical chest wall rise Resp normal respiratory effort, normal air movement, no use of accessory muscles and clear to auscultation bilaterally Resp Narrative: Anterior auscultation Effort and Inspection: able to speak in complete sentences and symmetric chest movement; Negative for respiratory distress or audible wheezes Auscultation: clear to auscultation bilaterally Cardio regular rate, regular rhythm and no murmurs Rate: regular rate Rhythm: regular rhythm Heart Sounds: Negative for murmur GI normal to inspection, nondistended, normoactive bowel sounds, soft to palpation, non-tender and non-distended Auscultation: normoactive bowel sounds Palpation: soft; Negative for guarding Extremity normal to inspection General Extremity: Negative for edema Skin no rashes or lesions noted General Skin Exam: no breakdown Lesions: no lesions Rashes: no rashes Neuro oriented x3 and No moves all extremities Neuro Narrative: Hemiparesis of left side Sensorium / Orientation: awake, alert, oriented to person, oriented to place and oriented to time Speech: speech normal Psych mental status grossly normal, cooperative, affect normal and speech normal Appearance: grossly normal Attitude: calm Assessment & Plan Assessment/Plan (1) Debility: PLAN: Will continue with PT/OT and follow up on findings and recommendations. Continue with PRN pain management, bowel regimen and fall precautions. 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 He will need to follow up with neurology upon discharge from inpatient rehab. Patient is currently on soft and bite sized food and thin liquids. (3) Cerebral parenchymal hemorrhage: QUALIFIERS: Cerebral hemorrhage location: unspecified cerebral location Intracerebral hemorrhage etiology: nontraumatic Laterality: right Qualified Code(s): I61.9 - Nontraumatic intracerebral hemorrhage, unspecified PLAN: As above. Will maintain on aspirin alone due to recent bleed. (4) Atherosclerosis of coronary artery bypass graft without angina pectoris: QUALIFIERS: [place] vs. transplanted heart: [place] heart Qualified Code(s): I25.810 - Atherosclerosis of coronary artery bypass graft(s) without angina pectoris PLAN: Stable. Patient denies any current symptoms. Will continue current management and monitor. He will need to follow up with his environmental monitoring technician upon discharge from inpatient rehab. (5) Essential (primary) hypertension: PLAN: Blood pressure shows great control. Will continue current management and monitor. (6) Hyperlipidemia: QUALIFIERS: Hyperlipidemia type: mixed hyperlipidemia Qualified Code(s): E78.2 - Mixed hyperlipidemia PLAN: Stable. Continue with statin therapy and monitor. (7) Obstructive sleep apnea: PLAN: Will continue with CPAP use at bedtime and monitor. Will try to verify home settings with patient's . (8) Type 2 diabetes mellitus: QUALIFIERS: Diabetes mellitus complication status: without complication Diabetes mellitus long-term insulin use: without long-term use Qualified Code(s): E11.9 - Type 2 diabetes mellitus without complications PLAN: Patient was not on any medications for his diabetes recently. A1c in the hospital was 7.1. Will continue with glucose checks and SSI. Diabetic diet ordered. Glucose this morning was 140. (9) GERD (gastroesophageal reflux disease): QUALIFIERS: Esophagitis presence: without esophagitis Qualified Code(s): K21.9 - Gastro-esophageal reflux disease without esophagitis PLAN: Stable. Continue current management. (10) Urinary retention: PLAN: Patient was placed on doxazosin and given straight caths at [facility]. A krishna was placed last week on arrival. Will attempt a voiding trial and monitor progress. Charges/Coding Visit Charges Inpatient E&M: [id number] [facility] L1
[2023-11-04 11:40] LABS: Bedside Glucose 164 mg/dL (74-106)
[2023-11-04] MEDS: Insulin Lispro 100 UNIT/ML INSULN.PEN SC (12:02)
[2023-11-04 16:02] VITALS: BMI 31.4
[2023-11-04 16:34] LABS: Bedside Glucose 131 mg/dL (74-106)
[2023-11-04 19:30] VITALS: BP 105/55; PULSE 72; RESP 14; TEMP 36.3; O2SAT 96
[2023-11-04 20:34] VITALS: BMI 31.4
[2023-11-04 21:04] VITALS: PULSE 78
[2023-11-04] MEDS: Atorvastatin Calcium 40 MG Tablet PO (21:04)
[2023-11-04] MEDS: Doxazosin 4 MG Tablet PO (21:04)
[2023-11-04] MEDS: Senna/Docusate Sodium 1 Tablet 2 TABLET PO (21:05)
[2023-11-04 21:18] LABS: Bedside Glucose 146 mg/dL (74-106)
[2023-11-04 22:00] VITALS: PULSE 75; RESP 15; O2SAT 96
[2023-11-05] MEDS: Menthol/Lanolin/Calamine/Znox 113 GM Tube 1 APPLIC TOPICAL ×2 (06:36→21:18)
[2023-11-05 07:39] LABS: Bedside Glucose 142 mg/dL (74-106)
[2023-11-05 07:54] VITALS: BP 103/74; PULSE 86; RESP 18; TEMP 36.1; O2SAT 94
[2023-11-05 09:29] VITALS: PULSE 86
[2023-11-05] MEDS: Metoprolol Tartrate 25 MG Tablet PO ×2 (09:29→21:17)
[2023-11-05] MEDS: Glucerna Shake 120 ML LIQUID PO ×2 (09:29→17:35)
[2023-11-05] MEDS: amLODIPine 10 MG Tablet PO (09:29)
[2023-11-05] MEDS: Senna/Docusate Sodium 1 Tablet 2 TABLET PO ×2 (09:29→21:21)
[2023-11-05] MEDS: Lisinopril 40 MG Tablet PO (09:29)
[2023-11-05] MEDS: hydroCHLOROthiazide 25 MG Tablet PO (09:30)
[2023-11-05] MEDS: Pantoprazole Sodium 20 MG Tablet PO (09:30)
[2023-11-05] MEDS: Aspirin E.C. 81 MG Tablet PO (09:30)
[2023-11-05 12:01] LABS: Bedside Glucose 151 mg/dL (74-106)
[2023-11-05] MEDS: Insulin Lispro 100 UNIT/ML INSULN.PEN SC ×2 (12:13→21:19)
[2023-11-05 13:50] VITALS: BMI 31.4
--- NOTE | 2023-11-05 16:52 | NURSING ---
Wallace Catheter removed on 11/04/23 by day shift nurse.
[2023-11-05 17:55] LABS: Bedside Glucose 122 mg/dL (74-106)
[2023-11-05 21:00] VITALS: BP 133/69; PULSE 84; RESP 16; TEMP 36.6; O2SAT 95; BMI 31.4
[2023-11-05 21:17] VITALS: BP 133/69; PULSE 84
[2023-11-05] MEDS: Atorvastatin Calcium 40 MG Tablet PO (21:17)
[2023-11-05] MEDS: Doxazosin 4 MG Tablet PO (21:18)
[2023-11-05] MEDS: Acetaminophen 325 MG Tablet 650 MG PO (21:21)
[2023-11-05 23:08] LABS: Bedside Glucose 157 mg/dL (74-106)
[2023-11-06] MEDS: Menthol/Lanolin/Calamine/Znox 113 GM Tube 1 APPLIC TOPICAL ×2 (05:45→20:11)
[2023-11-06 06:00] VITALS: BMI 30.7
[2023-11-06 07:25] LABS: Bedside Glucose 149 mg/dL (74-106)
[2023-11-06 07:50] VITALS: BP 104/58; PULSE 66; RESP 15; TEMP 36.2; O2SAT 95
[2023-11-06] MEDS: Aspirin E.C. 81 MG Tablet PO (08:02)
[2023-11-06 08:03] VITALS: PULSE 66
[2023-11-06] MEDS: Senna/Docusate Sodium 1 Tablet 2 TABLET PO (08:03)
[2023-11-06] MEDS: Metoprolol Tartrate 25 MG Tablet PO ×2 (08:03→20:10)
[2023-11-06] MEDS: Pantoprazole Sodium 20 MG Tablet PO (08:03)
[2023-11-06] MEDS: Lisinopril 40 MG Tablet PO (08:03)
[2023-11-06] MEDS: hydroCHLOROthiazide 25 MG Tablet PO (08:03)
[2023-11-06] MEDS: amLODIPine 10 MG Tablet PO ×2 (08:03)
[2023-11-06] MEDS: Glucerna Shake 120 ML LIQUID PO ×3 (08:09→17:07)
[2023-11-06 10:16] VITALS: BMI 30.7
[2023-11-06] MEDS: Insulin Lispro 100 UNIT/ML INSULN.PEN SC ×3 (12:19→20:24)
[2023-11-06 12:27] LABS: Bedside Glucose 150 mg/dL (74-106)
[2023-11-06 17:19] LABS: Bedside Glucose 153 mg/dL (74-106)
[2023-11-06 19:55] VITALS: BP 105/47; PULSE 78; RESP 16; TEMP 36.4; O2SAT 92; BMI 30.7
[2023-11-06 20:10] VITALS: BP 105/47; PULSE 78
[2023-11-06] MEDS: Doxazosin 4 MG Tablet PO (20:11)
[2023-11-06] MEDS: Atorvastatin Calcium 40 MG Tablet PO (20:11)
[2023-11-06] MEDS: Acetaminophen 325 MG Tablet 650 MG PO (20:25)
[2023-11-06 20:40] LABS: Bedside Glucose 170 mg/dL (74-106)
[2023-11-07] MEDS: Menthol/Lanolin/Calamine/Znox 113 GM Tube 1 APPLIC TOPICAL ×2 (04:39→20:55)
[2023-11-07 07:00] VITALS: BP 107/55; PULSE 85; RESP 17; TEMP 36.1; O2SAT 97
[2023-11-07 07:20] LABS: Bedside Glucose 141 mg/dL (74-106)
[2023-11-07] MEDS: Pantoprazole Sodium 20 MG Tablet PO (09:25)
[2023-11-07] MEDS: Aspirin E.C. 81 MG Tablet PO (09:25)
[2023-11-07] MEDS: hydroCHLOROthiazide 25 MG Tablet PO (09:25)
[2023-11-07 09:26] VITALS: PULSE 80
[2023-11-07] MEDS: Metoprolol Tartrate 25 MG Tablet PO ×2 (09:26→20:56)
[2023-11-07] MEDS: Glucerna Shake 120 ML LIQUID PO ×3 (09:27→17:32)
[2023-11-07] MEDS: Lisinopril 40 MG Tablet PO (09:27)
[2023-11-07] MEDS: Acetaminophen 325 MG Tablet 650 MG PO ×2 (09:32→21:06)
[2023-11-07 11:59] LABS: Bedside Glucose 152 mg/dL (74-106)
[2023-11-07] MEDS: Insulin Lispro 100 UNIT/ML INSULN.PEN SC ×2 (12:06→21:00)
[2023-11-07 12:57] VITALS: BMI 30.7
[2023-11-07 16:49] LABS: Bedside Glucose 139 mg/dL (74-106)
[2023-11-07 20:26] VITALS: BP 104/56; PULSE 77; RESP 14; TEMP 36.7; O2SAT 95
[2023-11-07 20:44] VITALS: BMI 30.7
[2023-11-07] MEDS: Doxazosin 4 MG Tablet PO (20:55)
[2023-11-07 20:56] VITALS: PULSE 75
[2023-11-07] MEDS: Atorvastatin Calcium 40 MG Tablet PO (20:56)
[2023-11-07] MEDS: Senna/Docusate Sodium 1 Tablet 2 TABLET PO (20:57)
[2023-11-07 21:21] VITALS: PULSE 75; RESP 15; O2SAT 95
[2023-11-07 22:06] LABS: Bedside Glucose 159 mg/dL (74-106)
[2023-11-08] MEDS: Menthol/Lanolin/Calamine/Znox 113 GM Tube 1 APPLIC TOPICAL ×2 (05:31→21:06)
[2023-11-08 07:17] LABS: Bedside Glucose 132 mg/dL (74-106)
[2023-11-08 07:19] VITALS: BP 119/49; PULSE 72; RESP 15; TEMP 36.6; O2SAT 96
[2023-11-08 08:18] VITALS: PULSE 72
[2023-11-08] MEDS: Aspirin E.C. 81 MG Tablet PO (08:18)
[2023-11-08] MEDS: Pantoprazole Sodium 20 MG Tablet PO (08:18)
[2023-11-08] MEDS: Metoprolol Tartrate 25 MG Tablet PO ×2 (08:18→21:07)
[2023-11-08] MEDS: hydroCHLOROthiazide 25 MG Tablet PO (08:18)
[2023-11-08] MEDS: amLODIPine 10 MG Tablet PO (08:19)
[2023-11-08] MEDS: Lisinopril 40 MG Tablet PO (08:19)
[2023-11-08] MEDS: Glucerna Shake 120 ML LIQUID PO ×2 (08:19→16:50)
[2023-11-08 11:52] LABS: Bedside Glucose 127 mg/dL (74-106)
[2023-11-08 13:28] VITALS: BMI 30.7
[2023-11-08 16:50] LABS: Bedside Glucose 153 mg/dL (74-106)
[2023-11-08] MEDS: Insulin Lispro 100 UNIT/ML INSULN.PEN SC (16:50)
[2023-11-08 19:46] VITALS: BP 135/67; PULSE 99; RESP 16; TEMP 36.6; O2SAT 93
[2023-11-08] MEDS: Atorvastatin Calcium 40 MG Tablet PO (21:06)
[2023-11-08 21:07] VITALS: PULSE 96
[2023-11-08] MEDS: Senna/Docusate Sodium 1 Tablet 2 TABLET PO (21:07)
[2023-11-08] MEDS: Doxazosin 4 MG Tablet PO (21:07)
[2023-11-08] MEDS: Acetaminophen 325 MG Tablet 650 MG PO (21:13)
[2023-11-08 21:29] LABS: Bedside Glucose 139 mg/dL (74-106)
[2023-11-08 21:30] VITALS: BMI 30.7
[2023-11-08 22:00] VITALS: PULSE 78; RESP 15; O2SAT 95
[2023-11-09] MEDS: Menthol/Lanolin/Calamine/Znox 113 GM Tube 1 APPLIC TOPICAL ×2 (06:00→21:34)
[2023-11-09 06:44] LABS: Bedside Glucose 140 mg/dL (74-106)
[2023-11-09 07:44] VITALS: BP 100/54; PULSE 65; RESP 16; TEMP 36.4; O2SAT 96
[2023-11-09] MEDS: Glucerna Shake 120 ML LIQUID PO ×2 (07:46→12:08)
--- NOTE | 2023-11-09 09:45 | EX.PCM.PN.RE ---
Subjective Subjective Patient was admitted for daily rehab following a hospital stay for an acute CVA with hemorrhagic conversion. No events overnight. The patient was seen today on TEAM rounds. Per therapy, the patient still requires 2 people and a alley for transfers. He is still a total assist with bathing and dressing. His left arm remains flaccid and he continues to lean to the right which they are working on with no significant progress. He is currently eating soft/bite sized meals and requires supervision due to impulsivity. There is a notable improvement in his cognitive assessment, but requires max cues during speech tasks. He did not wear his CPAP last night, and only wore his oxygen. The patient denies any pain currently. He is eating well. He doesn't think he is moving his bowels very well and does feel constipated. His krishna was discontinued last week and he is urinating without difficulty, however, does have some incontinence and feels that he is urinating more. He has been having some pseudobulbar affect with his emotions reporting he is crying frequently. He doesn't feel depressed, however. He has no questions or concerns at this time. Objective Data Objective Data Vital Signs: Vital Signs Temp Pulse Resp BP Pulse Ox O2 Del Method O2 Flow Rate 97.5 F L 65 16 100/54 L 96 Nasal Cannula 2 11/09/23 07:44 11/09/23 07:44 11/09/23 07:44 11/09/23 07:44 11/09/23 07:44 11/09/23 07:44 11/09/23 07:44 Oxygen Flow Rate (L/min) 2 Oxygen Delivery Method Nasal Cannula Weight: 196 lb 3.382 oz Body Mass Index (BMI) 30.7 Intake & Output: Intake and Output for Last 24 Hours 11/07/23 11/08/23 11/09/23 23:59 23:59 23:59 Intake Total 1690 / 1810 1470 / 1470 180 / 180 Output Total 200 / 200 Balance 1490 / 1610 1470 / 1470 180 / 180 Lab / Micro Data Attestation: I reviewed the patient's lab results. 10/29/23 05:09 10/29/23 05:09 Labs: Laboratory Results - last 24 hr 11/08/23 11:29: POC Glucose 127 H 11/08/23 16:22: POC Glucose 153 H 11/08/23 21:04: POC Glucose 139 H 11/09/23 06:24: POC Glucose 140 H Indicators for Scoring Admitted with or Primary Diagnosis of CVA/Stroke: Yes Hx of CVA/Stroke: Yes Modified [place] Score MRS Score at time of Evaluation: 4-Moderate/severe disability Physical Exam Const alert, oriented x3, no apparent distress and well nourished Constitutional Narrative: laying in bed, working with therapy General Appearance: cooperative and comfortable; Negative for in distress, ill appearing or diaphoretic Orientation / Consciousness: awake, oriented to person, oriented to place and oriented to time Exam Limitations: Negative for altered mental status HEENT normocephalic and head/scalp atraumatic Head and Scalp: normocephalic and atraumatic Face and Sinus: normal facial exam Eyes General Eye: normal appearance of both eyes Chest inspection of chest normal Chest: symmetrical chest wall rise Resp normal respiratory effort, normal air movement, no use of accessory muscles and clear to auscultation bilaterally Resp Narrative: Anterior auscultation Effort and Inspection: able to speak in complete sentences and symmetric chest movement; Negative for respiratory distress or audible wheezes Auscultation: clear to auscultation bilaterally Cardio regular rate, regular rhythm and no murmurs Rate: regular rate Rhythm: regular rhythm Heart Sounds: Negative for murmur GI normal to inspection, nondistended, normoactive bowel sounds, soft to palpation, non-tender and non-distended Auscultation: normoactive bowel sounds Palpation: soft; Negative for guarding Extremity normal to inspection General Extremity: Negative for edema Skin no rashes or lesions noted General Skin Exam: no breakdown Lesions: no lesions Rashes: no rashes Neuro oriented x3 and No moves all extremities Neuro Narrative: Hemiparesis of left side Sensorium / Orientation: awake, alert, oriented to person, oriented to place and oriented to time Speech: speech normal Psych mental status grossly normal, cooperative, affect normal and speech normal Appearance: grossly normal Attitude: calm Assessment & Plan Assessment/Plan (1) Debility: PLAN: Will continue with PT/OT and follow up on findings and recommendations. Continue with PRN pain management, bowel regimen and fall precautions. An update to his insurance will happen tomorrow to determine discharge plans. Patient will likely require discharge to a SNF for further therapy purposes. 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 He will need to follow up with neurology upon discharge from inpatient rehab which is scheduled for 12/14/23. Patient is currently on soft and bite sized food and thin liquids. He does have some pseudobulbar affect which he was counseled can be normal. Will do a trial of a low dose SSRI like lexapro to see if that helps. (3) Cerebral parenchymal hemorrhage: QUALIFIERS: Cerebral hemorrhage location: unspecified cerebral location Intracerebral hemorrhage etiology: nontraumatic Laterality: right Qualified Code(s): I61.9 - Nontraumatic intracerebral hemorrhage, unspecified PLAN: As above. Will maintain on aspirin alone due to recent bleed. (4) Atherosclerosis of coronary artery bypass graft without angina pectoris: QUALIFIERS: [place] vs. transplanted heart: [place] heart Qualified Code(s): I25.810 - Atherosclerosis of coronary artery bypass graft(s) without angina pectoris PLAN: Stable. Patient denies any current symptoms. Will continue current management and monitor. He will need to follow up with his counselor marriage and family upon discharge from inpatient rehab. (5) Essential (primary) hypertension: PLAN: Blood pressure shows great control. Will continue current management and monitor. (6) Hyperlipidemia: QUALIFIERS: Hyperlipidemia type: mixed hyperlipidemia Qualified Code(s): E78.2 - Mixed hyperlipidemia PLAN: Stable. Continue with statin therapy and monitor. (7) Obstructive sleep apnea: PLAN: Patient did not wear his CPAP last night, but just oxygen. Will continue to use at bedtime as tolerated and monitor. (8) Type 2 diabetes mellitus: QUALIFIERS: Diabetes mellitus complication status: without complication Diabetes mellitus group home insulin use: without adjunct faculty for medical terminology use Qualified Code(s): E11.9 - Type 2 diabetes mellitus without complications PLAN: Patient was not on any medications for his diabetes recently. A1c in the hospital was 7.1. Will continue with glucose checks and SSI. Diabetic diet ordered. Glucose this morning was 140. (9) GERD (gastroesophageal reflux disease): QUALIFIERS: Esophagitis presence: without esophagitis Qualified Code(s): K21.9 - Gastro-esophageal reflux disease without esophagitis PLAN: Stable. Continue current management. (10) Urinary retention: PLAN: Patient has been urinating without difficulty, however, has had some urinary incontinence. Will continue to monitor. For now, continue current management. Charges/Coding Visit Charges Inpatient E&M: 85076 Subs Hosp L2
[2023-11-09] MEDS: Aspirin E.C. 81 MG Tablet PO (10:10)
[2023-11-09] MEDS: hydroCHLOROthiazide 25 MG Tablet PO (10:10)
[2023-11-09] MEDS: amLODIPine 10 MG Tablet PO (10:11)
[2023-11-09] MEDS: Pantoprazole Sodium 20 MG Tablet PO (10:11)
[2023-11-09] MEDS: Senna/Docusate Sodium 1 Tablet 2 TABLET PO ×2 (10:11→21:35)
[2023-11-09 10:12] VITALS: PULSE 68
[2023-11-09] MEDS: Metoprolol Tartrate 25 MG Tablet PO ×2 (10:12→21:36)
[2023-11-09] MEDS: Lisinopril 40 MG Tablet PO (10:12)
[2023-11-09] MEDS: Acetaminophen 325 MG Tablet 650 MG PO ×2 (10:14→21:39)
[2023-11-09 11:37] LABS: Bedside Glucose 143 mg/dL (74-106)
[2023-11-09] MEDS: Escitalopram Oxalate 10 MG Tablet 5 MG PO (12:07)
[2023-11-09 12:16] VITALS: BMI 30.7
--- NOTE | 2023-11-09 13:15 | NURSING ---
1315 LVM for Pt's , on her cell phone, regarding next team meeting being on November 17 at 1230 d/t the holiday.
[2023-11-09 16:41] LABS: Bedside Glucose 130 mg/dL (74-106)
[2023-11-09 19:33] VITALS: BP 92/52; PULSE 73; RESP 16; TEMP 36.7; O2SAT 98
[2023-11-09 21:10] VITALS: BMI 30.7
[2023-11-09] MEDS: Atorvastatin Calcium 40 MG Tablet PO (21:35)
[2023-11-09] MEDS: Doxazosin 4 MG Tablet PO (21:35)
[2023-11-09 21:36] VITALS: PULSE 78
[2023-11-09 22:00] VITALS: PULSE 73; RESP 16; O2SAT 97
[2023-11-09 22:46] LABS: Bedside Glucose 127 mg/dL (74-106)
[2023-11-10] MEDS: Magnesium Hydroxide 30 ML UDC PO (05:09)
[2023-11-10] MEDS: Menthol/Lanolin/Calamine/Znox 113 GM Tube 1 APPLIC TOPICAL ×2 (05:09→20:47)
[2023-11-10 07:01] LABS: Bedside Glucose 165 mg/dL (74-106)
[2023-11-10 07:57] VITALS: BP 118/50; PULSE 74
[2023-11-10] MEDS: Metoprolol Tartrate 25 MG Tablet PO (07:57)
[2023-11-10] MEDS: Insulin Lispro 100 UNIT/ML INSULN.PEN SC ×2 (07:57→21:10)
[2023-11-10] MEDS: Senna/Docusate Sodium 1 Tablet 2 TABLET PO ×2 (07:58→20:50)
[2023-11-10] MEDS: Lisinopril 40 MG Tablet PO (07:58)
[2023-11-10] MEDS: Escitalopram Oxalate 10 MG Tablet 5 MG PO (07:58)
[2023-11-10] MEDS: Glucerna Shake 120 ML LIQUID PO ×3 (07:58→16:36)
[2023-11-10] MEDS: Aspirin E.C. 81 MG Tablet PO (07:59)
[2023-11-10] MEDS: hydroCHLOROthiazide 25 MG Tablet PO (07:59)
[2023-11-10] MEDS: amLODIPine 10 MG Tablet PO (07:59)
[2023-11-10] MEDS: Pantoprazole Sodium 20 MG Tablet PO (08:00)
[2023-11-10 08:26] VITALS: BP 118/50; PULSE 74; RESP 18; TEMP 36.3; O2SAT 99
[2023-11-10 09:00] VITALS: PULSE 74; O2SAT 99
[2023-11-10] MEDS: Acetaminophen 325 MG Tablet 650 MG PO (10:02)
[2023-11-10 10:29] VITALS: BMI 30.7
--- NOTE | 2023-11-10 11:11 | EX.PCM.PN.RE ---
Subjective Subjective Patient was admitted for daily rehab following a hospital stay for an acute CVA with hemorrhagic conversion. No events overnight. He did not wear his CPAP last night, and only wore his oxygen. Nursing reports he has refused to wear it. The patient denies any pain currently although nursing has noted that he is starting to get more sensation back to his left arm. He states it is more of a discomfort in the back of his left shoulder. He denies any numbness/tingling at all. He is eating well. He did get some milk of magnesia this morning for constipation. He has not moved his bowels since 11/07. His krishna was discontinued last week and he is urinating without difficulty. He was started on lexapro yesterday due to pseudobulbar affect symptoms. He denies any problems with the medication. He has no questions or concerns at this time. Objective Data Objective Data Vital Signs: Vital Signs Temp Pulse Resp BP Pulse Ox O2 Del Method O2 Flow Rate 97.3 F L 74 18 118/50 L 99 Nasal Cannula 2 11/10/23 08:26 11/10/23 09:00 11/10/23 08:26 11/10/23 08:26 11/10/23 09:00 11/10/23 09:00 11/10/23 09:00 Oxygen Flow Rate (L/min) 2 Oxygen Delivery Method Nasal Cannula Weight: 196 lb 3.382 oz Body Mass Index (BMI) 30.7 Intake & Output: Intake and Output for Last 24 Hours 11/08/23 11/09/23 11/10/23 23:59 23:59 23:59 Intake Total 1470 / 1470 1370 / 1370 Balance 1470 / 1470 1370 / 1370 Lab / Micro Data Attestation: I reviewed the patient's lab results. 10/29/23 05:09 10/29/23 05:09 Labs: Laboratory Results - last 24 hr 11/09/23 11:02: POC Glucose 143 H 11/09/23 16:11: POC Glucose 130 H 11/09/23 21:25: POC Glucose 127 H 11/10/23 06:13: POC Glucose 165 H Indicators for Scoring Admitted with or Primary Diagnosis of CVA/Stroke: Yes Hx of CVA/Stroke: Yes Modified [place] Score MRS Score at time of Evaluation: 4-Moderate/severe disability Physical Exam Const alert, oriented x3, no apparent distress and well nourished Constitutional Narrative: laying in bed General Appearance: cooperative and comfortable; Negative for in distress, ill appearing or diaphoretic Orientation / Consciousness: awake, oriented to person, oriented to place and oriented to time Exam Limitations: Negative for altered mental status HEENT normocephalic and head/scalp atraumatic Head and Scalp: normocephalic and atraumatic Face and Sinus: normal facial exam Eyes General Eye: normal appearance of both eyes Chest inspection of chest normal Chest: symmetrical chest wall rise Resp normal respiratory effort, normal air movement, no use of accessory muscles and clear to auscultation bilaterally Resp Narrative: Anterior auscultation Effort and Inspection: able to speak in complete sentences and symmetric chest movement; Negative for respiratory distress or audible wheezes Auscultation: clear to auscultation bilaterally Cardio regular rate, regular rhythm and no murmurs Rate: regular rate Rhythm: regular rhythm Heart Sounds: Negative for murmur GI normal to inspection, nondistended, normoactive bowel sounds, soft to palpation, non-tender and non-distended Auscultation: normoactive bowel sounds Palpation: soft; Negative for guarding Extremity normal to inspection General Extremity: Negative for edema Skin no rashes or lesions noted General Skin Exam: no breakdown Lesions: no lesions Rashes: no rashes Neuro oriented x3 and No moves all extremities Neuro Narrative: Some involuntary movement of both left upper and lower extremities without any purposeful movement. Sensorium / Orientation: awake, alert, oriented to person, oriented to place and oriented to time Speech: speech normal Psych mental status grossly normal, cooperative, affect normal and speech normal Appearance: grossly normal Attitude: calm Assessment & Plan Assessment/Plan (1) Debility: PLAN: Will continue with PT/OT and follow up on findings and recommendations. Continue with PRN pain management, bowel regimen and fall precautions. An update to his insurance will happen today to determine discharge plans. Patient will likely require discharge to a SNF for further therapy purposes. 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 He will need to follow up with neurology upon discharge from inpatient rehab which is scheduled for 12/14/23. Patient is currently on soft and bite sized food and thin liquids. Lexapro added for pseudobulbar affect symptoms. Will continue to monitor. Question of whether he is getting increased sensation in his left arm. If needed, can consider a low dose of gabapentin, however, will hold off for now due to potential of drowsiness. (3) Cerebral parenchymal hemorrhage: QUALIFIERS: Cerebral hemorrhage location: unspecified cerebral location Intracerebral hemorrhage etiology: nontraumatic Laterality: right Qualified Code(s): I61.9 - Nontraumatic intracerebral hemorrhage, unspecified PLAN: As above. Will maintain on aspirin alone due to recent bleed. (4) Atherosclerosis of coronary artery bypass graft without angina pectoris: QUALIFIERS: [place] vs. transplanted heart: [place] heart Qualified Code(s): I25.810 - Atherosclerosis of coronary artery bypass graft(s) without angina pectoris PLAN: Stable. Patient denies any current symptoms. Will continue current management and monitor. He will need to follow up with his room attendant upon discharge from inpatient rehab. (5) Essential (primary) hypertension: PLAN: Blood pressure shows great control. Will continue current management and monitor. (6) Hyperlipidemia: QUALIFIERS: Hyperlipidemia type: mixed hyperlipidemia Qualified Code(s): E78.2 - Mixed hyperlipidemia PLAN: Stable. Continue with statin therapy and monitor. (7) Obstructive sleep apnea: PLAN: Patient did not wear his CPAP last night, but just oxygen. Per nursing, he has been refusing. He was also non-compliant at home. Will continue as tolerated and monitor. (8) Type 2 diabetes mellitus: QUALIFIERS: Diabetes mellitus complication status: without complication Diabetes mellitus intermission coordinator insulin use: without intermission coordinator use Qualified Code(s): E11.9 - Type 2 diabetes mellitus without complications PLAN: Patient was not on any medications for his diabetes recently. A1c in the hospital was 7.1. Will continue with glucose checks and SSI. Diabetic diet ordered. Glucose this morning was 165. (9) GERD (gastroesophageal reflux disease): QUALIFIERS: Esophagitis presence: without esophagitis Qualified Code(s): K21.9 - Gastro-esophageal reflux disease without esophagitis PLAN: Stable. Continue current management. (10) Urinary retention: PLAN: Patient has been urinating without difficulty, however, has had some urinary incontinence. Will continue to monitor. For now, continue current management. Charges/Coding Visit Charges Inpatient E&M: 97315 Subs Hosp L1
[2023-11-10 12:03] LABS: Bedside Glucose 124 mg/dL (74-106)
[2023-11-10 17:23] VITALS: BP 139/100; PULSE 65; RESP 15; TEMP 36.3; O2SAT 93
[2023-11-10 17:30] LABS: Bedside Glucose 142 mg/dL (74-106)
[2023-11-10] MEDS: Atorvastatin Calcium 40 MG Tablet PO (20:48)
[2023-11-10 20:59] VITALS: BP 95/43; PULSE 76
[2023-11-10 22:00] VITALS: BP 95/43; PULSE 87; RESP 15; TEMP 36.3; O2SAT 93
[2023-11-10 22:24] LABS: Bedside Glucose 161 mg/dL (74-106)
[2023-11-11 01:44] VITALS: BMI 30.7
[2023-11-11] MEDS: Menthol/Lanolin/Calamine/Znox 113 GM Tube 1 APPLIC TOPICAL ×2 (05:49→23:21)
[2023-11-11 07:15] VITALS: O2SAT 93
[2023-11-11 07:25] LABS: Bedside Glucose 135 mg/dL (74-106)
[2023-11-11 08:01] VITALS: BP 100/62; PULSE 80; RESP 18; TEMP 36.9; O2SAT 95
[2023-11-11 08:42] VITALS: PULSE 80
[2023-11-11] MEDS: Escitalopram Oxalate 10 MG Tablet 5 MG PO (08:42)
[2023-11-11] MEDS: Pantoprazole Sodium 20 MG Tablet PO (08:42)
[2023-11-11] MEDS: Metoprolol Tartrate 25 MG Tablet PO ×2 (08:42→23:19)
[2023-11-11] MEDS: Senna/Docusate Sodium 1 Tablet 2 TABLET PO ×2 (08:42→23:23)
[2023-11-11] MEDS: amLODIPine 10 MG Tablet PO (08:43)
[2023-11-11] MEDS: Lisinopril 40 MG Tablet PO (08:43)
[2023-11-11] MEDS: Aspirin E.C. 81 MG Tablet PO (08:43)
[2023-11-11] MEDS: Glucerna Shake 120 ML LIQUID PO ×3 (08:43→16:14)
[2023-11-11] MEDS: Acetaminophen 325 MG Tablet 650 MG PO (08:43)
[2023-11-11] MEDS: hydroCHLOROthiazide 25 MG Tablet PO (08:43)
--- NOTE | 2023-11-11 09:25 | EX.PCM.PN.RE ---
Subjective Subjective Patient was admitted for daily rehab following a hospital stay for an acute CVA with hemorrhagic conversion. No events overnight. He has not been wearing his CPAP with nursing reporting he has been refusing it. He continues to wear oxygen at bedtime, however. He reports his shoulder hasn't been too bad today. He continues to eat well and reports he was able to move his bowels. He feels better after doing so. He continues to urinate without difficulty. He has no questions or concerns at this time. Objective Data Objective Data Vital Signs: Vital Signs Temp Pulse Resp BP Pulse Ox O2 Del Method O2 Flow Rate 98.4 F 80 18 100/62 95 Room Air 2 11/11/23 08:01 11/11/23 08:42 11/11/23 08:01 11/11/23 08:01 11/11/23 08:01 11/11/23 08:01 11/11/23 07:15 Oxygen Flow Rate (L/min) 2 Oxygen Delivery Method Room Air Weight: 196 lb 3.382 oz Body Mass Index (BMI) 30.7 Intake & Output: Intake and Output for Last 24 Hours 11/09/23 11/10/23 11/11/23 23:59 23:59 23:59 Intake Total 1370 / 1370 720 / 720 180 / 180 Balance 1370 / 1370 720 / 720 180 / 180 Lab / Micro Data Attestation: I reviewed the patient's lab results. 10/29/23 05:09 10/29/23 05:09 Labs: Laboratory Results - last 24 hr 11/10/23 11:32: POC Glucose 124 H 11/10/23 16:37: POC Glucose 142 H 11/10/23 21:09: POC Glucose 161 H 11/11/23 07:05: POC Glucose 135 H Indicators for Scoring Admitted with or Primary Diagnosis of CVA/Stroke: Yes Hx of CVA/Stroke: Yes Modified [place] Score MRS Score at time of Evaluation: 4-Moderate/severe disability Physical Exam Const alert, oriented x3, no apparent distress and well nourished Constitutional Narrative: Sitting up in the wheelchair, working with therapy General Appearance: cooperative and comfortable; Negative for in distress, ill appearing or diaphoretic Orientation / Consciousness: awake, oriented to person, oriented to place and oriented to time Exam Limitations: Negative for altered mental status HEENT normocephalic and head/scalp atraumatic Head and Scalp: normocephalic and atraumatic Face and Sinus: normal facial exam Eyes General Eye: normal appearance of both eyes Chest inspection of chest normal Chest: symmetrical chest wall rise Resp normal respiratory effort, normal air movement, no use of accessory muscles and clear to auscultation bilaterally Effort and Inspection: able to speak in complete sentences and symmetric chest movement; Negative for respiratory distress or audible wheezes Auscultation: clear to auscultation bilaterally Cardio regular rate, regular rhythm and no murmurs Rate: regular rate Rhythm: regular rhythm Heart Sounds: Negative for murmur GI normal to inspection, nondistended, normoactive bowel sounds, soft to palpation, non-tender and non-distended Auscultation: normoactive bowel sounds Palpation: soft; Negative for guarding Extremity normal to inspection Extremity Narrative: Left arm in sling General Extremity: Negative for edema Skin no rashes or lesions noted General Skin Exam: no breakdown Lesions: no lesions Rashes: no rashes Neuro oriented x3 and No moves all extremities Neuro Narrative: Left hemiparesis Sensorium / Orientation: awake, alert, oriented to person, oriented to place and oriented to time Speech: speech normal Psych mental status grossly normal, cooperative, affect normal and speech normal Appearance: grossly normal Attitude: calm Assessment & Plan Assessment/Plan (1) Debility: PLAN: Will continue with PT/OT and follow up on findings and recommendations. Continue with PRN pain management, bowel regimen and fall precautions. Awaiting insurance update for discharge planning. Patient will likely require discharge to a SNF for further therapy purposes. 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 He will need to follow up with neurology upon discharge from inpatient rehab which is scheduled for 12/14/23. Patient is currently on soft and bite sized food and thin liquids. Lexapro added for pseudobulbar affect symptoms. Will continue to monitor. Question of whether he is getting increased sensation in his left arm. If needed, can consider a low dose of gabapentin, however, will hold off for now due to potential of drowsiness. (3) Cerebral parenchymal hemorrhage: QUALIFIERS: Cerebral hemorrhage location: unspecified cerebral location Intracerebral hemorrhage etiology: nontraumatic Laterality: right Qualified Code(s): I61.9 - Nontraumatic intracerebral hemorrhage, unspecified PLAN: As above. Will maintain on aspirin alone due to recent bleed. (4) Atherosclerosis of coronary artery bypass graft without angina pectoris: QUALIFIERS: [place] vs. transplanted heart: [place] heart Qualified Code(s): I25.810 - Atherosclerosis of coronary artery bypass graft(s) without angina pectoris PLAN: Stable. Patient denies any current symptoms. Will continue current management and monitor. He will need to follow up with his senior program planner upon discharge from inpatient rehab. (5) Essential (primary) hypertension: PLAN: Blood pressure shows great control. Will continue current management and monitor. (6) Hyperlipidemia: QUALIFIERS: Hyperlipidemia type: mixed hyperlipidemia Qualified Code(s): E78.2 - Mixed hyperlipidemia PLAN: Stable. Continue with statin therapy and monitor. (7) Obstructive sleep apnea: PLAN: Patient has not been wearing his CPAP at night, but just oxygen. Per nursing, he has been refusing. He was also non-compliant at home. Will continue as tolerated and monitor. (8) Type 2 diabetes mellitus: QUALIFIERS: Diabetes mellitus complication status: without complication Diabetes mellitus longshore equipment operator insulin use: without longshore equipment operator use Qualified Code(s): E11.9 - Type 2 diabetes mellitus without complications PLAN: Patient was not on any medications for his diabetes recently. A1c in the hospital was 7.1. Will continue with glucose checks and SSI. Diabetic diet ordered. Glucose this morning was 135. (9) GERD (gastroesophageal reflux disease): QUALIFIERS: Esophagitis presence: without esophagitis Qualified Code(s): K21.9 - Gastro-esophageal reflux disease without esophagitis PLAN: Stable. Continue current management. (10) Urinary retention: PLAN: Patient has been urinating without difficulty, however, has had some urinary incontinence. Will continue to monitor. For now, continue current management. Charges/Coding Visit Charges Inpatient E&M: 09683 [facility] Hosp L1
[2023-11-11 12:08] LABS: Bedside Glucose 139 mg/dL (74-106)
--- NOTE | 2023-11-11 16:05 | CASEMGMT ---
Addendum entered by Sultana Watkins 11/12/23 13:29: SW left VM with to update [facility] can accept, offered to set DC date for 11/18. SW needs to discuss payment if precert is denied. Will await return call. Original Note: Social Work SW spoke with to follow up on SNF choices. prefers [facility], no other options at this time. Insurance approved with [employer] 11/17, however, it was indicated the insurance is not reviewing the clinicals, they are giving a week approval at a time and waiting for IDT to set a DC date. SW to update IDT and collaborate with on DC. SW sent referral to [facility] for skilled care via [facility]. Sultana Watkins, ESAU HARRISW
[2023-11-11 17:00] VITALS: BMI 30.7
[2023-11-11 17:36] LABS: Bedside Glucose 147 mg/dL (74-106)
[2023-11-11 22:50] VITALS: BP 116/55; PULSE 79; RESP 12; TEMP 36.7; O2SAT 97; BMI 30.7
[2023-11-11 23:19] VITALS: BP 116/55; PULSE 79
[2023-11-11] MEDS: Atorvastatin Calcium 40 MG Tablet PO (23:19)
[2023-11-11] MEDS: Doxazosin 4 MG Tablet PO (23:20)
[2023-11-12 00:26] LABS: Bedside Glucose 130 mg/dL (74-106)
[2023-11-12 07:13] LABS: Bedside Glucose 138 mg/dL (74-106)
[2023-11-12 07:54] VITALS: BP 95/52; PULSE 75; RESP 14; TEMP 36.6; O2SAT 92
[2023-11-12] MEDS: Glucerna Shake 120 ML LIQUID PO ×3 (08:15→16:39)
[2023-11-12] MEDS: Menthol/Lanolin/Calamine/Znox 113 GM Tube 1 APPLIC TOPICAL (08:15)
[2023-11-12 08:22] VITALS: PULSE 75
[2023-11-12] MEDS: Senna/Docusate Sodium 1 Tablet 2 TABLET PO ×2 (08:22→22:25)
[2023-11-12] MEDS: Pantoprazole Sodium 20 MG Tablet PO (08:22)
[2023-11-12] MEDS: Metoprolol Tartrate 25 MG Tablet PO ×2 (08:22→22:26)
[2023-11-12] MEDS: Aspirin E.C. 81 MG Tablet PO (08:22)
[2023-11-12] MEDS: amLODIPine 10 MG Tablet PO (08:22)
[2023-11-12] MEDS: Lisinopril 40 MG Tablet PO (08:23)
[2023-11-12] MEDS: hydroCHLOROthiazide 25 MG Tablet PO (08:23)
[2023-11-12] MEDS: Escitalopram Oxalate 10 MG Tablet 5 MG PO (08:23)
[2023-11-12 08:34] VITALS: O2SAT 92
[2023-11-12 12:12] LABS: Bedside Glucose 126 mg/dL (74-106)
[2023-11-12 17:00] VITALS: BMI 30.7
[2023-11-12 17:06] LABS: Bedside Glucose 104 mg/dL (74-106)
[2023-11-12 22:00] VITALS: BP 105/82; PULSE 65; RESP 18; TEMP 36.4; O2SAT 94; BMI 30.7
[2023-11-12 22:04] LABS: Bedside Glucose 121 mg/dL (74-106)
[2023-11-12] MEDS: Doxazosin 4 MG Tablet PO (22:25)
[2023-11-12] MEDS: Atorvastatin Calcium 40 MG Tablet PO (22:25)
[2023-11-12 22:26] VITALS: BP 105/82; PULSE 65
[2023-11-13] MEDS: Menthol/Lanolin/Calamine/Znox 113 GM Tube 1 APPLIC TOPICAL ×2 (05:55→21:10)
[2023-11-13 06:53] LABS: Bedside Glucose 140 mg/dL (74-106)
[2023-11-13 07:47] VITALS: O2SAT 92
[2023-11-13 07:57] VITALS: BP 96/60; PULSE 79; RESP 14; TEMP 36.4; O2SAT 95
[2023-11-13 07:58] VITALS: BMI 30.7
[2023-11-13] MEDS: Glucerna Shake 120 ML LIQUID PO ×3 (08:57→16:21)
[2023-11-13] MEDS: Pantoprazole Sodium 20 MG Tablet PO (09:01)
[2023-11-13] MEDS: Aspirin E.C. 81 MG Tablet PO (09:01)
[2023-11-13 09:02] VITALS: PULSE 79
[2023-11-13] MEDS: Metoprolol Tartrate 25 MG Tablet PO ×2 (09:02→20:58)
[2023-11-13] MEDS: Lisinopril 40 MG Tablet PO (09:02)
[2023-11-13] MEDS: Senna/Docusate Sodium 1 Tablet 2 TABLET PO ×2 (09:02→20:57)
[2023-11-13] MEDS: Escitalopram Oxalate 10 MG Tablet 5 MG PO (09:02)
[2023-11-13] MEDS: amLODIPine 10 MG Tablet PO (09:02)
[2023-11-13] MEDS: hydroCHLOROthiazide 25 MG Tablet PO (09:03)
[2023-11-13] MEDS: Insulin Lispro 100 UNIT/ML INSULN.PEN SC (11:07)
[2023-11-13] MEDS: Acetaminophen 325 MG Tablet 650 MG PO (11:07)
[2023-11-13 12:19] LABS: Bedside Glucose 155 mg/dL (74-106)
--- NOTE | 2023-11-13 15:21 | CASEMGMT ---
Social Work Late entry: returned call same day and confirmed admission to [facility] 11/18. -- SW to send updated clinicals 11/17 to start precert. SW scheduled cot transport through [facility] for [id number] started. Plan: DC 11/18 to [facility], skilled, pending precert ESAU Castillo
--- NOTE | 2023-11-13 15:46 | PCM.PROGNOTE ---
Subjective Subjective Afebrile VSS - systolic BP is less than 100 at times. HR is WNL Maintaining appropriate oxygen saturation on RA Oral intake is fair to good. Discussed with nursing - no problems that need addressed Reviewed the PT/OT/ST notes Medication list reviewed. I reviewed Dr. Watson's H&P. Bartolome is admitted to rehab following Ischemic strokes. The first stroke occurred on 10/13/2023 and he had left-sided weakness. Imaging demonstrated an acute right parietal CVA. On 1121 his neurological exam deteriorated and a repeat MRI showed a new right frontal lobe CVA. On 1122 he continues to decline and repeat imaging showed a hemorrhagic conversion with subarachnoid/parenchymal blood. He was then transferred to [facility] and did not require any surgical intervention. He was treated with hypertonic saline and a nicardipine drip. He had tube feed while he was at [facility]. He was later transition to an oral diet and oral medications. NIHSS score at presentation to rehab was 14. Bartolome denies pain at the present time. He also denies shortness of breath, dysuria, lightheadedness, abdominal pain, nausea/vomiting and cephalgia. PVR's have mostly been less than 200 with rare exception. Echocardiogram on 10/15/2023 showed normal size left ventricle with a 70% ejection fraction. There was no atrial enlargement. Bubble contrast study was negative. There was no significant valvular heart disease. His last chemistry was on 10/29/2023 and showed an elevated BUN of 23 with a creatinine of 0.97. Electrolytes were unremarkable. Hemoglobin was normal at 13.7. Objective Data Objective Data Vital Signs: Vital Signs Temp Pulse Resp BP Pulse Ox O2 Del Method O2 Flow Rate 97.6 F L 79 14 96/60 95 Room Air 2 11/13/23 07:57 11/13/23 09:02 11/13/23 07:57 11/13/23 07:57 11/13/23 07:57 11/13/23 07:57 11/12/23 06:25 Oxygen Flow Rate (L/min) 2 Oxygen Delivery Method Room Air Weight: 195 lb 15.855 oz Body Mass Index (BMI) 30.7 Intake & Output: Intake and Output for Last 24 Hours 11/11/23 11/12/23 11/13/23 23:59 23:59 23:59 Intake Total 1340 / 1340 2300 / 2300 120 / 120 Output Total 625 / 625 250 / 250 Balance 715 / 715 2049 / 2049 120 / 120 Lab / Micro Data 10/29/23 05:09 10/29/23 05:09 Labs: Laboratory Results - last 24 hr 11/12/23 16:43: POC Glucose 104 11/12/23 21:45: POC Glucose 121 H 11/13/23 06:08: POC Glucose 140 H 11/13/23 11:01: POC Glucose 155 H Physical Exam Const no apparent distress Constitutional Narrative: Patient is hard of hearing. He is currently lying in bed. He is drowsy and speaks slowly. General Appearance: cooperative and well developed HEENT normocephalic Mouth: dry mucous membranes Resp clear to auscultation bilaterally Resp Narrative: He has an occasional cough with sounds moist but is rarely productive. He tells me that the cough is chronic and he has it at home. He used to be a smoker for a long period of time but quit 12 years ago when he was diagnosed with coronary disease. Effort and Inspection: Negative for tachypneic, respiratory distress, labored or uses accessory muscles Cardio regular rate, regular rhythm and no gallops GI normal to inspection, nondistended, normoactive bowel sounds, soft to palpation, non-tender and non-distended Extremity no calf tenderness General Extremity: Negative for cyanosis or edema Skin Rashes: no rashes Psych cooperative Psych Narrative: Flat affect. Asking appropriate questions such as how long does it take to get better . Tells me that he is sleeping pretty good and eating pretty good. Appearance: appropriate Attitude: No agitated Assessment & Plan Assessment/Plan (1) Debility: (2) Ischemic cerebrovascular accident (CVA): (3) BPH (benign prostatic hyperplasia): (4) Dehydration: (5) Type 2 diabetes mellitus: QUALIFIERS: Diabetes mellitus longterm insulin use: without longterm use Diabetes mellitus complication status: without complication Qualified Code(s): E11.9 - Type 2 diabetes mellitus without complications (6) Obstructive sleep apnea: (7) Stented coronary artery: (8) Atherosclerosis of coronary artery bypass graft without angina pectoris: QUALIFIERS: [place] vs. transplanted heart: [place] heart Qualified Code(s): I25.810 - Atherosclerosis of coronary artery bypass graft(s) without angina pectoris (9) H/O coronary artery bypass surgery: (10) Essential (primary) hypertension: (11) Hyperlipidemia: QUALIFIERS: Hyperlipidemia type: mixed hyperlipidemia Qualified Code(s): E78.2 - Mixed hyperlipidemia (12) Carotid stenosis, right: (13) Urinary retention: (14) LUE weakness: (15) Left leg weakness: PLAN: Plan 1. Continue therapy 2. Recheck a BMP today. I suspect he is very dehydrated and that is why the Blood pressures are low. Hold the Lisinopril for a systolic < 110 and hold the Metoprolol for a HR < 55. I suspect we are going to have to start IV fluids. Charges/Coding Visit Charges Inpatient E&M: 95833 Subs Hosp L2
[2023-11-13 17:13] LABS: Bedside Glucose 130 mg/dL (74-106)
[2023-11-13 17:14] LABS: Anion Gap 6 (5-15); BUN 54 mg/dL (7-18); BUN/Creat Ratio 34.4 RATIO (10-20); Calcium,Total 10.6 mg/dL (8.5-10.1); Chloride 99 mmol/L (98-107); Creatinine, Serum 1.57 mg/dL (0.70-1.30); EST Glomerular Filtration Rate 46 mL/min (>60); Est Glom Filt Rate - Afr Amer 56 mL/min (>60); Estimated Creatinine Clearance 37.42 ml/min; Glucose 139 mg/dL (74-106); Potassium 4.4 mmol/L (3.5-5.1); Sodium Level 130 mmol/L (136-145)
[2023-11-13] MEDS: 0.9% Normal Saline (500mL Bag) 500 ML 999 ML IV (19:45)
[2023-11-13 20:08] VITALS: BP 106/48; PULSE 71; RESP 16; TEMP 36.9; O2SAT 93
[2023-11-13] MEDS: 0.9% Normal Saline (1000mL) 1,000 ML 100 ML IV (20:54)
[2023-11-13] MEDS: Doxazosin 4 MG Tablet PO (20:57)
[2023-11-13] MEDS: Atorvastatin Calcium 40 MG Tablet PO (20:57)
[2023-11-13 20:58] VITALS: BP 106/48; PULSE 71
[2023-11-13 21:31] LABS: Bedside Glucose 129 mg/dL (74-106)
[2023-11-13 23:15] VITALS: BMI 30.7
[2023-11-14] MEDS: Miconazole Nitrate 43 GM Bottle 1 APPLIC TOPICAL ×2 (05:23→22:58)
[2023-11-14] MEDS: Menthol/Lanolin/Calamine/Znox 113 GM Tube 1 APPLIC TOPICAL ×2 (05:23→22:58)
[2023-11-14 06:35] VITALS: O2SAT 91
[2023-11-14] MEDS: 0.9% Normal Saline (1000mL) 1,000 ML 100 ML IV (06:52)
[2023-11-14 07:25] LABS: Bedside Glucose 129 mg/dL (74-106)
[2023-11-14 07:47] VITALS: BP 125/59; PULSE 81; RESP 17; TEMP 36.7; O2SAT 97
[2023-11-14 08:27] LABS: Anion Gap 6 (5-15); BUN 38 mg/dL (7-18); BUN/Creat Ratio 36.9 RATIO (10-20); Calcium,Total 10.3 mg/dL (8.5-10.1); Chloride 104 mmol/L (98-107); Creatinine, Serum 1.03 mg/dL (0.70-1.30); EST Glomerular Filtration Rate 75 mL/min (>60); Est Glom Filt Rate - Afr Amer 90 mL/min (>60); Estimated Creatinine Clearance 57.04 ml/min; Glucose 125 mg/dL (74-106); Potassium 4.1 mmol/L (3.5-5.1); Sodium Level 134 mmol/L (136-145)
[2023-11-14] MEDS: Glucerna Shake 120 ML LIQUID PO ×3 (08:56→16:19)
[2023-11-14] MEDS: Pantoprazole Sodium 20 MG Tablet PO (08:57)
[2023-11-14] MEDS: Lisinopril 40 MG Tablet PO (08:57)
[2023-11-14] MEDS: Senna/Docusate Sodium 1 Tablet 2 TABLET PO (08:57)
[2023-11-14] MEDS: amLODIPine 10 MG Tablet PO (08:57)
[2023-11-14 08:58] VITALS: PULSE 81
[2023-11-14] MEDS: Metoprolol Tartrate 25 MG Tablet PO ×2 (08:58→22:14)
[2023-11-14] MEDS: Aspirin E.C. 81 MG Tablet PO (08:58)
[2023-11-14] MEDS: Escitalopram Oxalate 10 MG Tablet 5 MG PO (08:58)
[2023-11-14 11:56] LABS: Bedside Glucose 126 mg/dL (74-106)
[2023-11-14 12:36] VITALS: BMI 30.7
--- NOTE | 2023-11-14 15:47 | PN_ITS ---
Progress Note AF earlier today but, has developed a low grade fever > 100 and cough is increasing VSS -blood pressure has improved with the administration of IV fluids and his last blood pressure was 125/59 with a heart rate of 81. Maintaining appropriate oxygen saturation on RA Oral intake is poor for fluids. He took only 240 cc of fluid yesterday orally and took 460 so far today. He is eating 50 to 74% of most meals. Fluid balance from 11/13/2023 is +440. Outputs are not accurate due to urinary incontinence. Overnight he received 1457 cc of normal saline. The blood sugar record was reviewed and all blood sugars are less than 200 and he is receiving no sliding scale insulin. Discussed with nursing - no problems that need addressed. Nursing tells me he slept well last night. Reviewed the PT/OT/ST notes Medication list reviewed. Lab drawn this morning was personally reviewed. The sodium is increased from 130-134 with IV normal saline. Potassium is good at 4.1 and the BUN is down to 38 from 54 yesterday. Creatinine today is 1.03 down from 1.57 yesterday. Calcium is high, likely secondary to dehydration. His face is flushed and he has a low grade fever. He has some cough, not very frequent....it is productive but, he is able to clear the secretions and is swallowing them. He denies ST, chills, chest pain and SOB. He is much more more alert today than yesterday since hydrated. Speech is normal and he has no conversational dyspnea. Physical Exam Const alert and no apparent distress Constitutional Narrative: His face is a little flushed and he has a low-grade fever. Much more alert than he was yesterday afternoon when I examined him. The speech jenny is normal today and he has no conversational dyspnea. General Appearance: cooperative and comfortable HEENT HEENT Narrative: Mucous membranes are still dry but better than yesterday. Eyes conjunctivae normal and no scleral icterus Eyes Narrative: No mattering of the eyelashes and no discharge from the eyes. The sclera is clear. The pharynx has no exudate and he has no cervical adenopathy. Resp Resp Narrative: Not able to cooperate very well with taking a deep breath. He did have air exchange in the bases and they were clear. Taking a deep breath did not cause coughing. There were no wheezes and no crackles heard. He is not tachypneic and has no conversational dyspnea. There is no accessory muscle use. Cardio regular rate, regular rhythm, no rub and no gallops GI normal to inspection, nondistended, normoactive bowel sounds, soft to palpation, non-tender and non-distended Narrative: Denies dysuria. Denies flank pain. No nausea/vomiting. No suprapubic pain with palpation Extremity no calf tenderness and no pedal edema Skin General Skin Exam: no breakdown Rashes: no rashes Assessment & Plan Assessment/Plan (1) Debility: (2) Ischemic cerebrovascular accident (CVA): (3) BPH (benign prostatic hyperplasia): (4) Dehydration: (5) Type 2 diabetes mellitus: QUALIFIERS: Diabetes mellitus long filler cigar roller machine insulin use: without long filler cigar roller machine use Diabetes mellitus complication status: without complication Qualified Code(s): E11.9 - Type 2 diabetes mellitus without complications (6) Obstructive sleep apnea: (7) Stented coronary artery: (8) Atherosclerosis of coronary artery bypass graft without angina pectoris: QUALIFIERS: [place] vs. transplanted heart: [place] heart Qualified Code(s): I25.810 - Atherosclerosis of coronary artery bypass graft(s) without angina pectoris (9) H/O coronary artery bypass surgery: (10) Essential (primary) hypertension: (11) Hyperlipidemia: QUALIFIERS: Hyperlipidemia type: mixed hyperlipidemia Qualified Code(s): E78.2 - Mixed hyperlipidemia (12) Carotid stenosis, right: (13) Urinary retention: (14) LUE weakness: (15) Left leg weakness: (16) Fever: PLAN: Plan 1. Continue therapy 2. Continue IV normal saline but decrease the rate to 75 cc/h. Will continue to encourage increased fluid intake. Now that he is more alert and has been hy drated somewhat he remembers I told him to drink 2 of the containers of water daily in his room. 3. Recheck a BMP and CBC without differential on Thursday. 4. No changes to the drug regimen today. 5. Bartolome tells me he had the last COVID-vaccine and he also had a flu vaccine. Because he has a fever will check a flu and COVID test. Will send a UA if both are negative. A chest x-ray was ordered and I reviewed the film. There is no cardiomegaly, no pleural effusions, no infiltrates and no evidence of pulmonary vascular congestion. Both influenza and COVID swabs were negative. Will send a urine. No antibiotics indicated at this time. Continue to monitor. Visit Charges Inpatient E&M: 42534 Subs Hosp L2
--- NOTE | 2023-11-14 16:43 | RAD_ITS ---
STUDY: X-RAY CHEST REASON FOR EXAM: Male, 78 years old. Fever TECHNIQUE: Single AP portable view of the chest. COMPARISON: 10/13/2023. FINDINGS: The lungs are clear and expanded. There is no demonstrated pleural abnormality. Normal size heart. Normal mediastinum and blaine. Normal visualized pulmonary arteries. There is atherosclerotic calcification of the aortic arch with tortuosity. Midline sternotomy wires noted. Normal visualized ribs, clavicles, and shoulders. There is no demonstrated abnormality of the visualized soft tissue structures of the upper abdomen. RAD/Chest 1 View (Portable) IMPRESSION: No acute cardiopulmonary disease. Electronically Signed: Glenna Tyson MD at 16:56 EST ,
[2023-11-14] MEDS: 0.9% Normal Saline (1000mL) 1,000 ML 75 ML IV (17:31)
[2023-11-14 18:04] LABS: Bacteria 0 SEEN /hpf (None Seen); Mucous, Urine 0 SEEN /hpf (<or=2+); Red Blood Cells-Urine 0 SEEN /hpf (0-5); Squamous Epithelial Cells - UA 0 SEEN /hpf (0-5)
[2023-11-14 18:15] LABS: Color, Urine Yellow (Yellow); Glucose, Dipstick Normal (Normal); Ketone-Dipstick Negative (Negative); Leukocyte Esterase-Dipstick 500 /ul (Negative); Nitrite-Dipstick Positive (Negative); Occult Blood-Urine 150 /ul (Negative); Protein-Dipstick 30 mg/dl (Negative); Specific Gravity, Urine 1.015 (1.002-1.030); Urine Bilirubin Dipstick Negative (Negative); Urine Clarity Cloudy (Clear); Urine Urobilinogen Normal (Normal)
[2023-11-14 18:21] LABS: White Blood Cells >100 SEEN /hpf (0-5)
[2023-11-14] MEDS: Ceftriaxone 1 GM/50 ML BAG IV (18:39)
[2023-11-14 19:00] VITALS: BP 158/75; PULSE 78; RESP 16; TEMP 39; O2SAT 95
[2023-11-14 22:00] VITALS: PULSE 78; PULSE 97; RESP 20; TEMP 39; O2SAT 89; BMI 30.7
[2023-11-14 22:14] VITALS: BP 158/75; PULSE 97
[2023-11-14] MEDS: Atorvastatin Calcium 40 MG Tablet PO (22:14)
[2023-11-14] MEDS: Acetaminophen 325 MG Tablet 650 MG PO (22:15)
[2023-11-14] MEDS: Doxazosin 4 MG Tablet PO (22:15)
[2023-11-15] VITALS (7 sets, daily range): BP systolic 134–150; BP diastolic 65–72; PULSE 72–86; RESP 15–18; TEMP 36.4–37.9; O2SAT 95–96; BMI 30.7
[2023-11-15] MEDS: Menthol/Lanolin/Calamine/Znox 113 GM Tube 1 APPLIC TOPICAL ×2 (06:15→22:06)
[2023-11-15] MEDS: Miconazole Nitrate 43 GM Bottle 1 APPLIC TOPICAL ×2 (06:15→22:09)
[2023-11-15] MEDS: 0.9% Normal Saline (1000mL) 1,000 ML 75 ML IV (06:17)
[2023-11-15] MEDS: Glucerna Shake 120 ML LIQUID PO ×3 (08:42→16:14)
[2023-11-15] MEDS: Lisinopril 40 MG Tablet PO (08:43)
[2023-11-15] MEDS: amLODIPine 5 MG Tablet PO (08:43)
[2023-11-15] MEDS: Aspirin E.C. 81 MG Tablet PO (08:44)
[2023-11-15] MEDS: Pantoprazole Sodium 20 MG Tablet PO (08:44)
[2023-11-15] MEDS: Metoprolol Tartrate 25 MG Tablet PO ×2 (08:44→22:10)
[2023-11-15] MEDS: Escitalopram Oxalate 10 MG Tablet 5 MG PO (08:44)
[2023-11-15] MEDS: Acetaminophen 325 MG Tablet 650 MG PO ×2 (08:46→16:16)
[2023-11-15] MEDS: Ceftriaxone 1 GM/50 ML BAG IV (09:59)
[2023-11-15] MEDS: Doxazosin 4 MG Tablet PO (22:07)
[2023-11-15] MEDS: Atorvastatin Calcium 40 MG Tablet PO (22:07)
[2023-11-16 04:56] VITALS: BMI 30.7
[2023-11-16] MEDS: Miconazole Nitrate 43 GM Bottle 1 APPLIC TOPICAL ×2 (05:10→22:56)
[2023-11-16] MEDS: Menthol/Lanolin/Calamine/Znox 113 GM Tube 1 APPLIC TOPICAL ×2 (05:10→22:56)
[2023-11-16] MEDS: Senna/Docusate Sodium 1 Tablet 2 TABLET PO ×2 (08:27→22:56)
[2023-11-16] MEDS: Aspirin E.C. 81 MG Tablet PO (08:27)
[2023-11-16] MEDS: Escitalopram Oxalate 10 MG Tablet 5 MG PO (08:28)
[2023-11-16 08:29] VITALS: PULSE 74
[2023-11-16] MEDS: Metoprolol Tartrate 25 MG Tablet PO ×2 (08:29→22:56)
[2023-11-16] MEDS: Pantoprazole Sodium 20 MG Tablet PO (08:29)
[2023-11-16] MEDS: Lisinopril 40 MG Tablet PO (08:30)
[2023-11-16] MEDS: amLODIPine 5 MG Tablet PO (08:31)
[2023-11-16] MEDS: Glucerna Shake 120 ML LIQUID PO ×3 (08:32→16:54)
[2023-11-16 10:00] VITALS: BP 126/63; PULSE 74; RESP 16; TEMP 36.5; O2SAT 94
[2023-11-16] MEDS: 0.9% Normal Saline 250 ML IV.SOLN. IV (10:44)
[2023-11-16] MEDS: Ceftriaxone 1 GM/50 ML BAG IV (10:44)
[2023-11-16 12:41] VITALS: BMI 30.7
[2023-11-16 20:31] VITALS: BP 162/72; PULSE 74; RESP 16; TEMP 36.9; O2SAT 96
[2023-11-16 22:56] VITALS: PULSE 74
[2023-11-16] MEDS: Atorvastatin Calcium 40 MG Tablet PO (22:56)
[2023-11-16] MEDS: Doxazosin 4 MG Tablet PO (22:56)
[2023-11-17] MEDS: Miconazole Nitrate 43 GM Bottle 1 APPLIC TOPICAL ×2 (04:43→20:28)
[2023-11-17] MEDS: Acetaminophen 325 MG Tablet 650 MG PO (04:43)
[2023-11-17] MEDS: Menthol/Lanolin/Calamine/Znox 113 GM Tube 1 APPLIC TOPICAL ×2 (04:44→20:28)
[2023-11-17 05:00] VITALS: BMI 30.7
[2023-11-17 05:54] LABS: Hematocrit 34.3 % (40-54); Hemoglobin 11.6 g/dL (13.0-16.5); Mean Corp Hgb Conc 33.8 g/dL (32-36); Mean Corpuscular Hgb 28.9 pg (27.0-32.0); Mean Corpuscular Volume 85.5 fL (80-94); Mean Platelet Vol. 8.7 fl (6.2-12.0); Platelet Count 207 K/mm3 (150-450); RBC Distribution Width CV 12.6 % (11.6-14.6); RBC Distribution Width SD 39.5 fl (35.1-43.9); Red Blood Count 4.01 M/mm3 (4.6-6.2); White Blood Count 9.6 K/mm3 (4.4-11.0)
[2023-11-17 06:24] LABS: Anion Gap 6 (5-15); BUN 14 mg/dL (7-18); BUN/Creat Ratio 17.8 RATIO (10-20); Calcium,Total 9.6 mg/dL (8.5-10.1); Chloride 101 mmol/L (98-107); Creatinine, Serum 0.79 mg/dL (0.70-1.30); EST Glomerular Filtration Rate 102 mL/min (>60); Est Glom Filt Rate - Afr Amer 123 mL/min (>60); Estimated Creatinine Clearance 58.76 ml/min; Glucose 143 mg/dL (74-106); Potassium 4.1 mmol/L (3.5-5.1); Sodium Level 132 mmol/L (136-145)
[2023-11-17 06:51] VITALS: O2SAT 94
[2023-11-17 07:44] VITALS: BP 134/57; PULSE 80; RESP 16; TEMP 36.4; O2SAT 95
[2023-11-17] MEDS: Glucerna Shake 120 ML LIQUID PO ×3 (09:44→17:36)
[2023-11-17] MEDS: Aspirin E.C. 81 MG Tablet PO (09:45)
[2023-11-17] MEDS: Cefadroxil 500 MG CAPSULE 1000 MG PO (09:45)
[2023-11-17] MEDS: Escitalopram Oxalate 10 MG Tablet 5 MG PO (09:45)
[2023-11-17 09:46] VITALS: PULSE 76
[2023-11-17] MEDS: Metoprolol Tartrate 25 MG Tablet PO ×2 (09:46→21:40)
[2023-11-17] MEDS: Senna/Docusate Sodium 1 Tablet 2 TABLET PO ×2 (09:47→21:41)
[2023-11-17] MEDS: Pantoprazole Sodium 20 MG Tablet PO (09:47)
[2023-11-17] MEDS: amLODIPine 5 MG Tablet PO (09:47)
[2023-11-17] MEDS: 0.9% Saline Lock 10 ML Syringe IV (09:48)
[2023-11-17] MEDS: Lisinopril 40 MG Tablet PO (09:48)
--- NOTE | 2023-11-17 11:43 | PN_ITS ---
Subjective Subjective Bartolome was seen on team rounds today. Family was present in the room for rounds. Day 02/27 antibiotics. Afebrile since 4:00 on 11/15/2023. VSS Maintaining appropriate oxygen saturation on RA Oral intake is good. Fluid intake is improving. Discussed with nursing - no problems that need addressed. He is sleeping well at night. Has been much more alert and talkative since being hydrated and starting antibiotics for UTI. Reviewed the PT/OT/ST notes - still requiring 2 people to stand. Still needing a Eve lift to get him out of bed. Medication list reviewed. All lab drawn this morning was personally reviewed. The white blood cell count is normal at 9.6. With hydration the hemoglobin has dropped from 13.7-11.6 and the MCV and MCH are within normal limits. Platelets are normal. Sodium is 132 and the potassium is 4.1 today. BUN is down to 14 from 54 on 11/13/2023 and the creatinine is 0.79, down from 1.7 on 11/13/2023. Calcium corrected for hypoalbuminemia is still mildly elevated. This is likely on the basis of immobility. Urine culture grew 50-80,000 colonies of Klebsiella pneumoniae ozaenae which is resistant to ampicillin and intermediately sensitive or resistant to microcurette and tone. He received 3 doses of IV ceftriaxone and today is starting Duricef. Will treat with 7 days of antibiotics. He has no complaints today and he is committed to getting stronger and going h ome. Objective Data Objective Data Vital Signs: Vital Signs Temp Pulse Resp BP Pulse Ox O2 Del Method O2 Flow Rate 97.5 F L 76 16 134/57 H 95 Room Air 2 11/17/23 07:44 11/17/23 09:46 11/17/23 07:44 11/17/23 07:44 11/17/23 07:44 11/17/23 07:44 11/15/23 07:01 Oxygen Flow Rate (L/min) 2 Oxygen Delivery Method Room Air Weight: 195 lb 15.855 oz Body Mass Index (BMI) 30.7 Intake & Output: Intake and Output for Last 24 Hours 11/15/23 11/16/23 11/17/23 23:59 23:59 23:59 Intake Total 2707.5 / 2707.5 1410 / 1890 840 / 840 Output Total 500 / 700 400 / 900 1200 / 1200 Balance 2207.5 / 2007.5 1010 / 990 -360 / -360 Lab / Micro Data 11/17/23 05:18 11/17/23 05:18 Labs: Laboratory Results - last 24 hr 11/17/23 05:18: WBC 9.6, RBC 4.01 L, Hgb 11.6 L, Hct 34.3 L, MCV 85.5, MCH 28.9, MCHC 33.8, RDW Std Deviation 39.5, RDW Coeff of Pawel 12.6, Plt Count 207, MPV 8.7, Sodium 132 L, Potassium 4.1, Chloride 101, Carbon Dioxide 25.0, Anion Gap 6, BUN 14, Creatinine 0.79, Estim Creat Clear Calc 58.76, Est GFR (MDRD) Af Amer 123, Est GFR (MDRD) Non-Af 102, BUN/Creatinine Ratio 17.8, Glucose 143 H, Calcium 9.6 Micro: Microbiology 11/14/23 17:58 Urine, Catheterized Urine Culture - Final Klebsiella pneumoniae ozaenae 11/14/23 16:35 Nasal Secretion SARS-CoV-2 & FLU Antigen (Rapid) - Final Physical Exam Const alert and oriented x3 Constitutional Narrative: His face is a little flushed and he has a low-grade fever. Much more alert than he was yesterday afternoon when I examined him. The speech jenny is normal today and he has no conversational dyspnea. General Appearance: cooperative HEENT normocephalic Mouth: dry mucous membranes Eyes conjunctivae normal and no scleral icterus Eyes Narrative: No mattering of the eyelashes and no discharge from the eyes. The sclera is clear. The pharynx has no exudate and he has no cervical adenopathy. Neck No nuchal rigidity Resp clear to auscultation bilaterally Resp Narrative: No conversational dyspnea. Speech is fluent. Effort and Inspection: Negative for tachypneic, respiratory distress, labored or uses accessory muscles Cardio regular rate, regular rhythm, no rub and no gallops GI normal to inspection, nondistended, normoactive bowel sounds, soft to palpation, non-tender and non-distended Narrative: Denies dysuria. Denies flank pain. No nausea/vomiting. No suprapubic pain with palpation Extremity no calf tenderness and no pedal edema General Extremity: Negative for cyanosis or edema Skin General Skin Exam: no breakdown Rashes: no rashes Psych cooperative and affect normal Psych Narrative: Flat affect. Asking appropriate questions such as how long does it take to get better . Tells me that he is sleeping pretty good and eating pretty good. Appearance: appropriate Attitude: No agitated Activity / Motor Behavior: Negative for restless Mood & Affect: Negative for depressed Assessment & Plan Assessment/Plan (1) Debility: (2) Ischemic cerebrovascular accident (CVA): (3) Cystitis: PLAN: Due to Klebsiella pneumoniae. On 11/18/2023 he is day 5 of 7 antibiotics. (4) Acute hyponatremia: (5) Dehydration: (6) Acute renal failure: QUALIFIERS: Acute renal failure type: unspecified Qualified Code(s): N17.9 - Acute kidney failure, unspecified PLAN: Due to dehydration/intravascular volume depletion PLAN: Plan 1. Continue therapy 2. Now that he has had antibiotics will check for 3 additional postvoid residuals. 3. Continue to encourage increased fluid intake. [facility]. Recheck a BMP and CBC 5 days post discharge from rehab. 6. Can likely discontinue Accu-Cheks as the blood sugars are very well- controlled on diet alone. Charges/Coding Visit Charges Inpatient E&M: 42056 Subs Hosp L2
--- NOTE | 2023-11-17 13:56 | CASEMGMT ---
Social Work Team meeting held with pt, pt , son and granddgt present. PT/OT/ST/SN provided updated on pt functional status. SW updated family that insurance update is requested today and that plan is for pt to discharge to the [facility], skilled level of care on Thursday. Updated clinical information sent to [facility] today and precert has been started. SW updated pt, family and team that discharge to the [facility] is dependent on determination of insurance precert request. Family expressing understanding. Plan: DC to [facility], skilled level of care PENDING PRECERT ARACELI Martinez
[2023-11-17 14:25] VITALS: BMI 30.7
[2023-11-17 19:41] VITALS: BP 140/75; PULSE 72; RESP 17; TEMP 36.6; O2SAT 93
[2023-11-17 21:40] VITALS: BP 135/70; PULSE 77
[2023-11-17] MEDS: Atorvastatin Calcium 40 MG Tablet PO (21:41)
[2023-11-17] MEDS: Doxazosin 4 MG Tablet PO (21:42)
[2023-11-18 02:52] VITALS: BMI 30.7
[2023-11-18] MEDS: Miconazole Nitrate 43 GM Bottle 1 APPLIC TOPICAL (06:17)
[2023-11-18] MEDS: Menthol/Lanolin/Calamine/Znox 113 GM Tube 1 APPLIC TOPICAL (06:17)
[2023-11-18 07:01] VITALS: O2SAT 94
[2023-11-18 07:35] VITALS: BP 135/61; PULSE 81; RESP 16; TEMP 36.4; O2SAT 94
[2023-11-18] MEDS: Cefadroxil 500 MG CAPSULE 1000 MG PO (08:15)
[2023-11-18] MEDS: Aspirin E.C. 81 MG Tablet PO (08:15)
[2023-11-18] MEDS: Escitalopram Oxalate 10 MG Tablet 5 MG PO (08:15)
[2023-11-18 08:16] VITALS: BP 135/61; PULSE 81
[2023-11-18] MEDS: Metoprolol Tartrate 25 MG Tablet PO (08:16)
[2023-11-18] MEDS: Lisinopril 40 MG Tablet PO (08:17)
[2023-11-18] MEDS: amLODIPine 5 MG Tablet PO (08:17)
[2023-11-18] MEDS: Pantoprazole Sodium 20 MG Tablet PO (08:17)
[2023-11-18] MEDS: Glucerna Shake 120 ML LIQUID PO (08:18)
[2023-11-18 09:05] VITALS: RESP 17
--- NOTE | 2023-11-18 09:38 | PCM.TXEXTCAR ---
Diet Diet Order/Speech Therapy: 10/28/23 13:46 Diet: Cardiac: Calorie-Controlled Food consistency:: Soft & Bite Sized Liquid Consistency:: Regular/Thin How many daily calories?: 1800 calorie Routine Orders/Code Status Enema Type: Fleetz Enema Frequency: Daily PRN Suppository Type: Dulcolax 10mg Suppository Frequency: Daily PRN O2 Liters per Minute: 1-2 O2 Frequency: PRN Keep PO Greater than or Equal to (%): 90 Routine Lab Work: - (BMP, CBC with diff in 5 days) Code Status: Full Code Wound(s) Left elbow: Wound Type: Skin Tear Suggestions for Active Care Change Position every (hours): 2 Hours to sit in a chair: 1 Times a day to sit in chair: 3 Therapies Weight Bearing: Full weight bearing Extremity Affected:: Left Lower and Left Upper Physical Therapy: Eval and Treat Occupational Therapy: Eval and Treat Speech Therapy: Eval and Treat Problem/Diagnosis (1) Debility: Status: Acute Code(s): R53.81 - Other malaise Comment: Due to recent CVA, ischemic with hemorrhagic conversion. (2) Ischemic cerebrovascular accident (CVA): Status: Acute Code(s): I63.9 - Cerebral infarction, unspecified Comment: Ischemic Right parietal and right frontal lobes CVA's likely due to emboli from R carotid stenosis with hemorrhagic conversion with parenchymal and subarachnoid blood. (3) LUE weakness: Status: Acute Code(s): R29.898 - Other symptoms and signs involving the musculoskeletal system (4) Left leg weakness: Status: Acute Code(s): R29.898 - Other symptoms and signs involving the musculoskeletal system (5) Cognitive dysfunction: Status: Acute Code(s): F09 - Unspecified mental disorder due to known physiological condition (6) Acute hyponatremia: Status: Acute Code(s): E87.1 - Hypo-osmolality and hyponatremia Comment: Fractional excretion of sodium was 0.9% which is consistent with dehydration. And improved with normal saline infusion however p.o. fluid intake still remains only fair and he needs constant reminders to increase his fluid intake. (7) Urinary incontinence as sequela of cerebrovascular accident (CVA): Status: Acute Code(s): I69.398 - Other sequelae of cerebral infarction; R32 - Unspecified urinary incontinence (8) Fever: Status: Resolved Code(s): R50.9 - Fever, unspecified Comment: Due to cystitis (9) Cystitis: Status: Acute Code(s): N30.90 - Cystitis, unspecified without hematuria Plan: Due to Klebsiella pneumoniae. On 11/18/2023 he is day 5 of 7 antibiotics. (10) Urinary retention: Status: Acute Code(s): R33.9 - Retention of urine, unspecified Comment: Due to BPH. Rare PVR > 200. (11) BPH (benign prostatic hyperplasia): Status: Acute Code(s): N40.0 - Benign prostatic hyperplasia without lower urinary tract symptoms Comment: rare PVR >200 (12) Carotid stenosis, right: Status: Chronic Code(s): I65.21 - Occlusion and stenosis of right carotid artery Comment: Has both calcified and noncalcified plaque and this is suspected to be the etiology of the embolic CVAs. (13) Dehydration: Status: Resolved Code(s): E86.0 - Dehydration (14) Type 2 diabetes mellitus: Status: Chronic Code(s): E11.9 - Type 2 diabetes mellitus without complications (15) Obstructive sleep apnea: Status: Chronic Code(s): G47.33 - Obstructive sleep apnea (adult) (pediatric) (16) Stented coronary artery: Status: Chronic Code(s): Z95.5 - Presence of coronary angioplasty implant and graft Comment: 3.50 x 12 mm Synergy MR CHUCK to dRCA 02/06/20 (17) Atherosclerosis of coronary artery bypass graft without angina pectoris: Status: Chronic Code(s): I25.810 - Atherosclerosis of coronary artery bypass graft(s) without angina pectoris Comment: Severe chip[place]cree vessel disease involving a totally occluded left anterior descending artery, severely diseased left circumflex artery, dominant right coronary artery with high-grade mid to distal stenosis noted. Patent left internal mammary artery to left anterior descending artery, saphenous vein graft to the diagonal branch which is patent. Saphenous vein graft to the posterior descending artery is occluded. RECOMMENDATIONS: Referred for immediate PCI per [facility] 02/06/20 per [facility] @ [facility] (18) H/O coronary artery bypass surgery: Status: Resolved Code(s): Z95.1 - Presence of aortocoronary bypass graft Comment: CABG x 4 ZAVALA to LAD, SVG to RCA, SVG-D1 & LCx 04/2012 (19) Essential (primary) hypertension: Status: Chronic Code(s): I10 - Essential (primary) hypertension (20) Hyperlipidemia: Status: Chronic Code(s): E78.5 - Hyperlipidemia, unspecified Plan 1. Transfer to SNF today 2. finish 7 days of antibiotics for tx of Klebsiella pneumoniae cystitis. 3. Recheck a CBC with differential and BMP in 5 days Allergies/Procedures Done in Hospital Allergies clopidogrel [From Plavix] Allergy (Severe, Verified 10/13/23 13:02) Itching ticagrelor [From Brilinta] Adverse Reaction (Intermediate, Verified 10/13/23 13:02) (Possible reaction) Itching hands and feet, no rash Procedures: 2-D Echocardiogram (10/14/2023 EF was 70%. Bubble contrast study was negative for intra atrial or ventricular shunts.) Type of Care/Length of Stay Estimated LOS: Convalescent Care Less Than 30 days Type of Care Needed: Skilled Rehab Potential: Fair Prognosis: Fair Additional Orders/Day of Discharge Additional Orders: Blood sugars are very well controlled. Continue accucheks once a day and alternate FBS and before supper. He would benefit from a palliative care consult while on SNF. H&P will serve as current which was dated: 10/29/23 Day of Discharge: 11/18/23 Dietary and Speech Recommendations Dietitian Recommendations/Changes: Continue 1800 CCD/Cardiac diet with texture/consistency per MILITARY ANALYST to manage medical conditions. Will continue Glucerna TID for additional protein/calories if consumed. Follow Up Care Please follow up with your Primary Care Physician in: following DC from SNF to home Please Follow Up With: Tabatha Donovan When: 1-2 months Discharge Plan Admission Admit Date/Time: 10/28/23 13:26 Primary Reason for Your Visit: Post stroke debility Attending Provider: Stephanie Buchanan Primary Care Provider: Scotty Perry Instructions Additional Instructions / Restrictions: 1. Recheck a CBC with differential and BMP in 5 days post discharge from acute rehab. 2. Blood pressure is mildly increased. The goal BP in pt with ischemic CVA is less than 130/80. Norvasc will be increased to 10 mg daily starting 11/19/23. 3. Would avoid adding a diuretic because his fluid intake is only fair and he gets dehydrated with hyponatremia and a fractional excretion of sodium less than 1%. 4. When he gets dehydrated mentation and LOC decrease. 5. Has been afebrile since antibiotics started on 11/15/23. Discharge Orders/Prescriptions Prescriptions: New acetaminophen 325 mg Tablet 650 mg PO Q6H PRN PRN (Reason: PAIN 1-10) Qty: 1 0RF cefadroxil 500 mg Capsule 1,000 mg PO DAILY Qty: 2 0RF Rx Instructions: DC after last dose on 11/20/23 magnesium hydroxide 400 mg/5 mL Suspension 30 ml PO X1 PRN (Reason: Constipation) Qty: 30 0RF bisacodyl 10 mg Suppository 10 mg NC X1 PRN (Reason: Constipation) Qty: 1 0RF escitalopram oxalate 10 mg Tablet 5 mg PO DAILY Qty: 1 0RF metoprolol tartrate 25 mg Tablet 25 mg PO BID Qty: 1 0RF Glucerna 1.2 Dion 0.06-1.2 gram-kcal/mL Liquid 120 ml PO TIDCM Qty: 1 0RF sennosides-docusate sodium [Stool Softener-Stimulant Laxat] 8.6-50 mg Tablet 2 tab PO BID Qty: 1 0RF miconazole nitrate [Desenex] 2 % Powder 1 applic topical BID@0600,2200 Qty: 1 0RF Protocol: *Topical Application Instructions APPLICATION INSTRUCTIONS: scrotum simethicone 80 mg Tablet,Chewable 80 mg PO TIDPC PRN (Reason: Gas) Qty: 1 0RF menthol-zinc oxide [Calmoseptine] 0.44-20.6 % Ointment 1 applic topical BID@0600,2200 Qty: 1 0RF Protocol: *Topical Application Instructions APPLICATION INSTRUCTIONS: butt Continued nitroglycerin 0.4 mg tablet, sublingual 0.4 mg SUBLINGUAL Q5M PRN (Reason: CHEST PAIN ) aspirin [Adult Low Dose Aspirin] 81 mg tablet,delayed release (DR/EC) 81 mg PO DAILY doxazosin 4 mg tablet 4 mg PO QHS amlodipine 10 mg tablet 10 mg PO DAILY lisinopril 40 mg tablet 40 mg PO DAILY omeprazole 20 mg capsule,delayed release(DR/EC) 40 mg PO DAILY Ultra CoQ10 75 mg capsule 75 mg PO DAILY atorvastatin 40 mg tablet 40 mg PO QHS Qty: 90 3RF Discontinued oxycodone-acetaminophen [Percocet] 5-325 mg tablet 1 tab PO Q8H PRN (Reason: PAIN ) 3 Days Qty: 10 0RF hydrochlorothiazide 25 mg tablet 25 mg PO DAILY metoprolol tartrate 50 mg tablet 50 mg PO BID Qty: 180 3RF Referrals / Follow Up: Yeison Hernandez [Other] - 12/14/23 1:30 pm ([facility] Scotty Perry MD [Primary Care Provider] - 11/24/23 2:20 pm Disposition Disposition (needs filled in before D/C Order can be placed): [facility] (8) Fever Qualifiers: Encounter type: initial encounter (14) Type 2 diabetes mellitus Qualifiers: Diabetes mellitus complication status: without complication 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 transplanted heart: [place]cree heart Qualified Code(s): I25.810 - Atherosclerosis of coronary artery bypass graft(s) without angina pectoris (20) Hyperlipidemia Qualifiers: Hyperlipidemia type: mixed hyperlipidemia Qualified Code(s): E78.2 - Mixed hyperlipidemia
--- NOTE | 2023-11-18 10:25 | EX.PCM.HP.RE ---
HPI - General General Date of Admission: 10/28/23 Date of Service: 11/18/23 Chief Complaint: Debility - Acute CVA with hemorrhagic conversion HPI Narrative This is a DC summary and NOT a H&P. EBONY GREGORIO, is a 78 M with a PMH of HTN, HLD, CAD, hx of coronary stenting and CABG, GERD, BPH and ROSANGELA. Ebony was admitted to rehab following Ischemic strokes. The first stroke occurred on 10/13/2023 and he had left-sided weakness. Imaging demonstrated an acute right parietal CVA. He was admitted to [facility]. On 10/14 his neurological exam deteriorated and a repeat MRI showed a new right frontal lobe CVA. On 10/15 he continued to decline and repeat imaging showed a hemorrhagic conversion with subarachnoid/parenchymal blood. He was transferred to [facility] for possible intervention but, he did not require any surgical intervention. He was treated with hypertonic saline and a nicardipine drip. He had tube feed while he was at [facility]. He was later transitioned to an oral diet and oral medications. NIHSS score at presentation to rehab was 14. While he rehab he developed hyponatremia with a sodium as low as 130. A fractional excretion of sodium was calculated and found to be 0.9% which was consistent with dehydration. Ebony's fluid intake was poor and he had been taking hydrochlorothiazide for hypertension. The hydrochlorothiazide was discontinued, he was given IV NS to hydrate. We encouraged him to increase his fluid intake which has been doing. On 11/14/2023 he had a fever of 100.2 ?F and was more confused and drowsy. UA showed greater than 100 WBCs per high-power field and it was nitrite positive. Creat had risen to 1.57 with a BUN of 54 from 0.97/23 on 10/29/23. He was started on 1 g of IV Rocephin daily and a urine culture was ordered. The urine culture grew Klebsiella pneumoniae which was resistant to ampicillin and only intermediately sensitive to nitrofurantoin. After 3 days of IV Rocephin he was transitioned to cefadroxil and will complete 7 days of antibiotics on 11/20/2023. After IV hydration and antibiotics he became more alert and talkative. He was appropriate and mentation improved. BMP on 11/17/2023 showed a sodium of 132, BUN of 14 and a creatinine of 0.79. Orders were entered to complete a CBC and a BMP 5 days post DC from acute rehab. Other than the complications listed above bEony had an unremarkable stay in rehab. His blood sugars are under excellent control on diet alone. His intake has increased and he is making progress in therapy. He still has Left hemiparesis/hemiplegia and the MRS is still 5. I am skeptical that he will ever ambulate again but, I think he will be able to manage a WC going forward. At the time of DC he is still requiring a Eve lift with assist of 2 to transfer from the bed to the recliner. He has a strong left-sided lean when sitting in a chair and with standing. He is able to propel the wheelchair approximately 50 feet at mod assist/min assist. He is able to do 1 business proposal rep 30 seconds with max assist x 2. He is supervision/set up for eating and grooming. He requires moderate assistance with bathing, maximum assistance with upper body dressing and total assistance with lower body dressing. He is making progress with ST. Following some additional therapy in an SNF the family plans on caring for him at home. At the time of DC the systolic BP is mildly increased. The goal for the systolic in CVA patients is < 130 systolic. The diastolics are within goal. Amlodipine was increased to 10 mg daily and this will start on 11/19/23. I would avoid diuretics in this patient because he develops hyponatremia and his fluid intake is poor, although it has been improving the past few days. Sodium at DC is 132 and the Outputs are >> than the inputs even off the HCTZ for 3 days.......it is likely that the diuretic is still active in his system and it may take another day or 2 before the medication is entirely out of his system. He will have a repeat BMP 5 days post DC from rehab. [facility] Medical History (Updated 11/18/23 @ 11:[address] 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 Sleep apnea Small bowel obstruction TIA (transient ischemic attack) Home Medications nitroglycerin 0.4 mg sublingual tablet 0.4 mg sublingual Q5M PRN CHEST PAIN 01/12/18 [History Last Taken Unknown] coenzyme Q10 75 mg capsule (Ultra CoQ10) 75 mg PO DAILY SUPPLEMENT 08/19/23 [History Last Taken Unknown] omeprazole 20 mg capsule,delayed release 40 mg PO DAILY GERD 08/19/23 [History Last Taken Unknown] atorvastatin 40 mg tablet 40 mg PO QHS CHOLESTEROL #90 tabs 08/24/23 [Rx Last Taken Unknown] aspirin 81 mg tablet,delayed release (Adult Low Dose Aspirin) 81 mg PO DAILY HEART HEALTH 10/13/23 [History Last Taken Unknown] amlodipine 10 mg tablet 10 mg PO DAILY blood pressure 10/28/23 [History Last Taken Unknown] doxazosin 4 mg tablet 4 mg PO QHS Prostate 10/28/23 [History Last Taken Unknown] lisinopril 40 mg tablet 40 mg PO DAILY blood pressure 10/28/23 [History Last Taken Unknown] acetaminophen 325 mg tablet 650 mg (2 x 325 mg) PO Q6H PRN PRN PAIN 1-10 #1 TAB 11/18/23 [Rx Last Taken Unknown] bisacodyl 10 mg rectal suppository 10 mg NC X1 PRN Constipation #1 ea 11/18/23 [Rx Last Taken Unknown] cefadroxil 500 mg capsule 1,000 mg (2 x 500 mg) PO DAILY #2 caps 11/18/23 [Rx Last Taken Unknown] escitalopram oxalate 10 mg tablet 5 mg (1/2 x 10 mg) PO DAILY #1 TAB 11/18/23 [Rx Last Taken Unknown] magnesium hydroxide 400 mg/5 mL oral suspension 30 ml PO X1 PRN Constipation #30 mL 11/18/23 [Rx Last Taken Unknown] menthol 0.44 %-zinc oxide 20.6 % topical ointment (Calmoseptine) 1 applic topical BID@0600,2200 #1 g 11/18/23 [Rx Last Taken Unknown] metoprolol tartrate 25 mg tablet 25 mg PO BID #1 TAB 11/18/23 [Rx Last Taken Unknown] miconazole nitrate 2 % topical powder (Desenex) 1 applic topical BID@0600,2200 #1 g 11/18/23 [Rx Last Taken Unknown] nutrition tx glu intol,lac-free,soy-fiber 0.06 gram-1.2 kcal/mL liquid (Glucerna 1.2 Dion) 120 ml PO TIDCM #1 mL 11/18/23 [Rx Last Taken Unknown] sennosides 8.6 mg-docusate sodium 50 mg tablet (Stool Softener-Stimulant Laxative) 2 tab PO BID #1 TAB 11/18/23 [Rx Last Taken Unknown] simethicone 80 mg chewable tablet 80 mg PO TIDPC PRN Gas #1 TAB 11/18/23 [Rx Last Taken Unknown] Allergy/AdvReac Type Severity Reaction Status Date / Time clopidogrel [From Plavix] Allergy Severe Itching Verified 10/13/23 13:02 ticagrelor [From Brilinta] AdvReac Intermediate (Possible Verified 10/13/23 13:02 reaction) Itching hands and feet, no rash Family History Father Cancer Prostate cancer Mother CAD (coronary artery disease) Hx CABG Myocardial infarction Hypertension Brother CAD (coronary artery disease) Diabetes Sister Colon cancer Other Family history of hypertension Surgical History H/O coronary artery bypass surgery (04/2012) History of coronary artery stent placement Stented coronary artery (02/06/20) Social History household members: spouse current occupational status: employed 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 Smoking Status: Former smoker pack-years: 100 how long ago did patient quit smokin alcohol intake: current alcohol intake frequency: 0-2 drinks per day Alcohol type: wine substance use type: does not use caffeine: Yes Type: coffee Number of servings: 3 what type of physical activity do you participate in: walking frequency: daily duration: 30-45 minutes/day seatbelt use: always do you feel safe at home: Yes ROS Constitutional Constitutional: Reports weakness; Denies anorexia, change in weight, chills, fatigue, fever(s) or night sweats Eyes Eyes: Denies blurry vision, change in vision, discharge from eye(s), double vision, eye pain, irritation, itchy eyes or loss of vision ENT HEENT: Reports headache(s); Denies abnormal hearing, dysphagia, hearing loss, nasal congestion or sore throat Cardiovascular Cardiovascular: Denies chest pain, dyspnea on exertion, edema, lightheadedness, orthopnea, palpitations, paroxysmal nocturnal dyspnea or syncope Respiratory/Chest Respiratory/Chest: Reports shortness of breath with exertion; Denies cough, dyspnea, shortness of breath at rest or wheezing Gastrointestinal Gastrointestinal: Denies abdominal pain, constipation, diarrhea, dyspepsia, hematemesis, hematochezia, nausea or vomiting Genitourinary Genitourinary: Reports urinary incontinence; Denies dysuria, hematuria, nocturia, urinary frequency, urinary hesitancy or urinary urgency Musculoskeletal Musculoskeletal: Reports joint pain; Denies back pain, joint swelling or neck pain Integumentary Integumentary: Denies jaundice or rash Neurologic Neurologic: Reports focal weakness, headache(s), paresthesias and weakness; Denies confusion, disequilibrium, dizziness, seizures or tremor(s) Psychiatric Psychiatric: Denies anxiety, depression, homicidal ideation or suicidal ideation Endocrine Endocrinology: Denies change in body appearance, polydipsia or polyuria Hematologic/Lymphatic Hematologic/Lymphatic: Denies easy bleeding, easy bruising or lymphadenopathy Allergic/Immunologic Allergic/Immunologic: Denies rhinitis, eczemia or asthma Vital Signs Vital Signs Vital Signs: 11/17/23 19:41 11/17/23 20:17 11/17/23 21:40 Temperature 97.8 F Temperature Source Temporal Pulse Rate 72 77 Pulse Strength Respiratory Rate 17 Respiratory Effort Normal Non-Labored Respiratory Depth Normal Respiratory Pattern Normal Blood Pressure 140/75 H 135/70 H Blood Pressure Mean 96 Blood Pressure Source Monitor Blood Pressure Position Supine Blood Pressure Location Right Arm Pulse Ox 93 Oxygen Delivery Method Room Air Room Air 11/17/23 22:00 11/18/23 07:01 11/18/23 07:35 Temperature 97.6 F L Temperature Source Temporal Pulse Rate 81 Pulse Strength Normal (2+) Respiratory Rate 16 Respiratory Effort Respiratory Depth Respiratory Pattern Blood Pressure 135/61 H Blood Pressure Mean 85 Blood Pressure Source Monitor Blood Pressure Position Supine Blood Pressure Location Right Arm Pulse Ox 94 94 Oxygen Delivery Method Room Air Room Air 11/18/23 08:16 11/18/23 08:58 11/18/23 09:05 Temperature Temperature Source Pulse Rate 81 Pulse Strength Normal (2+) Respiratory Rate 17 Respiratory Effort Normal Respiratory Depth Normal Respiratory Pattern Normal Blood Pressure 135/61 H Blood Pressure Mean Blood Pressure Source Blood Pressure Position Blood Pressure Location Pulse Ox Oxygen Delivery Method Room Air Weight Weight: 195 lb 15.855 oz Body Mass Index (BMI) 30.7 Indicators for Scoring Admitted with or Primary Diagnosis of CVA/Stroke: Yes Hx of CVA/Stroke: Yes Modified [place] Score MRS Score at time of Evaluation: 5-Severe disability (Unable to sit up in bed by himself) NIHSS NIHSS 1a. Level of Consciousness: Alert; keenly responsive 1b. LOC Questions: Answers BOTH questions correctly. 1c. LOC Commands: Performs both tasks correctly. 2. Best Gaze: Normal 3. Visual: No visual loss 4. Facial Palsy: Partial paralysis (total or near-total paralysis of lower face) 5a. Left Arm: No movement 5b. Right Arm: No drift; arm holds 90 (or 45) degrees for full 10 seconds 6a. Left Leg: No movement 6b. Right Leg: No drift; leg holds 30-degree position for full 5 seconds 7. Limb Ataxia: Absent 8. Sensory: [id number] sensory loss; 9. Best Language: No aphasia; normal 10. Dysarthria: Normal 11. Extinction and Inattention: No abnormality Total: 11 Stroke Questions Stroke Team Activated: No Physical Exam Const alert, oriented x3 and no apparent distress General Appearance: cooperative, comfortable and well developed HEENT normocephalic Mouth: dry mucous membranes Eyes conjunctivae normal and no scleral icterus Eyes Narrative: No mattering of the eyelashes and no discharge from the eyes. The sclera is clear. The pharynx has no exudate and he has no cervical adenopathy. Neck No nuchal rigidity Resp clear to auscultation bilaterally Resp Narrative: No conversational dyspnea. Speech is fluent. Effort and Inspection: Negative for tachypneic, respiratory distress, labored or uses accessory muscles Cardio regular rate, regular rhythm, no rub and no gallops GI normal to inspection, nondistended, normoactive bowel sounds, soft to palpation, non-tender and non-distended Narrative: Denies dysuria. Denies flank pain. No nausea/vomiting. No suprapubic pain with palpation Extremity no calf tenderness and no pedal edema General Extremity: Negative for cyanosis or edema Skin General Skin Exam: no breakdown Rashes: no rashes Psych cooperative and affect normal Appearance: appropriate Attitude: No agitated Activity / Motor Behavior: Negative for restless Mood & Affect: Negative for depressed Results Lab / Micro Data 12/26/23 05:18 11/17/23 05:18 Assessment & Plan Assessment/Plan (1) Debility: (2) Ischemic cerebrovascular accident (CVA): (3) Cystitis: PLAN: Due to Klebsiella pneumoniae. On 11/18/2023 he is day 5 of 7 antibiotics. (4) Acute hyponatremia: (5) Dehydration: (6) Acute renal failure: QUALIFIERS: Acute renal failure type: unspecified Qualified Code(s): N17.9 - Acute kidney failure, unspecified PLAN: Due to dehydration/intravascular volume depletion PLAN: Plan 1. Continue therapy 2. Now that he has had antibiotics will check for 3 additional postvoid residuals. 3. Continue to encourage increased fluid intake. [facility]. Recheck a BMP and CBC 5 days post discharge from rehab. 6. Can likely discontinue Accu-Cheks as the blood sugars are very well-controlled on diet alone.
--- NOTE | 2023-11-18 11:21 | EX.DISCHREH ---
Providers Date of Admission: 10/28/23 Date of Discharge: 11/18/23 Primary Care Physician: Dr. Scotty Perry MD Reason For Visit: STROKE Diagnosis Discharge Diagnosis (1) Debility: Status: Acute Code(s): R53.81 - Other malaise (2) Ischemic cerebrovascular accident (CVA): Status: Acute Code(s): I63.9 - Cerebral infarction, unspecified (3) Carotid stenosis, right: Status: Chronic Code(s): I65.21 - Occlusion and stenosis of right carotid artery (4) Embolic cerebral infarction: Status: Acute Code(s): I63.40 - Cerebral infarction due to embolism of unspecified cerebral artery Qualifiers: Precerebral and cerebral artery: anterior cerebral artery Laterality of affected vessel: right Qualified Code(s): I63.421 - Cerebral infarction due to embolism of right anterior cerebral artery (5) Paresthesia of left arm: Status: Acute Code(s): R20.2 - Paresthesia of skin (6) Cerebral parenchymal hemorrhage: Status: Acute Code(s): I61.9 - Nontraumatic intracerebral hemorrhage, unspecified Qualifiers: Intracerebral hemorrhage etiology: nontraumatic Cerebral hemorrhage location: unspecified cerebral location Laterality: right Qualified Code(s): I61.9 - Nontraumatic intracerebral hemorrhage, unspecified (7) LUE weakness: Status: Acute Code(s): R29.898 - Other symptoms and signs involving the musculoskeletal system (8) Left leg weakness: Status: Acute Code(s): R29.898 - Other symptoms and signs involving the musculoskeletal system (9) Cognitive dysfunction: Status: Acute Code(s): F09 - Unspecified mental disorder due to known physiological condition (10) Acute hyponatremia: Status: Acute Code(s): E87.1 - Hypo-osmolality and hyponatremia (11) Acute renal failure: Status: Acute Code(s): N17.9 - Acute kidney failure, unspecified Qualifiers: Acute renal failure type: unspecified Qualified Code(s): N17.9 - Acute kidney failure, unspecified Plan: Due to dehydration/intravascular volume depletion (12) Dehydration: Status: Resolved Code(s): E86.0 - Dehydration (13) Fever: Status: Resolved Code(s): R50.9 - Fever, unspecified Qualifiers: Encounter type: initial encounter (14) Cystitis: Status: Acute Code(s): N30.90 - Cystitis, unspecified without hematuria Plan: Due to Klebsiella pneumoniae. On 11/18/2023 he is day 5 of 7 antibiotics. (15) Urinary retention: Status: Acute Code(s): R33.9 - Retention of urine, unspecified (16) BPH (benign prostatic hyperplasia): Status: Acute Code(s): N40.0 - Benign prostatic hyperplasia without lower urinary tract symptoms (17) Type 2 diabetes mellitus: Status: Chronic Code(s): E11.9 - Type 2 diabetes mellitus without complications Qualifiers: Diabetes mellitus termite technician insulin use: without termite technician use Diabetes mellitus complication status: without complication Qualified Code(s): E11.9 - Type 2 diabetes mellitus without complications (18) Obstructive sleep apnea: Status: Chronic Code(s): G47.33 - Obstructive sleep apnea (adult) (pediatric) (19) Stented coronary artery: Status: Chronic Code(s): Z95.5 - Presence of coronary angioplasty implant and graft (20) Atherosclerosis of coronary artery bypass graft without angina pectoris: Status: Chronic Code(s): I25.810 - Atherosclerosis of coronary artery bypass graft(s) without angina pectoris Qualifiers: [place] vs. transplanted heart: [place] heart Qualified Code(s): I25.810 - Atherosclerosis of coronary artery bypass graft(s) without angina pectoris (21) H/O coronary artery bypass surgery: Status: Resolved Code(s): Z95.1 - Presence of aortocoronary bypass graft (22) Essential (primary) hypertension: Status: Chronic Code(s): I10 - Essential (primary) hypertension (23) Hyperlipidemia: Status: Chronic Code(s): E78.5 - Hyperlipidemia, unspecified Qualifiers: Hyperlipidemia type: mixed hyperlipidemia Qualified Code(s): E78.2 - Mixed hyperlipidemia [facility] Medications at Discharge Home Medications nitroglycerin 0.4 mg sublingual tablet 0.4 mg sublingual Q5M PRN CHEST PAIN 01/12/18 coenzyme Q10 75 mg capsule (Ultra CoQ10) 75 mg PO DAILY SUPPLEMENT 08/19/23 omeprazole 20 mg capsule,delayed release 40 mg PO DAILY GERD 08/19/23 atorvastatin 40 mg tablet 40 mg PO QHS CHOLESTEROL #90 tabs 08/24/23 aspirin 81 mg tablet,delayed release (Adult Low Dose Aspirin) 81 mg PO DAILY HEART HEALTH 10/13/23 amlodipine 10 mg tablet 10 mg PO DAILY blood pressure 10/28/23 doxazosin 4 mg tablet 4 mg PO QHS Prostate 10/28/23 lisinopril 40 mg tablet 40 mg PO DAILY blood pressure 10/28/23 acetaminophen 325 mg tablet 650 mg (2 x 325 mg) PO Q6H PRN PRN PAIN 1-10 #1 TAB 11/18/23 bisacodyl 10 mg rectal suppository 10 mg PA X1 PRN Constipation #1 ea 11/18/23 cefadroxil 500 mg capsule 1,000 mg (2 x 500 mg) PO DAILY #2 caps 11/18/23 escitalopram oxalate 10 mg tablet 5 mg (1/2 x 10 mg) PO DAILY #1 TAB 11/18/23 magnesium hydroxide 400 mg/5 mL oral suspension 30 ml PO X1 PRN Constipation #30 mL 11/18/23 menthol 0.44 %-zinc oxide 20.6 % topical ointment (Calmoseptine) 1 applic topical BID@0600,2200 #1 g 11/18/23 metoprolol tartrate 25 mg tablet 25 mg PO BID #1 TAB 11/18/23 miconazole nitrate 2 % topical powder (Desenex) 1 applic topical BID@0600,2200 #1 g 11/18/23 nutrition tx glu intol,lac-free,soy-fiber 0.06 gram-1.2 kcal/mL liquid (Glucerna 1.2 Dion) 120 ml PO TIDCM #1 mL 11/18/23 sennosides 8.6 mg-docusate sodium 50 mg tablet (Stool Softener-Stimulant Laxative) 2 tab PO BID #1 TAB 11/18/23 simethicone 80 mg chewable tablet 80 mg PO TIDPC PRN Gas #1 TAB 11/18/23 Hospital Course Operations None Procedures 2-D Echocardiogram (Normal LV size. Left ventricular systolic function is normal. The estimated ejection fraction is 65 %. Normal diastology for age. The study was technically difficult. The study was technically limited.) Summary of Care Provided Minutes Spent on Discharge: 50 Hospital Course: EBONY GREGORIO, is a 78 M with a PMH of HTN, HLD, CAD, hx of coronary stenting and CABG, GERD, BPH and ROSANGELA. Ebnoy was admitted to rehab following Ischemic strokes. The first stroke occurred on 10/13/2023 and he had left-sided weakness. Imaging demonstrated an acute right parietal CVA. He was admitted to [facility]. On 10/14 his neurological exam deteriorated and a repeat MRI showed a new right frontal lobe CVA. On 10/15 he continued to decline and repeat imaging showed a hemorrhagic conversion with subarachnoid/parenchymal blood. He was transferred to [facility] for possible intervention but, he did not require any surgical intervention. He was treated with hypertonic saline and a nicardipine drip. He had tube feed while he was at [facility]. He was later transitioned to an oral diet and oral medications. NIHSS score at presentation to rehab was 14. While he rehab he developed hyponatremia with a sodium as low as 130. A fractional excretion of sodium was calculated and found to be 0.9% which was consistent with dehydration. Ebony's fluid intake was poor and he had been taking hydrochlorothiazide for hypertension. The hydrochlorothiazide was discontinued, he was given IV NS to hydrate. We encouraged him to increase his fluid intake which has been doing. On 11/14/2023 he had a fever of 100.2 ?F and was more confused and drowsy. UA showed greater than 100 WBCs per high-power field and it was nitrite positive. Creat had risen to 1.57 with a BUN of 54 from 0.97/23 on 10/29/23. He was started on 1 g of IV Rocephin daily and a urine culture was ordered. The urine culture grew Klebsiella pneumoniae which was resistant to ampicillin and only intermediately sensitive to nitrofurantoin. After 3 days of IV Rocephin he was transitioned to cefadroxil and will complete 7 days of antibiotics on 11/20/2023. After IV hydration and antibiotics he became more alert and talkative. He was appropriate and mentation improved. BMP on 11/17/2023 showed a sodium of 132, BUN of 14 and a creatinine of 0.79. Orders were entered to complete a CBC and a BMP 5 days post DC from acute rehab. Other than the complications listed above Ebony had an unremarkable stay in rehab. His blood sugars are under excellent control on diet alone. His intake has increased and he is making progress in therapy. He still has Left hemiparesis/hemiplegia and the MRS is still 5. I am skeptical that he will ever ambulate again but, I think he will be able to manage a WC going forward. At the time of DC he is still requiring a Eve lift with assist of 2 to transfer from the bed to the recliner. He has a strong left-sided lean when sitting in a chair and with standing. He is able to propel the wheelchair approximately 50 feet at mod assist/min assist. He is able to do 1 [employer] 30 seconds with max assist x 2. He is supervision/set up for eating and grooming. He requires moderate assistance with bathing, maximum assistance with upper body dressing and total assistance with lower body dressing. He is making progress with ST. Following some additional therapy in an SNF the family plans on caring for him at home. At the time of DC the systolic BP is mildly increased. The goal for the systolic in CVA patients is < 130 systolic. The diastolics are within goal. Amlodipine was increased to 10 mg daily and this will start on 11/19/23. I would avoid diuretics in this patient because he develops hyponatremia and his fluid intake is poor, although it has been improving the past few days. Sodium at DC is 132 and the Outputs are >> than the inputs even off the HCTZ for 3 days.......it is likely that the diuretic is still active in his system and it may take another day or 2 before the medication is entirely out of his system. He will have a repeat BMP 5 days post DC from rehab. Physical Exam Const alert, oriented x3 and no apparent distress Constitutional Narrative: His face is a little flushed and he has a low-grade fever. Much more alert than he was yesterday afternoon when I examined him. The speech jenny is normal today and he has no conversational dyspnea. General Appearance: cooperative, comfortable and well developed HEENT normocephalic HEENT Narrative: Dry mucous membranes Eyes conjunctivae normal and no scleral icterus Eyes Narrative: No mattering of the eyelashes and no discharge from the eyes. The sclera is clear. The pharynx has no exudate and he has no cervical adenopathy. Neck No nuchal rigidity Resp clear to auscultation bilaterally Resp Narrative: No conversational dyspnea. Speech is fluent. Effort and Inspection: Negative for tachypneic, respiratory distress, labored or uses accessory muscles Cardio regular rate, regular rhythm, no rub and no gallops GI normal to inspection, nondistended, normoactive bowel sounds, soft to palpation, non-tender and non-distended Narrative: Denies dysuria. Denies flank pain. No nausea/vomiting. No suprapubic pain with palpation Extremity no calf tenderness and no pedal edema General Extremity: Negative for cyanosis or edema Skin General Skin Exam: no breakdown Rashes: no rashes Neuro oriented x3 Neuro Narrative: Left facial droop.........when he smiles the left lower face only has a little movement. Left-sided hemiplegia. No visual loss. No extinction. Decree sensation in the left upper extremity and left lower extremity when compared to the right. See the NIHSS scoring. Strong left side lean. Psych cooperative and affect normal Psych Narrative: Flat affect. Asking appropriate questions such as how long does it take to get better . Tells me that he is sleeping pretty good and eating pretty good. Appearance: appropriate Attitude: No agitated Activity / Motor Behavior: Negative for restless Mood & Affect: Negative for depressed Weight / BMI Weight Weight: 195 lb 15.855 oz Body Mass Index (BMI) 30.7 ABG / Lab / Microbiology Data 11/17/23 05:18 11/17/23 05:18 Microbiology: Microbiology 11/14/23 17:58 Urine, Catheterized Urine Culture - Final Klebsiella pneumoniae ozaenae 11/14/23 16:35 Nasal Secretion SARS-CoV-2 & FLU Antigen (Rapid) - Final Indicators for Scoring Admitted with or Primary Diagnosis of CVA/Stroke: Yes Hx of CVA/Stroke: Yes Modified [place] Score MRS Score at time of Evaluation: 5-Severe disability (Unable to sit up in bed by himself) NIHSS NIHSS 1a. Level of Consciousness: Alert; keenly responsive 1b. LOC Questions: Answers BOTH questions correctly. 1c. LOC Commands: Performs both tasks correctly. 2. Best Gaze: Normal 3. Visual: No visual loss 4. Facial Palsy: Partial paralysis (total or near-total paralysis of lower face) 5a. Left Arm: No movement 5b. Right Arm: No drift; arm holds 90 (or 45) degrees for full 10 seconds 6a. Left Leg: No movement 6b. Right Leg: No drift; leg holds 30-degree position for full 5 seconds 7. Limb Ataxia: Absent 8. Sensory: [id number] sensory loss; 9. Best Language: No aphasia; normal 10. Dysarthria: Normal 11. Extinction and Inattention: No abnormality Total: 11 Stroke Questions Stroke Team Activated: No D/C Instructions Please Follow Up With: Tabatha Donovan Meaningful Use Info Meaningful Use Diagnoses (Choose all that apply): Ischemic CVA CVA Therapy Assessed for PT,OT and/or ST?: Yes Ischemic Stroke Antithrombotic order at d/c?: Yes Dx of Atrial fib/flutter?: No Anticoagulant at discharge?: No Reason anticoagulant not ordered: Treatment not Indicated Statins at discharge?: Yes Primary Dx Acute Ischemic CVA?: Yes IV thrombolytic ordered during stay?: No Reason IV thrombolytic not ordered: Procedure not Indicated Discharge Plan Admission Admit Date/Time: 10/28/23 13:26 Primary Reason for Your Visit: Post stroke debility Attending Provider: Stephanie Buchanan Primary Care Provider: Scotty Perry Instructions Additional Instructions / Restrictions: 1. Recheck a CBC with differential and BMP in 5 days post discharge from acute rehab. 2. Blood pressure is mildly increased. The goal BP in pt with ischemic CVA is less than 130/80. Norvasc will be increased to 10 mg daily starting 11/19/23. 3. Would avoid adding a diuretic because his fluid intake is only fair and he gets dehydrated with hyponatremia and a fractional excretion of sodium less than 1%. 4. When he gets dehydrated mentation and LOC decrease. 5. Has been afebrile since antibiotics started on 11/15/23. Discharge Orders/Prescriptions Prescriptions: New acetaminophen 325 mg Tablet 650 mg PO Q6H PRN PRN (Reason: PAIN 1-10) Qty: 1 0RF cefadroxil 500 mg Capsule 1,000 mg PO DAILY Qty: 2 0RF Rx Instructions: DC after last dose on 11/20/23 magnesium hydroxide 400 mg/5 mL Suspension 30 ml PO X1 PRN (Reason: Constipation) Qty: 30 0RF bisacodyl 10 mg Suppository 10 mg PA X1 PRN (Reason: Constipation) Qty: 1 0RF escitalopram oxalate 10 mg Tablet 5 mg PO DAILY Qty: 1 0RF metoprolol tartrate 25 mg Tablet 25 mg PO BID Qty: 1 0RF Glucerna 1.2 Dion 0.06-1.2 gram-kcal/mL Liquid 120 ml PO TIDCM Qty: 1 0RF sennosides-docusate sodium [Stool Softener-Stimulant Laxat] 8.6-50 mg Tablet 2 tab PO BID Qty: 1 0RF miconazole nitrate [Desenex] 2 % Powder 1 applic topical BID@0600,0 Qty: 1 0RF Protocol: *Topical Application Instructions APPLICATION INSTRUCTIONS: scrotum simethicone 80 mg Tablet,Chewable 80 mg PO TIDPC PRN (Reason: Gas) Qty: 1 0RF menthol-zinc oxide [Calmoseptine] 0.44-20.6 % Ointment 1 applic topical BID@0600,0 Qty: 1 0RF Protocol: *Topical Application Instructions APPLICATION INSTRUCTIONS: butt Continued nitroglycerin 0.4 mg tablet, sublingual 0.4 mg SUBLINGUAL Q5M PRN (Reason: CHEST PAIN ) aspirin [Adult Low Dose Aspirin] 81 mg tablet,delayed release (DR/EC) 81 mg PO DAILY doxazosin 4 mg tablet 4 mg PO QHS amlodipine 10 mg tablet 10 mg PO DAILY lisinopril 40 mg tablet 40 mg PO DAILY omeprazole 20 mg capsule,delayed release(DR/EC) 40 mg PO DAILY Ultra CoQ10 75 mg capsule 75 mg PO DAILY atorvastatin 40 mg tablet 40 mg PO QHS Qty: 90 3RF Discontinued oxycodone-acetaminophen [Percocet] 5-325 mg tablet 1 tab PO Q8H PRN (Reason: PAIN ) 3 Days Qty: 10 0RF hydrochlorothiazide 25 mg tablet 25 mg PO DAILY metoprolol tartrate 50 mg tablet 50 mg PO BID Qty: 180 3RF Referrals / Follow Up: Yeison Hernandez [Other] - 12/14/23 1:30 pm ([facility]) Scotty Perry MD [Primary Care Provider] - 11/24/23 2:20 pm Disposition Disposition (needs filled in before D/C Order can be placed): [facility] Facility Charges/Coding Visit Charges Inpatient E&M: 16500 Disch Hosp >30min
[2023-11-18] MEDS: Acetaminophen 325 MG Tablet 650 MG PO (14:40)
--- NOTE | 2023-11-18 15:23 | CASEMGMT ---
Social Work SW notified by [facility] that precjorge approved. 7000 completed and DC orders sent. IDT updated. SW scheduled transport from [facility] for 1900, as the earliest. ESAU CastilloW
[2023-11-18 17:00] VITALS: BMI 30.7
[2023-11-18 18:28] VITALS: BP 135/61; PULSE 81; RESP 16; TEMP 36.5; O2SAT 94
--- NOTE | 2023-11-18 18:30 | NURSING ---
[facility]. report called to Rupal.
== END 2023-11-18 19:23 | disposition skilled nursing facility (03) | DRG 57 ==
PROVIDERS: Admitting Provider Internal Medicine; PCP Family Medicine; Visit Provider Internal Medicine
DX: I69.354 Hemiplegia and hemiparesis following cerebral infarction affecting left non-dominant side (principal); E87.1 Hypo-osmolality and hyponatremia; N30.00 Acute cystitis without hematuria; E11.9 Type 2 diabetes mellitus without complications; E78.2 Mixed hyperlipidemia; E86.0 Dehydration; B96.1 Klebsiella pneumoniae [K. pneumoniae] as the cause of diseases classified elsewhere; I10 Essential (primary) hypertension; I25.10 Atherosclerotic heart disease of native coronary artery without angina pectoris; G47.33 Obstructive sleep apnea (adult) (pediatric); K21.9 Gastro-esophageal reflux disease without esophagitis; Z79.899 Other long term (current) drug therapy; Z87.891 Personal history of nicotine dependence; Z79.82 Long term (current) use of aspirin; R33.9 Retention of urine, unspecified; R20.2 Paresthesia of skin; R33.8 Other retention of urine; N40.1 Benign prostatic hyperplasia with lower urinary tract symptoms
CPT/HCPCS: 36415; 71045; 80048; 80053; 81001; 82962; 83735; 84100; 85025; 85027; 87077; 87086; 87088; 87186; 87428; 92507; 92523; 92526; 92610; 97110; 97112; 97129; 97130; 97162; 97166; 97530; 97535; 97542; 97802; 97803; J7030; J7040; J7050; A4216

== ENCOUNTER 2024-07-31 13:13 | Inpatient (IN) | payer MEDICARE, MEDICAID, SELFPAY ==
[2020-02-06 11:26] VITALS: BMI 36.5
[2024-07-31] VITALS (12 sets, daily range): BP systolic 116–143; BP diastolic 50–67; PULSE 85–132; RESP 14–22; TEMP 36.5–37.3; O2SAT 95–97; BMI 34.7; BMI 32.9
--- NOTE | 2024-07-31 13:26 | EX.ED.DYSGE1 ---
HPI History of Present Illness Chief Complaint: Seizure Informant: patient Onset/Context/Timing Onset: Today Context: Sudden Onset Timing: Intermittent Quality: Shaking Location: Generalized Worsened by: Nothing Relieved by: Nothing Narrative Narrative: Patient presents with a shaking episode that occurred today. Patient was found laying on the floor shaking all over. Patient states he remembers the entire event. Patient states he did not bite his tongue. Patient denies any loss of bowel or bladder control. Patient states he was conscious during the entire episode. Patient is unsure how long it lasted. Patient has a history of a previous stroke with left-sided weakness. Patient denies any fevers or chills. [facility] Medical History Carotid stenosis, right BPH (benign prostatic hyperplasia) GERD (gastroesophageal reflux disease) Type 2 diabetes mellitus Obstructive sleep apnea Kidney stones Former smoker CPAP (continuous positive airway pressure) dependence Sleep apnea Hypertension TIA (transient ischemic attack) Hyperlipidemia Small bowel obstruction Essential (primary) hypertension Atherosclerosis of coronary artery bypass graft without angina pectoris Other nursing home (current) drug therapy Home Medications ?Medication ?Instructions ?Recorded ?Last Taken ?Type nitroglycerin 0.4 mg sublingual 0.4 mg sublingual Q5M PRN CHEST 01/12/18 Unknown History tablet PAIN omeprazole 20 mg capsule,delayed 40 mg PO DAILY GERD 08/19/23 Unknown History release atorvastatin 40 mg tablet 40 mg PO QHS CHOLESTEROL #90 tabs 08/24/23 Unknown Rx aspirin 81 mg tablet,delayed 81 mg PO DAILY HEART HEALTH 10/13/23 Unknown History release (Adult Low Dose Aspirin) amlodipine 10 mg tablet 10 mg PO DAILY blood pressure 10/28/23 Unknown History doxazosin 4 mg tablet 4 mg PO QHS Prostate 10/28/23 Unknown History lisinopril 40 mg tablet 40 mg PO DAILY blood pressure 10/28/23 Unknown History acetaminophen 325 mg tablet 650 mg (2 x 325 mg) PO Q6H PRN PRN 11/18/23 Unknown Rx PAIN 1-10 #1 TAB bisacodyl 10 mg rectal suppository 10 mg RI X1 PRN Constipation #1 ea 11/18/23 Unknown Rx magnesium hydroxide 400 mg/5 mL 30 ml PO X1 PRN Constipation #30 mL 11/18/23 Unknown Rx oral suspension menthol 0.44 %-zinc oxide 20.6 % 1 applic topical BID@0600,2200 #1 g 11/18/23 Unknown Rx topical ointment (Calmoseptine) metoprolol tartrate 25 mg tablet 25 mg PO BID #1 TAB 11/18/23 Unknown Rx miconazole nitrate 2 % topical 1 applic topical BID@0600,2200 #1 g 11/18/23 Unknown Rx powder (Desenex) sennosides 8.6 mg-docusate sodium 2 tab PO BID #1 TAB 11/18/23 Unknown Rx 50 mg tablet (Stool Softener-Stimulant Laxative) simethicone 80 mg chewable tablet 80 mg PO TIDPC PRN Gas #1 TAB 11/18/23 Unknown Rx metformin 500 mg tablet 500 mg PO BID 03/23/24 Unknown History baclofen 5 mg tablet 5 mg PO TID 07/31/24 Unknown History melatonin 3 mg capsule 3 mg PO QHS 07/31/24 Unknown History sulfamethoxazole 800 1 tab PO BID 07/31/24 Unknown History mg-trimethoprim 160 mg tablet (Bactrim DS) Allergy/AdvReac Type Severity Reaction Status Date / Time clopidogrel (From Plavix) Allergy Severe Itching Verified 07/31/24 13:18 ticagrelor (From Brilinta) AdvReac Intermediate (Possible Verified 07/31/24 13:18 reaction) Itching hands and feet, no rash Family History Father Cancer Prostate cancer Mother CAD (coronary artery disease) Hx CABG Myocardial infarction Hypertension Brother CAD (coronary artery disease) Diabetes Sister Colon cancer Other Family history of hypertension Surgical History History of coronary artery stent placement Stented coronary artery (02/06/20) H/O coronary artery bypass surgery (04/2012) Social History household members: spouse current occupational status: employed 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 Smoking Status: Former smoker pack-years: 100 how long ago did patient quit smokin alcohol intake: current alcohol intake frequency: 0-2 drinks per day Alcohol type: wine substance use type: does not use caffeine: Yes Type: coffee Number of servings: 3 what type of physical activity do you participate in: walking frequency: daily duration: 30-45 minutes/day seatbelt use: always do you feel safe at home: Yes ROS ROS ED Constitutional Constitutional ED: Denies chills or fever(s) Eyes Eyes: Denies blurry vision or change in vision ENT ENT ED: Denies rhinorrhea or sore throat Cardiovascular Cardiovascular: Denies chest pain or palpitations Respiratory/Chest Respiratory/Chest: Denies cough or dyspnea Gastrointestinal Gastrointestinal: Denies nausea or vomiting Genitourinary Genitourinary ED: Denies dysuria or hematuria Musculoskeletal Musculoskeletal: Reports back pain; Denies neck pain Integumentary Denies abscess or rash Neurologic Neurologic: Reports weakness; Denies headache(s) Allergic/Immunologic Allergic/Immunologic ED: Denies mouth swelling or urticaria EXAM Physical Exam Const Vital Signs: 07/31/24 13:14 07/31/24 14:33 07/31/24 15:14 Temperature 97.7 F L 99.2 F H Temperature Source Temporal Oral Pulse Rate 132 H 110 H 96 Respiratory Rate 22 H 15 17 Blood Pressure 140/67 H 116/50 L 124/58 H Blood Pressure Mean 91 72 80 Pulse Ox 95 96 96 Oxygen Delivery Method Room Air Nasal Cannula Nasal Cannula Oxygen Flow Rate (L/min) 3 3 07/31/24 16:06 Temperature 98.3 F Temperature Source Oral Pulse Rate 105 H Respiratory Rate 16 Blood Pressure 135/52 H Blood Pressure Mean 79 Pulse Ox 96 Oxygen Delivery Method Room Air Oxygen Flow Rate (L/min) Positive well nourished and well developed General Appearance ED: well developed and NAD HEENT Reports moist mucous membranes Eyes PERRL and EOMs intact bilaterally Neck supple and no JVD Resp normal respiratory effort and clear to auscultation bilaterally Cardio regular rhythm Rate: tachycardic GI non-tender and non-distended Palpation: soft Neuro oriented x3 and CN's II-XII intact bilaterally Neuro Narrative: Patient has left hemiparesis from previous stroke. Sensorium / Orientation: alert Psych mental status grossly normal MDM MDM MDM Narrative Medical decision making narrative: Differential diagnosis includes stroke, brain mass, seizure, electrolyte abnormality, sepsis, and intracranial bleeding. CT scan of the brain will be obtained to assess for mass and intracranial bleeding. CBC will be obtained to assess for leukocytosis and anemia. Comprehensive metabolic profile will be obtained to assess for hepatic function, renal function, and electrolyte abnormality. Serum lactate will be obtained to assess for sepsis. Blood culture will be obtained to assess for sepsis. Urine culture will be obtained to assess for urinary tract infection. Lab Data Attestation: I reviewed the patient's lab results. Lab results narrative: CBC was reviewed. There is a leukocytosis of 26.6. The remainder was within normal limits. PT with INR and PTT were reviewed. Pro time was 15.3 and INR is 1.2. PTT was 33.4. Comprehensive metabolic profile was reviewed. BUN was 26 and creatinine was 1.7. These are increased from previous results. Serum lactate was reviewed and was elevated at 7.5. Urinalysis was reviewed. Leukocyte esterase was 500 with 50-100 white blood cells. There is 2+ bacteria. COVID-19 PCR was reviewed and was negative. Influenza PCR was reviewed and was negative for influenza A and influenza B. RSV PCR was reviewed and was negative. Labs: Laboratory Results - last 24 hr 07/31/24 07/31/24 13:50 15:00 WBC 26.6 H RBC 4.58 L Hgb 13.2 Hct 39.3 L MCV 85.8 MCH 28.8 MCHC 33.6 RDW Std Deviation 38.5 RDW Coeff of Pawel 12.4 Plt Count 206 MPV 9.4 Immature Gran % (Auto) 1.000 H Neut % (Auto) 85.4 H Lymph % (Auto) 5.6 L [place] % (Auto) 7.5 Eos % (Auto) 0.1 Baso % (Auto) 0.4 Absolute Neuts (auto) 22.7 H Absolute Lymphs (auto) 1.50 Nucleated RBC % 0 Toxic Granulation 3+ PT 15.3 H INR 1.2 APTT 33.4 Sodium 136 Potassium 3.9 Chloride 104 Carbon Dioxide 20.0 L Anion Gap 12 BUN 26 H Creatinine 1.70 H Est GFR (MDRD) Af Amer 51 L Est GFR (MDRD) Non-Af 42 L BUN/Creatinine Ratio 15.3 Glucose 154 H Lactic Acid 7.5 H* Calcium 9.9 Total Bilirubin 0.70 AST 8 L ALT 19 Alkaline Phosphatase 54 Total Protein 7.5 Albumin 3.6 Globulin 3.9 Albumin/Globulin Ratio 0.9 Urine Color Yellow Urine Clarity Cloudy Urine pH 6.0 Ur Specific [place] 1.015 Urine Protein 100 H Urine Glucose (UA) Normal Urine Ketones Negative Urine Occult Blood 10 H Urine Nitrite Negative Urine Bilirubin 1 H Urine Urobilinogen Normal Ur Leukocyte Esterase 500 H Urine RBC 0-5 SEEN Urine WBC 50-100 SEEN Ur Squamous Epith Cells 0-5 SEEN Ur Renal Epithelial Cell 0-5 SEEN Urine Bacteria 2+ Hyaline Casts 5-10 SEEN Urine Mucus 1+ Radiography Chest X-Ray - ED: 2 View, Read by ED Physician, Read by Radiologist and No Acute Disease Diagnostic Testing: Clinical Impression(s) from Imaging Studies Brain CT 07/31/24 13:45 IMPRESSION: There are no acute findings. Chronic involutional changes of the brain. Electronically Signed: Cali Denise MD at 14:33 EDT , Chest X-Ray 07/31/24 13:45 IMPRESSION: There are no acute findings. Electronically Signed: Cali Denise MD at 14:34 EDT , Hip/Pelvis X-Ray 07/31/24 16:30 IMPRESSION: Degenerative findings in both hips. Electronically Signed: Cali Denise MD at 16:52 EDT , CT scan of the brain was obtained. There is no acute intracranial abnormality. There are are chronic involutional changes of the brain. This was interpreted by the radiologist and was also independently reviewed by myself. PA and lateral chest x-ray was obtained. There are 2 views. On my independent interpretation, lung alvarez are clear. There is normal cardiac silhouette. Bony thorax is normal. There is no acute process noted. Radiologist also interpreted the x-ray and agrees. X-rays of the left hip were obtained. There are 3 views. On my independent interpretation, there are some degenerative changes. There is no acute fracture. Radiologist also interpreted the x-rays and agrees. EKG Initial EKG: Attestation: I personally reviewed and interpreted this EKG as follows: Interpretation: Sinus Tachycardia (128), RBBB and Non-Specific ST Changes Comments: EKG was obtained. On my independent interpretation, shows sinus tachycardia with a rate of 128. RI interval was normal at 136 ms. QRS interval was prolonged at 126 ms. QTc interval was normal at 484 ms. [place] was normal at 82. There is a right bundle branch block pattern noted. There are nonspecific ST-T wave changes noted. This is unchanged compared to previous EKG. Prior EKG tracings: available for review Prior: Unchanged (10/14/2023) Management Discussion w/another healthcare provider: Hospitalist Treatment and Re-Evaluation :: Patient was given IV fluids. Seizure precautions were maintained. Patient was started on Rocephin for urinary tract infection. Patient did meet criteria for sepsis. Patient is feeling better after IV fluids. Patient was advised of his findings. Family requested that hip x-rays be done of his left hip for hip pain. These were ordered. Case was discussed with the hospitalist. She will admit the patient to her service. Patient and family understood and were agreeable with the plan. Discharge Plan Dx/Rx/DC Orders Clinical Impression: Urinary tract infection, Essential (primary) hypertension, Episode of shaking Disposition Disposition: Acute Care Hospital [facility]
--- NOTE | 2024-07-31 13:45 | EKG12_ITS ---
Test Reason : SEIZURE Blood Pressure : / mmHG Vent. Rate : 128 BPM Atrial Rate : 128 BPM P-R Int : 136 ms QRS Dur : 126 ms QT Int : 332 ms P-R-T Axes : 000 082 043 degrees QTc Int : 484 ms Sinus tachycardia Right bundle branch block Abnormal ECG Confirmed by JOEL DUNN, BEN ([id number]), editor at large THOMAS BEAR ([id number]) on 08/01/2024 2:47:42 PM Referred By: HILARIO/TIERA Confirmed By:BEN MALDONADO MD
--- NOTE | 2024-07-31 13:45 | RAD_ITS ---
STUDY: XR Chest 2 Views 07/31/2024 2:04 PM REASON FOR EXAM: Male, 79 years old. Seizure COMPARISON: 11/14/2023 TECHNIQUE: XR Chest 2 Views FINDINGS: There is no demonstrated pleural abnormality. There are multiple median sternotomy wires. Normal heart size. Normal mediastinum. Normal [place]. Prominent appearing increased interstitial lung markings. Normal visualized pulmonary arteries. There is atherosclerotic calcification of the aortic arch with tortuosity. There are diffuse degenerative changes of the visualized thoracic spine. There is degenerative osteoarthritis of the bilateral shoulders. There are no acute findings of the upper abdomen. RAD/Chest PA and Lateral IMPRESSION: There are no acute findings. Electronically Signed: Cali Denise MD at 14:34 EDT ,
--- NOTE | 2024-07-31 13:45 | CT_ITS ---
STUDY: CT BRAIN WITHOUT CONTRAST REASON FOR EXAM: Male, 79 years old. Seizure Individualized dose optimization techniques were used for this CT. TECHNIQUE: Transaxial CT imaging of the brain was performed without administration of intravenous contrast material. COMPARISON: 10/15/2023 FINDINGS: There are calcifications around the carotid artery. These are noted in the cavernous carotid arteries. Normal calvarium. Normal soft tissues. Old right frontal lobe infarct. Compensatory enlargement of the right lateral ventricle. There are areas of decreased attenuation within the white matter tracts of the supratentorial brain, consistent with microvascular disease changes. Normal basal ganglia and thalami. Normal brainstem. There is mild cerebellar atrophy. There is no intracranial hemorrhage. There are no findings of an acute ischemic infarction. Normal visualized paranasal sinuses. ASPECTS Score for Acute Strokes: 09/01 CT/Brain/Head without Contrast IMPRESSION: There are no acute findings. Chronic involutional changes of the brain. Electronically Signed: Cali Denise MD at 14:33 EDT ,
[2024-07-31] MEDS: 0.9% Normal Saline (1000mL) 1,000 ML 1000 ML IV (13:56)
[2024-07-31 14:14] LABS: Absolute Neutrophil Count 22.7 X10^3/uL (2.0-7.7); Basophil% 0.4 % (0-1); Eosinophil# 0.03 X10^3/uL; Eosinophils% 0.1 % (0-5); Hematocrit 39.3 % (40-54); Hemoglobin 13.2 g/dL (13.0-16.5); International Normalized Ratio 1.2; Lymphocyte % 5.6 % (19-41); Mean Corp Hgb Conc 33.6 g/dL (32-36); Mean Corpuscular Hgb 28.8 pg (27.0-32.0); Mean Corpuscular Volume 85.8 fL (80-94); Mean Platelet Vol. 9.4 fl (6.2-12.0); Monocyte# 1.99 X10^3/uL; Monocyte% 7.5 % (0-10); NRBC Flagged by Analyzer 0 % (0-5); Neutrophil # 22.71 X10^3/uL (2.7-7.7); Neutrophil % 85.4 % (47-70); POSITIVE DIFFERENTIAL YES; Platelet Count 206 K/mm3 (150-450); Prothrombin Time (Protime)PT. 15.3 SECONDS (11.7-14.9); RBC Distribution Width CV 12.4 % (11.6-14.6); RBC Distribution Width SD 38.5 fl (35.1-43.9); Red Blood Count 4.58 M/mm3 (4.6-6.2); White Blood Count 26.6 K/mm3 (4.4-11.0)
[2024-07-31 14:15] LABS: Partial Thromboplast Time 33.4 Seconds (24.1-36.2)
[2024-07-31 14:22] LABS: Differential Indicated SCAN CRITERIA MET
[2024-07-31 14:24] LABS: ALB/GLOB Ratio 0.9 RATIO (0.9-2.4); AST(SGOT) 8 U/L (15-37); Alanine Aminotransfer ALT/SGPT 19 U/L (16-61); Albumin, Serum 3.6 g/dL (3.2-5.0); Alkaline Phosphatase 54 U/L (45-117); Anion Gap 12 (5-15); BUN 26 mg/dL (7-18); BUN/Creat Ratio 15.3 RATIO (10-20); Calcium,Total 9.9 mg/dL (8.5-10.1); Chloride 104 mmol/L (98-107); EST Glomerular Filtration Rate 42 mL/min (>60); Est Glom Filt Rate - Afr Amer 51 mL/min (>60); Globulin 3.9 g/dL (2.2-4.2); Glucose 154 mg/dL (74-106); Potassium 3.9 mmol/L (3.5-5.1); Protein, Total 7.5 g/dL (6.4-8.2); Sodium Level 136 mmol/L (136-145)
[2024-07-31 14:26] LABS: Lactic Acid 7.5 mmol/L (0.4-1.9)
[2024-07-31] MEDS: Morphine 4 MG/ML Syringe IV (14:31)
[2024-07-31 15:14] LABS: Color, Urine Yellow (Yellow); Glucose, Dipstick Normal (Normal); Ketone-Dipstick Negative (Negative); Leukocyte Esterase-Dipstick 500 /ul (Negative); Nitrite-Dipstick Negative (Negative); Occult Blood-Urine 10 /ul (Negative); Protein-Dipstick 100 mg/dl (Negative); Specific Gravity, Urine 1.015 (1.002-1.030); Urine Clarity Cloudy (Clear); Urine Urobilinogen Normal (Normal)
[2024-07-31 15:15] LABS: Urine Bilirubin Dipstick 1 mg/dL (Negative)
[2024-07-31 15:25] LABS: Toxic Granulation 3+
[2024-07-31 15:28] LABS: Mucous, Urine 1+ /hpf (<or=2+)
[2024-07-31 15:29] LABS: Bacteria 2+ /hpf (None Seen); Squamous Epithelial Cells - UA 0-5 SEEN /hpf (0-5); White Blood Cells 50-100 SEEN /hpf (0-5)
[2024-07-31 15:30] LABS: Hyaline Cast 5-10 SEEN /lpf (0-5); Red Blood Cells-Urine 0-5 SEEN /hpf (0-5)
[2024-07-31 15:31] LABS: Renal Epithelial Cells 0-5 SEEN /hpf (0-5)
[2024-07-31] MEDS: Ceftriaxone 1 GM/50 ML BAG IV (15:32)
--- NOTE | 2024-07-31 16:30 | RAD_ITS ---
EXAM: XR LEFT HIP WITH PELVIS WHEN PERFORMED, 2 OR 3 VIEWS CLINICAL INDICATION: Injury/Pain TECHNIQUE: Two or three views of the left hip with pelvis when performed. COMPARISON: No relevant prior studies available. FINDINGS: BONES/JOINTS: Degenerative findings in both hips. No displaced fracture. No destructive or sclerotic lesions. Note that overlapping bowel shadows may however obscure fine detail. Sacroiliac joint is unremarkable. No widening of the pubic symphysis. SOFT TISSUES: Unremarkable. No soft tissue swelling or gas. GASTROINTESTINAL TRACT: Gastric calcifications. RAD/HIP, UNI W/ Pelvis 2-3 Views IMPRESSION: Degenerative findings in both hips. Electronically Signed: Cali Denise MD at 16:52 EDT Reading Location ID and State: [facility] / [place] , Service support ,
--- NOTE | 2024-07-31 16:42 | PCM.HP.STD ---
HPI - General General Date of Admission: 07/31/24 Date of Service: 07/31/24 Chief Complaint: seizure HPI Narrative EBONY GREGORIO, is a 79 M with a PMH as outlined who presents via the E DOn 07/31/2024 with a complaitn of seizure. He was recently diagnosed with a UTI and started on Bactrim yesterday. He was found on the floor shaking in the SNF; SNF thought he had a seizure. He had recollection of all that happened during the seizure. He had no posti ictal drowsiness. He denied any fever or chills, cough, chest pain, palpitations, dizziness, nausea, vomiting or any other symptoms. Review of systems is otherwise negative. Vitals in the ED were BP of 135/52, NM of 105, R of 16 and temp of 98.3F, and he was saturating at 96% on room air. CBC showed hb of 13.2, wbc of 26 and platelets of 206. INR is 1.2. Chemistry showed sodium of 136, potassium of 3.9, Cr of 1.7 and bicarb of 20. Lactic acid was 7.5. Urinalysis showed 2+ bacteria and 50-[address] of the brain showed no acute intracranial pathology and CXR shwoed no acute cardiopulmonary findings. Left hip xray was pending. He is being admitted to be managed for UTI and sepsis due to UTI, as well as probable seizure. He was given IV ceftriaxone in the ED. COUNTS INCLUDE 234 BEDS AT THE [facility] Medical History Carotid stenosis, right BPH (benign prostatic hyperplasia) GERD (gastroesophageal reflux disease) Type 2 diabetes mellitus Obstructive sleep apnea Kidney stones Former smoker CPAP (continuous positive airway pressure) dependence Sleep apnea Hypertension TIA (transient ischemic attack) Hyperlipidemia Small bowel obstruction Essential (primary) hypertension Atherosclerosis of coronary artery bypass graft without angina pectoris Other shelter (current) drug therapy Home Medications ?Medication ?Instructions ?Recorded ?Last Taken ?Type nitroglycerin 0.4 mg sublingual 0.4 mg sublingual Q5M PRN CHEST 01/12/18 Unknown History tablet PAIN omeprazole 20 mg capsule,delayed 40 mg PO DAILY GERD 08/19/23 Unknown History release atorvastatin 40 mg tablet 40 mg PO QHS CHOLESTEROL #90 tabs 08/24/23 Unknown Rx aspirin 81 mg tablet,delayed 81 mg PO DAILY HEART HEALTH 10/13/23 Unknown History release (Adult Low Dose Aspirin) amlodipine 10 mg tablet 10 mg PO DAILY blood pressure 10/28/23 Unknown History doxazosin 4 mg tablet 4 mg PO QHS Prostate 10/28/23 Unknown History lisinopril 40 mg tablet 40 mg PO DAILY blood pressure 10/28/23 Unknown History acetaminophen 325 mg tablet 650 mg (2 x 325 mg) PO Q6H PRN PRN 11/18/23 Unknown Rx PAIN 1-10 #1 TAB bisacodyl 10 mg rectal suppository 10 mg NM X1 PRN Constipation #1 ea 11/18/23 Unknown Rx magnesium hydroxide 400 mg/5 mL 30 ml PO X1 PRN Constipation #30 mL 11/18/23 Unknown Rx oral suspension menthol 0.44 %-zinc oxide 20.6 % 1 applic topical BID@0600,2200 #1 g 11/18/23 Unknown Rx topical ointment (Calmoseptine) metoprolol tartrate 25 mg tablet 25 mg PO BID #1 TAB 11/18/23 Unknown Rx miconazole nitrate 2 % topical 1 applic topical BID@0600,2200 #1 g 11/18/23 Unknown Rx powder (Desenex) sennosides 8.6 mg-docusate sodium 2 tab PO BID #1 TAB 11/18/23 Unknown Rx 50 mg tablet (Stool Softener-Stimulant Laxative) simethicone 80 mg chewable tablet 80 mg PO TIDPC PRN Gas #1 TAB 11/18/23 Unknown Rx metformin 500 mg tablet 500 mg PO BID 03/23/24 Unknown History baclofen 5 mg tablet 5 mg PO TID 07/31/24 Unknown History melatonin 3 mg capsule 3 mg PO QHS 07/31/24 Unknown History sulfamethoxazole 800 1 tab PO BID 07/31/24 Unknown History mg-trimethoprim 160 mg tablet (Bactrim DS) Allergy/AdvReac Type Severity Reaction Status Date / Time clopidogrel (From Plavix) Allergy Severe Itching Verified 07/31/24 13:18 ticagrelor (From Brilinta) AdvReac Intermediate (Possible Verified 07/31/24 13:18 reaction) Itching hands and feet, no rash Family History Father Cancer Prostate cancer Mother CAD (coronary artery disease) Hx CABG Myocardial infarction Hypertension Brother CAD (coronary artery disease) Diabetes Sister Colon cancer Other Family history of hypertension Surgical History History of coronary artery stent placement Stented coronary artery (02/06/20) H/O coronary artery bypass surgery (04/2012) Social History household members: spouse current occupational status: employed 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 [employer] Smoking Status: Former smoker pack-years: 100 how long ago did patient quit smokin alcohol intake: current alcohol intake frequency: 0-2 drinks per day Alcohol type: wine substance use type: does not use caffeine: Yes Type: coffee Number of servings: 3 what type of physical activity do you participate in: walking frequency: daily duration: 30-45 minutes/day seatbelt use: always do you feel safe at home: Yes ROS Review of Systems ROS Unobtainable: Denies due to encephalopathy Constitutional Constitutional: Reports fatigue, malaise and weakness; Denies anorexia, chills or fever(s) Eyes Eyes: Denies change in vision ENT HEENT: Denies dysphagia, headache(s) or sore throat Cardiovascular Cardiovascular: Denies chest pain, dyspnea on exertion, edema, lightheadedness, orthopnea, palpitations, paroxysmal nocturnal dyspnea, rapid heart rate or syncope Respiratory/Chest Respiratory/Chest: Denies cough, dyspnea, shortness of breath at rest or shortness of breath with exertion Gastrointestinal Gastrointestinal: Denies abdominal pain, constipation, nausea or vomiting Genitourinary Genitourinary: Denies burning urination, dysuria or hematuria Musculoskeletal Musculoskeletal: Denies arthralgias or back pain Neurologic Neurologic: Denies confusion, dizziness, focal weakness, headache(s), numbness, seizure-like activity, seizures, syncope or tingling Psychiatric Psychiatric: Denies anxiety Hematologic/Lymphatic Hematologic/Lymphatic: Denies anemia Vital Signs Vital Signs Vital Signs: 07/31/24 13:14 07/31/24 14:33 07/31/24 15:14 Temperature 97.7 F L 99.2 F H Temperature Source Temporal Oral Pulse Rate 132 H 110 H 96 Respiratory Rate 22 H 15 17 Blood Pressure 140/67 H 116/50 L 124/58 H Blood Pressure Mean 91 72 80 Pulse Ox 95 96 96 Oxygen Delivery Method Room Air Nasal Cannula Nasal Cannula Oxygen Flow Rate (L/min) 3 3 07/31/24 16:06 Temperature 98.3 F Temperature Source Oral Pulse Rate 105 H Respiratory Rate 16 Blood Pressure 135/52 H Blood Pressure Mean 79 Pulse Ox 96 Oxygen Delivery Method Room Air Oxygen Flow Rate (L/min) Weight Weight: 221 lb 12.56 oz Body Mass Index (BMI) 34.7 Physical Exam Const alert, oriented x3 and no apparent distress General Appearance: cooperative HEENT normocephalic, head/scalp atraumatic, hearing grossly normal bilaterally and moist oral mucous membranes Mouth: oral and palatal mucosa normal Eyes PERRL, EOMs intact bilaterally and conjunctivae normal Neck no lymphadenopathy and supple Resp normal respiratory effort, no retractions, no use of accessory muscles and clear to auscultation bilaterally Cardio regular rate, regular rhythm, S1 normal heart sound, S2 normal heart sound and no murmurs GI normal to inspection, nondistended, normoactive bowel sounds, soft to palpation and non-tender Extremity normal to inspection, full ROM and no clubbing, cyanosis or edema Neuro oriented x3, CN's II-XII intact bilaterally, moves all extremities and no focal motor deficits Sensorium / Orientation: awake and alert Motor Exam: strength 5/5 throughout Psych affect normal Results Lab / Micro Data 07/31/24 13:50 07/31/24 13:50 Labs: Laboratory Results - last 24 hr 07/31/24 13:50: WBC 26.6 H, RBC 4.58 L, Hgb 13.2, Hct 39.3 L, MCV 85.8, MCH 28.8, MCHC 33.6, RDW Std Deviation 38.5, RDW Coeff of Pawel 12.4, Plt Count 206, MPV 9.4, Immature Gran % (Auto) 1.000 H, Neut % (Auto) 85.4 H, Lymph % (Auto) 5.6 L, [place] % (Auto) 7.5, Eos % (Auto) 0.1, Baso % (Auto) 0.4, Absolute Neuts (auto) 22.7 H, Absolute Lymphs (auto) 1.50, Nucleated RBC % 0, Toxic Granulation 3+, PT 15.3 H, INR 1.2, APTT 33.4, Sodium 136, Potassium 3.9, Chloride 104, Carbon Dioxide 20.0 L, Anion Gap 12, BUN 26 H, Creatinine 1.70 H, Est GFR (MDRD) Af Amer 51 L, Est GFR (MDRD) Non-Af 42 L, BUN/Creatinine Ratio 15.3, Glucose 154 H, Lactic Acid 7.5 H*, Calcium 9.9, Total Bilirubin 0.70, AST 8 L, ALT 19, Alkaline Phosphatase 54, Total Protein 7.5, Albumin 3.6, Globulin 3.9, Albumin/Globulin Ratio 0.9 07/31/24 15:00: Urine Color Yellow, Urine Clarity Cloudy, Urine pH 6.0, Ur Specific [place] 1.015, Urine Protein 100 H, Urine Glucose (UA) Normal, Urine Ketones Negative, Urine Occult Blood 10 H, Urine Nitrite Negative, Urine Bilirubin 1 H, Urine Urobilinogen Normal, Ur Leukocyte Esterase 500 H, Urine RBC 0-5 SEEN, Urine WBC 50-100 SEEN, Ur Squamous Epith Cells 0-5 SEEN, Ur Renal Epithelial Cell 0-5 SEEN, Urine Bacteria 2+, Hyaline Casts 5-10 SEEN, Urine Mucus 1+ Micro: Microbiology 07/31/24 13:53 Mucosa - Nose SARS-CoV-2, Influenza & RSV (PCR) - Final Imaging Radiology Impression Brain CT 07/31/24 13:45 IMPRESSION: There are no acute findings. Chronic involutional changes of the brain. Electronically Signed: Cali Denise MD at 14:33 EDT , Chest X-Ray 07/31/24 13:45 IMPRESSION: There are no acute findings. Electronically Signed: Cali Denise MD at 14:34 EDT , Assessment & Plan Assessment/Plan (1) Urinary tract infection: (2) Seizure: PLAN: Plan #Probable sepsis due to UTI Admit to PCU. Patient was diagnosed with UTI in his retirement a few days ago and started on oral Bactrim. Patient however came in after being found with shaking episodes which was presumed to be a seizure. He had no postictal drowsiness and was alert throughout the episode and remembers all that happened. He had no urinary or fecal incontinence. Urinalysis does show evidence of UTI. Lactic acid was also elevated at 7.5. It is unclear whether this is due to the probable seizure or due to the infection. His WBC is elevated at 25.6. Started on IV Zosyn. Get urine and blood cultures. Hydrated with IV fluids at 150 cc/h and trend lactic acid Adjust antibiotics based on culture results. I dont think the patient has septic shock, and I think the lactic acid elevation may be due to the probable seizure. I expect the lactic acid will trend down with hydration #Probable seizure As mentioned above patient came in with a shaking episode which was thought to be due to a possible seizure However had no postictal drowsiness or any urinary or fecal incontinence and actually was alert throughout the episode. Will give a loading dose of Keppra and consult neurology to get their evaluation. CT of the brain that showed no acute intracranial pathology. Will get EEG also. #LUCA: Creatinine is 1.7 with a baseline of around 0.79. Likely prerenal. Will hydrate with IV fluids and trend. #History of prior CVA with residual right-sided weakness: On aspirin and high intensity statin #Benign essential hypertension: On amlodipine and doxazosin as well as lisinopril and metoprolol. IV hydralazine as needed #Type 2 diabetes mellitus: On metformin. Hold metformin in light of elevated lactic acid. Insulin sliding scale. ACT checks ACHS. DVT prophylaxis: Lovenox CODE STATUS: full code Patient counseled extensively about different types of CODE STATUS including full code, DNR CCA and DNR CCA. Patient elects to be full code. Total wgvs-of-ijds time 17 minutes. Charges/Coding Visit Charges Inpatient E&M: 38439 Init Hosp L3 Procedures Hospitalists Procedures: 90582 Advncd Care Plan 30 Min
[2024-07-31 17:55] LABS: Reflex Lactate? Y
[2024-07-31] MEDS: Acetaminophen 325 MG Tablet 650 MG PO (18:14)
[2024-07-31] MEDS: oxyCODONE 5 MG Tablet PO (18:50)
[2024-07-31] MEDS: levETIRAcetam IV 1,000 MG/100 ML BAG 400 MG IV (18:51)
[2024-07-31] MEDS: 0.9% Normal Saline (1000mL) 1,000 ML 125 ML IV (18:51)
[2024-07-31 19:49] LABS: Lactic Acid 0.9 mmol/L (0.4-1.9)
[2024-07-31] MEDS: Nystatin Powder 15gm Bottle 1 APPLIC TOPICAL (21:46)
[2024-07-31] MEDS: Baclofen 10 MG Tablet 5 MG PO (21:47)
[2024-07-31] MEDS: Doxazosin 4 MG Tablet PO ×2 (21:47→21:48)
[2024-07-31] MEDS: Senna/Docusate Sodium 1 Tablet 2 TABLET PO (21:47)
[2024-07-31] MEDS: Metoprolol Tartrate 25 MG Tablet PO (21:47)
[2024-07-31] MEDS: Piperacil/Tazobactam 3.375 GM in 0.9% Normal Saline (50mL MB+) 50 ML IV (21:48)
[2024-07-31] MEDS: Atorvastatin Calcium 40 MG Tablet PO (21:48)
[2024-07-31 22:24] LABS: Bedside Glucose 110 mg/dL (74-106)
[2024-08-01] VITALS (9 sets, daily range): BP systolic 99–130; BP diastolic 57–77; PULSE 69–75; RESP 14–18; TEMP 36.4–37; O2SAT 94–98
[2024-08-01] MEDS: Acetaminophen 325 MG Tablet 650 MG PO ×3 (04:15→16:32)
[2024-08-01] MEDS: oxyCODONE 5 MG Tablet PO ×3 (04:17→16:32)
[2024-08-01] MEDS: 0.9% Normal Saline (1000mL) 1,000 ML 125 ML IV (04:22)
[2024-08-01] MEDS: Piperacil/Tazobactam 3.375 GM in 0.9% Normal Saline (50mL MB+) 50 ML IV ×3 (05:48→20:49)
[2024-08-01] MEDS: Baclofen 10 MG Tablet 5 MG PO ×3 (05:48→20:55)
[2024-08-01] MEDS: Nystatin Powder 15gm Bottle 1 APPLIC TOPICAL ×2 (05:49→20:54)
[2024-08-01 06:37] LABS: Bedside Glucose 99 mg/dL (74-106)
[2024-08-01 07:18] LABS: Absolute Lymphocyte Count 1.97 X10^3/uL (0.83-4.51); Absolute Neutrophil Count 12.5 X10^3/uL (2.0-7.7); Basophil# 0.06 X10^3/uL; Basophil% 0.4 % (0-1); Eosinophils% 0.6 % (0-5); Hematocrit 37.4 % (40-54); Hemoglobin 12.5 g/dL (13.0-16.5); Lymphocyte # 1.97 X10^3/ul (0.83-4.51); Lymphocyte % 12.4 % (19-41); Mean Corp Hgb Conc 33.4 g/dL (32-36); Mean Corpuscular Hgb 28.6 pg (27.0-32.0); Mean Corpuscular Volume 85.6 fL (80-94); Mean Platelet Vol. 9.2 fl (6.2-12.0); Monocyte# 1.11 X10^3/uL; NRBC Flagged by Analyzer 0 % (0-5); Neutrophil # 12.53 X10^3/uL (2.7-7.7); Neutrophil % 79.2 % (47-70); Platelet Count 175 K/mm3 (150-450); RBC Distribution Width CV 12.4 % (11.6-14.6); RBC Distribution Width SD 38.8 fl (35.1-43.9); Red Blood Count 4.37 M/mm3 (4.6-6.2); White Blood Count 15.8 K/mm3 (4.4-11.0)
[2024-08-01 07:45] LABS: Anion Gap 9 (5-15); BUN 25 mg/dL (7-18); BUN/Creat Ratio 23.4 RATIO (10-20); Chloride 106 mmol/L (98-107); Creatinine, Serum 1.07 mg/dL (0.70-1.30); EST Glomerular Filtration Rate 71 mL/min (>60); Est Glom Filt Rate - Afr Amer 86 mL/min (>60); Estimated Creatinine Clearance 63.64 ml/min; Glucose 109 mg/dL (74-106); Potassium 3.8 mmol/L (3.5-5.1); Sodium Level 137 mmol/L (136-145)
[2024-08-01] MEDS: Aspirin E.C. 81 MG Tablet PO (08:51)
[2024-08-01] MEDS: Metoprolol Tartrate 25 MG Tablet PO ×2 (08:51→20:56)
[2024-08-01] MEDS: Pantoprazole Sodium 40 MG Tablet PO (08:52)
[2024-08-01] MEDS: amLODIPine 10 MG Tablet PO (08:52)
[2024-08-01] MEDS: Senna/Docusate Sodium 1 Tablet 2 TABLET PO ×2 (08:52→20:56)
--- NOTE | 2024-08-01 10:59 | CASEMGMT ---
Patient is from [facility] [place] [facility]. SW called patient's Tamia and confirmed the plan is for patient to return to [place] [facility] at discharge. Plan: d/c back to [place] when medically ready. Muriel THURMAN
--- NOTE | 2024-08-01 11:05 | CASEMGMT ---
Discharge Planning Updates sent to [place] via [facility]. Asked if precert will be needed. Awaiting response. Gloria Jain DC Planning Asst.
[2024-08-01 11:37] LABS: Bedside Glucose 122 mg/dL (74-106)
[2024-08-01] MEDS: 0.9% Saline Lock 10 ML Syringe IV (16:32)
[2024-08-01] MEDS: Insulin Lispro 100 UNIT/ML INSULN.PEN SC (16:36)
--- NOTE | 2024-08-01 16:41 | PN.HOSP_ITS ---
Reason for Visit Reason for Visit: Diagnoses Urinary tract infection, site not specified (07/31/24) Unspecified convulsions (07/31/24) Subjective Subjective Patient reports left hip and shoulder pain which were present before admission, patient perseverating on pain medication and how often he can have this, no further shaking-like episodes Objective Data Objective Data Vital Signs: Vital Signs Temp Pulse Resp BP Pulse Ox O2 Del Method O2 Flow Rate 97.5 F L 75 18 130/77 H 97 Nasal Cannula 1 08/01/24 16:30 08/01/24 16:30 08/01/24 16:30 08/01/24 16:30 08/01/24 16:30 08/01/24 16:30 08/01/24 16:30 Oxygen Flow Rate (L/min) 1 Oxygen Delivery Method Nasal Cannula Weight: 95.4 kg Body Mass Index (BMI) 32.9 Intake & Output: Intake and Output for Last 24 Hours 07/30/24 07/31/24 08/01/24 23:59 23:59 23:59 Intake Total 1150 / 1400 2790 / 2790 Output Total 150 / 150 Balance 1150 / 1400 2640 / 2640 Lab / Micro Data 08/01/24 07:02 08/01/24 07:02 Labs: Laboratory Results - last 24 hr 07/31/24 19:00: Lactic Acid 0.9 07/31/24 20:30: POC Glucose 110 H 08/01/24 05:55: POC Glucose 99 08/01/24 07:02: WBC 15.8 H, RBC 4.37 L, Hgb 12.5 L, Hct 37.4 L, MCV 85.6, MCH 28.6, MCHC 33.4, RDW Std Deviation 38.8, RDW Coeff of Pawel 12.4, Plt Count 175, MPV 9.2, Immature Gran % (Auto) 0.400, Neut % (Auto) 79.2 H, Lymph % (Auto) 12.4 L, [place] % (Auto) 7.0, Eos % (Auto) 0.6, Baso % (Auto) 0.4, Absolute Neuts (auto) 12.5 H, Absolute Lymphs (auto) 1.97, Nucleated RBC % 0, Sodium 137, Potassium 3.8, Chloride 106, Carbon Dioxide 22.0, Anion Gap 9, BUN 25 H, Creatinine 1.07, Estim Creat Clear Calc 63.64, Est GFR (MDRD) Af Amer 86, Est GFR (MDRD) Non-Af 71, BUN/Creatinine Ratio 23.4 H, Glucose 109 H, Calcium 9.0 08/01/24 11:14: POC Glucose 122 H Micro: Microbiology 07/31/24 15:00 Urine, Clean Catch Urine Culture - Preliminary Gram negative emperatriz 07/31/24 13:53 Mucosa - Nose SARS-CoV-2, Influenza & RSV (PCR) - Final Radiography Diagnostic Testing: Radiology Impression Hip/Pelvis X-Ray 07/31/24 16:30 IMPRESSION: Degenerative findings in both hips. Electronically Signed: Cali Denise MD at 16:52 EDT , Physical Exam Narrative General: Alert, no apparent distress HEENT: Atraumatic, normocephalic Eyes: Anicteric, normal conjunctiva, extraocular movements grossly intact Neck: Supple Respiratory: normal respiratory effort Cardiovascular: Regular rate GI: Soft, nontender, nondistended Extremities: No significant edema Musculoskeletal: Moving all extremities in chair Neuro: No overt focal neurological deficits Skin: No rashes appreciated Psych: Perseverative on pain medication Assessment & Plan Assessment/Plan (1) Urinary tract infection: PLAN: Plan # Urinary tract infection -Patient on presentation with white blood cell count of 26.6 and UA suspicious for UTI -Preliminary urine culture with gram-negative rods -Continue on Zosyn -Await culture and sensitivity data to further narrow down antibiotics -Blood culture no growth to date # LUCA -Creatinine 1.7 on presentation -Down to 1.07 with supportive care -Continue to treat underlying UTI # Shaking-like episode -Sounded atypical for seizure -Was loaded with Keppra however suspicion for this lower and this was not continued hide scheduled basis -No further episodes -Awaiting EEG and neurology evaluation -Ativan as needed # History of CVA initially ischemic with hemorrhagic transformation #GERD -Continue PPI #ROSANGELA -Previously used to wear but has not been compliant for years # History of coronary artery disease status post CABG and right carotid stenosis -Continue aspirin and statin # Chronic pain and debility -For which patient is currently in jail -X-rays on presentation with no acute process -Stop making progress with therapy so has not been routinely seeing therapy -Pain control as able -PT/OT if patient stable -Plan will be to discharge back to jail likely tomorrow after sensitivities and neuro eval #Type 2 diabetes mellitus -Glucose checks and sliding scale insulin # Hypertension -Continue amlodipine and metoprolol at this time #DVT ppx: Lovenox subcu Lyubov Johnson MD Time spent in the patient's overall evaluation,decision-making process, review of diagnostic data, adjustment of management, discussion with other providers, nursing nursing and ancillary staff involved in patient's care documentation, 40 minutes Charges/Coding Visit Charges Inpatient E&M: 41151 Subs Hosp L2
[2024-08-01 17:15] LABS: Bedside Glucose 165 mg/dL (74-106)
[2024-08-01] MEDS: MELATONIN 3 MG TABLET PO (20:49)
[2024-08-01] MEDS: Atorvastatin Calcium 40 MG Tablet PO (20:55)
[2024-08-01 21:19] LABS: Bedside Glucose 117 mg/dL (74-106)
--- NOTE | 2024-08-01 23:26 | CON.PCM.NE_ITS ---
Assessment and Plan: Neuro Assessment/Plan EBONY GREGORIO is a 79 M with a past medical history of hemorrhagic stroke, being evaluated by Teleneurology for suspected seizure. Low suspicion for seizure here: while patient's report is difficult to interpret, it does seem clear that he retained some level of awareness during the event, he had no significant post-ictal period, and he does not have a seizure history. He does have one risk factor for a new seizure disorder, which is his known prior hemorrhagic stroke. In general, standard of care supports NOT starting an ongoing (likely lifelong) anti-seizure medication for a single seizure, even if the seizure is unprovoked. Patient is not currently driving or engaged in other high risk activity. I do not believe patient needs to be on Keppra going forward. This would change if events recurred or if EEG (I have not been able to see EEG report yet) shows ongoing epileptogenic activity. Barring such EEG abnormalities, no further neurological workup or medication required. Diagnosis: convulsions, seizure-like episode Plan: okay to discontinue keppra I personally attended this patient and spent a total time of 35 minutes evaluating this patient including clinical assessment, review of chart, medical history imaging, and determining appropriate treatment and workup. Vignesh Barba MD Dubbing Machine Operator [facility] Teleneurology HPI Consult Data Date of Consult: 08/01/24 HPI Narrative HPI Narrative: EBONY GREGORIO, is a 79 M with history of hemorrhagic stroke who presented to the ED on 07/31/2024 from SNF after witnessed convulsions. Had been a 79 M with a PMH as outlined who presents via the E DOn 07/31/2024 with a complaint of seizure. He was recently diagnosed with a UTI and started on Bactrim the day before episode. Per CHART he was found on the floor shaking in the SNF. Per chart he DID have recollection of the event, and no post-ictal drowsiness. However, PATIENT give slightly different story and insists explicitly and repeatedly that he has no memory of the event. He says event happened in wheelchair, not on floor. Report of awareness is inconsistent however, and he does report that his limbs started shaking (though he denies being aware of this or that this was witnessed by others initially) and that he called out to staff because it hurt so much (he reports what happened throughout the event though he denies being conscious to witness it). The most consistent part of his report, which he returns to and even perseverates on, was that I never want it it to happen again because it was so painful/uncomfortable. The symptoms do seem to have been localized to, or at least more prominent on, the left side, the side affected by previous stroke. His saw him shortly after the episode and notes he was coherent. This matches report from chart that he did not have significant post-ictal drowsiness/confusion. No previous history of seizure. 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 Home Medications ?Medication ?Instructions ?Recorded ?Last Taken ?Type nitroglycerin 0.4 mg sublingual 0.4 mg sublingual Q5M PRN CHEST 01/12/18 Unknown History tablet PAIN omeprazole 20 mg capsule,delayed 40 mg PO DAILY GERD 08/19/23 Unknown History release atorvastatin 40 mg tablet 40 mg PO QHS CHOLESTEROL #90 tabs 08/24/23 Unknown Rx aspirin 81 mg tablet,delayed 81 mg PO DAILY HEART HEALTH 10/13/23 Unknown History release (Adult Low Dose Aspirin) amlodipine 10 mg tablet 10 mg PO DAILY blood pressure 10/28/23 Unknown History doxazosin 4 mg tablet 4 mg PO QHS Prostate 10/28/23 Unknown History lisinopril 40 mg tablet 40 mg PO DAILY blood pressure 10/28/23 Unknown History acetaminophen 325 mg tablet 650 mg (2 x 325 mg) PO Q6H PRN PRN 11/18/23 Unknown Rx PAIN 1-10 #1 TAB bisacodyl 10 mg rectal suppository 10 mg SD X1 PRN Constipation #1 ea 11/18/23 Unknown Rx magnesium hydroxide 400 mg/5 mL 30 ml PO X1 PRN Constipation #30 mL 11/18/23 Unknown Rx oral suspension menthol 0.44 %-zinc oxide 20.6 % 1 applic topical BID@0600,2200 #1 g 11/18/23 Unknown Rx topical ointment (Calmoseptine) metoprolol tartrate 25 mg tablet 25 mg PO BID #1 TAB 11/18/23 Unknown Rx miconazole nitrate 2 % topical 1 applic topical BID@0600,2200 #1 g 11/18/23 Unknown Rx powder (Desenex) sennosides 8.6 mg-docusate sodium 2 tab PO BID #1 TAB 11/18/23 Unknown Rx 50 mg tablet (Stool Softener-Stimulant Laxative) simethicone 80 mg chewable tablet 80 mg PO TIDPC PRN Gas #1 TAB 11/18/23 Unknown Rx metformin 500 mg tablet 500 mg PO BID 03/23/24 Unknown History baclofen 5 mg tablet 5 mg PO TID 07/31/24 Unknown History melatonin 3 mg capsule 3 mg PO QHS 07/31/24 Unknown History sulfamethoxazole 800 1 tab PO BID 07/31/24 Unknown History mg-trimethoprim 160 mg tablet (Bactrim DS) Allergy/AdvReac Type Severity Reaction Status Date / Time clopidogrel (From Plavix) Allergy Severe Itching Verified 07/31/24 13:18 ticagrelor (From Brilinta) AdvReac Intermediate (Possible Verified 07/31/24 13:18 reaction) Itching hands and feet, no rash Family History Father Cancer Prostate cancer Mother CAD (coronary artery disease) Hx CABG Myocardial infarction Hypertension Brother CAD (coronary artery disease) Diabetes Sister Colon cancer Other Family history of hypertension Surgical History History of coronary artery stent placement Stented coronary artery (02/06/20) H/O coronary artery bypass surgery (04/2012) Social History household members: spouse current occupational status: employed 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 Smoking Status: Former smoker pack-years: 100 how long ago did patient quit smokin alcohol intake: current alcohol intake frequency: 0-2 drinks per day Alcohol type: wine substance use type: does not use caffeine: Yes Type: coffee Number of servings: 3 what type of physical activity do you participate in: walking frequency: daily duration: 30-45 minutes/day seatbelt use: always do you feel safe at home: Yes Vital Signs Vital Signs Vital Signs: 08/01/24 04:00 08/01/24 08:45 08/01/24 08:45 Temperature 98.4 F Temperature Source Oral Pulse Rate 74 Pulse Strength Normal (2+) Respiratory Rate 14 Respiratory Effort Normal Non-Labored Respiratory Depth Normal Respiratory Pattern Normal Blood Pressure 99/57 L Blood Pressure Mean 71 Blood Pressure Source Monitor Blood Pressure Position Semi-Fowlers Blood Pressure Location Left Arm Pulse Ox 98 95 Oxygen Delivery Method Nasal Cannula Nasal Cannula Oxygen Flow Rate (L/min) 3 3 08/01/24 08:49 08/01/24 08:50 08/01/24 08:51 Temperature 97.5 F L 97.5 F L Temperature Source Oral Oral Pulse Rate 74 74 74 Pulse Strength Respiratory Rate 18 18 Respiratory Effort Respiratory Depth Respiratory Pattern Blood Pressure 108/57 L 108/57 L Blood Pressure Mean 74 74 Blood Pressure Source Monitor Blood Pressure Position Semi-Fowlers Blood Pressure Location Right Forearm Pulse Ox 95 95 Oxygen Delivery Method Nasal Cannula Nasal Cannula Oxygen Flow Rate (L/min) 3 3 08/01/24 10:19 08/01/24 11:09 08/01/24 16:30 Temperature 97.6 F L 97.5 F L Temperature Source Oral Oral Pulse Rate 69 75 Pulse Strength Respiratory Rate 18 18 Respiratory Effort Respiratory Depth Respiratory Pattern Blood Pressure 119/66 130/77 H Blood Pressure Mean 83 94 Blood Pressure Source Monitor Monitor Blood Pressure Position Sitting Semi-Fowlers Blood Pressure Location Right Forearm Right Forearm Pulse Ox 96 97 Oxygen Delivery Method Nasal Cannula Nasal Cannula Oxygen Flow Rate (L/min) 2 2 1 08/01/24 16:30 08/01/24 20:56 08/01/24 22:00 Temperature Temperature Source Pulse Rate 74 Pulse Strength Respiratory Rate Respiratory Effort Normal Non-Labored Normal Non-Labored Respiratory Depth Normal Normal Respiratory Pattern Normal Normal Blood Pressure 121/59 H Blood Pressure Mean Blood Pressure Source Blood Pressure Position Blood Pressure Location Pulse Ox 97 Oxygen Delivery Method Nasal Cannula Nasal Cannula Oxygen Flow Rate (L/min) 1 2 08/01/24 22:00 Temperature 98.6 F Temperature Source Temporal Pulse Rate 74 Pulse Strength Respiratory Rate 18 Respiratory Effort Respiratory Depth Respiratory Pattern Blood Pressure 121/59 H Blood Pressure Mean 79 Blood Pressure Source Monitor Blood Pressure Position Semi-Fowlers Blood Pressure Location Left Arm Pulse Ox 94 Oxygen Delivery Method Nasal Cannula Oxygen Flow Rate (L/min) 2 Weight Weight: 95.4 kg Body Mass Index (BMI) 32.9 EEG Results Procedure Details EEG Procedure Details: EBONY GREGORIO is a 79 year old M with a past medical history of , who presents for evaluation of Electroencephalogram on DATE at TIME Physical Exam Narrative Physical exam performed over video with assistance of bedside RN. Exam notable for mild perseveration during interview, naming and repetition intact, LS facial droop, EOMI, no dysarthria, hearing intact to voice, sensation intact across face bilaterally to light touch, sensation intact to light touch in all distal extremities, LUE and LLE weakness in all joints tested (2-3/5 at SA, EE, EF, Wood Carving Lathe Operator, HF, KE, DF), and RS finger to nose intact. All these deficits are longstanding Lab / Micro Data 08/01/24 07:02 08/01/24 07:02 Labs: Laboratory Results - last 24 hr 08/01/24 05:55: POC Glucose 99 08/01/24 07:02: WBC 15.8 H, RBC 4.37 L, Hgb 12.5 L, Hct 37.4 L, MCV 85.6, MCH 28.6, MCHC 33.4, RDW Std Deviation 38.8, RDW Coeff of Pawel 12.4, Plt Count 175, MPV 9.2, Immature Gran % (Auto) 0.400, Neut % (Auto) 79.2 H, Lymph % (Auto) 12.4 L, [place] % (Auto) 7.0, Eos % (Auto) 0.6, Baso % (Auto) 0.4, Absolute Neuts (auto) 12.5 H, Absolute Lymphs (auto) 1.97, Nucleated RBC % 0, Sodium 137, Potassium 3.8, Chloride 106, Carbon Dioxide 22.0, Anion Gap 9, BUN 25 H, Creatinine 1.07, Estim Creat Clear Calc 63.64, Est GFR (MDRD) Af Amer 86, Est GFR (MDRD) Non-Af 71, BUN/Creatinine Ratio 23.4 H, Glucose 109 H, Calcium 9.0 08/01/24 11:14: POC Glucose 122 H 08/01/24 16:29: POC Glucose 165 H 08/01/24 20:53: POC Glucose 117 H Micro: Microbiology 07/31/24 15:00 Urine, Clean Catch Urine Culture - Preliminary Gram negative emperatriz Active Medications Active Medications Active Medications: Current Medications Generic Name Dose Route Start Last Admin Trade Name Disha PRN Reason Stop Dose Admin Acetaminophen 650 mg 07/31/24 18:27 08/01/24 16:32 Acetaminophen 325 Mg Tablet PO 650 mg Q6H PRN PRN Administration Pain 1-10 Or Fever >100.7 Amlodipine Besylate 10 mg 08/01/24 10:00 08/01/24 08:52 Amlodipine 10 Mg Tablet PO 10 mg DAILY SANDRA Administration Protocol Aspirin 81 mg 08/01/24 08:00 08/01/24 08:51 Aspirin E.C. 81 Mg Tablet PO 81 mg DAILYCM SANDRA Administration Atorvastatin Calcium 40 mg 07/31/24 22:00 08/01/24 20:55 Atorvastatin Calcium 40 Mg Tablet PO 40 mg QHS SANDRA Administration Baclofen 5 mg 07/31/24 22:00 08/01/24 20:55 Baclofen 10 Mg Tablet PO 5 mg TID SANDRA Administration Bisacodyl 10 mg 07/31/24 18:00 Bisacodyl 10 Mg Suppository RC X1 PRN Constipation Doxazosin Mesylate 4 mg 07/31/24 22:00 07/31/24 21:48 Doxazosin 4 Mg Tablet PO 4 mg QHS [facility] Administration Protocol Enoxaparin Sodium 40 mg 08/01/24 10:00 08/01/24 09:00 Enoxaparin 40 Mg/0.4 Ml Syringe SC Not Given DAILY SANDRA Glucagon 1 mg 07/31/24 18:25 Glucagon 1 Mg/Ml Syringe IM X1 PRN HYPOGLYCEMIA Protocol Dextrose 250 mls @ 0 mls/hr 07/31/24 18:25 Dextrose 10%-Water IV .Q0M PRN HYPOGLYCEMIA Protocol As Directed Piperacillin Sod/Tazobactam 50 mls @ 12.5 mls/hr 07/31/24 22:00 08/01/24 20:49 Sod 3.375 gm/ Sodium Chloride IV 12.5 mls/hr Q8 SANDRA Administration Insulin Human Lispro 0 unit 07/31/24 22:00 08/01/24 20:56 Insulin Lispro 100 Unit/Ml Insuln.Pen SC Not Given ACHS SANDRA Protocol Lorazepam 1 mg 07/31/24 18:27 Lorazepam 2 Mg/Ml Syringe IV Q6H PRN PRN SEIZURES Magnesium Hydroxide 30 ml 07/31/24 18:00 Magnesium Hydroxide 30 Ml Udc PO X1 PRN Constipation Melatonin 3 mg 07/31/24 22:00 08/01/24 20:49 Melatonin 3 Mg Tablet PO 3 mg QHS SANDRA Administration Metoprolol Tartrate 25 mg 07/31/24 22:00 08/01/24 20:56 Metoprolol Tartrate 25 Mg Tablet PO 25 mg BID SANDRA Administration Protocol Morphine Sulfate 2 - 4 mg 07/31/24 18:27 Morphine 2 Mg/Ml Syringe IV Q3H PRN PRN Pain Score 6-10 Morphine Sulfate 2 - 4 mg 07/31/24 18:35 Morphine 4 Mg/Ml Syringe IV Q3H PRN PRN Pain Score 6-10 Nitroglycerin 0.4 mg 07/31/24 18:07 Nitroglycerin (Inpatient Use) 0.4 Mg Tab.Subl SL Q5M PRN CARDIAC/CHEST PAIN Nutritional Formula (Lactose Free) 120 ml 08/01/24 17:00 08/01/24 18:02 Glucerna Shake 120 Ml Liquid PO Not Given TIDCM SANDRA Nystatin 1 applic 07/31/24 22:00 08/01/24 20:54 Nystatin Powder 15gm Bottle TOPICAL 1 applic BID@0600,2200 SANDRA Administration Oxycodone HCl 5 mg 07/31/24 18:27 08/01/24 16:32 Oxycodone 5 Mg Tablet PO 5 mg Q4H PRN PRN Administration Pain Score 4-10 Pantoprazole Sodium 40 mg 08/01/24 10:00 08/01/24 08:52 Pantoprazole Sodium 40 Mg Tablet PO 40 mg DAILY SANDRA Administration Senna/Docusate Sodium 2 tablet 07/31/24 22:00 08/01/24 20:56 Senna/Docusate Sodium 1 Tablet PO 2 tablet BID SANDRA Administration Simethicone 80 mg 07/31/24 18:00 Simethicone 80 Mg Chewable Tablet PO TIDPC PRN Gas Sodium Chloride 10 - 40 ml 07/31/24 17:54 08/01/24 16:32 0.9% Saline Lock 10 Ml Syringe IV 10 ml UD PRN Administration SALINE FLUSH
[2024-08-02 04:00] VITALS: BP 106/59; PULSE 77; RESP 16; TEMP 36.8; O2SAT 96
[2024-08-02] MEDS: Baclofen 10 MG Tablet 5 MG PO ×2 (05:19→14:10)
[2024-08-02] MEDS: Acetaminophen 325 MG Tablet 650 MG PO ×2 (05:19→14:10)
[2024-08-02] MEDS: oxyCODONE 5 MG Tablet PO ×2 (05:19→14:10)
[2024-08-02] MEDS: Nystatin Powder 15gm Bottle 1 APPLIC TOPICAL (05:20)
[2024-08-02] MEDS: Piperacil/Tazobactam 3.375 GM in 0.9% Normal Saline (50mL MB+) 50 ML IV ×2 (05:20→14:09)
[2024-08-02 07:03] LABS: Absolute Lymphocyte Count 1.14 X10^3/uL (0.83-4.51); Basophil# 0.06 X10^3/uL; Basophil% 0.7 % (0-1); Eosinophil# 0.19 X10^3/uL; Eosinophils% 2.1 % (0-5); Hematocrit 34.5 % (40-54); Hemoglobin 11.5 g/dL (13.0-16.5); Lymphocyte # 1.14 X10^3/ul (0.83-4.51); Lymphocyte % 12.4 % (19-41); Mean Corp Hgb Conc 33.3 g/dL (32-36); Mean Corpuscular Hgb 28.6 pg (27.0-32.0); Mean Corpuscular Volume 85.8 fL (80-94); Mean Platelet Vol. 9.8 fl (6.2-12.0); Monocyte# 0.75 X10^3/uL; Monocyte% 8.1 % (0-10); NRBC Flagged by Analyzer 0 % (0-5); Neutrophil # 7.03 X10^3/uL (2.7-7.7); Neutrophil % 76.2 % (47-70); Platelet Count 184 K/mm3 (150-450); RBC Distribution Width CV 12.5 % (11.6-14.6); RBC Distribution Width SD 39.1 fl (35.1-43.9); Red Blood Count 4.02 M/mm3 (4.6-6.2); White Blood Count 9.2 K/mm3 (4.4-11.0)
[2024-08-02 07:26] LABS: Anion Gap 7 (5-15); BUN 18 mg/dL (7-18); BUN/Creat Ratio 17.3 RATIO (10-20); Chloride 107 mmol/L (98-107); Creatinine, Serum 1.04 mg/dL (0.70-1.30); EST Glomerular Filtration Rate 74 mL/min (>60); Est Glom Filt Rate - Afr Amer 89 mL/min (>60); Estimated Creatinine Clearance 65.47 ml/min; Glucose 142 mg/dL (74-106); Potassium 3.8 mmol/L (3.5-5.1); Sodium Level 137 mmol/L (136-145)
[2024-08-02 08:54] VITALS: BP 132/62; PULSE 69; RESP 16; TEMP 36.7; O2SAT 96
[2024-08-02] MEDS: Insulin Lispro 100 UNIT/ML INSULN.PEN SC (08:57)
[2024-08-02 09:00] VITALS: BP 132/62; PULSE 69
[2024-08-02] MEDS: Metoprolol Tartrate 25 MG Tablet PO (09:00)
[2024-08-02] MEDS: Senna/Docusate Sodium 1 Tablet 2 TABLET PO (09:00)
[2024-08-02] MEDS: Enoxaparin 40 MG/0.4 ML Syringe SC (09:00)
[2024-08-02] MEDS: Aspirin E.C. 81 MG Tablet PO (09:00)
[2024-08-02] MEDS: Pantoprazole Sodium 40 MG Tablet PO (09:01)
[2024-08-02] MEDS: Glucerna Shake 120 ML LIQUID PO ×2 (09:01→11:27)
[2024-08-02] MEDS: amLODIPine 10 MG Tablet PO (09:01)
[2024-08-02 09:39] LABS: Bedside Glucose 166 mg/dL (74-106)
[2024-08-02 12:06] LABS: Bedside Glucose 115 mg/dL (74-106)
[2024-08-02 14:12] VITALS: BP 124/53; PULSE 76; RESP 16; TEMP 36.8; O2SAT 97
--- NOTE | 2024-08-02 15:58 | PCM.TXEXTCAR ---
Diet Diet Order/Speech Therapy: 07/31/24 18:26 Diet: Cardiac: Calorie-Controlled Food consistency:: Regular Liquid Consistency:: Regular/Thin How many daily calories?: 1800 calorie Routine Orders/Code Status Suppository Type: Dulcolax 10mg Suppository Frequency: Daily PRN Code Status: Full Code Problem/Diagnosis (1) Urinary tract infection: Status: Acute Code(s): N39.0 - Urinary tract infection, site not specified Plan # Urinary tract infection-secondary to Proteus UTI # LUCA-resolved # Shaking-like episode # History of CVA initially ischemic with hemorrhagic transformation #GERD #ROSANGELA # History of coronary artery disease status post CABG and right carotid stenosis # Chronic pain and debility #Type 2 diabetes mellitus # Hypertension 79-year-old male history of coronary artery disease status post CABG, right carotid stenosis, GERD, ROSANGELA, diabetes, hypertension, history of ischemic CVA with hemorrhagic transformation presented to [facility] ED 07/31/2024 with UTI and shaking episode at SNF. Patient retained awareness during shaking episode with no postictal period, no loss of bowel or bladder, but SNF was concern for seizure. On arrival patient noted to have LUCA with creatinine of 1.7 and UA suggestive of UTI. He was started on IV Rocephin and improved significantly, also seen by neurology and had EEG with no seizure activity and it was felt that this was not likely to be a seizure however given isolated event he would not qualify for long-term daily antiepileptic therapy with normal EEG and no recurrence of symptoms. Patient did have some left-sided pain which is chronic and had significant improvement with the pain and quality of life with addition of as needed oxycodone so we will send several days of this to SNF given level of improvement in functioning and quality of life. On day of discharge patient feeling much better overall, discussed above and plan of care with patient and family at bedside. No other new or acute complaints. Patient to be discharged on Levaquin for an additional 5 days. Allergies/Procedures Done in Hospital Allergies clopidogrel (From Plavix) Allergy (Severe, Verified 07/31/24 13:18) Itching ticagrelor (From Brilinta) Adverse Reaction (Intermediate, Verified 07/31/24 13:18) (Possible reaction) Itching hands and feet, no rash Type of Care/Length of Stay Estimated LOS: More Than 30 Days Type of Care Needed: Intermediate Rehab Potential: Fair Prognosis: Fair Additional Orders/Day of Discharge Day of Discharge: 08/02/24 Dietary and Speech Recommendations Dietitian Recommendations/Changes: Continue 1800 calorie control, cardiac diet. Will order 120ml chocolate glucerna TID with medpass. Will monitor weight, as available. Reviewed and approved by Ayana Turner, RD, LD. Discharge Plan Admission Admit Date/Time: 07/31/24 16:56 Primary Reason for Your Visit: UTI, shaking episode Attending Provider: Lyubov Johnson Primary Care Provider: Scotty Perry Consulting Providers: Sahra Fernández; Syl Ashraf; Joana Hermosillo; Simon Walter; Milton Humphreys; Josefina Tipton; SY CARRASCO; Odessa Steele; Melanie Zaldivar; Mike Rogers; Yulissa Avendaño; Dino Garcia; Amber Maxwell; Carolina Mane; Tacos Bah; Maribel Willis; Gary Villa; Michel Dia; Yeison Hernandez; Mya Hayward; Jo-Ann Brown; Vignesh Barba; Darci Pinedo; Daniel Orellana; Edwina Meza; Vinny Mercado; Romy Ramon Instructions Patient Instructions: ED Bladder Infection, Male (Adult) Discharge Orders/Prescriptions Prescriptions: New oxycodone 5 mg Tablet 5 mg PO Q4H PRN PRN (Reason: Pain Score 4-10) 5 Days Qty: 30 0RF levofloxacin 750 mg tablet 750 mg PO DAILY 5 Days Qty: 5 0RF Continued nitroglycerin 0.4 mg tablet, sublingual 0.4 mg SUBLINGUAL Q5M PRN (Reason: CHEST PAIN ) metformin 500 mg tablet 500 mg PO BID aspirin [Adult Low Dose Aspirin] 81 mg tablet,delayed release (DR/EC) 81 mg PO DAILY doxazosin 4 mg tablet 4 mg PO QHS amlodipine 10 mg tablet 10 mg PO DAILY lisinopril 40 mg tablet 40 mg PO DAILY acetaminophen 325 mg Tablet 650 mg PO Q6H PRN PRN (Reason: PAIN 1-10) Qty: 1 0RF magnesium hydroxide 400 mg/5 mL Suspension 30 ml PO X1 PRN (Reason: Constipation) Qty: 30 0RF bisacodyl 10 mg Suppository 10 mg OR X1 PRN (Reason: Constipation) Qty: 1 0RF metoprolol tartrate 25 mg Tablet 25 mg PO BID Qty: 1 0RF sennosides-docusate sodium [Stool Softener-Stimulant Laxat] 8.6-50 mg Tablet 2 tab PO BID Qty: 1 0RF miconazole nitrate [Desenex] 2 % Powder 1 applic topical BID@0600,2200 Qty: 1 0RF Protocol: *Topical Application Instructions APPLICATION INSTRUCTIONS: scrotum simethicone 80 mg Tablet,Chewable 80 mg PO TIDPC PRN (Reason: Gas) Qty: 1 0RF menthol-zinc oxide [Calmoseptine] 0.44-20.6 % Ointment 1 applic topical BID@0600,2200 Qty: 1 0RF Protocol: *Topical Application Instructions APPLICATION INSTRUCTIONS: butt baclofen 5 mg tablet 5 mg PO TID melatonin 3 mg capsule 3 mg PO QHS omeprazole 20 mg capsule,delayed release(DR/EC) 40 mg PO DAILY atorvastatin 40 mg tablet 40 mg PO QHS Qty: 90 3RF Discontinued sulfamethoxazole-trimethoprim [Bactrim DS] 800-160 mg tablet 1 tab PO BID Referrals / Follow Up: Scotty Perry MD [Primary Care Provider] - Disposition Disposition (needs filled in before D/C Order can be placed): NonSkilled NH/Intermed Care
--- NOTE | 2024-08-02 16:16 | DS.PCM_ITS ---
Providers Date of Admission: 07/31/24 Date of Discharge: 08/02/24 Primary Care Physician: Dr. Scotty Perry MD Consultations 07/31/24 18:27 Neurology [Consult: Tele-Neurology] Routine Consulting Provider: [facility] Reason for Consult: probable seizure EMERGENT Consult: No MD Notified: Yes Date Notified: 07/31/24 Time Notified: 18:40 Method of Notification: Answering Service Nursing Unit Staff Notify [facility] of Tele-Neurology Consult: Yes Reason For Visit: UTI, shaking episode Diagnosis Discharge Diagnosis (1) Urinary tract infection: Status: Acute Code(s): N39.0 - Urinary tract infection, site not specified Plan # Urinary tract infection-secondary to Proteus UTI # LUCA-resolved # Shaking-like episode # History of CVA initially ischemic with hemorrhagic transformation #GERD #ROSANGELA # History of coronary artery disease status post CABG and right carotid stenosis # Chronic pain and debility #Type 2 diabetes mellitus # Hypertension Medications at Discharge Home Medications nitroglycerin 0.4 mg sublingual tablet 0.4 mg sublingual Q5M PRN CHEST PAIN 01/12/18 omeprazole 20 mg capsule,delayed release 40 mg PO DAILY GERD 08/19/23 atorvastatin 40 mg tablet 40 mg PO QHS CHOLESTEROL #90 tabs 08/24/23 aspirin 81 mg tablet,delayed release (Adult Low Dose Aspirin) 81 mg PO DAILY HEART HEALTH 10/13/23 amlodipine 10 mg tablet 10 mg PO DAILY blood pressure 10/28/23 doxazosin 4 mg tablet 4 mg PO QHS Prostate 10/28/23 lisinopril 40 mg tablet 40 mg PO DAILY blood pressure 10/28/23 acetaminophen 325 mg tablet 650 mg (2 x 325 mg) PO Q6H PRN PRN PAIN 1-10 #1 TAB 11/18/23 bisacodyl 10 mg rectal suppository 10 mg IL X1 PRN Constipation #1 ea 11/18/23 magnesium hydroxide 400 mg/5 mL oral suspension 30 ml PO X1 PRN Constipation #30 mL 11/18/23 menthol 0.44 %-zinc oxide 20.6 % topical ointment (Calmoseptine) 1 applic topical BID@0600,2200 #1 g 11/18/23 metoprolol tartrate 25 mg tablet 25 mg PO BID #1 TAB 11/18/23 miconazole nitrate 2 % topical powder (Desenex) 1 applic topical BID@0600,2200 #1 g 11/18/23 sennosides 8.6 mg-docusate sodium 50 mg tablet (Stool Softener-Stimulant Laxative) 2 tab PO BID #1 TAB 11/18/23 simethicone 80 mg chewable tablet 80 mg PO TIDPC PRN Gas #1 TAB 11/18/23 metformin 500 mg tablet 500 mg PO BID 03/23/24 baclofen 5 mg tablet 5 mg PO TID 07/31/24 melatonin 3 mg capsule 3 mg PO QHS 07/31/24 levofloxacin 750 mg tablet 750 mg PO DAILY 5 days #5 tabs 08/02/24 oxycodone 5 mg tablet 5 mg PO Q4H PRN PRN Pain Score 4-10 5 days #30 tabs 08/02/24 Hospital Course Summary of Care Provided Minutes Spent on Discharge: 32 Hospital Course: 79-year-old male history of coronary artery disease status post CABG, right carotid stenosis, GERD, ROSANGELA, diabetes, hypertension, history of ischemic CVA with hemorrhagic transformation presented to [facility] ED 07/31/2024 with UTI and shaking episode at SNF. Patient retained awareness during shaking episode with no postictal period, no loss of bowel or bladder, but SNF was concern for seizure. On arrival patient noted to have LUCA with creatinine of 1.7 and UA suggestive of UTI. He was started on IV Rocephin and improved significantly, also seen by neurology and had EEG with no seizure activity and it was felt that this was not likely to be a seizure however given isolated event he would not qualify for long-term daily antiepileptic therapy with normal EEG and no recurrence of symptoms. Patient did have some left-sided pain which is chronic and had significant improvement with the pain and quality of life with addition of as needed oxycodone so we will send several days of this to SNF given level of improvement in functioning and quality of life. On day of discharge patient feeling much better overall, discussed above and plan of care with patient and family at bedside. No other new or acute complaints. Patient to be discharged on Levaquin for an additional 5 days. Physical Exam Narrative General: Alert, no apparent distress HEENT: Atraumatic, normocephalic Eyes: Anicteric, normal conjunctiva, extraocular movements grossly intact Neck: Supple Respiratory: normal respiratory effort Cardiovascular: Regular rate GI: Soft, nontender, nondistended Extremities: No significant edema Musculoskeletal: Moving all extremities in chair Neuro: Patient seems to be at baseline Skin: No rashes appreciated Psych: Cooperative and pleasant today Weight / BMI Weight Weight: 95.4 kg Body Mass Index (BMI) 32.9 ABG / Lab / Microbiology Data 08/02/24 06:12 08/02/24 06:12 Laboratory: Laboratory Results - last 24 hr 08/01/24 16:29: POC Glucose 165 H 08/01/24 20:53: POC Glucose 117 H 08/02/24 06:12: WBC 9.2, RBC 4.02 L, Hgb 11.5 L, Hct 34.5 L, MCV 85.8, MCH 28.6, MCHC 33.3, RDW Std Deviation 39.1, RDW Coeff of Pawel 12.5, Plt Count 184, MPV 9.8, Immature Gran % (Auto) 0.500, Neut % (Auto) 76.2 H, Lymph % (Auto) 12.4 L, [place] % (Auto) 8.1, Eos % (Auto) 2.1, Baso % (Auto) 0.7, Absolute Neuts (auto) 7.0, Absolute Lymphs (auto) 1.14, Nucleated RBC % 0, Sodium 137, Potassium 3.8, Chloride 107, Carbon Dioxide 23.0, Anion Gap 7, BUN 18, Creatinine 1.04, Estim Creat Clear Calc 65.47, Est GFR (MDRD) Af Amer 89, Est GFR (MDRD) Non-Af 74, BUN/Creatinine Ratio 17.3, Glucose 142 H, Calcium 9.0 08/02/24 08:56: POC Glucose 166 H 08/02/24 11:26: POC Glucose 115 H Microbiology: Microbiology 07/31/24 13:53 Blood Culture (Wb) - Anticubital Right Blood Culture - Preliminary No growth in 48 hours. 07/31/24 15:00 Urine, Clean Catch Urine Culture - Final Proteus mirabilis 07/31/24 13:53 Mucosa - Nose SARS-CoV-2, Influenza & RSV (PCR) - Final D/C Instructions Discharge Diet: Carb Control Diet Meaningful Use Info Meaningful Use Meaningful Use Diagnoses (Choose all that apply): None applicable Ischemic Stroke Statin Dosing Therapy Reference: STATIN DOSE THERAPY REFERENCE: * Patients > 75 years receive moderate or high dose statin therapy. * Patients 75 years or YOUNGER should receive HIGH intensity statin dose unless contraindicated. You will be required to document reason for non-treatment if statin daily dose does not meet guidelines. HIGH DOSE STATIN THERAPY DAILY Atorvastatin > than or = to 40 mg Rosuvastatin > than or = to 20 mg Amlodipine + Atorvastatin > than or = to 2.5/40 mg Ezetimibe + Simvastatin 10/80 mg Simvastatin 80mg Discharge Plan Admission Admit Date/Time: 07/31/24 16:56 Primary Reason for Your Visit: UTI, shaking episode Attending Provider: Lyubov Johnson Primary Care Provider: Scotty Perry Consulting Providers: Sahra Fernández; Syl Ashraf; Joana Hermosillo; Simon Walter; Milton Humphreys; Josefina Tipton; SY CARRASCO; Odessa Steele; Melanie Zaldivar; Mike Rogers; Yulissa Avendaño; Dino Garcia; Amber Maxwell; Carolina Mane; Tacos Bah; Maribel Willis; Gary Villa; Michel Dia; Yeison Hernandez; Mya Hayward; Jo-Ann Brown; Vignesh Barba; Darci Pinedo; Daniel Orellana; Edwina Meza; Vinny Mercado; Romy Ramon Instructions Patient Instructions: ED Bladder Infection, Male (Adult) Discharge Orders/Prescriptions Prescriptions: New oxycodone 5 mg Tablet 5 mg PO Q4H PRN PRN (Reason: Pain Score 4-10) 5 Days Qty: 30 0RF levofloxacin 750 mg tablet 750 mg PO DAILY 5 Days Qty: 5 0RF Continued nitroglycerin 0.4 mg tablet, sublingual 0.4 mg SUBLINGUAL Q5M PRN (Reason: CHEST PAIN ) metformin 500 mg tablet 500 mg PO BID aspirin [Adult Low Dose Aspirin] 81 mg tablet,delayed release (DR/EC) 81 mg PO DAILY doxazosin 4 mg tablet 4 mg PO QHS amlodipine 10 mg tablet 10 mg PO DAILY lisinopril 40 mg tablet 40 mg PO DAILY acetaminophen 325 mg Tablet 650 mg PO Q6H PRN PRN (Reason: PAIN 1-10) Qty: 1 0RF magnesium hydroxide 400 mg/5 mL Suspension 30 ml PO X1 PRN (Reason: Constipation) Qty: 30 0RF bisacodyl 10 mg Suppository 10 mg IL X1 PRN (Reason: Constipation) Qty: 1 0RF metoprolol tartrate 25 mg Tablet 25 mg PO BID Qty: 1 0RF sennosides-docusate sodium [Stool Softener-Stimulant Laxat] 8.6-50 mg Tablet 2 tab PO BID Qty: 1 0RF miconazole nitrate [Desenex] 2 % Powder 1 applic topical BID@0600,2200 Qty: 1 0RF Protocol: *Topical Application Instructions APPLICATION INSTRUCTIONS: scrotum simethicone 80 mg Tablet,Chewable 80 mg PO TIDPC PRN (Reason: Gas) Qty: 1 0RF menthol-zinc oxide [Calmoseptine] 0.44-20.6 % Ointment 1 applic topical BID@0600,2200 Qty: 1 0RF Protocol: *Topical Application Instructions APPLICATION INSTRUCTIONS: butt baclofen 5 mg tablet 5 mg PO TID melatonin 3 mg capsule 3 mg PO QHS omeprazole 20 mg capsule,delayed release(DR/EC) 40 mg PO DAILY atorvastatin 40 mg tablet 40 mg PO QHS Qty: 90 3RF Discontinued sulfamethoxazole-trimethoprim [Bactrim DS] 800-160 mg tablet 1 tab PO BID Referrals / Follow Up: Scotty Perry MD [Primary Care Provider] - Disposition Disposition (needs filled in before D/C Order can be placed): NonSkilled NH/Intermed Care Charges/Coding Visit Charges Inpatient E&M: 38618 Disch Hosp >30min
[2024-08-02 18:05] LABS: Bedside Glucose 94 mg/dL (74-106)
--- NOTE | 2024-08-03 16:19 | CASEMGMT ---
Discharge Planning Wheelchair transport was scheduled with [facility] on 08/02/24. Extrusion Operator and nursing updated. Gloria Jain DC Planning Asst.
== END 2024-08-02 19:00 | DRG 690 ==
LOC: ED 16:57 → PCU 17:16
PROVIDERS: Admitting Provider Student in an Organized Health Care Education/Training Program; Emergency Provider Emergency Medicine; PCP Family Medicine; Visit Provider Internal Medicine
DX: N39.0 Urinary tract infection, site not specified (principal); N17.9 Acute kidney failure, unspecified; E11.9 Type 2 diabetes mellitus without complications; G47.33 Obstructive sleep apnea (adult) (pediatric); B96.4 Proteus (mirabilis) (morganii) as the cause of diseases classified elsewhere; G89.29 Other chronic pain; I10 Essential (primary) hypertension; I65.21 Occlusion and stenosis of right carotid artery; I25.10 Atherosclerotic heart disease of native coronary artery without angina pectoris; K21.9 Gastro-esophageal reflux disease without esophagitis; M25.552 Pain in left hip; M25.512 Pain in left shoulder; R25.8 Other abnormal involuntary movements; R53.81 Other malaise; Z95.1 Presence of aortocoronary bypass graft; Z95.5 Presence of coronary angioplasty implant and graft; Z79.82 Long term (current) use of aspirin; Z79.84 Long term (current) use of oral hypoglycemic drugs; Z79.899 Other long term (current) drug therapy; Z87.891 Personal history of nicotine dependence; Z86.73 Personal history of transient ischemic attack (TIA), and cerebral infarction without residual deficits
CPT/HCPCS: 36415; 70450; 71046; 73502; 80048; 80053; 81001; 82962; 83605; 85025; 85610; 85730; 87040; 87077; 87086; 87088; 87186; 87631; 93005; 95819; 97162; 97166; 97530; 97535; 97802; 99285; J7030; A4216

== ENCOUNTER 2024-08-28 07:07 | Observation (INO) | payer MEDICARE, MEDICAID, SELFPAY ==
[2020-02-06 11:26] VITALS: BMI 36.5
[2024-08-28] VITALS (10 sets, daily range): BP systolic 132–159; BP diastolic 61–74; PULSE 63–98; RESP 16–19; TEMP 36.2–36.6; O2SAT 95–99; BMI 33.5; BMI 32.8
--- NOTE | 2024-08-28 07:15 | EKG12_ITS ---
Test Reason : GENERAL Blood Pressure : / mmHG Vent. Rate : 087 BPM Atrial Rate : 087 BPM P-R Int : 166 ms QRS Dur : 130 ms QT Int : 388 ms P-R-T Axes : 063 098 062 degrees QTc Int : 466 ms Normal sinus rhythm Right bundle branch block Abnormal ECG Confirmed by JOEL DUNN, BEN ([id number]), medical editor CHAD PRASAD ([id number]) on 08/30/2024 10:08:43 AM Referred By: Confirmed By:BEN MALDONADO MD
--- NOTE | 2024-08-28 07:15 | RAD_ITS ---
EXAM: XR CHEST, 1 VIEW CLINICAL INDICATION: CAD TECHNIQUE: Frontal view of the chest. COMPARISON: 07/31/2024. FINDINGS: LUNGS AND PLEURAL SPACES: Unremarkable. No consolidation or edema. No pneumothorax. No effusion. HEART: Unremarkable. Cardiac silhouette not enlarged. MEDIASTINUM: Central airways and mediastinal contour are unremarkable. BONES/JOINTS: Intact sternal wires. No acute fracture. SOFT TISSUES: Unremarkable. RAD/Chest 1 View (Portable) IMPRESSION: No acute findings in the chest and unchanged. Electronically Signed: Mayco Kwong MD at 8:34 EDT ,
--- NOTE | 2024-08-28 07:15 | CT_ITS ---
EXAM: CT HEAD WITHOUT INTRAVENOUS CONTRAST CLINICAL INDICATION: Stroke/seizure. TECHNIQUE: Multiple axial images were obtained of the head without intravenous contrast. This CT exam was performed using one or more of the following dose reduction techniques: automated exposure control, adjustment of the mA and/or kV according to patient size, and/or use of iterative reconstruction technique. RADIATION DOSE: CTDIvol = 44.99 mGy, DLP = 798.92 mGy-cm COMPARISON: CT head without contrast 08/10/2024. FINDINGS: BRAIN AND EXTRA-AXIAL SPACES: Old ischemic infarct with cystic encephalomalacia along the right paracentral lobule, right superior frontal gyrus and right cingulate gyrus. They correspond to the right BREONNA territory. No intra- or extra-axial hemorrhage. No intracranial mass or mass effect. Posterior fossa structures are unremarkable. Ventricles are appropriate for age. No hydrocephalus. Basal cisterns are patent. BONES/JOINTS: Unremarkable. No discrete lytic or blastic abnormalities. SINUSES: Unremarkable as visualized. Clear. MASTOID AIR CELLS: Unremarkable. Clear. ORBITS: Visualized globes, extraocular muscles, optic nerves and retrobulbar fat appear unremarkable. CT/Brain/Head without Contrast IMPRESSION: 1. No CT evidence of intracranial bleeding, acute ischemic infarct or acute intracranial abnormality. 2. Old cortical-based ischemic infarct with cystic encephalomalacia and atrophy along the right BREONNA territory. 3. No interval change. Electronically Signed: Mayco Kwong MD at 8:16 EDT ,
--- NOTE | 2024-08-28 07:18 | EX.ED.DYSGE1 ---
HPI History of Present Illness Chief Complaint: General Illness Informant: patient, spouse/S.O., family, EMS and SNF Narrative Narrative: 79-year-old male presenting to the emergency room out of concern for seizure activity. Patient has a history of stroke with hemorrhagic conversion. He was admitted to the hospital about 1 month ago with an episode of shaking. He had EEG and neurology evaluation. As it was an isolated event daily epileptic therapy was not recommended. At that time the patient was also noted to have UTI and completed antibiotic therapy. The patient for the past month states he has been doing well. At baseline he has minimal movement of the left leg but positive sensation. He notes he has weakness of the left upper extremity but is able to move it. He denies any speech or vision or swallowing problems. The patient was reportedly found this morning by cleaning staff to be shaking on the lower legs and red in the face. When help arrived he was noted to be pale and confused. The patient states he remembers his body locking up. He states that he did not have any control over it. He denies any loss of bowel or bladder control. There is no report as to how long this lasted. EMS notes that he did seem confused to them when they first got there but has resolved. He denies any current pain. He denies any current new medications. No recent illnesses. [facility] Medical History Benign prostatic hyperplasia with elevated prostate specific antigen (PSA) and lower urinary tract symptoms Flaccid hemiplegia affecting left nondominant side Carotid stenosis, right BPH (benign prostatic hyperplasia) GERD (gastroesophageal reflux disease) Type 2 diabetes mellitus Obstructive sleep apnea Kidney stones Former smoker CPAP (continuous positive airway pressure) dependence Sleep apnea Hypertension TIA (transient ischemic attack) Hyperlipidemia Small bowel obstruction Essential (primary) hypertension Atherosclerosis of coronary artery bypass graft without angina pectoris Other rat 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) drug therapy Home Medications ?Medication ?Instructions ?Recorded ?Last Taken ?Type nitroglycerin 0.4 mg sublingual 0.4 mg sublingual Q5M PRN CHEST 01/12/18 Unknown History tablet PAIN omeprazole 20 mg capsule,delayed 40 mg PO DAILY GERD 08/19/23 Unknown History release atorvastatin 40 mg tablet 40 mg PO QHS CHOLESTEROL #90 tabs 08/24/23 Unknown Rx aspirin 81 mg tablet,delayed 81 mg PO DAILY HEART HEALTH 10/13/23 Unknown History release (Adult Low Dose Aspirin) amlodipine 10 mg tablet 10 mg PO DAILY blood pressure 10/28/23 Unknown History doxazosin 4 mg tablet 4 mg PO QHS Prostate 10/28/23 Unknown History lisinopril 40 mg tablet 40 mg PO DAILY blood pressure 10/28/23 Unknown History acetaminophen 325 mg tablet 650 mg (2 x 325 mg) PO Q6H PRN PRN 11/18/23 Unknown Rx PAIN 1-10 #1 TAB bisacodyl 10 mg rectal suppository 10 mg AR X1 PRN Constipation #1 ea 11/18/23 Unknown Rx magnesium hydroxide 400 mg/5 mL 30 ml PO X1 PRN Constipation #30 mL 11/18/23 Unknown Rx oral suspension menthol 0.44 %-zinc oxide 20.6 % 1 applic topical BID@0600,2200 #1 g 11/18/23 Unknown Rx topical ointment (Calmoseptine) metoprolol tartrate 25 mg tablet 25 mg PO BID #1 TAB 11/18/23 Unknown Rx miconazole nitrate 2 % topical 1 applic topical BID@0600,2200 #1 g 11/18/23 Unknown Rx powder (Desenex) sennosides 8.6 mg-docusate sodium 2 tab PO BID #1 TAB 11/18/23 Unknown Rx 50 mg tablet (Stool Softener-Stimulant Laxative) simethicone 80 mg chewable tablet 80 mg PO TIDPC PRN Gas #1 TAB 11/18/23 Unknown Rx metformin 500 mg tablet 500 mg PO BID 03/23/24 Unknown History baclofen 5 mg tablet 5 mg PO TID 07/31/24 Unknown History melatonin 3 mg capsule 3 mg PO QHS 07/31/24 Unknown History levofloxacin 750 mg tablet 750 mg PO DAILY 5 days #5 tabs 08/02/24 Unknown Rx oxycodone 5 mg tablet 5 mg PO Q4H PRN PRN Pain Score 08/02/24 Unknown Rx 4-10 5 days #30 tabs Allergy/AdvReac Type Severity Reaction Status Date / Time clopidogrel (From Plavix) Allergy Severe Itching Verified 08/28/24 07:08 ticagrelor (From Brilinta) AdvReac Intermediate (Possible Verified 08/28/24 07:08 reaction) Itching hands and feet, no rash Family History Father Cancer Prostate cancer Mother CAD (coronary artery disease) Hx CABG Myocardial infarction Hypertension Brother CAD (coronary artery disease) Diabetes Sister Colon cancer Other Family history of hypertension Surgical History History of coronary artery stent placement Stented coronary artery (02/06/20) H/O coronary artery bypass surgery (04/2012) Social History household members: spouse current occupational status: employed 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 Smoking Status: Former smoker pack-years: 100 how long ago did patient quit smokin alcohol intake: current alcohol intake frequency: 0-2 drinks per day Alcohol type: wine substance use type: does not use caffeine: Yes Type: coffee Number of servings: 3 what type of physical activity do you participate in: walking frequency: daily duration: 30-45 minutes/day seatbelt use: always do you feel safe at home: Yes ROS ROS ED Constitutional Constitutional ED: Denies chills, fever(s) or weight loss Eyes Eyes: Denies change in vision or diplopia ENT ENT ED: Denies ear pain, rhinorrhea or sore throat Cardiovascular Cardiovascular: Denies chest pain, orthopnea, palpitations or racing heartbeat Respiratory/Chest Respiratory/Chest: Denies cough, dyspnea or orthopnea Gastrointestinal Gastrointestinal: Denies abdominal pain, diarrhea, nausea or vomiting Genitourinary Genitourinary ED: Denies dysuria, hematuria or urinary frequency Musculoskeletal Musculoskeletal: Reports other Details: Chronic left hip pain ; Denies arthralgias, myalgias or neck pain Integumentary Denies abscess or rash Neurologic Neurologic: Reports other Details: Shaking. No change in left arm left leg chronic symptoms from stroke. ; Denies headache(s) or weakness Psychiatric Psychiatric: Denies anxiety, depression, suicidal ideation or suicidal thoughts Endocrine Endocrinology: Denies polydipsia, polyphagia or polyuria Allergic/Immunologic Allergic/Immunologic ED: Denies mouth swelling, tongue swelling or urticaria EXAM Physical Exam Const Vital Signs: 08/28/24 07:08 08/28/24 07:11 08/28/24 07:42 Temperature 97.1 F L 97.1 F L Temperature Source Oral Oral Pulse Rate 98 98 Respiratory Rate 19 H 18 Respiratory Pattern Normal Blood Pressure 133/62 H 133/62 H Blood Pressure Mean 85 85 Pulse Ox 97 97 Oxygen Delivery Method Room Air Room Air 08/28/24 08:11 Temperature 98 F Temperature Source Oral Pulse Rate 76 Respiratory Rate 16 Respiratory Pattern Blood Pressure 132/68 H Blood Pressure Mean 89 Pulse Ox 99 Oxygen Delivery Method Room Air Positive well nourished, well developed and obese General Appearance ED: well developed and NAD Nutritional Appearance: obese HEENT Reports normocephalic, head/scalp atraumatic and moist mucous membranes Eyes PERRL and EOMs intact bilaterally Neck no lymphadenopathy, supple and no JVD Resp normal respiratory effort and clear to auscultation bilaterally Cardio regular rate, regular rhythm and no murmurs GI normal to inspection, nondistended, normoactive bowel sounds and non-tender Palpation: soft Back/Spine no CVA tenderness and normal ROM Extremity normal to inspection General Extremety ED: Negative for edema General Extremity: Negative for edema Neuro oriented x3 and CN's II-XII intact bilaterally Neuro Narrative: Minimal movement of the left leg. Sensation is intact. Patient is able to hold the left arm up the bed for 10 seconds. Right side appears unaffected. Sensorium / Orientation: alert Psych mental status grossly normal Mood & Affect: Negative for depressed or tearful Skin no rashes or lesions noted and no wounds MDM MDM MDM Narrative Medical decision making narrative: Differential diagnosis would include but not limited to seizure stroke electrolyte abnormalities dehydration UTI pneumonia White count 5.5 with no shift. Normal coags. BMP shows a glucose of 128 creatinine 1.09 BUN of 23 CO2 of 19. Lactic acid is elevated 5.7 LFTs within normal limits troponin is 6 urinalysis with no overt infection. My independent interpretation of the chest x-ray is no acute process. CT of the brain shows prior right-sided CVA with encephalomalacia. I believe the elevated lactic acid is most likely due to seizure activity. He received a liter of IV fluids and was loaded with Keppra. I will speak with the hospitalist regarding admission. Family including patient and daughter were updated. History & Record Review Discussion w/independent historian: EMS personnel and Patient Lab Data Attestation: I reviewed the patient's lab results. Labs: Laboratory Results - last 24 hr 08/28/24 08/28/24 07:37 08:00 WBC 5.5 RBC 4.96 Hgb 14.1 Hct 43.0 MCV 86.7 MCH 28.4 MCHC 32.8 RDW Std Deviation 39.8 RDW Coeff of Pawel 12.6 Plt Count 165 MPV 9.4 Immature Gran % (Auto) 0.400 Neut % (Auto) 51.4 Lymph % (Auto) 36.5 [place] % (Auto) 6.3 Eos % (Auto) 4.5 Baso % (Auto) 0.9 Absolute Neuts (auto) 2.8 Absolute Lymphs (auto) 2.02 Nucleated RBC % 0 PT 13.8 INR 1.1 APTT 30.5 Sodium 139 Potassium 4.2 Chloride 108 H Carbon Dioxide 19.0 L Anion Gap 12 BUN 23 H Creatinine 1.09 Estim Creat Clear Calc 63.02 Est GFR (MDRD) Af Amer 84 Est GFR (MDRD) Non-Af 70 BUN/Creatinine Ratio 21.1 H Glucose 128 H Lactic Acid 5.7 H* Calcium 9.3 Total Bilirubin 0.70 Direct Bilirubin 0.16 AST 19 ALT 23 Alkaline Phosphatase 44 L Troponin I High Sens 6 Total Protein 6.7 Albumin 3.5 Globulin 3.2 Lipase 27 Urine Color Yellow Urine Clarity Clear Urine pH 5.0 Ur Specific [place] 1.025 Urine Protein 100 H Urine Glucose (UA) Normal Urine Ketones 5 H Urine Occult Blood Negative Urine Nitrite Negative Urine Bilirubin Negative Urine Urobilinogen Normal Ur Leukocyte Esterase Negative Urine RBC 0-5 SEEN Urine WBC 0-5 SEEN Ur Squamous Epith Cells 0-5 SEEN Urine Bacteria 0 SEEN Urine Mucus 0 SEEN Radiography Diagnostic Testing: Clinical Impression(s) from Imaging Studies Brain CT 08/28/24 07:15 IMPRESSION: 1. No CT evidence of intracranial bleeding, acute ischemic infarct or acute intracranial abnormality. 2. Old cortical-based ischemic infarct with cystic encephalomalacia and atrophy along the right BREONNA territory. 3. No interval change. Electronically Signed: Mayco Kwong MD at 8:16 EDT , Chest X-Ray 08/28/24 07:15 IMPRESSION: No acute findings in the chest and unchanged. Electronically Signed: Mayco Kwong MD at 8:34 EDT , EKG Initial EKG: Attestation: I personally reviewed and interpreted this EKG as follows: Comments: NSR 87 bpm RBB (Chronic) Prior: Unchanged Management Discussion w/another healthcare provider: Hospitalist Discharge Plan Dx/Rx/DC Orders Clinical Impression: Essential (primary) hypertension, Hyperlipidemia, Atherosclerosis of coronary artery bypass graft without angina pectoris, Seizure Disposition Disposition: Acute Care Hospital [facility]
[2024-08-28 07:56] LABS: Absolute Lymphocyte Count 2.02 X10^3/uL (0.83-4.51); Absolute Neutrophil Count 2.8 X10^3/uL (2.0-7.7); Basophil# 0.05 X10^3/uL; Basophil% 0.9 % (0-1); Eosinophil# 0.25 X10^3/uL; Eosinophils% 4.5 % (0-5); Hemoglobin 14.1 g/dL (13.0-16.5); Lymphocyte # 2.02 X10^3/ul (0.83-4.51); Lymphocyte % 36.5 % (19-41); Mean Corp Hgb Conc 32.8 g/dL (32-36); Mean Corpuscular Hgb 28.4 pg (27.0-32.0); Mean Corpuscular Volume 86.7 fL (80-94); Mean Platelet Vol. 9.4 fl (6.2-12.0); Monocyte# 0.35 X10^3/uL; Monocyte% 6.3 % (0-10); NRBC Flagged by Analyzer 0 % (0-5); Neutrophil # 2.84 X10^3/uL (2.7-7.7); Neutrophil % 51.4 % (47-70); Platelet Count 165 K/mm3 (150-450); RBC Distribution Width CV 12.6 % (11.6-14.6); RBC Distribution Width SD 39.8 fl (35.1-43.9); Red Blood Count 4.96 M/mm3 (4.6-6.2); White Blood Count 5.5 K/mm3 (4.4-11.0)
[2024-08-28 08:09] LABS: International Normalized Ratio 1.1; Prothrombin Time (Protime)PT. 13.8 SECONDS (11.7-14.9)
[2024-08-28 08:10] LABS: Bacteria 0 SEEN /hpf (None Seen); Mucous, Urine 0 SEEN /hpf (<or=2+)
[2024-08-28 08:10] LABS: Partial Thromboplast Time 30.5 Seconds (24.1-36.2)
[2024-08-28 08:11] LABS: Color, Urine Yellow (Yellow); Glucose, Dipstick Normal (Normal); Ketone-Dipstick 5 mg/dl (Negative); Leukocyte Esterase-Dipstick Negative /ul (Negative); Nitrite-Dipstick Negative (Negative); Occult Blood-Urine Negative /ul (Negative); Protein-Dipstick 100 mg/dl (Negative); Specific Gravity, Urine 1.025 (1.002-1.030); Urine Bilirubin Dipstick Negative (Negative); Urine Clarity Clear (Clear); Urine Urobilinogen Normal (Normal)
[2024-08-28 08:28] LABS: Red Blood Cells-Urine 0-5 SEEN /hpf (0-5); Squamous Epithelial Cells - UA 0-5 SEEN /hpf (0-5); White Blood Cells 0-5 SEEN /hpf (0-5)
[2024-08-28 08:37] LABS: AST(SGOT) 19 U/L (15-37); Alanine Aminotransfer ALT/SGPT 23 U/L (16-61); Albumin, Serum 3.5 g/dL (3.2-5.0); Alkaline Phosphatase 44 U/L (45-117); Anion Gap 12 (5-15); BUN 23 mg/dL (7-18); BUN/Creat Ratio 21.1 RATIO (10-20); Bilirubin, Direct 0.16 mg/dL (0.00-0.30); Calcium,Total 9.3 mg/dL (8.5-10.1); Chloride 108 mmol/L (98-107); Creatinine, Serum 1.09 mg/dL (0.70-1.30); EST Glomerular Filtration Rate 70 mL/min (>60); Est Glom Filt Rate - Afr Amer 84 mL/min (>60); Estimated Creatinine Clearance 63.02 ml/min; Globulin 3.2 g/dL (2.2-4.2); Glucose 128 mg/dL (74-106); Lipase 27 U/L (13-75); Potassium 4.2 mmol/L (3.5-5.1); Protein, Total 6.7 g/dL (6.4-8.2); Sodium Level 139 mmol/L (136-145); Troponin-I HS 6 pg/mL (3.0-78.0)
[2024-08-28 08:38] LABS: Lactic Acid 5.7 mmol/L (0.4-1.9)
--- NOTE | 2024-08-28 08:38 | ED.RN ---
LAB CALLED WITH CRITICAL LACTIC ACID OF 5.7. DR VALDES
--- NOTE | 2024-08-28 09:10 | NURSING ---
DR ITALO AGSUTIN
[2024-08-28] MEDS: levETIRAcetam IV 1,000 MG/100 ML BAG 400 MG IV (09:11)
[2024-08-28] MEDS: 0.9% Normal Saline (1000mL) 1,000 ML 999 ML IV (09:11)
--- NOTE | 2024-08-28 09:12 | HP.PCM.HOS_ITS ---
HPI - General General Date of Admission: 08/28/24 Date of Service: 08/28/24 Chief Complaint: Involuntary movement HPI Narrative EBONY GREGORIO, is a 79 M with past medical history significant for previous hemorrhagic CVA, essential hypertension, dyslipidemia currently resident at an extended care facility who was brought in after experiencing involuntary movements as well as a sensation of being locked up on his left side. Patient apparently had a similar presentation a month prior. Underwent extensive workup including EEG neurology did not recommend any antiseizure medications. As stated above had a recurrence on the morning of his admission brought to the emergency department. Initial evaluation with head demonstrated no CT evidence of intracranial bleeding, acute ischemic infarct or acute intracranial abnormality. Admitted to monitored bed for subsequent [facility] Medical History Benign prostatic hyperplasia with elevated prostate specific antigen (PSA) and lower urinary tract symptoms Flaccid hemiplegia affecting left nondominant side Carotid stenosis, right BPH (benign prostatic hyperplasia) GERD (gastroesophageal reflux disease) Type 2 diabetes mellitus Obstructive sleep apnea Kidney stones Former smoker CPAP (continuous positive airway pressure) dependence Sleep apnea Hypertension TIA (transient ischemic attack) Hyperlipidemia Small bowel obstruction Essential (primary) hypertension Atherosclerosis of coronary artery bypass graft without angina pectoris 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) drug therapy Home Medications ?Medication ?Instructions ?Recorded ?Last Taken ?Type nitroglycerin 0.4 mg sublingual 0.4 mg sublingual Q5M PRN CHEST 01/12/18 Unknown History tablet PAIN omeprazole 20 mg capsule,delayed 40 mg PO DAILY GERD 08/19/23 Unknown History release atorvastatin 40 mg tablet 40 mg PO QHS CHOLESTEROL #90 tabs 08/24/23 Unknown Rx aspirin 81 mg tablet,delayed 81 mg PO DAILY [facility] 10/13/23 Unknown History release (Adult Low Dose Aspirin) amlodipine 10 mg tablet 10 mg PO DAILY blood pressure 10/28/23 Unknown History doxazosin 4 mg tablet 4 mg PO QHS Prostate 10/28/23 Unknown History lisinopril 40 mg tablet 40 mg PO DAILY blood pressure 10/28/23 Unknown History acetaminophen 325 mg tablet 650 mg (2 x 325 mg) PO Q6H PRN PRN 11/18/23 Unknown Rx PAIN 1-10 #1 TAB bisacodyl 10 mg rectal suppository 10 mg KS X1 PRN Constipation #1 ea 11/18/23 Unknown Rx magnesium hydroxide 400 mg/5 mL 30 ml PO X1 PRN Constipation #30 mL 11/18/23 Unknown Rx oral suspension menthol 0.44 %-zinc oxide 20.6 % 1 applic topical BID@0600,2200 #1 g 11/18/23 Unknown Rx topical ointment (Calmoseptine) metoprolol tartrate 25 mg tablet 25 mg PO BID #1 TAB 11/18/23 Unknown Rx miconazole nitrate 2 % topical 1 applic topical BID@06,0 #1 g 11/18/23 Unknown Rx powder (Desenex) sennosides 8.6 mg-docusate sodium 2 tab PO BID #1 TAB 11/18/23 Unknown Rx 50 mg tablet (Stool Softener-Stimulant Laxative) simethicone 80 mg chewable tablet 80 mg PO TIDPC PRN Gas #1 TAB 11/18/23 Unknown Rx metformin 500 mg tablet 500 mg PO BID 03/23/24 Unknown History baclofen 5 mg tablet 5 mg PO TID 07/31/24 Unknown History melatonin 3 mg capsule 3 mg PO QHS 07/31/24 Unknown History levofloxacin 750 mg tablet 750 mg PO DAILY 5 days #5 tabs 08/02/24 Unknown Rx oxycodone 5 mg tablet 5 mg PO Q4H PRN PRN Pain Score 08/02/24 Unknown Rx 4-10 5 days #30 tabs Allergy/AdvReac Type Severity Reaction Status Date / Time clopidogrel (From Plavix) Allergy Severe Itching Verified 08/28/24 07:08 ticagrelor (From Brilinta) AdvReac Intermediate (Possible Verified 08/28/24 07:08 reaction) Itching hands and feet, no rash Family History Father Cancer Prostate cancer Mother CAD (coronary artery disease) Hx CABG Myocardial infarction Hypertension Brother CAD (coronary artery disease) Diabetes Sister Colon cancer Other Family history of hypertension Surgical History History of coronary artery stent placement Stented coronary artery (02/06/20) H/O coronary artery bypass surgery (04/2012) Social History household members: spouse current occupational status: employed 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 Smoking Status: Former smoker pack-years: 100 how long ago did patient quit smokin alcohol intake: current alcohol intake frequency: 0-2 drinks per day Alcohol type: wine substance use type: does not use caffeine: Yes Type: coffee Number of servings: 3 what type of physical activity do you participate in: walking frequency: daily duration: 30-45 minutes/day seatbelt use: always do you feel safe at home: Yes ROS ROS Narrative GENERAL: denies fever, chills, night sweats, weight loss, anorexia HEENT: denies headache, sinus congestion, or drainage, dysphagia RESPIRATORY: denies cough, sputum production, shortness of breath, dyspnea on exertion CARDIAC: denies chest pain, palpitations, orthopnea, PND GASTROINTESTINAL: denies abdominal pain, nausea, vomiting, melena, GENITOURINARY: denies dysuria, urgency, frequency, heamaturia EXTREMITY: denies swelling MUSCULOSKELETAL: denies current joint pain or tenderness NEUROLOGIC: Involuntary movements involving the left side HEMATOLOGIC: denies easy bruising and/or hemorrhage INTEGUMENT: denies rashes PSYCHIATRIC: denies suicidal or homicidal ideation Vital Signs Vital Signs Vital Signs: 08/28/24 07:08 08/28/24 07:11 08/28/24 07:42 Temperature 97.1 F L 97.1 F L Temperature Source Oral Oral Pulse Rate 98 98 Respiratory Rate 19 H 18 Respiratory Pattern Normal Blood Pressure 133/62 H 133/62 H Blood Pressure Mean 85 85 Pulse Ox 97 97 Oxygen Delivery Method Room Air Room Air 08/28/24 08:11 08/28/24 09:00 Temperature 98 F 98 F Temperature Source Oral Oral Pulse Rate 76 75 Respiratory Rate 16 16 Respiratory Pattern Blood Pressure 132/68 H 159/74 H Blood Pressure Mean 89 102 Pulse Ox 99 99 Oxygen Delivery Method Room Air Room Air Weight Weight: 97.1 kg Body Mass Index (BMI) 33.5 Physical Exam Narrative GENERAL: cooperative HEENT: Atraumatic; normocephalic EYES; Anicteric, Normal Conjunctiva NECK; supple, normal thyroid, RESPIRATORY: Diminished to auscultation CARDIOVASCULAR: Regular S1 S2, GI: soft, normoactive bowel sounds, : No Renal angle tenderness; EXTREMITIES: No edema, no clubbing, MUSCULOSKELETAL: no muscle wasting NEURO: Awake; left-sided hemiparesis SKIN: No Rash PSYCH; Flat affect Results Lab / Micro Data 08/28/24 07:37 08/28/24 07:37 Labs: Laboratory Results - last 24 hr 08/28/24 07:37: WBC 5.5, RBC 4.96, Hgb 14.1, Hct 43.0, MCV 86.7, MCH 28.4, MCHC 32.8, RDW Std Deviation 39.8, RDW Coeff of Pawel 12.6, Plt Count 165, MPV 9.4, Immature Gran % (Auto) 0.400, Neut % (Auto) 51.4, Lymph % (Auto) 36.5, [place] % (Auto) 6.3, Eos % (Auto) 4.5, Baso % (Auto) 0.9, Absolute Neuts (auto) 2.8, Absolute Lymphs (auto) 2.02, Nucleated RBC % 0, PT 13.8, INR 1.1, APTT 30.5, Sodium 139, Potassium 4.2, Chloride 108 H, Carbon Dioxide 19.0 L, Anion Gap 12, BUN 23 H, Creatinine 1.09, Estim Creat Clear Calc 63.02, Est GFR (MDRD) Af Amer 84, Est GFR (MDRD) Non-Af 70, BUN/Creatinine Ratio 21.1 H, Glucose 128 H, Lactic Acid 5.7 H*, Calcium 9.3, Total Bilirubin 0.70, Direct Bilirubin 0.16, AST 19, ALT 23, Alkaline Phosphatase 44 L, Troponin I High Sens 6, Total Protein 6.7, Albumin 3.5, Globulin 3.2, Lipase 27 08/28/24 08:00: Urine Color Yellow, Urine Clarity Clear, Urine pH 5.0, Ur Specific [place] 1.025, Urine Protein 100 H, Urine Glucose (UA) Normal, Urine Ketones 5 H, Urine Occult Blood Negative, Urine Nitrite Negative, Urine Bilirubin Negative, Urine Urobilinogen Normal, Ur Leukocyte Esterase Negative, Urine RBC 0-5 SEEN, Urine WBC 0-5 SEEN, Ur Squamous Epith Cells 0-5 SEEN, Urine Bacteria 0 SEEN, Urine Mucus 0 SEEN Imaging Radiology Impression Brain CT 08/28/24 07:15 IMPRESSION: 1. No CT evidence of intracranial bleeding, acute ischemic infarct or acute intracranial abnormality. 2. Old cortical-based ischemic infarct with cystic encephalomalacia and atrophy along the right BREONNA territory. 3. No interval change. Electronically Signed: Mayco Kwong MD at 8:16 EDT , Chest X-Ray 08/28/24 07:15 IMPRESSION: No acute findings in the chest and unchanged. Electronically Signed: Mayco Kwong MD at 8:34 EDT , Assessment & Plan Assessment/Plan (1) Involuntary movements: PLAN: Plan Patient is a 79-year-old gentleman presenting with left-sided involuntary movement 1. Suspected seizure activity ? Patient had a similar presentation the month prior to his admission. Underwent evaluation with an EEG which was reported to be normal in wakefulness and sleep. Neurology recommended not starting antiseizure medication since this was a single event. Admitted to a monitored bed following his admission. Initiated seizure precautions. Ordered MRI of the brain with consultation placed to [facility] 2. History of previous CVA with subsequent hemorrhagic conversion ? Patient was left with residual left-sided weakness more pronounced in the upper extremity. Patient is on subsequent treatment with antiplatelet therapy with aspirin and statin therapy 3. Lactic acidosis ?? Seizure activity versus metformin use, no evidence of infection at this point. 4. Diabetes mellitus type 2 ? Hold oral agents placed on Accu-Cheks before meals and at bedtime with sliding scale coverage 5. Obstructive sleep apnea ? Patient had previously been prescribed PAP therapy but has apparently not been compliant did equal opportunity counselor patient 6. Coronary artery disease ? With previous CABG. Patient remains on guideline directed medical therapy 7. Dyslipidemia ?Patient is on statin therapy, continued at home dose 8 GERD -Continue PPI 9. chronic pain syndrome ? Patient is on oxycodone as needed as well as baclofen 10. Physical deconditioning ? Requested for PT OT eval and health and social care teacher to assist with discharge planning 11. Hypertension ? Blood pressure controlled, home medications continued with dose adjustment as needed 12. Obesity with BMI of 33.5 ? Complicating Care Weight Loss Advised 13. BPH with lower urinary obstructive symptoms - Patient treated with doxazosin 14. DVT prophylaxis ? On enoxaparin Time spent in the patient's overall evaluation,decision-making process, review of diagnostic data, adjustment of management, discussion with other providers, nursing nursing and ancillary staff involved in patient's care documentation, 76 Minutes Advance planning; did discuss with the patient and family regarding advanced directives as well as CODE STATUS. Did explain the various scenarios involved ( FULL CODE, DNR CCA, DNR CCA with no intubation, and DNR CC and what each meant) patient to remain full code with CPR and intubation if needed. Order was placed. Time spent on discussion 16 minutes. Charges/Coding Multi Select Codes Visit Charges Visit Charges: 05803 Init Hosp Hospitalists' Procedures Procedures: 56134 Advncd Care Plan 30 Min
--- NOTE | 2024-08-28 09:26 | NURSING ---
PCU [facility] NEW SEIZURE
[2024-08-28 11:41] LABS: Reflex Lactate? Y
--- NOTE | 2024-08-28 11:51 | NEURO.CONS ---
Assessment and Plan: Neuro Assessment/Plan EBONY GREGORIO, is a 79 M with past medical history significant for previous R BREONNA stroke 09/2023 essential hypertension, dyslipidemia currently resident at an extended care facility who is presenting with seizure like activity. He had similar prior event the month prior. EEG was normal, and given ambiguity of the event decision was made not to start AEDs. Given recurrence of event, and risk for seizures given prior R BREONNA storke and encephalomalacia, discussed with patient and will treat for seizure activity Will start Keppra Diagnosis: Seizure Recommendations: - Start Keppra 500 mg BID - Follow up with neurology in 3 months Patient was instructed not to drive, not to use power tools or operate heavy machinery, should not be on ladders and should not swim. The patient should use the shower and not the bath. Likewise, they should refrain from any activity which could result in injury to themselves or others if they had a seizure or lost consciousness. These restrictions should continue for at least 6 months or as instructed by a doctor to do otherwise. The patient was informed that these restrictions would be documented in the medical record. I personally attended this patient and spent a total time of 50 minutes evaluating this patient including clinical assessment, review of chart, medical history imaging, and determining appropriate treatment and workup. HPI Consult Data Date of Consult: 08/28/24 HPI Narrative HPI Narrative: EBONY GREGORIO, is a 79 M with past medical history significant for previous R BREONNA stroke 09/2023 essential hypertension, dyslipidemia currently resident at an extended care facility who was brought in after experiencing involuntary movements as well as a sensation of being locked up. He currently resides in a correction due to prior strokes. He uses a wheelchair at baseline, and sometimes walks with a walker with therapy. He had a simlair presentation last month. EEG was normal, and given ambiguity of the event and not being convincing for seizure, decision was made not to start AEDs. CTH with no acute findings PFSH Medical History Benign prostatic hyperplasia with elevated prostate specific antigen (PSA) and lower urinary tract symptoms Flaccid hemiplegia affecting left nondominant side Carotid stenosis, right BPH (benign prostatic hyperplasia) GERD (gastroesophageal reflux disease) Type 2 diabetes mellitus Obstructive sleep apnea Kidney stones Former smoker CPAP (continuous positive airway pressure) dependence Sleep apnea Hypertension TIA (transient ischemic attack) Hyperlipidemia Small bowel obstruction Essential (primary) hypertension Atherosclerosis of coronary artery bypass graft without angina pectoris Other nursing home (current) drug therapy Home Medications ?Medication ?Instructions ?Recorded ?Last Taken ?Type nitroglycerin 0.4 mg sublingual 0.4 mg sublingual Q5M PRN CHEST 01/12/18 Unknown History tablet PAIN atorvastatin 40 mg tablet 40 mg PO QHS CHOLESTEROL #90 tabs 08/24/23 Unknown Rx aspirin 81 mg tablet,delayed 81 mg PO DAILY [facility]ART HEALTH 10/13/23 Unknown History release (Adult Low Dose Aspirin) amlodipine 10 mg tablet 10 mg PO DAILY blood pressure 10/28/23 Unknown History doxazosin 4 mg tablet 4 mg PO QHS Prostate 10/28/23 Unknown History lisinopril 40 mg tablet 40 mg PO DAILY blood pressure 10/28/23 Unknown History acetaminophen 325 mg tablet 650 mg (2 x 325 mg) PO Q6H PRN PRN 11/18/23 Unknown Rx PAIN 1-10 #1 TAB bisacodyl 10 mg rectal suppository 10 mg [place] X1 PRN Constipation #1 ea 11/18/23 Unknown Rx magnesium hydroxide 400 mg/5 mL 30 ml PO X1 PRN Constipation #30 mL 11/18/23 Unknown Rx oral suspension menthol 0.44 %-zinc oxide 20.6 % 1 applic topical BID@0600,2200 #1 g 11/18/23 Unknown Rx topical ointment (Calmoseptine) metoprolol tartrate 25 mg tablet 25 mg PO BID blood pressure #1 TAB 11/18/23 Unknown Rx sennosides 8.6 mg-docusate sodium 2 tab PO BID stool softener #1 TAB 11/18/23 Unknown Rx 50 mg tablet (Stool Softener-Stimulant Laxative) simethicone 80 mg chewable tablet 80 mg PO TIDPC PRN Gas #1 TAB 11/18/23 Unknown Rx metformin 500 mg tablet 500 mg PO BID DM 03/23/24 Unknown History baclofen 5 mg tablet 10 mg PO TID muscle spasms 07/31/24 Unknown History melatonin 3 mg capsule 3 mg PO QHS 07/31/24 Unknown History escitalopram oxalate 5 mg tablet 5 mg PO DAILY depression 08/28/24 Unknown History gabapentin 100 mg capsule 100 mg PO DAILY neuropathy 08/28/24 Unknown History gabapentin 300 mg capsule 300 mg PO QHS neuropathy 08/28/24 Unknown History pantoprazole 40 mg tablet,delayed 40 mg PO DAILY GERD 08/28/24 Unknown History release Allergy/AdvReac Type Severity Reaction Status Date / Time clopidogrel (From Plavix) Allergy Severe Itching Verified 08/28/24 07:08 ticagrelor (From Brilinta) AdvReac Intermediate (Possible Verified 08/28/24 07:08 reaction) Itching hands and feet, no rash Family History Father Cancer Prostate cancer Mother CAD (coronary artery disease) Hx CABG Myocardial infarction Hypertension Brother CAD (coronary artery disease) Diabetes Sister Colon cancer Other Family history of hypertension Surgical History History of coronary artery stent placement Stented coronary artery (02/06/20) H/O coronary artery bypass surgery (04/2012) Social History household members: spouse current occupational status: employed 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 Smoking Status: Former smoker pack-years: 100 how long ago did patient quit smokin alcohol intake: current alcohol intake frequency: 0-2 drinks per day Alcohol type: wine substance use type: does not use caffeine: Yes Type: coffee Number of servings: 3 what type of physical activity do you participate in: walking frequency: daily duration: 30-45 minutes/day seatbelt use: always do you feel safe at home: Yes Vital Signs Vital Signs Vital Signs: 08/28/24 07:08 08/28/24 07:11 08/28/24 07:42 Temperature 97.1 F L 97.1 F L Temperature Source Oral Oral Pulse Rate 98 98 Respiratory Rate 19 H 18 Respiratory Pattern Normal Blood Pressure 133/62 H 133/62 H Blood Pressure Mean 85 85 Blood Pressure Source Blood Pressure Position Blood Pressure Location Pulse Ox 97 97 Oxygen Delivery Method Room Air Room Air 08/28/24 08:11 08/28/24 09:00 08/28/24 09:08 Temperature 98 F 98 F Temperature Source Oral Oral Pulse Rate 76 75 75 Respiratory Rate 16 16 16 Respiratory Pattern Blood Pressure 132/68 H 159/74 H 159/74 H Blood Pressure Mean 89 102 102 Blood Pressure Source Blood Pressure Position Blood Pressure Location Pulse Ox 99 99 95 Oxygen Delivery Method Room Air Room Air Room Air 08/28/24 09:29 08/28/24 10:15 Temperature 98 F 97.5 F L Temperature Source Oral Pulse Rate 72 68 Respiratory Rate 18 17 Respiratory Pattern Blood Pressure 156/70 H 139/73 H Blood Pressure Mean 98 95 Blood Pressure Source Monitor Blood Pressure Position Semi-Fowlers Blood Pressure Location Left Arm Pulse Ox 95 98 Oxygen Delivery Method Room Air Weight Weight: 94.937 kg Body Mass Index (BMI) 32.8 EEG Results Procedure Details EEG Procedure Details: EBONY GREGORIO is a 79 year old M with a past medical history of , who presents for evaluation of Electroencephalogram on DATE at TIME Physical Exam Narrative Exam performed with help of the nurse/STACI present with patient on Tele site NEURO: AAOx3, follows commands, no aphasia/dysarthria.. Asymmetric face with L lower facial paresis Sensation: intact to light touch all over Motor: L arm and leg weakness baseline related to prior stroke Lab / Micro Data 08/28/24 07:37 08/28/24 07:37 Labs: Laboratory Results - last 24 hr 08/28/24 07:37: WBC 5.5, RBC 4.96, Hgb 14.1, Hct 43.0, MCV 86.7, MCH 28.4, MCHC 32.8, RDW Std Deviation 39.8, RDW Coeff of Pawel 12.6, Plt Count 165, MPV 9.4, Immature Gran % (Auto) 0.400, Neut % (Auto) 51.4, Lymph % (Auto) 36.5, [place] % (Auto) 6.3, Eos % (Auto) 4.5, Baso % (Auto) 0.9, Absolute Neuts (auto) 2.8, Absolute Lymphs (auto) 2.02, Nucleated RBC % 0, PT 13.8, INR 1.1, APTT 30.5, Sodium 139, Potassium 4.2, Chloride 108 H, Carbon Dioxide 19.0 L, Anion Gap 12, BUN 23 H, Creatinine 1.09, Estim Creat Clear Calc 63.02, Est GFR (MDRD) Af Amer 84, Est GFR (MDRD) Non-Af 70, BUN/Creatinine Ratio 21.1 H, Glucose 128 H, Lactic Acid 5.7 H*, Calcium 9.3, Total Bilirubin 0.70, Direct Bilirubin 0.16, AST 19, ALT 23, Alkaline Phosphatase 44 L, Troponin I High Sens 6, Total Protein 6.7, Albumin 3.5, Globulin 3.2, Lipase 27 08/28/24 08:00: Urine Color Yellow, Urine Clarity Clear, Urine pH 5.0, Ur Specific [place] 1.025, Urine Protein 100 H, Urine Glucose (UA) Normal, Urine Ketones 5 H, Urine Occult Blood Negative, Urine Nitrite Negative, Urine Bilirubin Negative, Urine Urobilinogen Normal, Ur Leukocyte Esterase Negative, Urine RBC 0-5 SEEN, Urine WBC 0-5 SEEN, Ur Squamous Epith Cells 0-5 SEEN, Urine Bacteria 0 SEEN, Urine Mucus 0 SEEN Imaging Radiology Impression Brain CT 08/28/24 07:15 IMPRESSION: 1. No CT evidence of intracranial bleeding, acute ischemic infarct or acute intracranial abnormality. 2. Old cortical-based ischemic infarct with cystic encephalomalacia and atrophy along the right BREONNA territory. 3. No interval change. Electronically Signed: Mayco Kwong MD at 8:16 EDT Reading Location ID and State: [address] [place] [address] , Service support , Chest X-Ray 08/28/24 07:15 IMPRESSION: No acute findings in the chest and unchanged. Electronically Signed: Mayco Kwong MD at 8:34 EDT , Active Medications Active Medications Active Medications: Current Medications Generic Name Dose Route Start Last Admin Trade Name Freq PRN Reason Stop Dose Admin Acetaminophen 650 mg 08/28/24 09:48 Acetaminophen 325 Mg Tablet PO Q6H PRN PRN Pain 1-10 Or Fever >100.7 Al Hydroxide/Mg Hydroxide 30 ml 08/28/24 09:48 Mag Hydrox/Al Hydrox/Simeth 30 Ml Udc PO Q6H PRN PRN Gastric Burning Albuterol Sulfate 2.5 mg 08/28/24 09:48 Albuterol 2.5 Mg/3 Ml Vial.Neb. INHALATION Q2H PRN PRN SOB &/OR WHEEZING Amlodipine Besylate 10 mg 08/29/24 10:00 Amlodipine 10 Mg Tablet PO DAILY [facility] Protocol Aspirin 81 mg 08/29/24 10:00 Aspirin E.C. 81 Mg Tablet PO DAILY [facility] Atorvastatin Calcium 40 mg 08/28/24 22:00 Atorvastatin Calcium 40 Mg Tablet PO QHS [facility] Bisacodyl 10 mg 08/28/24 11:42 Bisacodyl 10 Mg Suppository RC X1 PRN Constipation Doxazosin Mesylate 4 mg 08/28/24 22:00 Doxazosin 4 Mg Tablet PO QHS [facility] Protocol Enoxaparin Sodium 40 mg 08/28/24 10:00 Enoxaparin 40 Mg/0.4 Ml Syringe SC DAILY [facility] Gabapentin 100 mg 08/29/24 10:00 Gabapentin 100 Mg Capsule PO DAILY [facility] Gabapentin 300 mg 08/28/24 22:00 Gabapentin 300 Mg Capsule PO QHS [facility] Sodium Chloride 100 mls @ 15 mls/hr 08/28/24 10:49 IV .Q6H40M PRN Saline Flush Sodium Chloride 100 mls @ 15 mls/hr 08/28/24 10:49 IV .Q6H40M PRN Additional IVPB Infusion Lisinopril 40 mg 08/29/24 10:00 Lisinopril 40 Mg Tablet PO DAILY [facility] Protocol Magnesium Hydroxide 30 ml 08/28/24 11:42 Magnesium Hydroxide 30 Ml Udc PO X1 PRN Constipation Melatonin 3 mg 08/28/24 22:00 Melatonin 3 Mg Tablet PO QHS [facility] Metoprolol Tartrate 25 mg 08/28/24 22:00 Metoprolol Tartrate 25 Mg Tablet PO BID [facility] Protocol Nitroglycerin 0.4 mg 08/28/24 09:48 Nitroglycerin (Inpatient Use) 0.4 Mg Tab.Subl SL Q5M PRN CARDIAC/CHEST PAIN Non-Formulary Medication 10 mg 08/28/24 14:00 Baclofen PO TID [facility] Non-Formulary Medication 5 mg 08/29/24 10:00 Escitalopram Oxalate PO DAILY [facility] Nutritional Formula (Lactose Free) 120 ml 08/28/24 14:00 Glucerna Shake 120 Ml Liquid PO 4X/DAY [facility] Ondansetron HCl 4 mg 08/28/24 09:48 Ondansetron 4 Mg/2 Ml Vial IV Q8H PRN PRN NAUSEA/VOMITING Oxycodone HCl 5 mg 08/28/24 09:48 Oxycodone 5 Mg Tablet PO Q4H PRN PRN Pain Score 4-10 Pantoprazole Sodium 40 mg 08/29/24 10:00 Pantoprazole Sodium 40 Mg Tablet PO DAILY [facility] Senna/Docusate Sodium 2 tablet 08/28/24 09:48 Senna/Docusate Sodium 1 Tablet PO BID PRN PRN Constipation Sodium Chloride 10 - 40 ml 08/28/24 10:49 0.9% Saline Lock 10 Ml Syringe IV UD PRN SALINE FLUSH
[2024-08-28] MEDS: Glucerna Shake 120 ML LIQUID PO ×2 (13:08→18:36)
[2024-08-28] MEDS: Enoxaparin 40 MG/0.4 ML Syringe SC (13:08)
[2024-08-28 13:10] LABS: Lactic Acid 1.6 mmol/L (0.4-1.9)
[2024-08-28] MEDS: Acetaminophen 325 MG Tablet 650 MG PO (14:30)
[2024-08-28] MEDS: Baclofen 10 MG Tablet PO ×2 (14:30→20:25)
[2024-08-28] MEDS: levETIRAcetam 500 MG Tablet PO (20:25)
[2024-08-28] MEDS: Atorvastatin Calcium 40 MG Tablet PO (20:25)
[2024-08-28] MEDS: MELATONIN 3 MG TABLET PO (20:25)
[2024-08-28] MEDS: Metoprolol Tartrate 25 MG Tablet PO (20:25)
[2024-08-28] MEDS: Doxazosin 4 MG Tablet PO (20:26)
[2024-08-28] MEDS: oxyCODONE 5 MG Tablet PO (20:26)
[2024-08-28] MEDS: Gabapentin 300 MG Capsule PO (20:26)
[2024-08-29 04:00] VITALS: BP 131/61; PULSE 58; RESP 16; TEMP 36.5; O2SAT 96
[2024-08-29] MEDS: oxyCODONE 5 MG Tablet PO (04:39)
[2024-08-29] MEDS: Baclofen 10 MG Tablet PO ×2 (04:39→13:51)
[2024-08-29 08:44] VITALS: BP 146/70; PULSE 56; RESP 18; TEMP 36.7; O2SAT 98
[2024-08-29] MEDS: Gabapentin 100 MG Capsule PO (08:45)
[2024-08-29] MEDS: Glucerna Shake 120 ML LIQUID PO (08:45)
[2024-08-29] MEDS: Escitalopram Oxalate 10 MG Tablet 5 MG PO (08:45)
[2024-08-29] MEDS: Lisinopril 40 MG Tablet PO (08:45)
[2024-08-29] MEDS: Aspirin E.C. 81 MG Tablet PO (08:45)
[2024-08-29] MEDS: Enoxaparin 40 MG/0.4 ML Syringe SC (08:45)
[2024-08-29] MEDS: levETIRAcetam 500 MG Tablet PO (08:45)
[2024-08-29] MEDS: amLODIPine 10 MG Tablet PO (08:45)
[2024-08-29] MEDS: Pantoprazole Sodium 40 MG Tablet PO (08:45)
--- NOTE | 2024-08-29 09:22 | MRI_ITS ---
STUDY: MRI BRAIN WITH AND WITHOUT CONTRAST REASON FOR EXAM: Male, 79 years old. Suspected seizure Patient could not hold still, PT HAS INVOLUNTARY MOVEMENTS TECHNIQUE: Standardized multiplanar fat and water weighted pulse sequences were obtained. IV 19 cc clariscan was administered for the contrast portion of the examination. COMPARISON: CT of the head dated August 28, 2024. MRI of the brain dated October 14, 2023 FINDINGS: There is moderate cerebral atrophy with widening of the extra-axial spaces and ventricular dilatation. There are a limited number of small white matter hyperintensities, distributed throughout the deep white matter tracts of the cerebral hemispheres, consistent with mild chronic white matter ischemic changes. There is no evidence for recent intracranial ischemia or other cause of cytotoxic edema on diffusion weighted imaging (DWI). Normal T2* images of the brain without demonstrated susceptibility artifact. There is no demonstrated hemosiderin stain. Redemonstration of moderate cystic volume loss and gliosis and old hemosiderin staining related to an old infarct in the most superior and parasagittal/medial region of the right frontal lobe. There are no primary or metastatic enhancing lesions of the brain parenchyma. No skull lesions are present. No abnormal thickening or enhancement of the meninges or dura is demonstrated. Normal bilateral basal ganglia. Normal thalami. There is no extra-axial fluid accumulation. Normal flow voids within the major intracranial circulation suggesting patency by spin echo criteria. Normal venous enhancement. There is no enhancing intra-axial or extra-axial abnormality. Normal sella turcica, pituitary gland, infundibular stalk, optic chiasm and hypothalamus. Normal tectal plate and pineal gland. Normal midbrain, hank and medulla. Normal cerebellum. Normal basal cisterns. Normal bilateral temporal bones. Normal bilateral internal auditory canals. No demonstrated orbital abnormality, within the constraints of a routine brain study. Normal visualized paranasal sinuses. Normal calvarium and skull base. Normal visualized soft tissue structures. Normal visualized upper cervical spine. MRI/Brain W/WO Contrast IMPRESSION: 1. Involutional changes of the brain, as described above. 2. Redemonstration of moderate cystic volume loss and gliosis and old hemosiderin staining related to an old infarct in the most superior and parasagittal/medial region of the right frontal lobe. 3. There are no primary or metastatic enhancing lesions of the brain parenchyma. No skull lesions are present. No abnormal thickening or enhancement of the meninges or dura is demonstrated. Electronically Signed: Joshua Nielsen MD at 10:52 EDT ,
--- NOTE | 2024-08-29 10:20 | CASEMGMT ---
[place] called patient's Tamia and confirmed the plan is to return to [facility] at discharge. Plan: d/c back to [facility] under intermediate level of care. 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
[2024-08-29 10:37] VITALS: PULSE 67
[2024-08-29] MEDS: Metoprolol Tartrate 25 MG Tablet PO (10:37)
--- NOTE | 2024-08-29 10:39 | CASEMGMT ---
Social Work Updates sent to the [facility]. Asked if precert is needed for return. Adwoa Ahmadi, APPRENTICE JOCKEY, NATIONAL SALES TRAINER
--- NOTE | 2024-08-29 11:23 | CASEMGMT ---
Discharge Planning Pt can return to [facility] with no precert needed. LCrabtree, DC Planning Asst.
[2024-08-29 12:48] VITALS: O2SAT 95
--- NOTE | 2024-08-29 14:11 | DS.PCM_ITS ---
Providers Date of Admission: 08/28/24 Date of Discharge: 08/29/24 Primary Care Physician: Dr. Aldo Fierro MD Reason For Visit: SUSPECTED SEIZURE Diagnosis Discharge Diagnosis (1) Involuntary movements: Status: Acute Code(s): R25.9 - Unspecified abnormal involuntary movements Medications at Discharge Home Medications nitroglycerin 0.4 mg sublingual tablet 0.4 mg sublingual Q5M PRN CHEST PAIN 01/12/18 atorvastatin 40 mg tablet 40 mg PO QHS CHOLESTEROL #90 tabs 08/24/23 aspirin 81 mg tablet,delayed release (Adult Low Dose Aspirin) 81 mg PO DAILY HEART HEALTH 10/13/23 amlodipine 10 mg tablet 10 mg PO DAILY blood pressure 10/28/23 doxazosin 4 mg tablet 4 mg PO QHS Prostate 10/28/23 lisinopril 40 mg tablet 40 mg PO DAILY blood pressure 10/28/23 acetaminophen 325 mg tablet 650 mg (2 x 325 mg) PO Q6H PRN PRN PAIN 1-10 #1 TAB 11/18/23 bisacodyl 10 mg rectal suppository 10 mg MD X1 PRN Constipation #1 ea 11/18/23 magnesium hydroxide 400 mg/5 mL oral suspension 30 ml PO X1 PRN Constipation #30 mL 11/18/23 menthol 0.44 %-zinc oxide 20.6 % topical ointment (Calmoseptine) 1 applic topical BID@0600,2200 #1 g 11/18/23 metoprolol tartrate 25 mg tablet 25 mg PO BID blood pressure #1 TAB 11/18/23 sennosides 8.6 mg-docusate sodium 50 mg tablet (Stool Softener-Stimulant Laxative) 2 tab PO BID stool softener #1 TAB 11/18/23 simethicone 80 mg chewable tablet 80 mg PO TIDPC PRN Gas #1 TAB 11/18/23 metformin 500 mg tablet 500 mg PO BID DM 03/23/24 baclofen 5 mg tablet 10 mg PO TID muscle spasms 07/31/24 melatonin 3 mg capsule 3 mg PO QHS 07/31/24 escitalopram oxalate 5 mg tablet 5 mg PO DAILY depression 08/28/24 gabapentin 100 mg capsule 100 mg PO DAILY neuropathy 08/28/24 gabapentin 300 mg capsule 300 mg PO QHS neuropathy 08/28/24 pantoprazole 40 mg tablet,delayed release 40 mg PO DAILY GERD 08/28/24 levetiracetam 500 mg tablet 500 mg PO BID #60 tabs 08/29/24 Hospital Course Operations None Procedures - (CT brain/chest x-ray/MRI brain) Summary of Care Provided Minutes Spent on Discharge: 30 Hospital Course: Mr. Gibbons is a 79-year-old white male who presented to the emergency department at [facility] on 08/28/2024 from [facility] due to experiencing involuntary movements as well as a sensation of being locked up on his left side.. He evidently had a similar presentation about a month ago and underwent an extensive workup at that time including an EEG. Neurology did not recommend AED at that time. He does have a history of stroke due to hemorrhage and has chronic abnormalities on his CT but CT showed no acute changes. His vital signs are overall unremarkable. His labs showed no changes from his baseline. He was admitted in medical floor and neurology was consulted. We did obtain a follow- up MRI that showed chronic involutional changes, redemonstration of moderate cystic volume loss and gliosis with old hemosiderin staining related to old infarct in the most superior parasagittal/medial region in the right frontal lobe and no primary or metastatic enhancing lesions in the brain. He was evaluated by neurology at [facility]. And they recommended given the fact that this was a second episode to start Keppra 500 mg p.o. twice daily and follow-up at [facility] neurology stroke clinic in the next 3 months. He is not to drive or operate power tools/heavy machinery however this should not be a problem as he is currently institutionalized at [facility]. It was highly anticipated that this was seizure related to his previous stroke. ER is already established at the [facility] stroke clinic and should easily be able to be scheduled within the next 3 months. Patient was discharged back to his ECF with continuation of all his chronic medications in addition to the Keppra that was instituted during his hospital course. Patient's hospital course was less than than anticipated at the time of admission due to expedited workup and evaluation by neurology. Discharge diagnoses: Suspected seizure History of ischemic stroke with hemorrhagic transformation GERD ROSANGELA CAD status post CABG Carotid artery stenosis Chronic pain DM-2 Hypertension Hyperlipidemia BPH with obstruction Chronic spasticity Chronic pain Obesity Physical Exam Const alert, oriented x3 and no apparent distress Constitutional Narrative: Obese, older, white male, lying in bed, friend at bedside, patient appears comfortable, nontoxic, watching television General Appearance: cooperative, comfortable, well kempt and well developed Orientation / Consciousness: awake, oriented to person, oriented to place and oriented to time Exam Limitations: no limitations Nutritional Appearance: obese HEENT normocephalic, head/scalp atraumatic and moist oral mucous membranes HEENT Narrative: Mild to moderate hearing loss Resp normal respiratory effort, no retractions, no use of accessory muscles and clear to auscultation bilaterally Auscultation: Negative for rales, rhonchi or wheezes Cardio regular rate, regular rhythm, S1 normal heart sound, S2 normal heart sound, no murmurs, no rub, no gallops and no clicks GI normal to inspection, nondistended, normoactive bowel sounds, soft to palpation and non-tender Extremity no clubbing, cyanosis or edema Neuro oriented x3 Speech: speech normal Psych affect normal Psych Narrative: Jovial, very pleasant, interacts appropriately Weight / BMI Weight Weight: 94.937 kg Body Mass Index (BMI) 32.8 ABG / Lab / Microbiology Data 08/28/24 07:37 08/28/24 07:37 Radiography Diagnostic Testing: Radiology Impression Brain MRI 08/29/24 09:22 IMPRESSION: 1. Involutional changes of the brain, as described above. 2. Redemonstration of moderate cystic volume loss and gliosis and old hemosiderin staining related to an old infarct in the most superior and parasagittal/medial region of the right frontal lobe. 3. There are no primary or metastatic enhancing lesions of the brain parenchyma. No skull lesions are present. No abnormal thickening or enhancement of the meninges or dura is demonstrated. Electronically Signed: Joshua Nielsen MD at 10:52 EDT , Meaningful Use Info Meaningful Use Meaningful Use Diagnoses (Choose all that apply): None applicable Ischemic Stroke Statin Dosing Therapy Reference: STATIN DOSE THERAPY REFERENCE: * Patients > 75 years receive moderate or high dose statin therapy. * Patients 75 years or YOUNGER should receive HIGH intensity statin dose unless contraindicated. You will be required to document reason for non-treatment if statin daily dose does not meet guidelines. HIGH DOSE STATIN THERAPY DAILY Atorvastatin > than or = to 40 mg Rosuvastatin > than or = to 20 mg Amlodipine + Atorvastatin > than or = to 2.5/40 mg Ezetimibe + Simvastatin 10/80 mg Simvastatin 80mg Discharge Plan Admission Admit Date/Time: 08/28/24 09:10 Primary Reason for Your Visit: seizure Attending Provider: Barb Meza Primary Care Provider: Aldo Fierro Consulting Providers: Anton Saxena Instructions Additional Instructions / Restrictions: 1. Please follow-up at the [facility] neurology clinic within the next 3 months Discharge Orders/Prescriptions Prescriptions: New levetiracetam 500 mg Tablet 500 mg PO BID Qty: 60 0RF Continued nitroglycerin 0.4 mg tablet, sublingual 0.4 mg SUBLINGUAL Q5M PRN (Reason: CHEST PAIN ) metformin 500 mg tablet 500 mg PO BID aspirin [Adult Low Dose Aspirin] 81 mg tablet,delayed release (DR/EC) 81 mg PO DAILY doxazosin 4 mg tablet 4 mg PO QHS amlodipine 10 mg tablet 10 mg PO DAILY lisinopril 40 mg tablet 40 mg PO DAILY acetaminophen 325 mg Tablet 650 mg PO Q6H PRN PRN (Reason: PAIN 1-10) Qty: 1 0RF magnesium hydroxide 400 mg/5 mL Suspension 30 ml PO X1 PRN (Reason: Constipation) Qty: 30 0RF bisacodyl 10 mg Suppository 10 mg MD X1 PRN (Reason: Constipation) Qty: 1 0RF metoprolol tartrate 25 mg Tablet 25 mg PO BID Qty: 1 0RF sennosides-docusate sodium [Stool Softener-Stimulant Laxat] 8.6-50 mg Tablet 2 tab PO BID Qty: 1 0RF simethicone 80 mg Tablet,Chewable 80 mg PO TIDPC PRN (Reason: Gas) Qty: 1 0RF menthol-zinc oxide [Calmoseptine] 0.44-20.6 % Ointment 1 applic topical BID@0600,2200 Qty: 1 0RF Protocol: *Topical Application Instructions APPLICATION INSTRUCTIONS: butt baclofen 5 mg tablet 10 mg PO TID melatonin 3 mg capsule 3 mg PO QHS escitalopram oxalate 5 mg tablet 5 mg PO DAILY gabapentin 100 mg capsule 100 mg PO DAILY gabapentin 300 mg capsule 300 mg PO QHS pantoprazole 40 mg tablet,delayed release (DR/EC) 40 mg PO DAILY atorvastatin 40 mg tablet 40 mg PO QHS Qty: 90 3RF Referrals / Follow Up: Aldo Fierro MD [Primary Care Provider] - Within 1 Month Disposition Disposition (needs filled in before D/C Order can be placed): NonSkilled NH/Intermed Care Charges/Coding Visit Charges Inpatient E&M: 93148 SNF Disch
--- NOTE | 2024-08-29 14:12 | TREXTCAR_ITS ---
Diet Diet Order/Speech Therapy: 08/28/24 09:22 Diet: Cardiac: Calorie-Controlled Food consistency:: Regular Liquid Consistency:: Regular/Thin How many daily calories?: 1999 calorie Routine Orders/Code Status Suppository Frequency: Daily PRN O2 Frequency: PRN Keep PO Greater than or Equal to (%): 89 Routine Lab Work: CBC (1 week) and BMP (1 week) Code Status: Full Code Suggestions for Active Care Change Position every (hours): 2 Hours to sit in a chair: 3 Times a day to sit in chair: 2 Therapies Physical Therapy: Eval and Treat Occupational Therapy: Eval and Treat Problem/Diagnosis (1) Involuntary movements: Status: Acute Code(s): R25.9 - Unspecified abnormal involuntary movements Allergies/Procedures Done in Hospital Allergies clopidogrel (From Plavix) Allergy (Severe, Verified 08/28/24 07:08) Itching ticagrelor (From Brilinta) Adverse Reaction (Intermediate, Verified 08/28/24 07:08) (Possible reaction) Itching hands and feet, no rash Procedures: EKG and - (CT brain/chest x-ray/MRI brain) Type of Care/Length of Stay Estimated LOS: More Than 30 Days Type of Care Needed: Intermediate Rehab Potential: Fair Prognosis: Fair Additional Orders/Day of Discharge Day of Discharge: 08/29/24 Dietary and Speech Recommendations Dietitian Recommendations/Changes: Continue 1999 claudia Cardiac diet Will order 4 oz glucerna shake 4x/day w/ medpass for increased nutrition if co nsumed. Discharge Plan Admission Admit Date/Time: 08/28/24 09:10 Primary Reason for Your Visit: seizure Attending Provider: Barb Meza Primary Care Provider: Aldo Fierro Consulting Providers: Anton Saxena Instructions Additional Instructions / Restrictions: 1. Please follow-up at the [facility] neurology clinic within the next 3 months Discharge Orders/Prescriptions Prescriptions: New levetiracetam 500 mg Tablet 500 mg PO BID Qty: 60 0RF Continued nitroglycerin 0.4 mg tablet, sublingual 0.4 mg SUBLINGUAL Q5M PRN (Reason: CHEST PAIN ) metformin 500 mg tablet 500 mg PO BID aspirin [Adult Low Dose Aspirin] 81 mg tablet,delayed release (DR/EC) 81 mg PO DAILY doxazosin 4 mg tablet 4 mg PO QHS amlodipine 10 mg tablet 10 mg PO DAILY lisinopril 40 mg tablet 40 mg PO DAILY acetaminophen 325 mg Tablet 650 mg PO Q6H PRN PRN (Reason: PAIN 1-10) Qty: 1 0RF magnesium hydroxide 400 mg/5 mL Suspension 30 ml PO X1 PRN (Reason: Constipation) Qty: 30 0RF bisacodyl 10 mg Suppository 10 mg MT X1 PRN (Reason: Constipation) Qty: 1 0RF metoprolol tartrate 25 mg Tablet 25 mg PO BID Qty: 1 0RF sennosides-docusate sodium [Stool Softener-Stimulant Laxat] 8.6-50 mg Tablet 2 tab PO BID Qty: 1 0RF simethicone 80 mg Tablet,Chewable 80 mg PO TIDPC PRN (Reason: Gas) Qty: 1 0RF menthol-zinc oxide [Calmoseptine] 0.44-20.6 % Ointment 1 applic topical BID@0600,2200 Qty: 1 0RF Protocol: *Topical Application Instructions APPLICATION INSTRUCTIONS: butt baclofen 5 mg tablet 10 mg PO TID melatonin 3 mg capsule 3 mg PO QHS escitalopram oxalate 5 mg tablet 5 mg PO DAILY gabapentin 100 mg capsule 100 mg PO DAILY gabapentin 300 mg capsule 300 mg PO QHS pantoprazole 40 mg tablet,delayed release (DR/EC) 40 mg PO DAILY atorvastatin 40 mg tablet 40 mg PO QHS Qty: 90 3RF Referrals / Follow Up: Aldo Fierro MD [Primary Care Provider] - Within 1 Month Disposition Disposition (needs filled in before D/C Order can be placed): NonSkilled NH/Intermed Care
[2024-08-29] MEDS: FLU VACCINE **HIGH DOSE** TV 24-25 180 MCG/0.5 ML SYRINGE IM (14:24)
--- NOTE | 2024-08-29 14:24 | CHAPLAIN ---
Type of Pastoral Visit _x__ Initial Visit ___ Follow-up Visit ___ On-call Visit ___ General Patient Visit ___ Spiritual Assessment ___ Family Conference ___ Bereavement ___ Rapid Response ___ Code Blue ___ Other (describe below) Pastoral Care Referral From _x__ Patient ___ Family ___ Nurse ___ Physician ___ Cash Processor ___ Welding Machine Operator Arc ___ Other (describe below) Sacrament/Intervention _x__ Active listening ___ Anointing ___ Adventism ___ Bereavement ___ Communion ___ Lacie exploration ___ _x__ Life review _x__ Prayer ___ Reconciliation ___ Sacrament of Sick _x__ Supportive presence ___ Wedding ___ Other (describe below) Pastoral Comments patient and spouse are in the room; pt reports that he is feeling better than yesterday; pt is a resident of an [facility] doing rehab since the beginning of the year; pt notices some slight improvements since the strokes but acknowledges that he has a long way to go yet; pt does have goals; pt welcomes a prayer and presents self with a positive attitude
--- NOTE | 2024-08-29 15:00 | CASEMGMT ---
Met with patient to complete WOODS form. WOODS form explained to patient who voiced understanding and signed form. Original form placed in pt?s chart and copy provided to patient. Gloria Jain, Discharge Planning Asst
--- NOTE | 2024-08-29 15:02 | CASEMGMT ---
Discharge Planning Discharge orders, signed med list, and transport time sent to [facility] via [facility]. Physicians will transport patient by wheelchair (may send cot d/t availability) at 3:30p. Nursing, SW, patient, and his updated. Gloria Jain DC Planning Asst.
[2024-08-29 15:05] VITALS: BP 127/67; PULSE 63; RESP 18; TEMP 37.1; O2SAT 93
--- NOTE | 2024-08-29 15:07 | PHA.DC_ITS ---
Pharmacy [facility] Reconciliation Pharmacy Service has performed discharge medication reconciliation for this patient. The patient's discharge medication list was reviewed for discrepancies and discrepancies were resolved. Medications at Discharge Home Medications nitroglycerin 0.4 mg sublingual tablet 0.4 mg sublingual Q5M PRN CHEST PAIN 01/12/18 atorvastatin 40 mg tablet 40 mg PO QHS CHOLESTEROL #90 tabs 08/24/23 aspirin 81 mg tablet,delayed release (Adult Low Dose Aspirin) 81 mg PO DAILY HEART HEALTH 10/13/23 amlodipine 10 mg tablet 10 mg PO DAILY blood pressure 10/28/23 doxazosin 4 mg tablet 4 mg PO QHS Prostate 10/28/23 lisinopril 40 mg tablet 40 mg PO DAILY blood pressure 10/28/23 acetaminophen 325 mg tablet 650 mg (2 x 325 mg) PO Q6H PRN PRN PAIN 1-10 #1 TAB 11/18/23 bisacodyl 10 mg rectal suppository 10 mg NJ X1 PRN Constipation #1 ea 11/18/23 magnesium hydroxide 400 mg/5 mL oral suspension 30 ml PO X1 PRN Constipation #30 mL 11/18/23 menthol 0.44 %-zinc oxide 20.6 % topical ointment (Calmoseptine) 1 applic topical BID@0600,2200 #1 g 11/18/23 metoprolol tartrate 25 mg tablet 25 mg PO BID blood pressure #1 TAB 11/18/23 sennosides 8.6 mg-docusate sodium 50 mg tablet (Stool Softener-Stimulant Laxative) 2 tab PO BID stool softener #1 TAB 11/18/23 simethicone 80 mg chewable tablet 80 mg PO TIDPC PRN Gas #1 TAB 11/18/23 metformin 500 mg tablet 500 mg PO BID DM 03/23/24 baclofen 5 mg tablet 10 mg PO TID muscle spasms 07/31/24 melatonin 3 mg capsule 3 mg PO QHS 07/31/24 escitalopram oxalate 5 mg tablet 5 mg PO DAILY depression 08/28/24 gabapentin 100 mg capsule 100 mg PO DAILY neuropathy 08/28/24 gabapentin 300 mg capsule 300 mg PO QHS neuropathy 08/28/24 pantoprazole 40 mg tablet,delayed release 40 mg PO DAILY GERD 08/28/24 levetiracetam 500 mg tablet 500 mg PO BID #60 tabs 08/29/24
--- NOTE | 2024-08-29 15:40 | NURSING ---
report called to the [facility]
== END 2024-08-29 14:10 | disposition intermediate care facility (04) ==
LOC: ED 09:26 → PCU 09:48
PROVIDERS: Admitting Provider Internal Medicine; Emergency Provider Emergency Medicine; PCP Family Medicine; Visit Provider Internal Medicine
DX: R25.9 Unspecified abnormal involuntary movements (principal); I69.354 Hemiplegia and hemiparesis following cerebral infarction affecting left non-dominant side; E11.9 Type 2 diabetes mellitus without complications; Z87.891 Personal history of nicotine dependence; E87.20 Acidosis, unspecified; I25.10 Atherosclerotic heart disease of native coronary artery without angina pectoris; I10 Essential (primary) hypertension; E78.5 Hyperlipidemia, unspecified; R41.0 Disorientation, unspecified; Z23 Encounter for immunization; G47.33 Obstructive sleep apnea (adult) (pediatric); K21.9 Gastro-esophageal reflux disease without esophagitis; G89.4 Chronic pain syndrome; R53.1 Weakness; N40.1 Benign prostatic hyperplasia with lower urinary tract symptoms; N13.8 Other obstructive and reflux uropathy; Z79.899 Other long term (current) drug therapy; Z79.82 Long term (current) use of aspirin; E66.9 Obesity, unspecified; Z68.33 Body mass index [BMI] 33.0-33.9, adult; I45.10 Unspecified right bundle-branch block; R94.31 Abnormal electrocardiogram [ECG] [EKG]
CPT/HCPCS: 36415; 70450; 70553; 71045; 80048; 80076; 81001; 83605; 83690; 84484; 85025; 85610; 85730; 90662; 92610; 93005; 94762; 96365; 96372; 97162; 97166; 97802; 99221; 99284; A9575; A4216; G0378

== ENCOUNTER → 2024-12-26 | Outpatient (CLI) | payer MEDICARE, MEDICAID, SELFPAY ==
[2020-02-06 11:26] VITALS: BMI 36.5
--- NOTE | 2024-12-26 09:30 | MRI_ITS ---
PROCEDURE: SPINE LUMBAR (ROUTINE) REASON FOR EXAM: Pain. TECHNIQUE: Noncontrast lumbar spine MRI. COMPARISON: Lumbar spine radiograph from 11/25/2024. FINDINGS: Lumbar vertebral bodies maintain a normal height. There is mild levoscoliosis of the mid lumbar spine. There is diminished signal intensity involving the discs of the lumbar spine related to degenerative disc disease. Multilevel disc space narrowing with endplate spurring is present which is on a severe basis from L1 to L3. There is mild retrolisthesis of L3-L4. No acute fracture or subluxation is identified. The tip of the conus medullaris terminates at T12-L1 and signal intensity of the included spinal cord is within normal limits. Visualized paraspinous musculature is unremarkable. There is partial visualization of bilateral renal cysts. L1-2: Circumferential disc bulge and facet/flavum hypertrophy results in moderate central canal stenosis. There is moderate right and [id number] left neural foraminal narrowing. L2-3: Circumferential disc bulge and facet/flavum hypertrophy results in moderate to severe central canal stenosis. Severe right and moderate left neural foraminal narrowing is present. L3-4: Mild retrolisthesis with circumferential disc bulge and facet/flavum hypertrophy results in severe central canal stenosis. There is moderate to severe right and moderate left neural foraminal narrowing. L4-5: Circumferential disc bulge and facet arthropathy with moderate to severe central canal stenosis. Moderate bilateral neural foraminal narrowing is present. L5-S1: Minimal disc bulge and facet arthropathy with no significant central canal stenosis or neural foraminal narrowing. Sacrum: Visualized upper sacrum and SI joints demonstrates degenerative changes of the sacroiliac joints. MRI/Spine Lumbar (Routine) IMPRESSION: 1. Multilevel degenerative disc disease and spondylosis with severe central ca nal stenosis at L3-L4, moderate to severe central canal stenosis at L2-L3 and L4-L5, and moderate central canal stenosis at L1-L2 . Multilevel varying degrees of neural foraminal narrowing are identified which are mostly on a moderate to severe basis. 2. Mild levoscoliosis. Reading Location: [facility]
== END | disposition home or self-care (01) ==
LOC: MRI 08:06
PROVIDERS: PCP Family Medicine; Visit Provider Student in an Organized Health Care Education/Training Program
DX: M54.16 Radiculopathy, lumbar region (principal)
CPT/HCPCS: 72148

== ENCOUNTER → 2025-01-12 | Outpatient (CLI) | payer MEDICARE, MEDICAID, SELFPAY ==
[2020-02-06 11:26] VITALS: BMI 36.5
[2025-01-12 10:42] LABS: ALB/GLOB Ratio 1.1 RATIO (0.9-2.4); AST(SGOT) 14 U/L (15-37); Alanine Aminotransfer ALT/SGPT 26 U/L (16-61); Albumin, Serum 3.6 g/dL (3.2-5.0); Alkaline Phosphatase 51 U/L (45-117); Anion Gap 6 (5-15); BUN 21 mg/dL (7-18); BUN/Creat Ratio 21.9 RATIO (10-20); Calcium,Total 9.2 mg/dL (8.5-10.1); Chloride 111 mmol/L (98-107); Cholesterol 116 mg/dL (200); Creatinine, Serum 0.96 mg/dL (0.70-1.30); EST Glomerular Filtration Rate 81 mL/min (>60); Est Glom Filt Rate - Afr Amer 97 mL/min (>60); Globulin 3.3 g/dL (2.2-4.2); Glucose 159 mg/dL (74-106); High Density Lipoprotein 39 mg/dL; Potassium 4.3 mmol/L (3.5-5.1); Protein, Total 6.9 g/dL (6.4-8.2); Sodium Level 141 mmol/L (136-145); Triglycerides 182 mg/dL; Very Low Density Lipoprotein 36 mg/dL (5-40)
== END | disposition home or self-care (01) ==
LOC: LAB 09:50
PROVIDERS: PCP Family Medicine; Referring Provider Physician Assistant Medical; Visit Provider Physician Assistant Medical
DX: E78.5 Hyperlipidemia, unspecified (principal); Z86.73 Personal history of transient ischemic attack (TIA), and cerebral infarction without residual deficits
CPT/HCPCS: 36415; 80053; 80061

== ENCOUNTER → 2025-01-26 | Outpatient (CLI) | payer MEDICARE, MEDICAID, SELFPAY ==
[2020-02-06 11:26] VITALS: BMI 36.5
--- NOTE | 2025-01-26 08:42 | CDU_ITS ---
Reason For Study Reason For Study: CVA Rt. Velocities/BP Lt. Velocities/BP Prox CCA 88.1/6.9 cm/sec. Prox CCA 128.4/9.7 cm/sec. Mid CCA 78.7/12.6 cm/sec. Mid CCA 80.9/7.9 cm/sec. Dist CCA 68.3/8.8 cm/sec. Dist CCA 76.5/5.3 cm/sec. Prox ICA 87.6/15.1 cm/sec. Prox ICA 65/12.3 cm/sec. Mid ICA 97.4/21.2 cm/sec. Mid ICA 167.4./40.4 cm/sec. Dist ICA 89.4/16.3 cm/sec. Dist ICA 75.9/12.3 cm/sec. Rt. ICA/CCA = 1.24. Lt. ICA/CCA = 2.07. Prox ECA 152.5/10.8 cm/sec. Prox ECA 120.7/7.7 cm/sec. Rt. Vert. 64.2/13.9 cm/sec. Lt. Vert. 67.2/10.1 cm/sec. Right Extracranial There is intimal thickening but no significant atherosclerotic plaque noted in the right common carotid artery. There is heterogeneous, irregular atherosclerotic plaque noted in the right internal carotid artery. There is intimal thickening but no significant atherosclerotic plaque noted in the right external carotid artery. Antegrade flow is noted in the right vertebral artery. Left Extracranial There is homogeneous, smooth atherosclerotic plaque noted in the left common carotid artery. The left internal carotid artery is not adequately visualized to characterize plaque. Left ICA technically difficult to visualize, color doppler used to identify ICA. There is intimal thickening but no significant atherosclerotic plaque noted in the left external carotid artery. Antegrade flow is noted in the left vertebral artery. Procedure Carotid Duplex [id number]. This is a Carotid Duplex examination using B-mode, color flow and specral Doppler. The study was technically difficult. Exam performed in department. VL/Carotid Duplex Ultrasound Interpretation Summary Mild (<50%) stenosis right extracranial internal carotid. Moderate (50-69%) stenosis left extracranial internal carotid. Patent and antegrade vertebrals bilaterally. Ordering Physician: Tabatha Donovan Referring Physician: Aldo Fierro Performed By: Ailyn Hamilton RVT
== END | disposition home or self-care (01) ==
LOC: CVS 08:40
PROVIDERS: PCP Family Medicine; Referring Provider Physician Assistant Medical; Visit Provider Physician Assistant Medical
DX: R09.89 Other specified symptoms and signs involving the circulatory and respiratory systems (principal); Z86.73 Personal history of transient ischemic attack (TIA), and cerebral infarction without residual deficits
CPT/HCPCS: 93880